=== PATIENT | female | born 1960 | race Caucasian/White ===

== ENCOUNTER 2018-05-26 09:46 | Emergency (ER) | payer MEDICARE, MEDICAID ==
[~2018-05-26] VITALS: Ht 162.6 cm; Wt 68.0 kg
[~2018-05-26 09:46] MED LIST: ALPR.25T GT; AMIT50TA3 PO; CITA10TA GT; HYDR-3720 PO; TRIA1TAB3 PO
--- OUTSIDE RECORDS SUMMARY | 2018-05-26 09:52 | XMS REPORT ---
Author Author [facility] [employer] [facility] Medical Staff Organization [facility] Address [address] [place], [place] [address] Phone [phone] Care Team Providers Care Compressed Gas Plant Worker Name Role Phone STEPHEN SAMS MD PP [phone] Summary purpose TRANSITION OF CARE AUTO GENERATION Chief Complaint and Reason for Visit No authorized Reason for Visit (Admitting Diagnosis) is available for this visit. Problem list No authorized problems tracked for continuity of care are available for this visit. Encounters No authorized problems tracked for encounter diagnoses are available for this visit. Medications No medications recorded for this patient visit Allergies, adverse reactions, alerts Allergen Category Ingredient Status Reaction Severity Onset Sulfa (Sulfonamide Antibiotics) Drug Allergy Sulfa (Sulfonamide Antibiotics) Confirmed or Verified Immunizations No immunizations recorded for this patient visit Relevant diagnostic tests and/or laboratory data No authorized results are available for this patient visit History of procedures No procedures recorded for this patient visit. Functional status No functional or cognitive status observations are available for this visit. Vital signs No authorized vital signs are available for this visit. Social history No Social History or smoking status observations were recorded for this visit. ( Unknown if ever smoked.) Treatment Plan No treatment plan text is available for this visit. Hospital discharge instructions No discharge instruction text is available for this visit.
--- OUTSIDE RECORDS SUMMARY | 2018-05-26 09:52 | XMS REPORT ---
Author Author [facility] [employer] [facility] Medical Staff Organization [facility] Address [address], [place] [address] Phone [phone] Care Team Providers Care Surplus Property Disposal Agent Name Role Phone STEPHEN SAMS MD, PP [phone] Summary purpose TRANSITION OF CARE AUTO GENERATION [...]
--- OUTSIDE RECORDS SUMMARY | 2018-05-26 09:52 | XMS REPORT ---
Author Author Gina [facility] [employer] [facility] Medical Staff Organization [facility] Address [address] [place], [place] [address] Phone [phone] Care Team Providers Care Pipe Fitter Maintenance Name Role Phone STEPHEN SAMS MD PP [phone] Summary purpose TRANSITION OF CARE AUTO GENERATION [...]
--- OUTSIDE RECORDS SUMMARY | 2018-05-26 09:53 | XMS REPORT ---
Author Author [facility] [employer] [facility] Medical Staff Organization [facility] Address [address], [place] [address] Phone [phone] Care Team Providers Care Metal Pattern Maker Name Role Phone STEPHEN SAMS MD PP [phone] Summary purpose TRANSITION OF CARE AUTO GENERATION [...]
--- OUTSIDE RECORDS SUMMARY | 2018-05-26 09:53 | XMS REPORT ---
Author Author [facility] Medical Staff Organization [facility] Address [address] [place], [place] [address] Phone [phone] Summary purpose TRANSITION OF CARE AUTO GENERATION [...] visit Relevant diagnostic tests and/or laboratory data RESULTS Routine Urinalysis [id number]:25:00 Result Normal Range Units Color Straw PATIENT NAME MAYBE UPDATED TO LEAH . Clarity Clear PATIENT NAME MAYBE UPDATED TO LEAH SOON. Specific [place] 1.003 PATIENT NAME MAYBE UPDATED TO LEAH . Refractometer Result pH 5.5 4.5-8.0 PATIENT NAME MAYBE UPDATED TO LEAH SOON. Glucose NEGATIVE PATIENT NAME MAYBE UPDATED TO LEAH SOON. Bilirubin NEGATIVE PATIENT NAME MAYBE UPDATED TO LEAH . Ketones NEGATIVE PATIENT NAME MAYBE UPDATED TO LEAH SOON. Protein NEGATIVE PATIENT NAME MAYBE UPDATED TO LEAH . Urobilinogen 0.2 0-0.2 E.U./dL PATIENT NAME MAYBE UPDATED TO LEAH SOON. Nitrites NEGATIVE PATIENT NAME MAYBE UPDATED TO LEAH SOON. Blood NEGATIVE PATIENT NAME MAYBE UPDATED TO LEAH . Leukocytes NEGATIVE PATIENT NAME MAYBE UPDATED TO LEAH SOON. WBCs No WBC's Seen PATIENT NAME MAYBE UPDATED TO LEAH SOON. RBCs No RBC's Seen. PATIENT NAME MAYBE UPDATED TO LEAH SOON. Squamous Epithelial Few PATIENT NAME MAYBE UPDATED TO LEAH . Chemistry [id number]:55:00 Result Normal Range Units Sodium 136 134-145 mEq/l PATIENT NAME MAYBE UPDATED TO SOON. PATIENT NAME MAYBE UPDATED TO SOON. PATIENT NAME MAYBE UPDATED TO SOON. Potassium 5.0 3.5-5.1 mEq/l PATIENT NAME MAYBE UPDATED TO LEAH SOON. PATIENT NAME MAYBE UPDATED TO LEAH SOON. PATIENT NAME MAYBE UPDATED TO SOON. Chloride 100 98-107 mEq/l PATIENT NAME MAYBE UPDATED TO LEAH SOON. PATIENT NAME MAYBE UPDATED TO LEAH SOON. PATIENT NAME MAYBE UPDATED TO LEAH SOON. CO2 26.6 22-28 mEq/l PATIENT NAME MAYBE UPDATED TO LEAH SOON. PATIENT NAME MAYBE UPDATED TO LEAH SOON. PATIENT NAME MAYBE UPDATED TO LEAH SOON. Glucose 99 70-105 mg/dl PATIENT NAME MAYBE UPDATED TO LEAH SOON. PATIENT NAME MAYBE UPDATED TO LEAH SOON. PATIENT NAME MAYBE UPDATED TO LEAH SOON. BUN 9 7-18 mg/dl PATIENT NAME MAYBE UPDATED TO LEAH SOON. PATIENT NAME MAYBE UPDATED TO LEAH SOON. PATIENT NAME MAYBE UPDATED TO LEAH SOON. Creatinine 0.71 0.6-1.0 mg/dl PATIENT NAME MAYBE UPDATED TO LEAH SOON. PATIENT NAME MAYBE UPDATED TO SOON. PATIENT NAME MAYBE UPDATED TO SOON. Calcium 9.0 8.4-10.2 mg/dl PATIENT NAME MAYBE UPDATED TO LEAH SOON. PATIENT NAME MAYBE UPDATED TO LEAH SOON. PATIENT NAME MAYBE UPDATED TO SOON. TP - Total Protein 7.7 6.0-8.3 g/dl PATIENT NAME MAYBE UPDATED TO LEAH SOON. PATIENT NAME MAYBE UPDATED TO LEAH SOON. PATIENT NAME MAYBE UPDATED TO LEAH SOON. Albumin 4.1 3.5-5 g/dl PATIENT NAME MAYBE UPDATED TO LEAH SOON. PATIENT NAME MAYBE UPDATED TO LEAH SOON. PATIENT NAME MAYBE UPDATED TO SOON. Bilirubin - Total 0.4 0.1-1.0 mg/dl PATIENT NAME MAYBE UPDATED TO LEAH SOON. PATIENT NAME MAYBE UPDATED TO LEAH SOON. PATIENT NAME MAYBE UPDATED TO LEAH SOON. AST 25 10-42 IU/L PATIENT NAME MAYBE UPDATED TO LEAH SOON. Moderate Lipemia ALT 35 12-65 IU/L PATIENT NAME MAYBE UPDATED TO LEAH SOON. PATIENT NAME MAYBE UPDATED TO LEAH SOON. PATIENT NAME MAYBE UPDATED TO SOON. ALP H 85 25-72 IU/L PATIENT NAME MAYBE UPDATED TO SOON. PATIENT NAME MAYBE UPDATED TO LEAH SOON. PATIENT NAME MAYBE UPDATED TO SOON. Osmolality L 270.7 280-300 mOsm/L PATIENT NAME MAYBE UPDATED TO LEAH SOON. PATIENT NAME MAYBE UPDATED TO LEAH SOON. PATIENT NAME MAYBE UPDATED TO LEAH SOON. Albumin/Globulin Ratio 1.1 0-8 PATIENT NAME MAYBE UPDATED TO LEAH SOON. PATIENT NAME MAYBE UPDATED TO LEAH SOON. PATIENT NAME MAYBE UPDATED TO SOON. Anion GAP 9.4 8-16 PATIENT NAME MAYBE UPDATED TO SOON. PATIENT NAME MAYBE UPDATED TO LEAH SOON. PATIENT NAME MAYBE UPDATED TO LEAH SOON. BUN/Creatinine Ratio 12.7 10-20 PATIENT NAME MAYBE UPDATED TO SOON. PATIENT NAME MAYBE UPDATED TO SOON. PATIENT NAME MAYBE UPDATED TO SOON. Estimated GFR 85 >=60 mL/min/1.7 PATIENT NAME MAYBE UPDATED TO SOON. PATIENT NAME MAYBE UPDATED TO SOON. PATIENT NAME MAYBE UPDATED TO SOON. Hematology [id number]:55:00 Result Normal Range Units WBC 9.7 4.8-10.8 103/uL PATIENT NAME MAYBE UPDATED TO SOON. RBC 4.6 4.2-5.4 106/uL PATIENT NAME MAYBE UPDATED TO SOON. HGB 14.6 12.0-16.0 g/dl PATIENT NAME MAYBE UPDATED TO SOON. HCT 41.8 36.9-47.0 % PATIENT NAME MAYBE UPDATED TO SOON. MCV 90.1 81-99 FL PATIENT NAME MAYBE UPDATED TO SOON. MCH H 31.5 27-31 pg PATIENT NAME MAYBE UPDATED TO SOON. MCHC 34.9 33-37 g/dl PATIENT NAME MAYBE UPDATED TO SOON. RDW 13.3 11.5-15.5 % PATIENT NAME MAYBE UPDATED TO SOON. PLT H 470 130-400 103/uL PATIENT NAME MAYBE UPDATED TO SOON. MPV 9.2 7.3-10.4 FL PATIENT NAME MAYBE UPDATED TO LEAH SOON. Neutro % 58.0 40-70 % PATIENT NAME MAYBE UPDATED TO LEAH SOON. Lymph % 30.9 20-40 % PATIENT NAME MAYBE UPDATED TO LEAH SOON. [place] % 8.3 0-10.0 % PATIENT NAME MAYBE UPDATED TO LEAH SOON. Eos % 1.1 0-7.0 % PATIENT NAME MAYBE UPDATED TO LEAH SOON. Baso % 1.3 0-2 % PATIENT NAME MAYBE UPDATED TO LEAH SOON. Neutro # 5.6 1.5-7.5 103/uL PATIENT NAME MAYBE UPDATED TO LEAH SOON. Lymph # 3.0 0.9-4.0 103/uL PATIENT NAME MAYBE UPDATED TO LEAH SOON. [place] # 0.8 0-0.8 103/uL PATIENT NAME MAYBE UPDATED TO LEAH SOON. Eos # 0.1 0-0.6 103/uL PATIENT NAME MAYBE UPDATED TO LEAH SOON. Baso # 0.1 0-0.1 103/uL PATIENT NAME MAYBE UPDATED TO LEAH SOON. Body Fluid [id number]:25:00 Result Normal Range Units pH 5.5 4.5-8.0 PATIENT NAME MAYBE UPDATED TO LEAH SOON. Radiology Results [id number]:51:00 CT C-SPINE W/O CONT PACs Image DATE OF EXAM: Jul 24 2015 [id number] CERVICAL SPINE WO CONTRAST : RADIOLOGY REPORT DATE OF SERVICE: 07/24/15 HISTORY: Status post fall 2 days ago, headache and nausea. COMPUTED TOMOGRAPHY CERVICAL SPINE WITHOUT CONTRAST 1345 HOURS Axial images were obtained with sagittal and coronal reformats. The axial images do not show evidence of acute pathology. There is arthritic change involving facets bilaterally. No significant compromise of neural foramen or spinal canal is seen. The odontoid is intact. There is intervertebral narrowing and disc degeneration mild C5-C6, C6-C7 level. The facets show arthritic change C3 through C7 mild to moderate. No fracture is defined. No soft tissue abnormalities are demonstrated. Normal alignment and position vertebral bodies demonstrated. IMPRESSION: 1. Mild to moderate osteoarthritis. 2. No fracture. DO ANUPAMA Rodriguez/xuan 07/24/2015 14:11:00 / 07/24/2015 14:31:27 cc: This document has been electronically Signed by: On: CT HEAD W/O CONT PACs Image DATE OF EXAM: Jul 24 2015 [id number] HEAD WO CONTRAST : RADIOLOGY REPORT DATE OF SERVICE: 07/24/15 HISTORY: Status post fall 2 days ago, headache and nausea. COMPUTED TOMOGRAPHY HEAD WITHOUT CONTRAST AND WITH BONE WINDOWS 1344 HOURS Axial images were evaluated. No active or acute intracranial pathology can be seen. The ventricles and sulci appear normal. Physiologic calcifications are minimally present. No hemorrhage is defined. No abnormal extra-axial fluid collections are demonstrated. The bony windows do not show evidence of active pathology. The sinuses are clear as seen. The frontal sinus is atrophic. Mastoid cells are clear. IMPRESSION: Normal study. Paxton Mcclendon DO WP/nh 07/24/2015 14:11:00 / 07/24/2015 14:29:45 cc: This document has been electronically Signed by: On: [id number]:55:00 Result Normal Range Units MPV 9.2 7.3-10.4 FL PATIENT NAME MAYBE UPDATED TO LEAH LILY. History of procedures No procedures recorded for this patient visit. Functional status Functional Status Finding Observation Time Abdomen Appearance round [id number]:05 Abdomen soft 50-59-615463:05 Urination normal :05 Quality sym/unlabored :05 Cough absent :05 Secretions no :05 Airway natural :05 Oxygen no :25 Temp >100.4 no :05 Temp <96.8 no :05 Chills with rigors no :05 HR > 90bpm no :05 Respirations > 20 no :05 Systolic <90 no 91-22-024765:05 headache stiff neck no :05 Rapid Resp no 00-02-984517:05 Nursing Note Discharge instructions given, voices understanding. Report from [facility] er visit received, placed in file. HIM corrected per pt to include her regular physician, Dr Hyatt. Pt denies concerns. Amb off unit in good condition. [id number]:25 Vital signs Type Value Date Respiration Rate 18breaths per minute :25 Pulse 83beats per minute :25 Oxygen Saturation 98% 76-26-401627:25 BP Systolic 126mmHg :25 BP Diastolic 69mmHg 48-83-872408:25 Temperature 98.3F :25 Weight 152LB :46 Social history No Social History or smoking status observations were recorded for this visit. ( Unknown if ever smoked.) Treatment Plan No treatment plan text is available for this visit. Hospital discharge instructions Dismissal Condition good Disposition on DC home DC Inst/Educ Give yes Med/Side Effects Rev yes Tetanus Vac not current
--- OUTSIDE RECORDS SUMMARY | 2018-05-26 09:53 | XMS REPORT ---
Author Author [facility] Medical Staff Organization [facility] Address [address] [place], [place] [address] Phone [phone] Summary purpose TRANSITION OF CARE AUTO GENERATION [...] tests and/or laboratory data RESULTS Routine Urinalysis [id number]:25:00 Result Normal Range Units Color Straw PATIENT NAME MAYBE UPDATED TO LEAH . Clarity Clear PATIENT NAME MAYBE UPDATED TO LEAH SOON. Specific [place] 1.003 PATIENT NAME MAYBE UPDATED TO LEAH . Refractometer Result pH 5.5 4.5-8.0 PATIENT NAME MAYBE UPDATED TO LEAH SOON. Glucose NEGATIVE PATIENT NAME MAYBE UPDATED TO LEAH . Bilirubin NEGATIVE PATIENT NAME MAYBE UPDATED TO LEAH . Ketones NEGATIVE PATIENT NAME MAYBE UPDATED TO LEAH SOON. Protein NEGATIVE PATIENT NAME MAYBE UPDATED TO LEAH . Urobilinogen 0.2 0-0.2 E.U./dL PATIENT NAME MAYBE UPDATED TO LEAH . Nitrites NEGATIVE PATIENT NAME MAYBE UPDATED TO LEAH SOON. Blood NEGATIVE PATIENT NAME MAYBE UPDATED TO LEAH . Leukocytes NEGATIVE PATIENT NAME MAYBE UPDATED TO LEAH SOON. WBCs No WBC's Seen PATIENT NAME MAYBE UPDATED TO LEAH SOON. RBCs No RBC's Seen. PATIENT NAME MAYBE UPDATED TO LEAH SOON. Squamous Epithelial Few PATIENT NAME MAYBE UPDATED TO LEAH . Chemistry [id number]:55:00 Result Normal Range Units Sodium 136 134-145 [...] PATIENT NAME MAYBE UPDATED TO SOON. Hematology [id number]:55:00 Result Normal Range Units WBC 9.7 4.8-10.8 [...] PATIENT NAME MAYBE UPDATED TO LEAH SOON. [place] % 8.3 0-10.0 % PATIENT NAME MAYBE UPDATED TO LEAH SOON. Eos % 1.1 0-7.0 % PATIENT NAME MAYBE UPDATED TO LEAH SOON. Baso % 1.3 0-2 % PATIENT NAME MAYBE UPDATED TO LEAH SOON. Neutro # 5.6 1.5-7.5 103/uL PATIENT NAME MAYBE UPDATED TO LEAH SOON. Lymph # 3.0 0.9-4.0 103/uL PATIENT NAME MAYBE UPDATED TO LEAH SOON. [place] # 0.8 0-0.8 103/uL PATIENT NAME MAYBE UPDATED TO LEAH SOON. Eos # 0.1 0-0.6 103/uL PATIENT NAME MAYBE UPDATED TO LEAH SOON. Baso # 0.1 0-0.1 103/uL PATIENT NAME MAYBE UPDATED TO LEAH SOON. Body Fluid [id number]:25:00 Result Normal Range Units pH 5.5 4.5-8.0 PATIENT NAME MAYBE UPDATED TO LEAH SOON. Radiology Results [id number]:21:00 CT C-SPINE W/O CONT PACs Image DATE OF EXAM: Jul 24 2015 [id number] CERVICAL SPINE WO CONTRAST : RADIOLOGY REPORT [...] document has been electronically Signed by: On: DATE OF EXAM: Jul 24 2015 [id number] CERVICAL SPINE WO CONTRAST : RADIOLOGY REPORT [...] Mild to moderate osteoarthritis. 2. No fracture. Paxton Mcclendon DO /nd 07/24/2015 14:11:07/24/2015 14:31:27 cc: This document has been electronically Signed by: PAXTON MCCLENDON DO On: Jul 25 20159:21A Result Amended on 2015-07-25 at 09:21:12. Previous status was CO. CT HEAD W/O CONT PACs Image DATE OF EXAM: Jul 24 2015 [id number] HEAD WO CONTRAST : RADIOLOGY REPORT DATE [...] clear. IMPRESSION: Normal study. Paxton Mcclendon DO WP/nd 07/24/2015 14:11: / 07/24/2015 14:29:45 cc: This document has been electronically Signed by: On: DATE OF EXAM: Jul 24 2015 [id number] HEAD WO CONTRAST : RADIOLOGY REPORT DATE [...] This document has been electronically Signed by: PAXTON MCCLENDON DO On: Jul 25 20159:21A Result Amended on 2015-07-25 at 09:21:05. Previous status was CO. [id number]:55:00 Result Normal Range Units MPV 9.2 7.3-10.4 FL PATIENT NAME MAYBE UPDATED TO LEAH LILY. History of procedures Procedure Code Code Type Description Date Performed Performing Physician 48771 CPT-4 ROUTINE VENIPUNCTURE 07-24-2015 KAYLA FIDEL 00072 CPT-4 CT HEAD/BRAIN W/O DYE 07-24-2015 KAYLA FIDEL 21761 CPT-4 CT NECK SPINE W/O DYE 07-24-2015 KAYLA FIDEL 33382 CPT-4 COMPREHEN METABOLIC PANEL 07-24-2015 KAYLA FIDEL 24932 CPT-4 URINALYSIS, AUTO W/SCOPE 07-24-2015 KAYLA FIDEL 48525 CPT-4 COMPLETE CBC W/AUTO DIFF WBC 07-24-2015 KAYLA FIDEL 21685 CPT-4 EMERGENCY DEPT VISIT 07-24-2015 KAYLA FIDEL 65664 CPT-4 EMERGENCY DEPT VISIT 07-24-2015 KAYLA FIDEL Functional status Functional Status Finding Observation Time Abdomen Appearance round 63-64-499806:05 Abdomen soft 26-62-123142:05 Urination normal :05 Quality sym/unlabored :05 Cough absent :05 Secretions no :05 Airway natural :05 Oxygen no 86-57-036678:25 Temp >100.4 no :05 Temp <96.8 no :05 Chills with rigors no :05 HR > 90bpm no :05 Respirations > 20 no :05 Systolic <90 no :05 headache stiff neck no :05 Rapid Resp no :05 Nursing Note Discharge instructions given, voices understanding. Report from [facility] er visit received, placed in file. HIM corrected per pt to include her regular physician, Dr Hyatt. Pt denies concerns. Amb off unit in good condition. [id number]:25 Vital signs Type Value Date Respiration Rate 18breaths per minute : Pulse 83beats per minute : Oxygen Saturation 98% :25 BP Systolic 126mmHg :25 BP Diastolic 69mmHg :25 Temperature 98.3F :25 Weight 152LB :46 Social [...]
--- OUTSIDE RECORDS SUMMARY | 2018-05-26 09:53 | XMS REPORT ---
Author Author [facility] [employer] [facility] Medical Staff Organization [facility] Address [address], [place] [address] Phone [phone] Care Team Providers Care Equine Intern Name Role Phone STEPHEN SAMS MD PP [phone] Summary purpose TRANSITION OF CARE AUTO GENERATION [...]
--- OUTSIDE RECORDS SUMMARY | 2018-05-26 09:53 | XMS REPORT ---
Author Author [employer] [facility] Medical Staff Organization [facility] Address [address], [place] [address] Phone [phone] Care Team Providers Care Head Athletic Trainer/Strength Coach Name Role Phone STEPHEN SAMS MD, PP [phone] Summary purpose TRANSITION OF CARE AUTO GENERATION [...] for this patient visit History of procedures Procedure Code Code Type Description Date Performed Performing Physician 14586 CPT-4 PT EVALUATION 10-08-2015 STEPHEN SAMS 33766 CPT-4 ELECTRIC STIMULATION THERAPY 10-10-2015 STEPHEN SAMS 63779 CPT-4 MANUAL THERAPY 10-10-2015 STEPHEN SAMS Functional status No functional or cognitive status [...]
--- OUTSIDE RECORDS SUMMARY | 2018-05-26 09:53 | XMS REPORT ---
Author Author [facility] [employer] [facility] Medical Staff Organization [facility] Address [address], [place] [address] Phone [phone] Care Team Providers Care Flat Knitter Name Role Phone STEPHEN SAMS MD, PP [phone] Summary purpose TRANSITION OF CARE AUTO GENERATION [...]
--- OUTSIDE RECORDS SUMMARY | 2018-05-26 09:54 | XMS REPORT ---
Author Author Saleem Van [facility] [employer] Address Unknown Phone Unavailable Care Team Providers Care Produce Specialist Name Role Phone Saleem Van Unavailable Allergies, Adverse Reactions, Alerts Substance Reaction Event Type Sulfa Info Not Available Drug Allergy Problems Problem Type Condition Code Onset Dates Condition Status Problem C. difficile colitis A04.7 Active Problem Diverticulosis of colon (without mention of hemorrhage) 562.10 Active Problem Peptic ulcer disease K27.9 Active Assessment Microscopic colitis, unspecified K52.839 Active Problem Diarrhea, unspecified type R19.7 Active Problem Positive serology for Helicobacter pylori R76.8 Active Problem Microscopic colitis, unspecified K52.839 Active Problem Hepatitis C carrier V02.62 Active Problem Diarrhea 787.91 Active Problem Left sided abdominal pain R10.9 Active Problem Chronic hepatitis C without hepatic coma B18.2 Active Medications Medication Code System Code Instructions Start Date End Date Status Dosage Amitriptyline HCl [facility] [address]-13 100 MG Orally Once a day 1 tablet at bedtime Alprazolam [facility] [address]-77 1 MG Orally Three times a day 1 tablet Oxycodone-Acetaminophen [facility] [address]-84 10-325 MG Orally Three times a day 1 tablet as needed Simvastatin [facility] [address]-24 20 MG Orally Once a day 1 tablet in the evening Lisinopril [facility] [address]-45 10 MG Orally Once a day 1 tablet Cymbalta [facility] [address]-41 60 MG Orally Once a day 1 capsule Entocort EC [facility] [address]-19 3 MG Orally Once a day Apr 23, 2016 3 tablets Procedures Procedure Coding System Code Date DOC MEDS VERIFIED W/PT OR RE CPT-4 G8427 Jun 03, 2016 Office Visit, Est Pt., Level 3 CPT-4 75895 Jun 03, 2016 Vital Signs Date/Time: Jun 03, 2016 Blood Pressure Diastolic 68 mm Hg Blood Pressure Systolic 133 mm Hg Cardiac Monitoring Heart Rate 88 /min BMI 22.71 Index Weight 145 lbs Height 67 in Results No Known Results Summary Purpose eClinicalWorks Submission
--- OUTSIDE RECORDS SUMMARY | 2018-05-26 09:54 | XMS REPORT ---
Author Author DIANNA CERDA [facility] Address [address] [place] [address] Care Team Providers Care Town Manager Name Role Phone DIANNA CERDA Unavailable PROBLEMS Unknown Problems ALLERGIES Substance Reaction Event Type Date Status Sulfacetamide Sodium Unknown Drug Allergy Jul, Active SOCIAL HISTORY No smoking Hx information available PLAN OF CARE Activity Details Follow Up REST #11 Reason: VITAL SIGNS Blood pressure systolic 137 mmHg 2016-07-19 Blood pressure diastolic 92 mmHg 2016-07-19 MEDICATIONS Medication Instructions Dosage Frequency Start Date End Date Duration Status Amitriptyline HCl Active Hydrocodone-Acetaminophen 10-325 MG Orally every 6 hrs 1 capsule as needed 6h Active Xanax Active Triamterene-HCTZ Active RESULTS No Results PROCEDURES Procedure Date Ordered Related Diagnosis Body Site LTD ORAL EVALUATION - PROBLEM FOCUS Jul 19, 2016 INTRAORL-PERIAPICAL 1 FILM 64046 Jul 19, 2016 EXTRAC ERUPTED TOOTH/EXPOSED ROOT Jul 19, 2016 IMMUNIZATIONS No Known Immunizations
--- OUTSIDE RECORDS SUMMARY | 2018-05-26 09:54 | XMS REPORT ---
Author Author Saleem Van [facility] eClinicalWorks Address Unknown Phone Unavailable Care Team Providers Care Central Office Trouble Shooter Name Role Phone Saleem Van CP Unavailable Allergies No Known Allergies Problems Problem Type Condition Code Onset Dates Condition Status Problem Peptic ulcer disease K27.9 Active Problem C. difficile colitis A04.7 Active Problem Positive serology for Helicobacter pylori R76.8 Active Problem Left sided abdominal pain R10.9 Active Problem Diarrhea, unspecified type R19.7 Active Problem Diarrhea 787.91 Active Problem Diverticulosis of colon (without mention of hemorrhage) 562.10 Active Problem Chronic hepatitis C without hepatic coma B18.2 Active Problem Hepatitis C carrier V02.62 Active Medications No Known Medications Results No Known Results Summary Purpose eClinicalWorks Submission
--- OUTSIDE RECORDS SUMMARY | 2018-05-26 09:54 | XMS REPORT ---
Author Author DIANNA CERDA [facility] eClinicalWorks Address Unknown Phone Unavailable Care Team Providers Care Station Manager Name Role Phone DIANNA CERDA CP Unavailable Allergies, Adverse Reactions, Alerts Substance Reaction Event Type Sulfacetamide Sodium Info Not Available Drug Allergy Problems Problem Type Condition Code Onset Dates Condition Status Assessment Dental examination Z01.20 Active Medications Medication Code System Code Instructions Start Date End Date Status Dosage [place] [facility] [address]-33 7.5-325 MG Orally every4- 6 hrs 1-2 tablets Triamterene-HCTZ [facility] [address]-00 not defined Xanax [facility] [address]-16 not defined Amitriptyline HCl [facility] [address]-04 not defined Fentanyl [facility] [address]-13 25 MCG/HR Transdermal 1 patch to skin Clindamycin HCl [facility] [address]-46 150 MG Orally every 8 hrs 2 capsules Hydrocodone-Acetaminophen [facility] [address]-47 10-325 MG Orally every 6 hrs 1 capsule as needed Procedures Procedure Coding System Code Date Dental no charge CPT-4 D0099 Mar 09, 2016 Vital Signs Date/Time: Mar 09, 2016 Blood Pressure Diastolic 68 mmHg Blood Pressure Systolic 118 mmHg Results No Known Results Summary Purpose eClinicalWorks Submission
--- OUTSIDE RECORDS SUMMARY | 2018-05-26 09:54 | XMS REPORT ---
Author Author DIANNA CERDA [facility] eClinicalWorks Address Unknown Phone Unavailable Care Team Providers Care Container Washer Machine Name Role Phone DIANNA CERDA CP Unavailable Allergies, Adverse Reactions, Alerts Substance Reaction Event Type Sulfacetamide Sodium Info Not Available Drug Allergy Problems Problem Type Condition Code Onset Dates Condition Status Assessment Dental examination Z01.20 Active Medications Medication Code System Code Instructions Start Date End Date Status Dosage Hydrocodone-Acetaminophen [facility] [address]-33 10-325 MG Orally every 6 hrs 1 capsule as needed Fentanyl [facility] [address]-51 25 MCG/HR Transdermal 1 patch to skin Xanax [facility] [address]-82 not defined Triamterene-HCTZ [facility] [address]-34 not defined Amitriptyline HCl [facility] [address]-27 not defined [place] [facility] [address]-05 7.5-325 MG Orally every4- 6 hrs 1-2 tablets Clindamycin HCl [facility] [address]-48 150 MG Orally every 8 hrs 2 capsules Procedures Procedure Coding System Code Date EXTRAC ERUPTED TOOTH/EXPOSED ROOT CPT-4 D7140 Feb 16, 2016 Billing Notes on claim CPT-4 EC109 Feb 16, 2016 EXTRAC ERUPTED TOOTH/EXPOSED ROOT CPT-4 D7140 Feb 16, 2016 Vital Signs Date/Time: Feb 16, 2016 Blood Pressure Diastolic 70 mmHg Blood Pressure Systolic 116 mmHg Results No Known Results Summary Purpose eClinicalWorks Submission
--- OUTSIDE RECORDS SUMMARY | 2018-05-26 09:54 | XMS REPORT ---
Author Author Saleem Van [facility] eClinicalWorks Address Unknown Phone Unavailable Care Team Providers Care Public Housing Manager Name Role Phone Saleem Van CP Unavailable [...] Problem Hepatitis C carrier V02.62 Active Medications Medication Code System Code Instructions Start Date End Date Status Dosage Entocort EC [facility] [address]-28 3 MG Orally Once a day Apr 23, 2016 3 tablets Results No Known Results Summary Purpose eClinicalWorks Submission
--- OUTSIDE RECORDS SUMMARY | 2018-05-26 09:54 | XMS REPORT ---
Author Author Saleem Van Organization eClinicalWorks Address Unknown Phone Unavailable Care Team Providers Care Hr Payroll Coordinator Name Role Phone Saleem Van CP Unavailable Allergies No Known Allergies Problems Problem Type Condition Code Onset Dates Condition Status Assessment Left sided abdominal pain R10.9 Active Problem Peptic ulcer disease K27.9 Active Problem C. difficile colitis A04.7 Active Assessment Diarrhea, unspecified type R19.7 Active Problem Positive [...] Instructions Start Date End Date Status Dosage Oxycodone-Acetaminophen [facility] [address]-13 10-325 MG Orally Three times a day 1 tablet as needed Alprazolam [facility] [address]-81 1 MG Orally Three times a day 1 tablet Results Name Result Date Reference Range Unit Abnormality Flag t-Transglutaminase (tTG) IgA Surgical to [facility] Pathology ----Pathologist: See Report [id number] Summary Purpose eClinicalWorks Submission
--- OUTSIDE RECORDS SUMMARY | 2018-05-26 09:54 | XMS REPORT ---
Author Author Saleem Van [facility] eClinicalWorks Address Unknown Phone Unavailable Care Team Providers Care Rrts Name Role Phone Saleem Van CP Unavailable Allergies, Adverse Reactions, Alerts Substance Reaction Event Type Sulfa Info Not Available Drug Allergy Problems Problem Type Condition Code Onset Dates Condition Status Assessment Diarrhea, unspecified type R19.7 Active Problem Peptic ulcer disease K27.9 Active Problem C. difficile colitis A04.7 Active Problem Positive serology for Helicobacter pylori R76.8 Active Problem Left sided abdominal pain R10.9 Active Problem Diarrhea, unspecified type R19.7 Active Problem Diarrhea 787.91 Active Problem Diverticulosis of colon (without mention of hemorrhage) 562.10 Active Problem Chronic hepatitis C without hepatic coma B18.2 Active Problem Hepatitis C carrier V02.62 Active Assessment Chronic hepatitis C without hepatic coma B18.2 Active Assessment Left sided abdominal pain R10.9 Active Assessment Positive serology for Helicobacter pylori R76.8 Active Assessment C. difficile colitis A04.7 Active Medications Medication Code System Code Instructions Start Date End Date Status Dosage Oxycodone-Acetaminophen [facility] [address]-30 10-325 MG Orally Three times a day 1 tablet as needed Alprazolam [facility] [address]-59 1 MG Orally Three times a day 1 tablet Procedures Procedure Coding System Code Date Office Visit, New Pt., Level 4 CPT-4 97307 Apr 08, 2016 Vital Signs Date/Time: Apr 08, 2016 Blood Pressure Diastolic 67 mm Hg Blood Pressure Systolic 128 mm Hg Cardiac Monitoring Heart Rate 72 /min Weight 145.8 lbs Results No Known Results Summary Purpose eClinicalWorks Submission
--- OUTSIDE RECORDS SUMMARY | 2018-05-26 09:54 | XMS REPORT ---
Author Author SHWETA PARTIDA Organization [facility] Address [address] [place] [address] Care Team Providers Care Corporate Affairs Manager Name Role Phone SHWETA PARTIDA Unavailable PROBLEMS Unknown Problems ALLERGIES Substance Reaction Event Type Date Status Sulfacetamide Sodium Unknown Drug Allergy Apr, Active ENCOUNTERS Encounter Location Date Diagnosis [facility] [address] [facility] [id number] [place] [address] Apr, Acute non-recurrent frontal sinusitis J01.10 [facility] [address] [place] [phone] Sep, [facility] [address] [place] [phone] Jul, [facility] [address] [place] [phone] Mar, [facility] [address] [place] [phone] Feb, Dental examination Z01.20 [facility] [address] [place] [phone] November, Dental examination Z01.20 IMMUNIZATIONS No Known Immunizations SOCIAL HISTORY Never Assessed REASON FOR VISIT Cough, headache, sore throat x10 days JStrasserRN PLAN OF CARE Activity Details Follow Up if not improving with PCP or reg follow up Reason: VITAL SIGNS Height 67 in 2018-04-22 Weight 149.8 lbs 2018-04-22 Temperature 98.3 degrees Fahrenheit 2018-04-22 Heart Rate 90 bpm 2018-04-22 Respiratory Rate 22 2018-04-22 Oximetry 95 % 2018-04-22 BMI 23.46 kg/m2 2018-04-22 Blood pressure systolic 100 mmHg 2018-04-22 Blood pressure diastolic 70 mmHg 2018-04-22 MEDICATIONS Medication Instructions Dosage Frequency Start Date End Date Duration Status Lisinopril Active Hydrocodone-Acetaminophen 10-325 MG Orally every 6 hrs 1 capsule as needed 6h Active Xanax Active Mucinex DM 30-600 MG Orally every 12 hrs 1 tablet as needed 12h Active Augmentin 875-125 MG Orally every 12 hrs 1 tablet 12h Apr,Apr 10 day(s) Active Amitriptyline HCl Active Triamterene-HCTZ Active Duloxetine HCl 20 MG Orally Twice a day 1 capsule 12h 30 day(s) Active Simvastatin 20 MG Orally Once a day 1 tablet in the evening 24h 30 day(s) Active RESULTS No Results PROCEDURES Procedure Date Ordered Result Body Site [facility] VIS[facility] NEW PATIENT Apr 22, 2018 INSTRUCTIONS MEDICATIONS ADMINISTERED No Known Medications MEDICAL (GENERAL) HISTORY Type Description Date Medical History HBP Medical History Arthritis Medical History Back trouble Medical History Neck Injury Surgical History Spleen Removed 2007 Hospitalization History Previous surgeries
--- OUTSIDE RECORDS SUMMARY | 2018-05-26 09:54 | XMS REPORT | Clinical Summary ---
Author Author Admin, vushaper Organization All Address Unknown Phone Unavailable Allergies, Adverse Reactions, Alerts Allergy Name Reaction Description Start Date Severity Status Provider SULFA itchy/rash Critical Active Sue Luque MD Conditions or Problems Problem Name Problem Code Onset Date Status Entry Date Provider Comment Standard Description Annotate U T I-Recurrent Active Sue Luque MD Urinary tract infection, site not specified Fecal incontinence 787.60 Active Sue Luque MD Full incontinence of feces Medication List Medication Instructions Start Date Stop Date Generic Name NDC Status Provider Patient Instruction Drug Treatment Unknown - unknown Vital Signs Date Name Value Unit Range Description blood pressure, diastolic - 8462-4 62 mm[Hg] BP terrell blood pressure, systolic - 8480-6 131 mm[Hg] BP sys height E&M - 8302-2 63 [in_us] Bdy height pulse rate E&M - 8867-4 87 /min Heart rate temperature E&M 98.6 [degF] Body temperature weight E&M - 3141-9 154 [lb_av] Weight Measured Diagnostic Results Date Name Value Unit Range Description Office Visit: CN-recurrent UTI - Chemistry RBC, urine, dipstick negative protein, total urine random negative mg/dL Office Visit: CN-recurrent UTI - Urinalysis pH, urine, semiquantitative 5 specific gravity, urine 1.010 ketones, urine, by test strip negative bilirubin, urine negative glucose, urine, semiquantitative negative urinalysis, routine Clean Catch culture status No urine color yellow appearance, urine clear leukocyte esterase, urine, by dipstick negative nitrite, urine, semiquantitative negative urobilinogen, urine, semiquantitative (dipstick) negative protein, urine, semiquantitative (dipstick) negative Encounters Code Encounter Date Provider Facility CPT-80182 Level 3 New Patient 14:49:13 CANCER GENETIC COUNSELOR Sue Luque MD [facility] Procedures Code Procedure Name Date Entry Date Standard Description CPT-97145 Urine Dip (Floor Use Only) 14:49:14 [employer]CER GENETIC COUNSELOR CPT-20581 Bladder Scan 14:49:14 CANCER GENETIC COUNSELOR
--- OUTSIDE RECORDS SUMMARY | 2018-05-26 09:55 | XMS REPORT | Continuity of Care Document ---
Author Author [facility] Organization [facility] Address Unknown Phone Unavailable Allergies Active Description Code Type Severity Reaction Onset Reported/Identified Relationship to Patient Clinical Status Yes Sulfa (Sulfonamide Antibiotics) 491 Drug Allergy N/A N/A Confirmed or Verified Yes sulfa drug 16 Drug N/A N/A Medications There is no data. Problems Date Dx Coded Attending Type Code Diagnosis Diagnosed By 12/28/2013 F 599.0 Urinary tract infection, unspec./pyuria 12/28/2013 F 787.91 Diarrhea, NOS 01/02/2014 F 338.29 OTHER CHRONIC PAIN 01/02/2014 F 723.1 CERVICALGIA 01/02/2014 F 787.91 Diarrhea, NOS 06/14/2014 F 338.29 OTHER CHRONIC PAIN 06/14/2014 F 729.5 Pain in limb 06/14/2014 F 787.91 Diarrhea, NOS 07/12/2014 F 338.4 CHRONIC PAIN SYSNDROME 07/12/2014 F V58.69 High-risk medication, long-term use 07/12/2014 F V68.1 ISSUE OF REPEAT PRESCRIPTIONS 08/01/2014 F 595.9 CYSTITIS, UNSPECIFIED 08/01/2014 F 599.0 Urinary tract infection, unspec./pyuria 08/13/2014 F 338.29 OTHER CHRONIC PAIN 08/13/2014 F 599.0 Urinary tract infection, unspec./pyuria 08/13/2014 F V58.69 High-risk medication, long-term use 08/13/2014 F V68.1 ISSUE OF REPEAT PRESCRIPTIONS 09/12/2014 ELLIOTT SHETTY 338.29 OTHER CHRONIC PAIN 10/15/2014 ELLIOTT SHETTY 300.00 Anxiety state, unspec. 10/15/2014 ELLIOTT SHETTY 338.4 CHRONIC PAIN SYSNDROME 10/15/2014 ELLIOTT SHETTY 727.1 BUNION 11/18/2014 ELLIOTT SHETTY 338.29 OTHER CHRONIC PAIN 11/18/2014 ELLIOTT SHETTY 787.91 Diarrhea, NOS 11/18/2014 ELLIOTT SHETTY V13.02 PERSONAL HISTORY, URINARY (TRACT) INFECTION 11/18/2014 ELLIOTT SHETTY V68.1 ISSUE OF REPEAT PRESCRIPTIONS 11/18/2014 ELLIOTT SHETTY 599.0 Urinary tract infection, unspec./pyuria 11/18/2014 ELLIOTT SHETTY V74.8 SCREEN-BACTERIAL DIS NEC 12/24/2014 ELLIOTT SHETTY 338.29 OTHER CHRONIC PAIN 12/24/2014 ELLIOTT SHETTY V68.1 ISSUE OF REPEAT PRESCRIPTIONS 01/27/2015 ELLIOTT SHETTY 338.29 OTHER CHRONIC PAIN 01/27/2015 ELLIOTT SHETTY 724.5 BACKACHE, UNSPECIFIED 01/27/2015 ELLIOTT SHETTY V58.69 High-risk medication, long-term use 01/27/2015 ELLIOTT SHETTY V68.1 ISSUE OF REPEAT PRESCRIPTIONS 03/04/2015 MIRYAM ZHAO 338.29 OTHER CHRONIC PAIN 03/04/2015 MIRYAM ZHAO V58.69 High-risk medication, long-term use 03/04/2015 MIRYAM ZHAO V68.1 ISSUE OF REPEAT PRESCRIPTIONS 03/26/2015 MIRYAM ZHAO 338.29 OTHER CHRONIC PAIN 03/26/2015 MIRYAM ZHAO 788.1 Dysuria 03/26/2015 MIRYAM ZHAO V58.69 High-risk medication, long-term use 03/26/2015 MIRYAM ZHAO V68.1 ISSUE OF REPEAT PRESCRIPTIONS 03/26/2015 MIRYAM ZHAO 788.1 Dysuria 03/26/2015 MIRYAM ZHAO 788.41 Urinary frequency 04/30/2015 MIRYAM ZHAO R30.0 Dysuria 04/30/2015 MIRYAM ZHAO R35.0 Frequency of micturition 04/30/2015 MIRYAM ZHAO G89.29 Other chronic pain 04/30/2015 MIRYAM ZHAO K58.9 Irritable bowel syndrome without diarrhea 04/30/2015 MIRYAM ZHAO R35.0 Frequency of micturition 04/30/2015 MIRYAM ZHAO Z76.0 Encounter for issue of repeat prescription 06/02/2015 STEPHEN SAMS G89.29 Other chronic pain 06/02/2015 STEPHEN SAMS K57.92 Diverticulitis of intestine, part unspecified, without perforation or abscess without bleeding 06/02/2015 STEPHEN SAMS Z76.0 Encounter for issue of repeat prescription 06/02/2015 STEPHEN SAMS Z79.891 assisted (current) use of opiate analgesic 06/02/2015 STEPHEN SAMS Z09 Encounter for follow-up examination after completed treatment for conditions other than malignant neoplasm 06/02/2015 STEPHEN SAMS Z87.448 Personal history of other diseases of urinary system 07/10/2015 STEPHEN SAMS E78.5 Hyperlipidemia, unspecified 07/10/2015 STEPHEN SAMS F32.9 Major depressive disorder, single episode, unspecified 07/10/2015 STEPHEN SAMS G89.29 Other chronic pain 07/10/2015 STEPHEN SAMS I10 Essential (primary) hypertension 07/10/2015 STEPHEN SAMS E78.5 Hyperlipidemia, unspecified 07/10/2015 STEPHEN SAMS I10 Essential (primary) hypertension 07/29/2015 STEPHEN SAMS 724.2 Pain, low back 07/29/2015 STEPHEN SAMS 847.0 Sprain/strain: neck, unspec. 07/29/2015 STEPHEN SAMS 850.0 CONCUSSION WITH NO LOSS OF CONSCIOUSNESS 07/29/2015 STEPHEN SAMS M54.5 Low back pain 07/29/2015 STEPHEN SAMS S06.0X0A Concussion without loss of consciousness, initial encounter 07/29/2015 STEPHEN SAMS S13.4XXA Sprain of ligaments of cervical spine, initial encounter 08/07/2015 STEPHEN SAMS 338.29 OTHER CHRONIC PAIN 08/07/2015 STEPHEN SAMS 724.2 Pain, low back 08/07/2015 STEPHEN SAMS 847.0 Sprain/strain: neck, unspec. 08/07/2015 STEPHEN SAMS 850.0 CONCUSSION WITH NO LOSS OF CONSCIOUSNESS 08/07/2015 STEPHEN SAMS M54.5 Low back pain 08/07/2015 STEPHEN SAMS S06.0X0D Concussion without loss of consciousness, subsequent encounter 08/07/2015 STEPHEN SAMS S13.4XXD Sprain of ligaments of cervical spine, subsequent encounter 08/07/2015 STEPHEN SMAS V68.1 ISSUE OF REPEAT PRESCRIPTIONS 08/07/2015 STEPHEN SAMS Z76.0 Encounter for issue of repeat prescription 08/08/2015 STEPHEN SAMS 724.2 Pain, low back 08/08/2015 STEPHEN SAMS M54.5 Low back pain 08/21/2015 STEPHEN SAMS 338.29 OTHER CHRONIC PAIN 08/21/2015 STEPHEN SAMS 724.2 Pain, low back 08/21/2015 STEPHEN SAMS 847.0 Sprain/strain: neck, unspec. 08/21/2015 STEPHEN SAMS 850.0 CONCUSSION WITH NO LOSS OF CONSCIOUSNESS 08/21/2015 STEPHEN SAMS G89.21 Chronic pain due to trauma 08/21/2015 STEPHEN SAMS G89.29 Other chronic pain 08/21/2015 STEPHEN SAMS M54.5 Low back pain 08/21/2015 STEPHEN SAMS S06.0X0D Concussion without loss of consciousness, subsequent encounter 08/21/2015 STEPHEN SAMS S13.4XXD Sprain of ligaments of cervical spine, subsequent encounter 08/29/2015 KEVON WILSON 782.1 Rash, nonvesicular, unspec. 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 09/22/2015 STEPHEN SAMS 722.52 LUMB/LUMBOSAC DISC DEGEN 09/22/2015 STEPHEN SAMS 847.0 Sprain/strain: neck, unspec. 09/22/2015 STEPHEN SAMS F41.9 Anxiety disorder, unspecified 09/22/2015 STEPHEN SAMS M51.36 Other intervertebral disc degeneration, lumbar region 09/22/2015 STEPHEN SAMS S13.4XXD Sprain of ligaments of cervical spine, subsequent encounter 10/21/2015 STEPHEN SAMS F41.9 Anxiety disorder, unspecified 10/21/2015 STEPHEN SAMS M51.36 Other intervertebral disc degeneration, lumbar region 10/21/2015 STEPHEN SAMS S13.4XXD Sprain of ligaments of cervical spine, subsequent encounter 10/21/2015 STEPHEN SAMS Z76.0 Encounter for issue of repeat prescription 11/20/2015 STEPHEN SAMS F41.9 Anxiety disorder, unspecified 11/20/2015 STEPHEN SAMS G89.29 Other chronic pain 11/20/2015 STEPHEN SAMS M51.36 Other intervertebral disc degeneration, lumbar region 11/20/2015 STEPHEN SAMS S13.4XXD Sprain of ligaments of cervical spine, subsequent encounter 12/05/2015 STEPHEN SAMS G89.29 Other chronic pain 12/05/2015 STEPHEN SAMS M79.604 Pain in right leg 12/05/2015 STEPHEN SAMS79.605 Pain in left leg 12/22/2015 STEPHEN SAMS F41.9 Anxiety disorder, unspecified 12/22/2015 STEPHEN SAMS G89.29 Other chronic pain 12/22/2015 STEPHEN SAMS L23.7 Allergic contact dermatitis due to plants, except food 12/22/2015 STEPHEN SAMS Z76.0 Encounter for issue of repeat prescription 01/19/2016 STEPHEN SAMS R30.0 Dysuria 01/19/2016 STEPHEN SAMS B37.3 Candidiasis of vulva and vagina 01/19/2016 STEPHEN SAMS F41.9 Anxiety disorder, unspecified 01/19/2016 STEPHEN SAMS G89.29 Other chronic pain 01/19/2016 STEPHEN SAMS N39.0 Urinary tract infection, site not specified 02/16/2016 STPEHEN SAMS E78.5 Hyperlipidemia, unspecified 02/16/2016 STEPHEN SAMS I10 Essential (primary) hypertension 02/16/2016 STEPHEN SAMS 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 coli] as the cause of diseases classified elsewhere 03/04/2016 STEPHEN SAMS N39.0 Urinary tract infection, site not specified 03/04/2016 STEPHEN SAMS R19.7 Diarrhea, unspecified 03/06/2016 STEPHEN SAMS R30.0 Dysuria 03/06/2016 STEPHEN SAMS A04.7 Enterocolitis due to Clostridium difficile 03/06/2016 STEPHEN SAMS E78.5 Hyperlipidemia, unspecified 03/06/2016 STEPHEN SAMS E86.0 Dehydration 03/06/2016 STEPHEN SAMS F17.210 Nicotine dependence, cigarettes, uncomplicated 03/06/2016 STEPHEN SAMS F41.9 Anxiety disorder, unspecified 03/06/2016 STEPHEN SAMS I10 Essential (primary) hypertension 03/06/2016 STEPHEN SAMS N39.0 Urinary tract infection, site not specified 03/06/2016 STEPHEN SAMS R30.0 Dysuria 03/06/2016 STEPHEN SAMS Z80.3 Family history of malignant neoplasm of breast 03/06/2016 STEPHEN SAMS Z90.81 Acquired absence of spleen 03/06/2016 STEPHEN SAMS Z98.0 Intestinal bypass and anastomosis status 03/06/2016 STEPHEN SAMS Z98.51 Tubal ligation status 03/06/2016 STEPHEN SAMS A04.7 Enterocolitis due to Clostridium difficile 03/06/2016 STEPHEN SAMS E86.0 Dehydration 03/06/2016 STEPHEN SAMS I10 Essential (primary) hypertension 03/06/2016 STEPHEN SAMS N39.0 Urinary tract infection, site not specified 03/19/2016 STEPHEN SAMS A04.7 Enterocolitis due to Clostridium difficile 03/19/2016 STEPHEN SAMS B96.81 Helicobacter pylori [H. pylori] as the cause of diseases classified elsewhere 03/19/2016 STEPHEN SAMS G89.29 Other chronic pain 03/19/2016 STEPHEN SAMS Z76.0 Encounter for issue of repeat prescription 03/25/2016 STEPHEN SAMS M79.676 Pain in unspecified toe(s) 03/25/2016 STEPHEN SAMS A04.7 Enterocolitis due to Clostridium difficile 03/25/2016 STEPHEN SAMS G89.29 Other chronic pain 03/25/2016 STEPHEN SAMS K21.9 Gastro-esophageal reflux disease without esophagitis 03/25/2016 STEPHEN SAMS M79.671 Pain in right foot 04/08/2016 STEPHEN SAMS B00.1 Herpesviral vesicular dermatitis 04/08/2016 FELICIA BARRY A04.7 Enterocolitis due to Clostridium difficile 04/08/2016 FELICIA BARRY B18.2 Chronic viral hepatitis C 04/08/2016 FELICIA BARRY R19.7 Diarrhea, unspecified 04/08/2016 FELICIA BARRY R76.8 Other specified abnormal immunological findings in serum 04/08/2016 FELICIA BARRY R87.612 Low grade squamous intraepithelial lesion on cytologic smear of cervix (LGSIL ) 04/14/2016 F K52.839 Microscopic colitis, unspecified 04/14/2016 F K64.8 Other hemorrhoids 04/14/2016 F R19.7 Diarrhea, unspecified 04/14/2016 F Z87.19 Personal history of other diseases of the digestive system 04/15/2016 FELICIA BARRY F17.200 Nicotine dependence, unspecified, uncomplicated 04/15/2016 FELICIA BARRY K52.839 Microscopic colitis, unspecified 04/15/2016 FELICIA BARRY K64.8 Other hemorrhoids 04/15/2016 FELICIA BARRY R19.7 Diarrhea, unspecified 04/15/2016 FELICIA BARRY Z87.19 Personal history of other diseases of the digestive system 04/15/2016 FELICIA BARRY Z90.81 Acquired absence of spleen 04/22/2016 STEPHEN SAMS R30.0 Dysuria 04/22/2016 STEPHEN SAMS R10.2 Pelvic and perineal pain 04/26/2016 FELICIA BARRY R10.12 Left upper quadrant pain 04/26/2016 FELICIA BARRY R19.7 Diarrhea, unspecified 04/26/2016 FELICIA BARRY Z01.812 Encounter for preprocedural laboratory examination 04/28/2016 STEPHEN SAMS R10.2 Pelvic and perineal pain 05/18/2016 STEPHEN SAMS R30.0 Dysuria 05/18/2016 STEPHEN SAMS R82.99 Other abnormal findings in urine 05/18/2016 STEPHEN SAMS G89.29 Other chronic pain 05/18/2016 STEPHEN SAMS F R30.0 Dysuria 06/03/2016 FELICIA BARRY K52.839 Microscopic colitis, unspecified 06/15/2016 STEPHEN SAMS G89.29 Other chronic pain 06/15/2016 STEPHEN SAMS Z76.0 Encounter for issue of repeat prescription 07/12/2016 STEPHEN SAMS E78.5 Hyperlipidemia, unspecified 07/12/2016 STEPHEN SAMS G89.29 Other chronic pain 07/12/2016 STEPHEN SAMS I10 Essential (primary) hypertension 07/12/2016 STEPHEN SAMS Z76.0 Encounter for issue of repeat prescription 08/04/2016 STEPHEN SAMS R50.81 Fever presenting with conditions classified elsewhere 08/04/2016 STEPHEN SAMS R50.9 Fever, unspecified 08/04/2016 STEPHEN SAMS R52 Pain, unspecified 08/04/2016 STEPHEN SAMS J06.9 Acute upper respiratory infection, unspecified 08/04/2016 STEPHEN SAMS R05 Cough 08/12/2016 STEPHEN SAMS I10 Essential (primary) hypertension 08/12/2016 STEPHEN SAMS R30.0 Dysuria 08/12/2016 STEPHEN SAMS R52 Pain, unspecified 08/12/2016 STEPHEN SAMS B96.89 Other specified bacterial agents as the cause of diseases classified elsewhere 08/12/2016 STEPHEN SAMS G89.29 Other chronic pain 08/12/2016 STEPHEN SAMS J20.8 Acute bronchitis due to other specified organisms 08/12/2016 STEPHEN SAMS R39.15 Urgency of urination 09/09/2016 STEPHEN SAMS G89.29 Other chronic pain 09/09/2016 STEPHEN SAMS I10 Essential (primary) hypertension 09/09/2016 STEPHEN SAMS Z76.0 Encounter for issue of repeat prescription 10/07/2016 STEPHEN SAMS E78.5 Hyperlipidemia, unspecified 10/07/2016 STEPHEN SAMS F41.9 Anxiety disorder, unspecified 10/07/2016 STEPHEN SAMS G89.29 Other chronic pain 10/07/2016 STEPHEN SAMS R12 Heartburn 11/04/2016 STEPHEN SAMS F41.8 Other specified anxiety disorders 11/04/2016 STEPHEN SAMS G89.29 Other chronic pain 11/04/2016 STEPHEN SAMS Z76.0 Encounter for issue of repeat prescription 11/09/2016 STEPHEN SAMS M54.16 Radiculopathy, lumbar region 11/09/2016 STEPHEN SAMS R23.3 Spontaneous ecchymoses 11/09/2016 STEPHEN SAMS S50.11XA Contusion of right forearm, initial encounter 11/09/2016 STEPHEN SAMS S50.12XA Contusion of left forearm, initial encounter 11/09/2016 STEPHEN SAMS T14.8 Other injury of unspecified body region 12/03/2016 STEPHEN SAMS G89.29 Other chronic pain 12/03/2016 STEPHEN SAMS R05 Cough 12/03/2016 STEPHEN SAMS R06.2 Wheezing 12/03/2016 STEPHEN SAMS R53.83 Other fatigue 12/03/2016 STEPHEN SAMS R05 Cough 12/03/2016 STEPHEN SAMS R53.83 Other fatigue 12/28/2016 STEPHEN SAMS S29.091A Other injury of muscle and tendon of front wall of thorax, initial encounter 12/28/2016 STEPHEN SAMS Z76.0 Encounter for issue of repeat prescription 02/01/2017 STEPHEN SAMS F41.8 Other specified anxiety disorders 02/01/2017 STEPHEN SAMS G89.29 Other chronic pain 02/01/2017 STEPHEN SAMS I10 Essential (primary) hypertension 02/01/2017 STEPHEN SAMS M54.9 Dorsalgia, unspecified 02/10/2017 STEPHEN SAMS Q89.01 Asplenia (congenital) 02/10/2017 STEPHEN SAMS S90.862A Insect bite (nonvenomous), left foot, initial encounter 03/03/2017 STEPHEN SAMS B35.3 Tinea pedis 03/03/2017 STEPHEN SAMS G25.81 Restless legs syndrome 03/03/2017 STEPHEN SAMS G89.29 Other chronic pain 03/03/2017 STEPHEN SAMS H10.89 Other conjunctivitis 03/28/2017 MARIBEL NORWOOD H92.02 Otalgia, left ear 03/28/2017 MARIBEL NORWOOD L98.499 Non-pressure chronic ulcer of skin of other sites with unspecified severity 03/28/2017 MARIBEL NORWOOD R51 Headache 04/04/2017 STEPHEN SAMS L98.499 Non-pressure chronic ulcer of skin of other sites with unspecified severity 04/04/2017 STEPHEN SAMS Z01.419 Encounter for gynecological examination (general) (routine) without abnormal findings 04/04/2017 STEPHEN SAMS Z12.4 Encounter for screening for malignant neoplasm of cervix 05/04/2017 STEPHEN SAMS F41.8 Other specified anxiety disorders 05/04/2017 STEPHEN SAMS G47.62 Sleep related leg cramps 05/04/2017 STEPHEN SAMS G89.29 Other chronic pain 05/04/2017 STEPHEN SAMS K59.03 Drug induced constipation 05/19/2017 STEPHEN SAMS J02.9 Acute pharyngitis, unspecified 05/27/2017 STEPHEN SAMS K59.03 Drug induced constipation 05/27/2017 STEPHEN SAMS R05 Cough 06/01/2017 STEPHEN SAMS F41.8 Other specified anxiety disorders 06/01/2017 STEPHEN SAMS G89.29 Other chronic pain 06/01/2017 STEPHEN SAMS R05 Cough 06/01/2017 STEPHEN SAMS Z76.0 Encounter for issue of repeat prescription 07/01/2017 STEPHEN SAMS F41.9 Anxiety disorder, unspecified 07/01/2017 STEPHEN SAMS G89.29 Other chronic pain 07/01/2017 STEPHEN SAMS Z76.0 Encounter for issue of repeat prescription 08/01/2017 STEPHEN SAMS E78.5 Hyperlipidemia, unspecified 08/01/2017 STEPHEN SAMS F32.9 Major depressive disorder, single episode, unspecified 08/01/2017 STEPHEN SAMS G89.29 Other chronic pain 08/01/2017 STEPHEN SAMS I10 Essential (primary) hypertension 08/01/2017 STEPHEN SAMS I10 Essential (primary) hypertension 08/01/2017 STEPHEN SAMS R63.5 Abnormal weight gain 09/01/2017 STEPHEN SAMS F41.9 Anxiety disorder, unspecified 09/01/2017 STEPHEN SAMS G89.29 Other chronic pain 09/30/2017 STEPHEN SAMS F17.210 Nicotine dependence, cigarettes, uncomplicated 09/30/2017 STEPHEN SAMS F41.9 Anxiety disorder, unspecified 09/30/2017 STEPHEN SAMS G89.29 Other chronic pain 09/30/2017 STEPHEN SAMS Z76.0 Encounter for issue of repeat prescription 10/28/2017 STEPHEN SAMS F41.9 Anxiety disorder, unspecified 10/28/2017 STEPHEN SAMS J20.8 Acute bronchitis due to other specified organisms 10/28/2017 STEPHEN SAMS M54.2 Cervicalgia 10/28/2017 STEPHEN SAMS M54.9 Dorsalgia, unspecified 11/25/2017 STEPHEN SAMS F41.9 Anxiety disorder, unspecified 11/25/2017 STEPHEN SAMS G89.29 Other chronic pain 11/25/2017 STEPHEN SAMS M54.5 Low back pain 11/25/2017 STEPHEN SAMS R25.2 Cramp and spasm 12/28/2017 STEPHEN SAMS F41.9 Anxiety disorder, unspecified 12/28/2017 STEPHEN SAMS G25.81 Restless legs syndrome 12/28/2017 STEPHEN SAMS G89.29 Other chronic pain 12/28/2017 STEPHEN SAMS Z76.0 Encounter for issue of repeat prescription 01/25/2018 STEPHEN SAMS F41.9 Anxiety disorder, unspecified 01/25/2018 STEPHEN SAMS G89.29 Other chronic pain 01/25/2018 STEPHEN SAMS Z76.0 Encounter for issue of repeat prescription 02/27/2018 STEPHEN SAMS G89.29 Other chronic pain 02/27/2018 STEPHEN SAMS M54.2 Cervicalgia 02/27/2018 STEPHEN SAMS R53.83 Other fatigue 02/27/2018 STEPHEN SAMS M25.78 Osteophyte, vertebrae 02/27/2018 STEPHEN SAMS M50.30 Other cervical disc degeneration, unspecified cervical region 02/27/2018 STEPHEN SAMS M54.2 Cervicalgia 02/27/2018 STEPHEN SAMS R30.0 Dysuria 03/29/2018 STEPHEN SAMS F41.9 Anxiety disorder, unspecified 03/29/2018 STEPHEN SAMS M50.30 Other cervical disc degeneration, unspecified cervical region 03/29/2018 STEPHEN SAMS Z76.0 Encounter for issue of repeat prescription 04/28/2018 STEPHEN SAMS B96.89 Other specified bacterial agents as the cause of diseases classified elsewhere 04/28/2018 STEPHEN SAMS F41.9 Anxiety disorder, unspecified 04/28/2018 STEPHEN SAMS G89.29 Other chronic pain 04/28/2018 STEPHEN SAMS J20.8 Acute bronchitis due to other specified organisms Procedures Code Description [place] [address] PT EVALUATION 10/14/2015 90741 ELECTRIC STIMULATION THERAPY 10/14/2015 40286 MANUAL THERAPY 10/14/2015 53701 PT EVALUATION 11/01/2015 16633 ELECTRIC STIMULATION THERAPY 11/01/2015 01263 MANUAL THERAPY 11/01/2015 Results Test Result Range CBC WITH DIFF - 07/24/15 00:00 BASO% 1.3 % 0-2 EOS% 1.1 % 0-7.0 HCT 41.8 % 36.9-47.0 HGB 14.6 G/DL 12.0-16.0 LYMPH% 30.9 % 20-40 MCH 31.5 PG 27-31 MCHC 34.9 G/DL 33-37 MCV 90.1 FL 81-99 MONO% 8.3 % 0-10.0 MPV 9.2 FL 7.3-10.4 NEUTRO% 58.0 % 40-70 PLT 470 10^3u 130-400 RBC 4.6 10^6u 4.2-5.4 RDW 13.3 % 11.5-15.5 WBC 9.7 10^3u 4.8-10.8 NEUTRO# 5.6 10^3u 1.5-7.5 LYMPH# 3.0 10^3u 0.9-4.0 MONO# 0.8 10^3u 0-0.8 EOS# 0.1 10^3u 0-0.6 BASO# 0.1 10^3u 0-0.1 IMM GRANULOCYTE % 0.4 % IMM GRANULOCYTE # 0.0 10^3u 0-5 UA - 07/24/15 00:00 PH 5.5 4.5-8.0 SG 1.003 UABILI NEGATIVE UABLD NEGATIVE UACOLOR STRAW UAGLU NEGATIVE UAKET NEGATIVE UALEUK NEGATIVE UANIT NEGATIVE UAURO 0.2 0-0.2 UCX NO CLARITY CL PROTEIN NEGATIVE UA WBC NOWBC UA RBC NORBC SQUAMOUS EPITHELIAL CELLS FEW CMP - 07/24/15 00:00 ALB 4.1 G/DL 3.5-5 ALP 85 IU/L 25-72 ALT 35 IU/L 12-65 AST 25 IU/L 10-42 BCR 12.7 10-20 BUN 9 MG/DL 7-18 CA 9.0 MG/DL 8.4-10.2 CL 100 MEQ/L 98-107 CO2 26.6 MEQ/L 22-28 CREA 0.71 MG/DL 0.6-1.0 EGFR 85 eGFR >=60 GLU 99 MG/DL 70-105 K 5.0 MEQ/L 3.5-5.1 NA 136 MEQ/L 134-145 OSMSC 270.7 MOSML 280-300 TBIL 0.4 MG/DL 0.1-1.0 TP 7.7 G/DL 6.0-8.3 Albumin/Globulin Ratio 1.1 0-8 Anion Gap 9.4 8-16 Encounters ACCT No. Visit Date/Time Discharge Status Pt. Type Provider Facility Loc./Unit Complaint [id number] 12/30/2016 15:01:00 12/30/2016 23:59:59 CLS Emergency [facility] DEREJE ED lt ribs and chest pain [id number] 01/02/2016 00:01:00 02/01/2016 23:59:00 DIS Outpatient STEPHEN SAMS [facility] PT [id number] 12/03/2015 00:01:00 01/01/2016 23:59:00 DIS Outpatient STEPHEN SAMS [facility] PT [id number] 11/02/2015 00:01:00 12/02/2015 23:59:00 DIS Outpatient STEPHEN SAMS [facility] PT [id number] 10/08/2015 10:02:00 11/01/2015 23:59:00 DIS Outpatient STEPHEN SAMS [facility] PT [id number] 07/24/2015 12:48:00 07/24/2015 14:25:00 DIS Emergency KAYLA PARRA [facility] EMR [id number] 12/30/2016 15:05:57 Document Registration [id number] 06/02/2015 00:00:00 Document Registration [id number] 05/24/2018 12:20:00 [facility] [id number] 05/03/2016 14:52:01 ACT Unknown [id number] 05/10/2018 17:48:59 ACT Unknown [id number] 11/20/2016 01:34:20 ACT Document Registration [id number] 05/09/2018 11:15:00 05/09/2018 23:59:59 CLS Outpatient [id number] 04/28/2018 13:45:00 04/28/2018 14:45:00 DIS Outpatient [facility] [id number] 04/04/2018 10:30:00 04/04/2018 23:59:59 CLS Outpatient [id number] 03/29/2018 11:00:00 03/29/2018 12:00:00 [id number] 02/27[facility]2018 09:48:00 02/27/2018 13:48:00 [id number] 02/27/2018 09:30:00 02/27/2018 10:30:00 [facility] [id number] 01/25/2018 09:00:00 01/25/2018 10:00:00 [facility] [id number] 12/28/2017 09:15:00 12/28/2017 10:15:00 [facility] [id number] 11/25/2017 14:45:00 11/25/2017 15:45:00 [facility] [id number] 10/28/2017 11:00:00 10/28/2017 12:00:00 [id number] 09/30/2017 10:00:00 09/30/2017 11:00:00 [id number] 09/01/2017 10:00:00 09/01/2017 11:00:00 [facility] [id number] 08/01/2017 10:51:00 08/01/2017 11:51:00 [facility] [id number] 08/01/2017 10:30:00 08/01/2017 11:30:00 [id number] 07/01/2017 10:15:00 07/01/2017 11:15:00 [facility] [id number] 06/01/2017 10:45:00 06/01/2017 11:45:00 [facility] [id number] 05/27/2017 10:45:00 05/27/2017 11:45:00 [facility] [id number] 05/19/2017 11:30:00 05/19/2017 12:30:00 [facility] [id number] 05/04/2017 09:30:00 05/04/2017 10:30:00 [facility] [id number] 04/04/2017 10:30:00 04/04/2017 11:30:00 [facility] [id number] 03/28/2017 15:00:00 03/28/2017 16:00:00 [id number]/03/2017 14:15:00 03/03/2017 15:15:00 [facility] [id number] 02/01/2017 10:00:00 02/01/2017 11:00:00 [facility] [id number] 12/28/2016 15:15:00 12/28/2016 16:15:00 [facility] [id number] 12/03/2016 09:58:00 12/03/2016 13:58:00 [facility] [id number] 12/03/2016 09:45:00 12/03/2016 10:45:00 DIS [facility] [id number] 11/09/2016 09:39:00 11/09/2016 10:39:00 DIS PRIYANKA [facility] OT [id number] 11/09/2016 09:15:00 11/09/2016 10:15:00 [facility] CL [id number] 11/04/2016 15:15:00 11/04/2016 16:15:00 DIS [facility] CL [id number] 10/07/2016 09:30:00 10/07/2016 10:30:00 DIS LORETTA [facility] CL [id number] 09/09/2016 09:30:00 09/09/2016 13:30:00 DIS [facility] CL [id number] 08/12/2016 10:00:00 08/12/2016 14:00:00 DIS [facility] CL [id number] 08/12/2016 09:56:00 08/12/2016 10:56:00 DIS PR[facility]YANKA [facility] OT [id number] 08/04/2016 09:45:00 08/04/2016 13:45:00 DIS [facility] CL [id number] 08/04/2016 10:10:00 08/04/2016 11:10:00 DIS [facility]ANKA [facility] OT [id number] 07/12/2016 11:30:00 07/12/2016 15:30:00 DIS [facility] [id number] 06/15/2016 14:00:00 06/15/2016 18:00:00 [facility] [id number] 06/03/2016 12:29:00 06/03/2016 16:29:00 DIS FELICIA HOLMAN [facility] OT [id number] 05/18/2016 14:00:00 05/18/2016 18:00:00 DIS [facility] CL [id number] 05/18/2016 14:28:00 05/18/2016 15:28:00 DIS [facility]ANK[facility] OT [id number] 04/28/2016 08:44:00 04/28/2016 12:44:00 [facility] [id number] 04/26/2016 08:04:00 04/26/2016 12:04:00 DIS OP FELICIA BARRY [id number] 04/22/2016 14:45:00 04/22/2016 18:45:00 DIS [facility] [id number] 04/22/2016 16:01:00 04/22/2016 17:01:00 DIS [facility] [id number] 04/15/2016 10:42:00 04/15/2016 12:30:00 DIS OS ASHA, [facility] NS [id number] 04/08/2016 12:00:00 04/08/2016 16:00:00 DIS OP ASHAFELICIA Marinelli [id number] 04/08/2016 10:15:00 04/08/2016 14:15:00 DIS [facility] [id number] 04/08/2016 10:56:00 04/08/2016 11:56:00 DIS [facility]ANKA [facility] OT [id number] 03/25/2016 14:30:00 03/25/2016 18:30:00 DIS [facility] CL [id number] 03/25/2016 15:07:00 03/25/2016 16:07:00 DIS [facility]ANK[facility] OT [id number] 03/19/2016 10:30:00 03/19/2016 14:30:00 DIS [facility] CL [id number] 03/04/2016 11:55:00 03/06/2016 11:56:00 DIS ZANE [facility] OT [id number] 03/04/2016 15:15:00 03/06/2016 08:45:00 DIS J[facility] NS [id number] 03/04/2016 13:30:00 03/04/2016 17:30:00 [facility] [id number] 03/04/2016 14:18:00 03/04/2016 15:18:00 DIS [facility] [id number] 02/16/2016 11:00:00 02/16/2016 15:00:00 [facility] [id number] 02/16/2016 11:15:00 02/16/2016 12:15:00 DIS [facility]ANKA [facility] OT [id number] 01/19/2016 10:00:00 01/19/2016 14:00:00 DIS [facility] CL [id number] 01/19/2016 10:29:00 01/19/2016 11:29:00 DIS [facility]ANKA [facility] OT [id number] 12/22/2015 13:30:00 12/22/2015 17:30:00 [facility] CL [id number] 12/05/2015 13:30:00 12/05/2015 17:30:00 DIS [facility] CL [id number] 11/20/2015 10:00:00 11/20/2015 14:00:00 [facility] CL [id number] 10/21/2015 10:15:00 10/21/2015 14:15:00 DIS [facility] CL [id number] 09/22/2015 14:15:00 09/22/2015 18:15:00 [facility] [id number] 09/10/2015 12:48:00 09/10/2015 16:48:00 DIS OP MARIBEL NORWOOD [id number] 09/08/2015 15:04:00 09/08/2015 19:04:00 [id number] 09/08/2015 15:00:00 09/08/2015 19:00:00 [facility] [id number] 08/29/2015 15:30:00 08/29/2015 19:30:00 DIS RY KIPKEVON HAMILTON [facility] CL [id number] 08/21/2015 14:30:00 08/21/2015 18:30:00 [facility] [id number] 08/08/2015 12:37:00 08/08/2015 16:37:00 DIS [facility] OT [id number] 08/07/2015 15:30:00 08/07/2015 19:30:00 [facility] [id number] 08/07/2015 15:30:00 08/07/2015 19:30:00 [facility] CL [id number] 07/29/2015 15:45:00 07/29/2015 19:45:00 [facility] [id number] 07/10/2015 10:27:00 07/10/2015 14:27:00 DIS [facility] [id number] 07/10/2015 10:15:00 07/10/2015 14:15:00 [facility] [id number] 06/02/2015 10:09:00 06/02/2015 14:09:00 DIS [facility] [id number] 06/02/2015 10:00:00 06/02/2015 14:00:00 [facility] [id number] 04/30/2015 11:30:00 04/30/2015 15:30:00 [facility] [id number] 04/30/2015 11:26:00 04/30/2015 15:26:00 [facility] [id number] 03/26/2015 11:34:00 03/26/2015 15:34:00 [facility] [id number] 03/26/2015 11:00:00 03/26/2015 15:00:00 [facility] [id number] 03/04/2015 10:15:00 03/04/2015 14:15:00 DIS RY MIRYAM ZHAO LEIDA [facility] [id number] 01/27/2015 11:00:00 01/27/2015 15:00:00 [facility] [id number] 12/24/2014 15:30:00 12/24/2014 19:30:00 [facility] [id number] 11/18/2014 16:31:00 11/18/2014 20:31:00 [id number] 11/18/2014 16:00:00 11/18/2014 20:00:00 [facility] [id number] 10/14/2014 16:00:00 10/15/2014 02:00:00 [facility] [id number] 09/11/2014 15:00:00 09/12/2014 01:00:00 [facility] [id number] 05/29/2018 13:15:00 PEN Outpatient STEPHEN SAMS [id number] 02/10/2017 14:15:00 DIS RY STEPHEN SAMS [facility] [id number] 02/09/2017 10:15:00 PEN OP [id number] 11/08/2016 09:30:00 PEN RY [id number] 09/02/2016 13:30:00 PEN OP FELICIA BARRY [id number] 04/14/2016 10:40:00 Document Registration [id number] 04/12/2016 14:00:00 PEN AN [id number] 03/22/2016 10:45:00 PEN RY [id number] 02/25/2016 09:30:00 PEN OP STEPHEN SAMS [id number] 02/19/2016 13:30:00 PEN RY [id number] 09/09/2015 16:00:00 PEN OP [id number] 09/04/2015 14:30:00 PEN CY STEPHEN SAMS [id number] 04/03/2015 11:30:00 PEN OP [id number] 08/12/2014 16:30:00 Document Registration [id number] 07/31/2014 16:00:00 Document Registration [id number] 07/11/2014 16:15:00 Document Registration [id number] 06/13/2014 14:30:00 Document Registration [id number] 01/01/2014 14:00:00 Document Registration [id number] 12/28/2013 10:30:00 Document Registration
[2018-05-26 10:54] LABS: BASOPHILS # (AUTO) 0.1 10^3/uL (0.0-0.1); BASOPHILS % (AUTO) 0 % (0-10); EOSINOPHILS # (AUTO) 0.1 10^3/uL (0.0-0.3); EOSINOPHILS % (AUTO) 0 % (0-10); HEMATOCRIT 39 % (35-52); HEMOGLOBIN 13.3 G/DL (11.5-16.0); LYMPHOCYTES # (AUTO) 4.1 X 10^3 (1.0-4.0); LYMPHOCYTES % (AUTO) 19 % (12-44); MEAN CORPUSCULAR HEMOGLOBIN 30 PG (25-34); MEAN CORPUSCULAR HGB CONC 35 G/DL (32-36); MEAN CORPUSCULAR VOLUME 87 FL (80-99); MEAN PLATELET VOLUME 8.9 FL (7.4-10.4); MONOCYTES # (AUTO) 2.2 X 10^3 (0.0-1.0); MONOCYTES % (AUTO) 11 % (0-12); NEUTROPHILS # (AUTO) 14.7 X 10^3 (1.8-7.8); NEUTROPHILS % (AUTO) 69 % (42-75); PLATELET COUNT 557 10^3/uL (130-400); RED BLOOD COUNT 4.46 10^6/uL (4.35-5.85); RED CELL DISTRIBUTION WIDTH 13.9 % (10.0-14.5); WHITE BLOOD COUNT 21.2 10^3/uL (4.3-11.0)
[2018-05-26 10:59] LABS: BILIRUBIN,URINE NEGATIVE (NEGATIVE); CLARITY,URINE CLEAR; COLOR,URINE YELLOW; GLUCOSE, URINE (UA) NEGATIVE (NEGATIVE); KETONES,URINE NEGATIVE (NEGATIVE); LEUKOCYTE ESTERASE ,URINE NEGATIVE (NEGATIVE); NITRITE,URINE NEGATIVE (NEGATIVE); PH,URINE 8 (5-9); PROTEIN,URINE NEGATIVE (NEGATIVE); UROBILINOGEN,URINE NORMAL (NORMAL)
[2018-05-26 11:03] LABS: BACTERIA,URINE NEGATIVE /HPF
--- NOTE | 2018-05-26 11:09 | Diagnostic Imaging Report ---
PA and lateral chest. Indication: Cough. There are no prior studies available for comparison. The heart size is within normal limits. The lungs are generally clear. There are a few crowded bronchovascular markings in the left retrocardiac region but there is no clearance for pneumonia in this area. Even so, clinical followup is recommended. There is no sign of failure or pleural effusion. Mediastinum is not widened the osseous structures are intact. Impression: 1. The area of increased density in the left retrocardiac region is more likely due to crowding of bronchovascular markings than to pneumonia. Even so, clinical followup is recommended. 2. There is no acute cardiopulmonary abnormality noted otherwise. Dictated by: Dictated on workstation # [id number]
[2018-05-26 11:13] LABS: ALANINE AMINOTRANSFERASE 16 U/L (0-55); ALBUMIN 4.5 GM/DL (3.2-4.5); ALKALINE PHOSPHATASE 110 U/L (40-136); BILIRUBIN,TOTAL 0.4 MG/DL (0.1-1.0); BUN/CREATININE RATIO 6; CALCIUM 9.8 MG/DL (8.5-10.1); CARBON DIOXIDE 24 MMOL/L (21-32); CHLORIDE 97 MMOL/L (98-107); CREATININE SERUM 0.69 MG/DL (0.60-1.30); GFR ESTIMATED > 60; GLUCOSE 79 MG/DL (70-105); SODIUM 132 MMOL/L (135-145); TOTAL PROTEIN 7.8 GM/DL (6.4-8.2)
--- NOTE | 2018-05-26 11:16 | ED General ---
General Chief Complaint: Cough/Cold/Flu Symptoms Stated Complaint: SOB/COUGH Nursing Triage Note: THE PT IS AMBULATORY TO THE ROOM WITHOUT DIFFICULTY. NO DISTRESS IS SEEN ON ARRIVSL. LOC IS NORMAL FOR THE PT. Nursing Sepsis Screen: No Definite Risk Source of Information: Patient Exam Limitations: No Limitations History of Present Illness Date Seen by Provider: May 26, 2018 Time Seen by Provider: 10:21 Initial Comments This 58-year-old woman presents to the emergency room with complaints of more than one month of cough. She has been seen a couple of times for this cough. She was seen at [facility] about 5 weeks ago and was prescribed amoxicillin. She then followed up with her primary care provider in [place] who changed her to a Z-Willie. She has had sore throat and cough since then. Last night she also had a throbbing headache. She complained of intense cough and dyspnea last night. She has been taking a codeine cough syrup as well as NyQuil, Mucinex DM, her usual oxycodone for pain, and the amoxicillin that she restarted this morning. She is from the [facility] but is presently living with a friend in a trailer. She has had this living situation for couple of months. She wonders about mold exposure. She is a smoker and continues to smoke. She reports problems with electrolyte disturbances including hyponatremia when she has been ill in the past. She has been on prednisone for the past 4 days. She does not tolerate the side effects well and so discontinued prednisone today. She has been afebrile. Allergies and Home Medications Home Medications Levofloxacin 750 Mg Tablet, 750 MG PO DAILY Prescribed by: JADA VILLA on 05/26/18 1136 Patient Home Medication List Home Medication List Reviewed: Yes Review of Systems Review of Systems Constitutional: no symptoms reported EENTM: see HPI Respiratory: see HPI Cardiovascular: no symptoms reported Gastrointestinal: no symptoms reported Genitourinary: no symptoms reported : No Musculoskeletal: no symptoms reported Skin: no symptoms reported Psychiatric/Neurological: No Symptoms Reported Hematologic/Lymphatic: No Symptoms Reported Immunological/Allergic: no symptoms reported Past Vyeybpy-Xsvtfg-Twpdii Hx Past Med/Social Hx: Reviewed and Corrections made Patient Social History Recreational Drug Use: No Smoking Status: Current Everyday Smoker Recent Foreign Travel: No Contact w/Someone Who Travel: No Recent Infectious Disease Expo: No Recent Hopitalizations: No Physical Abuse: No Sexual Abuse: No Mistreated: No Fear: No Seasonal Allergies Seasonal Allergies: No Past Medical History Surgeries: Yes (splenectomy) Abdominal Respiratory: No Cardiac: Yes High Cholesterol, Hypertension Neurological: No Genitourinary: No Gastrointestinal: No Musculoskeletal: No Endocrine: No HEENT: No Cancer: No Psychosocial: No Integumentary: No Blood Disorders: No Physical Exam Vital Signs Vital Signs - First Documented 05/26/18 10:00 Temp 98.4 Pulse 93 Resp 18 B/P (MAP) 130/100 (110) Capillary Refill : Less Than 3 Seconds Height, Weight, BMI Height: 5'4.00" Weight: 150lbs. oz. 68.068247ff; BMI Method:Estimated General Appearance: No Apparent Distress, WD/WN HEENT: TMs Normal (right TM dull, left TM normal), Normal ENT Inspection, Pharynx Normal, TM Abnormal (R) (dull) Neck: Normal Inspection Respiratory: Lungs Clear, Normal Breath Sounds, No Accessory Muscle Use, No Respiratory Distress, Other (coarse cough) Cardiovascular: Regular Rate, Rhythm, No Edema, No Murmur Gastrointestinal: Normal Bowel Sounds, Non Tender Extremity: Normal Inspection, No Pedal Edema Neurologic/Psychiatric: Alert, Oriented x3, No Motor/Sensory Deficits, Normal Mood/Affect, therapist's assistant II-XII Norm as Tested Skin: Normal Color, Warm/Dry Progress/Results/Core Measures Suspected Sepsis Recent Fever Within 48 Hours: No Infection Criteria Present: None New/Unexplained Altered Menta: No Sepsis Screen: No Definite Risk SIRS Temperature:98.4 Pulse: 93 Respiratory Rate: 18 Laboratory Tests 05/26/18 10:40: White Blood Count 21.2H Blood Pressure 130 /100 Mean: 110 Laboratory Tests 05/26/18 10:40: Creatinine 0.69, Platelet Count 557H, Total Bilirubin 0.4 Results/Orders Lab Results Laboratory Tests Test 05/26/18 10:40 Range/Units White Blood Count 21.2 H 4.3-11.0 10^3/uL Red Blood Count 4.46 4.35-5.85 10^6/uL Hemoglobin 13.3 11.5-16.0 G/DL Hematocrit 39 35-52 % Mean Corpuscular Volume 87 80-99 FL Mean Corpuscular Hemoglobin 30 25-34 PG Mean Corpuscular Hemoglobin Concent 35 32-36 G/DL Red Cell Distribution Width 13.9 10.0-14.5 % Platelet Count 557 H 130-400 10^3/uL Mean Platelet Volume 8.9 7.4-10.4 FL Neutrophils (%) (Auto) 69 42-75 % Lymphocytes (%) (Auto) 19 12-44 % Monocytes (%) (Auto) 11 0-12 % Eosinophils (%) (Auto) 0 0-10 % Basophils (%) (Auto) 0 0-10 % Neutrophils # (Auto) 14.7 H 1.8-7.8 X 10^3 Lymphocytes # (Auto) 4.1 H 1.0-4.0 X 10^3 Monocytes # (Auto) 2.2 H 0.0-1.0 X 10^3 Eosinophils # (Auto) 0.1 0.0-0.3 10^3/uL Basophils # (Auto) 0.1 0.0-0.1 10^3/uL Neutrophils % (Manual) 68 % Lymphocytes % (Manual) 19 % Monocytes % (Manual) 13 % Eosinophils % (Manual) 0 % Basophils % (Manual) 0 % Band Neutrophils 0 % Blood Morphology Comment NORMAL Urine Color YELLOW Urine Clarity CLEAR Urine pH 8 5-9 Urine Specific Tim[place] 1.010 L 1.016-1.022 Urine Protein NEGATIVE NEGATIVE Urine Glucose (UA) NEGATIVE NEGATIVE Urine Ketones NEGATIVE NEGATIVE Urine Nitrite NEGATIVE NEGATIVE Urine Bilirubin NEGATIVE NEGATIVE Urine Urobilinogen NORMAL NORMAL MG/DL Urine Leukocyte Esterase NEGATIVE NEGATIVE Urine RBC (Auto) NEGATIVE NEGATIVE Urine RBC NONE /HPF Urine WBC NONE /HPF Urine Squamous Epithelial Cells 5-10 /HPF Urine Crystals NONE /LPF Urine Bacteria NEGATIVE /HPF Urine Casts NONE /LPF Urine Mucus NEGATIVE /LPF Urine Culture Indicated NO Sodium Level 132 L 135-145 MMOL/L Potassium Level 4.0 3.6-5.0 MMOL/L Chloride Level 97 L 98-107 MMOL/L Carbon Dioxide Level 24 21-32 MMOL/L Anion Gap 11 5-14 MMOL/L Blood Urea Nitrogen 4 L 7-18 MG/DL Creatinine 0.69 0.60-1.30 MG/DL Estimat Glomerular Filtration Rate > 60 BUN/Creatinine Ratio 6 Glucose Level 79 70-105 MG/DL Calcium Level 9.8 8.5-10.1 MG/DL Corrected Calcium 9.4 8.5-10.1 MG/DL Magnesium Level 2.0 1.8-2.4 MG/DL Total Bilirubin 0.4 0.1-1.0 MG/DL Aspartate Amino Transf (AST/SGOT) 16 5-34 U/L Alanine Aminotransferase (ALT/SGPT) 16 0-55 U/L Alkaline Phosphatase 110 40-136 U/L Total Protein 7.8 6.4-8.2 GM/DL Albumin 4.5 3.2-4.5 GM/DL My Orders Orders - JADA POLK MD Cbc With Automated Diff (05/26/18 10:34) Comprehensive Metabolic Panel (05/26/18 10:34) Magnesium (05/26/18 10:34) Ua Culture If Indicated (05/26/18 10:34) Chest Pa/Lat (2 View) (05/26/18 10:34) Manual Differential (05/26/18 10:40) Vital Signs/I&O 05/26/18 10:00 Temp 98.4 Pulse 93 Resp 18 B/P (MAP) 130/100 (110) Capillary Refill : Less Than 3 Seconds Blood Pressure Mean: 110 Progress Note : Progress Note There were no significant abnormalities with electrolytes. There was some suggestion of pneumonia in the retrocardiac space of the left lung. Patient was prescribed Levaquin and strongly advised to follow-up for further imaging to ensure clearing. I strongly advised smoking cessation as well. C discharge instructions. Diagnostic Imaging Diagonstic Imaging: Xray Plain Films/CT/US/NM/MRI: chest Comments Chest x-ray viewed by me and report reviewed. See report below: NAME: JAVI LYNN [facility] REC#: [id number] PT STATUS: REG ER : 1960 PHYSICIAN: JADA POLK MD ADMIT DATE: 05/26/18/ER Draft Date of Exam:05/26/18 CHEST PA/LAT (2 VIEW) PA and lateral chest. Indication: Cough. There are no prior studies available for comparison. The heart size is within normal limits. The lungs are generally clear. There are a few crowded bronchovascular markings in the left retrocardiac region but there is no clearance for pneumonia in this area. Even so, clinical followup is recommended. There is no sign of failure or pleural effusion. Mediastinum is not widened the osseous structures are intact. Impression: 1. The area of increased density in the left retrocardiac region is more likely due to crowding of bronchovascular markings than to pneumonia. Even so, clinical followup is recommended. 2. There is no acute cardiopulmonary abnormality noted otherwise. Dictated on workstation # [id number] Dict: 05/26/18 1104 Trans: 05/26/[address] [facility] [id number] Interpreted by: TERI KIM MD Departure Impression Primary Impression: Pneumonia Qualified Codes: J18.1 - Lobar pneumonia, unspecified organism Additional Impression: Cough Disposition: HOME, SELF-CARE Condition: Stable Departure-Patient Inst. Decision time for Depature: :18 Referrals: NO,LOCAL PHYSICIAN (PCP/Family) Primary Care Physician Patient Instructions: Pneumonia, Adult (DC), SMOKING CESSATION Add. Discharge Instructions: Complete your antibiotics as prescribed. Work on smoking cessation and reduce the amount you smoke in the meantime. Seek assistance from your primary care provider if necessary. Consider the smoking cessation class offered by Lexy Burrell see the attached card. Follow-up with your primary care provider after you have completed antibiotics and within the next 2 weeks. At a minimum you should have a repeat chest x-ray to ensure the area in your left lung behind your heart clears. Your primary care provider alternatively may wish to follow-up with a CT scan. Please discuss at your follow-up appointment. All discharge instructions reviewed with patient and/or family. Voiced understanding. Scripts Levofloxacin (Levaquin) 750 Mg Tablet 750 MG PO DAILY, #5 TAB Prov: JADA POLK MD 05/26/18 JADA POLK MD May 26, 2018 11:15
[2018-05-26 11:17] LABS: BAND NEUTROPHILS 0 %; BASOPHILS % (MANUAL) 0 %; EOSINOPHILS % (MANUAL) 0 %; LYMPHOCYTES % (MANUAL) 19 %; MONOCYTES % (MANUAL) 13 %; NEUTROPHILS % (MANUAL) 68 %
[2018-05-26 11:18] LABS: RBC MORPH NORMAL
[2018-05-26] MEDS ORDERED: LEVO750T9 PO (11:36)
[2018-05-26 11:45] VITALS: BP 130/100
== END 2018-05-26 11:45 | disposition home or self-care (01) ==
LOC: MERGE 09:50 → ER 09:50
DX: J18.9 Pneumonia, unspecified organism (principal); I10 Essential (primary) hypertension; E78.00 Pure hypercholesterolemia, unspecified; F17.200 Nicotine dependence, unspecified, uncomplicated; Z90.81 Acquired absence of spleen; Z79.52 Long term (current) use of systemic steroids
CPT/HCPCS: 36415; 71046; 80053; 81000; 83735; 85007; 85027

== ENCOUNTER 2018-05-28 08:43 | Emergency (ER) | payer MEDICARE, MEDICAID ==
[~2018-05-28] VITALS: Ht 170.2 cm; Wt 66.7 kg
[~2018-05-28 08:43] MED LIST changes: +LEVO750T9 PO
--- OUTSIDE RECORDS SUMMARY | 2018-05-28 08:55 | XMS REPORT | Continuity of Care Document ---
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 Type Provider Facility Loc./Unit Complaint [id number] 12/30/2016 15:01:00 12/30/2016 23:59:59 CLS Emergency [facility] ED lt ribs and chest pain [id number] 01/02/2016 00:01:00 02/01/2016 23:59:00 DIS Outpatient STEPHEN SAMS [facility] PT [id number] 12/03/2015 00:01:00 01/01/2016 23:59:00 DIS Outpatient STEPHEN SAMS [facility] PT [id number] 11/02/2015 00:01:00 12/02/2015 23:59:00 DIS Outpatient STEPHEN SAMS [facility] PT [id number] 10/08/2015 10:02:00 11/01/2015 23:59:00 DIS Outpatient STEPHEN SAMS [facility] PT [id number] 07/24/2015 12:48:00 07/24/2015 14:25:00 DIS Emergency KAYLA PAR[facility] EMR [id number] 12/30/2016 15:05:57 Document Registration [id number] 06/02/2015 00:00:00 Document Registration [id number] 05/24/2018 12:20:00 05/24/2018 23:59:59 CLS Outpatient [facility] [id number] 05/03/2016 14:52:01 ACT Unknown [id number] 05/10/2018 17:48:59 ACT Unknown [id number] 11/20/2016 01:34:20 ACT Document Registration [id number] 05/09/2018 11:15:00 05/09/2018 23:59:59 CLS Outpatient [id number] 04/28/2018 13:45:00 04/28/2018 14:45:00 [id number] 04/04/2018 10:30:00 04/04/2018 23:59:59 CLS Outpatient [id number] 03/29/2018 11:00:00 03/29/2018 12:00:00 DIS Outpatient FLAQUITA [facility] [id number] 02/27/2018 09:48:00 02/27/2018 13:48:00 DIS Outpatient FLAQUITA [facility] OT [id number] 02/27/2018 09:30:00 02/27/2018 10:30:00 [facility] [id number] 01/25/2018 09:00:00 01/25/2018 10:00:00 [facility] [id number] 12/28/2017 09:15:00 12/28/2017 10:15:00 [facility] [id number] 11/25/2017 14:45:00 11/25/2017 15:45:00 [facility] [id number] 10/28/2017 11:00:00 10/28/2017 12:00:00 [facility] [id number] 09/30/2017 10:00:00 09/30/2017 11:00:00 [id number] 09/01/2017 10:00:00 09/01/2017 11:00:00 [facility] [id number] 08/01/2017 10:51:00 08/01/2017 11:51:00 [facility] [id number] 08/01/2017 10:30:00 08/01/2017 11:30:00 [facility] [id number] 07/01/2017 10:15:00 07/01/2017 11:15:00 [facility] [id number] 06/01/2017 10:45:00 06/01/2017 11:45:00 [facility] [id number] 05/27/2017 10:45:00 05/27/2017 11:45:00 [facility] [id number] 05/19/2017 11:30:00 05/19/2017 12:30:00 [facility] [id number] 05/04/2017 09:30:00 05/04/2017 10:30:00 [facility] [id number] 04/04/2017 10:30:00 04/04/2017 11:30:00 [facility] [id number] 03/28/2017 15:00:00 03/28/2017 16:00:00 DIS Outpatient MARIBEL NORWOOD [facility] CL [id number] 03/03/2017 14:15:00 03/03/2017 15:15:00 [facility] [id number] 02/01/2017 10:00:00 02/01/2017 11:00:00 [facility] [id number] 12/28/2016 15:15:00 12/28/2016 16:15:00 DIS RY FLAQUITA [facility] CL [id number] 12/03/2016 09:58:00 12/03/2016 13:58:[id number] 12/03/2016 09:45:00 12/03/2016 10:45:00 [facility] [id number] 11/09/2016 09:39:00 11/09/2016 10:39:00 [facility] [id number] 11/09/2016 09:15:00 11/09/2016 10:15:00 [facility] [id number] 11/04/2016 15:15:00 11/04/2016 16:15:00 [facility] [id number] 10/07/2016 09:30:00 10/07/2016 10:30:00 [facility] [id number] 09/09/2016 09:30:00 09/09/2016 13:30:00 [facility] [id number] 08/12/2016 10:00:00 08/12/2016 14:00:00 [facility] [id number] 08/12/2016 09:56:00 08/12/2016 10:56:00 [facility] [id number] 08/04/2016 09:45:00 08/04/2016 13:45:00 [facility] [id number] 08/04/2016 10:10:00 08/04/2016 11:10:00 [facility] [id number] 07/12/2016 11:30:00 07/12/2016 15:30:00 [facility] [id number] 06/15/2016 14:00:00 06/15/2016 18:00:00 [facility] [id number] 06/03/2016 12:29:00 06/03/2016 16:29:00 DIS OP ASHA, [facility] OT [id number] 05/18/2016 14:00:00 05/18/2016 18:00:00 [facility] [id number] 05/18/2016 14:28:00 05/18/2016 15:28:00 [facility] [id number] 04/28/2016 08:44:00 04/28/2016 12:44:00 DIS OP FLAQUITA [facility] [id number] 04/26/2016 08:04:00 04/26/2016 12:04:00 DIS OP ASHA, [facility] [id number] 04/22/2016 14:45:00 04/22/2016 18:45:00 [facility] [id number] 04/22/2016 16:01:00 04/22/2016 17:01:00 [facility] [id number] 04/15/2016 10:42:00 04/15/2016 12:30:00 DIS OS ASHA [facility] NS [id number] 04/08/2016 12:00:00 04/08/2016 16:00:00 DIS OP ASHA, [facility] [id number] 04/08/2016 10:15:00 04/08/2016 14:15:00 [facility] [id number] 04/08/2016 10:56:00 04/08/2016 11:56:00 [facility] [id number] 03/25/2016 14:30:00 03/25/2016 18:30:00 [facility] [id number] 03/25/2016 15:07:00 03/25/2016 16:07:00 [facility] [id number] 03/19/2016 10:30:00 03/19/2016 14:30:00 [facility] [id number] 03/04/2016 11:55:00 03/06/2016 11:56:00 [facility] [id number] 03/04/2016 15:15:00 03/06/2016 08:45:00 [facility] [place] [id number] 03/04/2016 13:30:00 03/04/2016 17:30:00 [facility] [id number] 03/04/2016 14:18:00 03/04/2016 15:18:00 [facility] [id number] 02/16/2016 11:00:00 02/16/2016 15:00:00 [facility] [id number] 02/16/2016 11:15:00 02/16/2016 12:15:00 [facility] [id number] 01/19/2016 10:00:00 01/19/2016 14:00:00 [facility] [id number] 01/19/2016 10:29:00 01/19/2016 11:29:00 [facility] [id number] 12/22/2015 13:30:00 12/22/2015 17:30:00 [facility] [id number] 12/05/2015 13:30:00 12/05/2015 17:30:00 [facility] [id number] 11/20/2015 10:00:00 11/20/2015 14:00:00 [facility] [id number] 10/21/2015 10:15:00 10/21/2015 14:15:00 [facility] [id number] 09/22/2015 14:15:00 09/22/2015 18:15:00 [facility] [id number] 09/10/2015 12:48:00 09/10/2015 16:48:00 DIS OP MARIBEL NORWOOD [id number] 09/08/2015 15:04:00 09/08/2015 19:04:00 [id number]/08/2015 15:00:00 09/08/2015 19:00:00 [facility] [id number] 08/29/2015 15:30:00 08/29/2015 19:30:00 DIS RY KIPKEVON HAMILTON [facility] CL [id number] 08/21/2015 14:30:00 08/21/2015 18:30:00 [facility] [id number] 08/08/2015 12:37:00 08/08/2015 16:37:00 [facility] [id number] 08/07/2015 15:30:00 08/07/2015 19:30:00 [facility] [id number] 08/07/2015 15:30:00 08/07/2015 19:30:00 [facility] [id number] 07/29/2015 15:45:00 07/29/2015 19:45:00 [facility] [id number] 07/10/2015 10:27:00 07/10/2015 14:27:00 [facility] [id number] 07/10/2015 10:15:00 07/10/2015 14:15:00 [facility] [id number] 06/02/2015 10:09:00 06/02/2015 14:09:00 [facility] [id number] 06/02/2015 10:00:00 06/02/2015 14:00:00 [facility] [id number] 04/30/2015 11:30:00 04/30/2015 15:30:00 [facility] [id number] 04/30/2015 11:26:00 04/30/2015 15:26:00 [facility] [id number] 03/26/2015 11:34:00 03/26/2015 15:34:00 [facility] [id number] 03/26/2015 11:00:00 03/26/2015 15:00:00 [facility] [id number] 03/04/2015 10:15:00 03/04/2015 14:15:00 [facility] [id number] 01/27/2015 11:00:00 01/27/2015 15:00:00 [facility] [id number] 12/24/2014 15:30:00 12/24/2014 19:30:00 [facility] [id number] 11/18/2014 16:31:00 11/18/2014 20:31:00 [id number] 11/18/2014 16:00:00 11/18/2014 20:00:[facility] [id number] 10/14/2014 16:00:00 10/15/2014 02:00:00 [facility] [id number] 09/11/2014 15:00:00 09/12/2014 01:00:00 [facility] [id number] 05/29/2018 13:15:00 PEN Outpatient STEPHEN SAMS [id number] 02/10/2017 14:15:00 DIS RY STEPHEN SAMS [facility] [id number] 02/09/2017 10:15:00 PEN OP [id number] 11/08/2016 09:30:00 PEN RY [id number] 09/02/2016 13:30:00 PEN OP FELICIA BARRY [id number] 04/14/2016 10:40:00 Document Registration [id number] 04/12/2016 14:00:00 PEN AN [id number] 03/22/2016 10:45:00 PEN RY [id number] 02/25/2016 09:30:00 PEN OP STEPHEN SAMS [id number] 02/19/2016 13:30:00 PEN RY [id number] 09/09/2015 16:00:00 PEN OP [id number] 09/04/2015 14:30:00 PEN CY STEPHEN SAMS [id number] 04/03/2015 11:30:00 PEN OP [id number] 08/12/2014 16:30:00 Document Registration [id number] 07/31/2014 16:00:00 Document Registration [id number] 07/11/2014 16:15:00 Document Registration [id number] 06/13/2014 14:30:00 Document Registration [id number] 01/01/2014 14:00:00 Document Registration [id number] 12/28/2013 10:30:00 Document Registration
[2018-05-28] MEDS ORDERED: NS IV 1000 ML 1,000 ML IV ONE (08:59)
[2018-05-28] MEDS ORDERED: RT-ALBUTEROL/IPRATROPIUM 3 ML (DUONEB) VIAL INH ONE (09:00)
--- NOTE | 2018-05-28 09:27 | ED General ---
General Chief Complaint: Dizziness/Syncope Stated Complaint: WHEEZING,DIZZY Nursing Triage Note: pt reports she woke up this am dizzy and wheezing. reports she had a cigarette this am after breakfast and it got worse after. pt was diagnosed with pneumonia on tuesday. Nursing Sepsis Screen: No Definite Risk Source of Information: Patient Exam Limitations: No Limitations History of Present Illness Date Seen by Provider: May 28, 2018 Time Seen by Provider: 08:50 Initial Comments This 50-year-old woman presents to the emergency room with concerns about wheezing, dizziness and feeling short of breath this morning. She was seen by me 2 days ago in this ER and diagnosed with pneumonia. She was started on Levaquin. She states compliance with her medications. She continues to smoke but has reduced her smoking significantly. She reports only having 4 cigarettes yesterday. She was feeling fairly well when she woke up this morning. However, the symptoms started after she had a cigarette. She is not wheezing at present. She is afebrile. She has difficulty elaborating on her symptoms or identifying specific complaints. She seems anxious but denies anxiety. She is mildly tachycardic with a heart rate around 105. She is still taking prednisone 40 mg daily that she was prescribed several days ago. She does have an inhaler at home to use. Allergies and Home Medications Allergies Coded Allergies: No Known Drug Allergies (Unverified , 05/28/18) Home Medications Levofloxacin 750 Mg Tablet, 750 MG PO DAILY Prescribed by: JADA VILLA on 05/26/18 1136 Patient Home Medication List Home Medication List Reviewed: Yes Review of Systems Review of Systems Constitutional: no symptoms reported EENTM: no symptoms reported Respiratory: see HPI Cardiovascular: see HPI Gastrointestinal: no symptoms reported Genitourinary: no symptoms reported : No Musculoskeletal: no symptoms reported Skin: no symptoms reported Psychiatric/Neurological: See HPI Hematologic/Lymphatic: No Symptoms Reported Immunological/Allergic: no symptoms reported Past Hsosgau-Fpdzdj-Wnpwms Hx Patient Social History Alcohol Use: Denies Use Recreational Drug Use: No Smoking Status: Current Everyday Smoker Type Used: Cigarettes Recent Foreign Travel: No Contact w/Someone Who Travel: No Recent Infectious Disease Expo: No Recent Hopitalizations: No Physical Abuse: No Sexual Abuse: No Mistreated: No Fear: No Seasonal Allergies Seasonal Allergies: No Past Medical History Surgeries: Yes (splenectomy) Abdominal Respiratory: Yes Pneumonia (tobaccoism) Cardiac: Yes High Cholesterol, Hypertension Neurological: No : No Genitourinary: No Gastrointestinal: No Musculoskeletal: No Endocrine: No HEENT: No Cancer: No Psychosocial: No Integumentary: No Blood Disorders: No Physical Exam Vital Signs Vital Signs - First Documented 05/28/18 05/28/18 08:55 09:12 Temp 98.8 Pulse 104 Resp 18 B/P (MAP) 158/81 (106) Pulse Ox 97 O2 Delivery Room Air Capillary Refill : Less Than 3 Seconds Height, Weight, BMI Height: 5'7.00" Weight: 147lbs. oz. 66.734223qj; BMI Method:Stated General Appearance: WD/WN, Anxious HEENT: PERRL/EOMI, Normal ENT Inspection, Pharynx Normal Neck: Normal Inspection Respiratory: Lungs Clear, Normal Breath Sounds, No Accessory Muscle Use, No Respiratory Distress Cardiovascular: No Edema, No Murmur, Tachycardia Extremity: Normal Inspection, No Calf Tenderness, No Pedal Edema Neurologic/Psychiatric: Alert, Oriented x3, No Motor/Sensory Deficits, reflexologist II- XII Norm as Tested, Other (mildly anxious) Skin: Normal Color, Warm/Dry Progress/Results/Core Measures Suspected Sepsis Recent Fever Within 48 Hours: No Infection Criteria Present: None New/Unexplained Altered Menta: No Sepsis Screen: No Definite Risk SIRS Temperature:98.8 Pulse: 104 Respiratory Rate: 18 Laboratory Tests 05/28/18 09:14: White Blood Count 26.8H Blood Pressure 158 /81 Mean: 106 Laboratory Tests 05/28/18 09:14: Creatinine 0.76, Platelet Count 641H, Total Bilirubin 0.3 Results/Orders Lab Results Laboratory Tests Test 05/28/18 09:14 Range/Units White Blood Count 26.8 H 4.3-11.0 10^3/uL Red Blood Count 4.54 4.35-5.85 10^6/uL Hemoglobin 13.7 11.5-16.0 G/DL Hematocrit 39 35-52 % Mean Corpuscular Volume 85 80-99 FL Mean Corpuscular Hemoglobin 30 25-34 PG Mean Corpuscular Hemoglobin Concent 36 32-36 G/DL Red Cell Distribution Width 13.9 10.0-14.5 % Platelet Count 641 H 130-400 10^3/uL Mean Platelet Volume 8.8 7.4-10.4 FL Neutrophils (%) (Auto) 83 H 42-75 % Lymphocytes (%) (Auto) 11 L 12-44 % Monocytes (%) (Auto) 6 0-12 % Eosinophils (%) (Auto) 0 0-10 % Basophils (%) (Auto) 0 0-10 % Neutrophils # (Auto) 22.3 H 1.8-7.8 X 10^3 Lymphocytes # (Auto) 2.8 1.0-4.0 X 10^3 Monocytes # (Auto) 1.6 H 0.0-1.0 X 10^3 Eosinophils # (Auto) 0.0 0.0-0.3 10^3/uL Basophils # (Auto) 0.1 0.0-0.1 10^3/uL Sodium Level 133 L 135-145 MMOL/L Potassium Level 3.5 L 3.6-5.0 MMOL/L Chloride Level 95 L 98-107 MMOL/L Carbon Dioxide Level 22 21-32 MMOL/L Anion Gap 16 H 5-14 MMOL/L Blood Urea Nitrogen 9 7-18 MG/DL Creatinine 0.76 0.60-1.30 MG/DL Estimat Glomerular Filtration Rate > 60 BUN/Creatinine Ratio 12 Glucose Level 97 70-105 MG/DL Calcium Level 10.2 H 8.5-10.1 MG/DL Corrected Calcium 8.5-10.1 MG/DL Magnesium Level 2.1 1.8-2.4 MG/DL Total Bilirubin 0.3 0.1-1.0 MG/DL Aspartate Amino Transf (AST/SGOT) 18 5-34 U/L Alanine Aminotransferase (ALT/SGPT) 19 0-55 U/L Alkaline Phosphatase 112 40-136 U/L Total Protein 8.4 H 6.4-8.2 GM/DL Albumin 4.6 H 3.2-4.5 GM/DL My Orders Orders - JADA POLK MD Cbc With Automated Diff (05/28/18 08:59) Comprehensive Metabolic Panel (05/28/18 08:59) Magnesium (05/28/18 08:59) Saline Lock/Iv-Start (05/28/18 08:59) Ns Iv 1000 Ml (Sodium Chloride 0.9%) (05/28/18 08:59) Albuterol/Ipra Inhalation Soln (Duoneb I (05/28/18 09:00) Svn Small Volume Nebulizer (05/28/18 08:59) Manual Differential (05/28/18 09:14) Hs C Reactive Protein (05/28/18 09:42) Medications Given in ED Current Medications Medications Dose Ordered Sig/Jaylene Route Start Time Stop Time Status Last Admin Dose Admin Albuterol/ Ipratropium 3 ml ONCE ONCE INH 05/28/18 09:00 05/28/18 09:02 DC 05/28/18 09:11 3 ML Sodium Chloride 1,000 ml @ 0 mls/hr Q0M ONCE IV 05/28/18 08:59 05/28/18 09:02 DC 05/28/18 09:14 0 MLS/HR Vital Signs/I&O 05/28/18 05/28/18 08:55 09:12 Temp 98.8 Pulse 104 Resp 18 B/P (MAP) 158/81 (106) Pulse Ox 97 96 O2 Delivery Room Air Capillary Refill : Less Than 3 Seconds Blood Pressure Mean: 106 Progress Note #1: Time: 09:40 Progress Note Patient received a DuoNeb treatment which did not change her subjective status much. Progress Note #2: Time: 10:05 Progress Note Labs are fairly unremarkable except for leukocytosis which is likely steroid induced. Heart rate decreased by about 20 bpm after IV hydration. Patient does seem jittery and anxious, and I suspect this is steroid-induced. Patient would like to stop the steroids as she only has one day left on the prescription anyway. She is not wheezing at present and doesn't feel like she needs the steroids anymore. Return precautions discussed and patient advised to establish with a primary care provider she can follow-up with routinely as soon as possible. Departure Impression Primary Impression: Pneumonia Qualified Codes: J18.9 - Pneumonia, unspecified organism Additional Impressions: Wheezing Hypovolemia Jittery feeling Disposition: 01 HOME, SELF-CARE Condition: Improved Departure-Patient Inst. Decision time for Depature: 10:06 Referrals: NO,LOCAL PHYSICIAN (PCP/Family) Primary Care Physician Patient Instructions: Pneumonia in Adults Add. Discharge Instructions: Stay well-hydrated with plenty of clear liquids. Use your inhaler as prescribed for shortness of breath or wheezing. Complete the antibiotic as prescribed. Stop the steroids (prednisone) if you believe they're making you jittery. Return to the ER if you have worsening symptoms. Follow-up with a primary care provider soon as possible. Pursue a repeat chest x-ray after you have recovered from this illness. Discuss your x-ray results with your primary care provider. Continue to work on smoking cessation and reduce your smoking is much as possible in the meantime. All discharge instructions reviewed with patient and/or family. Voiced understanding. JADA POLK MD May 28, 2018 09:27
[2018-05-28 09:29] LABS: BASOPHILS # (AUTO) 0.1 10^3/uL (0.0-0.1); BASOPHILS % (AUTO) 0 % (0-10); EOSINOPHILS % (AUTO) 0 % (0-10); HEMATOCRIT 39 % (35-52); HEMOGLOBIN 13.7 G/DL (11.5-16.0); LYMPHOCYTES # (AUTO) 2.8 X 10^3 (1.0-4.0); LYMPHOCYTES % (AUTO) 11 % (12-44); MEAN CORPUSCULAR HEMOGLOBIN 30 PG (25-34); MEAN CORPUSCULAR HGB CONC 36 G/DL (32-36); MEAN CORPUSCULAR VOLUME 85 FL (80-99); MEAN PLATELET VOLUME 8.8 FL (7.4-10.4); MONOCYTES # (AUTO) 1.6 X 10^3 (0.0-1.0); MONOCYTES % (AUTO) 6 % (0-12); NEUTROPHILS # (AUTO) 22.3 X 10^3 (1.8-7.8); NEUTROPHILS % (AUTO) 83 % (42-75); PLATELET COUNT 641 10^3/uL (130-400); RED BLOOD COUNT 4.54 10^6/uL (4.35-5.85); RED CELL DISTRIBUTION WIDTH 13.9 % (10.0-14.5); WHITE BLOOD COUNT 26.8 10^3/uL (4.3-11.0)
[2018-05-28 09:51] LABS: ALANINE AMINOTRANSFERASE 19 U/L (0-55); ALBUMIN 4.6 GM/DL (3.2-4.5); ALKALINE PHOSPHATASE 112 U/L (40-136); BILIRUBIN,TOTAL 0.3 MG/DL (0.1-1.0); BUN/CREATININE RATIO 12; CALCIUM 10.2 MG/DL (8.5-10.1); CARBON DIOXIDE 22 MMOL/L (21-32); CHLORIDE 95 MMOL/L (98-107); CREATININE SERUM 0.76 MG/DL (0.60-1.30); GFR ESTIMATED > 60; GLUCOSE 97 MG/DL (70-105); MAGNESIUM 2.1 MG/DL (1.8-2.4); POTASSIUM 3.5 MMOL/L (3.6-5.0); SODIUM 133 MMOL/L (135-145); TOTAL PROTEIN 8.4 GM/DL (6.4-8.2)
[2018-05-28 10:17] VITALS: BP 148/79
[2018-05-28 10:42] LABS: BAND NEUTROPHILS 3 %; LYMPHOCYTES % (MANUAL) 12 %; MONOCYTES % (MANUAL) 9 %; NEUTROPHILS % (MANUAL) 76 %
[2018-05-28 10:43] LABS: HYPERSEGMENTED NEUT MODERATE; RBC MORPH NORMAL
[2018-05-28 10:44] LABS: TOXIC GRANULATION/VACUOLAZATIO 2+
== END 2018-05-28 10:17 | disposition home or self-care (01) ==
LOC: EDUNIT# 08:43 → MERGE 08:44 → ER 08:44
DX: J18.9 Pneumonia, unspecified organism (principal); E86.1 Hypovolemia; R45.0 Nervousness; E78.00 Pure hypercholesterolemia, unspecified; I10 Essential (primary) hypertension; F17.210 Nicotine dependence, cigarettes, uncomplicated; Z90.81 Acquired absence of spleen; Z79.52 Long term (current) use of systemic steroids
CPT/HCPCS: 36415; 80053; 83735; 85007; 85027; 86141; 94640; 96360

== ENCOUNTER → 2018-06-12 | Outpatient (CLI) | payer MEDICARE, MEDICAID ==
[2018-06-12 14:03] LABS: HEMOGLOBIN 13.2 G/DL (11.5-16.0); MEAN PLATELET VOLUME 8.7 FL (7.4-10.4); RED BLOOD COUNT 4.33 10^6/uL (4.35-5.85); RED CELL DISTRIBUTION WIDTH 13.6 % (10.0-14.5); WHITE BLOOD COUNT 7.4 10^3/uL (4.3-11.0)
--- NOTE | 2018-06-12 15:37 | Diagnostic Imaging Report ---
EXAMINATION: PA chest at 2:34 p.m. INDICATION: Pneumonia. FINDINGS: The heart size is within normal limits and stable when compared to 05/26/2018. The lungs are generally clear and well aerated. There is no sign of failure, pneumonia, or pleural effusion to indicate an acute abnormality. However, there is a small area of increased density in the right suprahilar region. This finding does seem somewhat more conspicuous than on the prior exam. I suspect that this density is related to superimposition of the bronchovascular markings as opposed to a discrete lesion. Even so, I would recommend that CT of the chest be performed for more sensitive evaluation of this area. The mediastinum is not widened. The osseous structures are intact. IMPRESSION: 1. There is no evidence for an acute cardiopulmonary abnormality. 2. The small area of increased density in the right suprahilar region may well be secondary to superimposition. The possibility that there is a small underlying lesion in this area should still be considered, however. Recommendations as above. Dictated by: Dictated on workstation # [id number]
== END ==
LOC: RAD 13:46
PROVIDERS: ATTEND Family Medicine
DX: R91.8 Other nonspecific abnormal finding of lung field (principal); J18.9 Pneumonia, unspecified organism; D72.829 Elevated white blood cell count, unspecified
CPT/HCPCS: 36415; 71045; 85027

== ENCOUNTER → 2018-06-21 | Outpatient (CLI) | payer MEDICARE, MEDICAID ==
[~2018-06-21] MED LIST changes: +IOHEXOL 350 MG/ML 100 ML (OMNIPAQUE 350) VIAL IV ONE; +NS 100 ML (IVPB) BAG IV ONE; +RECEIVED CONTRAST (Hold Metformin) IV SCH
--- NOTE | 2018-06-21 13:52 | Diagnostic Imaging Report ---
PROCEDURE: CT chest with contrast only. TECHNIQUE: Multiple contiguous axial images were obtained through the chest after administration of intravenous contrast. INDICATION: Pneumonia and abnormal chest x-ray. Correlation is made with prior chest radiograph from 06/12/2018. No prior chest CT is available for comparison. No axillary lymphadenopathy is detected. No mediastinal lymphadenopathy is identified. No hilar mass is identified. Specifically, no abnormality in the right suprahilar location is seen to account for the chest radiographic abnormality. Parenchymal evaluation does show centrilobular emphysematous changes greatest in the upper lobes. There is a tiny subpleural nodule in the right upper lobe, image 20 measuring 3 mm. Minimal scarring or atelectasis posterior right upper lobe is noted. There is some scarring or atelectasis in the right middle lobe and lingula as well. No infiltrates are seen. Upper abdomen is unremarkable. IMPRESSION: Essentially unremarkable CT of the chest apart from some mild scarring or atelectasis in the right middle lobe and lingula as well as a micronodule in the right upper lobe. No right suprahilar mass is identified. There is no thoracic lymphadenopathy. Dictated by: Dictated on workstation # [id number]
== END ==
LOC: RAD 12:38
PROVIDERS: ATTEND Family Medicine
DX: J18.9 Pneumonia, unspecified organism (principal); J98.4 Other disorders of lung; R91.1 Solitary pulmonary nodule
CPT/HCPCS: 71260

== ENCOUNTER 2018-11-20 11:52 | Outpatient (RCR) | payer MEDICARE, MEDICAID ==
[~2018-11-20 11:52] MED LIST changes: -IOHEXOL 350 MG/ML 100 ML (OMNIPAQUE 350) VIAL IV ONE; -NS 100 ML (IVPB) BAG IV ONE; -RECEIVED CONTRAST (Hold Metformin) IV SCH
== END 2019-02-18 | disposition home or self-care (01) ==
LOC: LAB 11:52
PROVIDERS: ATTEND Family Medicine
DX: R19.7 Diarrhea, unspecified (principal)
CPT/HCPCS: 87015; 87045; 87046; 87449; 87899

== ENCOUNTER 2019-05-05 09:27 | Emergency (ER) | payer OTHER, MEDICARE, MEDICAID ==
[~2019-05-05] VITALS: Ht 170.1 cm; Wt 68.4 kg
[2019-05-05] MEDS ORDERED: KETOROLAC 60 MG/2 ML VIAL IM ONE (10:15)
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
[2019-05-05] MEDS ORDERED: KETO10TA PO (11:07)
[2019-05-05] MEDS ORDERED: CYCL10TA9 PO (11:07)
[2019-05-05 11:30] VITALS: BP 169/76
--- NOTE | 2019-05-05 11:30 | NUR ---
Unable to get discharge vitals. Pt irrate and cursing at this nurse at time of discharge. Pt not happy with provider's diagnosis.
--- OUTSIDE RECORDS SUMMARY | 2019-05-28 22:56 | XMS REPORT ---
Author Author [email or web address] Medic al Staff POS Organization [email or web address] SP Address [address], [place] [address] Phone [phone] SP Care Team Providers Care Catering Convention Services Manager Name Role Phone POS STEPHEN SAMS MD PP [phone] SP Summary purpose TRANSITION OF CARE AUTO GENERATION Chief Complaint and Reason for Visit No authorized Reason for Visit (Admitting Diagnosis) is available for this visit . Problem list No authorized problems tracked for continuity of care are available for this vis it. Encounters No authorized problems tracked for encounter diagnoses are available for this vi sit. Medications No medications recorded for this patient visit Allergies, adverse reactions, alerts Allergen Category Ingredient Status Reaction Severity Onset POS Sulfa (Sulfonamide Antibiotics) Drug Allergy Sulfa (Sulfonami de Antibiotics) SP or Verified SP Immunizations No immunizations recorded for this patient [...]
--- OUTSIDE RECORDS SUMMARY | 2019-05-28 22:56 | XMS REPORT ---
Author Author [facility] [employer] [facility] Medic al Staff POS Organization [email or web address] SP Address [address], [place] [address] Phone [phone] SP Care Team Providers Care Cd Reactor Operator Head Name Role Phone POS STEPHEN SAMS MD PP [phone] SP Summary purpose TRANSITION OF CARE AUTO [...]
--- OUTSIDE RECORDS SUMMARY | 2019-05-28 22:56 | XMS REPORT ---
Author Author [facility] Medic al Staff POS Organization [facility] SP Address [address], [place] [address] Phone [phone] SP Care Team Providers Care Radio Equipment Repairer Name Role Phone POS STEPHEN SAMS MD PP [phone] SP Summary purpose TRANSITION OF CARE AUTO [...]
--- OUTSIDE RECORDS SUMMARY | 2019-05-28 22:56 | XMS REPORT ---
Author Author [facility] Medic al Staff POS Organization [facility] SP Address [address], [place] [address] Phone [phone] SP Summary purpose TRANSITION OF CARE AUTO [...] Relevant diagnostic tests and/or laboratory data RESULTS POS Routine Urinalysis POS [id number]:00 POS Result Normal Range Units POS Color Straw SP PATIENT NAME MAYBE UPDATED TO LEAH MURPHY Clarity Clear SP PATIENT NAME MAYBE UPDATED TO LEAH MURPHY Specific Austin 1.003 SP PATIENT NAME MAYBE UPDATED TO LEAH MURPHY Refractometer OL.SV pH 5.5 4.5-8.0 SP PATIENT NAME MAYBE UPDATED TO LEAH MURPHY Glucose NEGATIVE SP PATIENT NAME MAYBE UPDATED TO LEAH MURPHY Bilirubin NEGATIVE SP PATIENT NAME MAYBE UPDATED TO LEAH MURPHY Ketones NEGATIVE SP PATIENT NAME MAYBE UPDATED TO LEAH MURPHY Protein NEGATIVE SP PATIENT NAME MAYBE UPDATED TO LEAH MURPHY Urobilinogen 0.2 0-0.2 E.U./dL SP PATIENT NAME MAYBE UPDATED TO LEAH MURPHY Nitrites NEGATIVE SP PATIENT NAME MAYBE UPDATED TO LEAH MURPHY Blood NEGATIVE SP PATIENT NAME MAYBE UPDATED TO LEAH MURPHY Leukocytes NEGATIVE SP PATIENT NAME MAYBE UPDATED TO LEAH MURPHY WBCs No WBC's Seen SP PATIENT NAME MAYBE UPDATED TO LEAH MURPHY RBCs SP No RBC's OL.SV PATIENT NAME MAYBE UPDATED TO LEAH MURPHY Squamous Epithelial Few SP PATIENT NAME MAYBE UPDATED TO LEAH MURPHY POS Chemistry POS [id number]:00 POS Result Normal Range Units POS Sodium 136 134-145 mEq/l SP PATIENT NAME MAYBE UPDATED TO LEAH SP PATIENT NAME MAYBE UPDATED TO LEAH SP PATIENT NAME MAYBE UPDATED TO [facility] Potassium 5.0 3.5-5.1 mEq/l SP PATIENT NAME MAYBE UPDATED TO LEAH SP PATIENT NAME MAYBE UPDATED TO LEAH SP PATIENT NAME MAYBE UPDATED TO [facility] Chloride 100 98-107 mEq/l SP PATIENT NAME MAYBE UPDATED TO LEAH SP PATIENT NAME MAYBE UPDATED TO [facility] PATIENT NAME MAYBE UPDATED TO [facility] CO2 26.6 22-28 mEq/l SP PATIENT NAME MAYBE UPDATED TO LEAH SP PATIENT NAME MAYBE UPDATED TO [facility] PATIENT NAME MAYBE UPDATED TO [facility] Glucose 99 70-105 mg/dl SP PATIENT NAME MAYBE UPDATED TO [facility] PATIENT NAME MAYBE UPDATED TO [facility] PATIENT NAME MAYBE UPDATED TO [facility] BUN 9 7-18 mg/dl SP PATIENT NAME MAYBE UPDATED TO [facility] PATIENT NAME MAYBE UPDATED TO [facility] PATIENT NAME MAYBE UPDATED TO [facility] Creatinine 0.71 0.6-1.0 mg/dl SP PATIENT NAME MAYBE UPDATED TO [facility] PATIENT NAME MAYBE UPDATED TO [facility] PATIENT NAME MAYBE UPDATED TO [facility] Calcium 9.0 8.4-10.2 mg/dl SP PATIENT NAME MAYBE UPDATED TO [facility] PATIENT NAME MAYBE UPDATED TO [facility] PATIENT NAME MAYBE UPDATED TO [facility] TP - Total Protein 7.7 6.0-8.3 g /dl SP PATIENT NAME MAYBE UPDATED TO [facility] PATIENT NAME MAYBE UPDATED TO [facility] PATIENT NAME MAYBE UPDATED TO [facility] Albumin 4.1 3.5-5 g/dl SP PATIENT NAME MAYBE UPDATED TO [facility] PATIENT NAME MAYBE UPDATED TO [facility] PATIENT NAME MAYBE UPDATED TO [facility] Bilirubin - Total 0.4 0.1-1.0 mg /dl SP PATIENT NAME MAYBE UPDATED TO [facility] PATIENT NAME MAYBE UPDATED TO [facility] PATIENT NAME MAYBE UPDATED TO [facility] AST 25 10-42 IU/L SP PATIENT NAME MAYBE UPDATED TO [facility] Moderate OL.SV ALT 35 12-65 IU/L SP PATIENT NAME MAYBE UPDATED TO LEAH SP PATIENT NAME MAYBE UPDATED TO [facility]AH SP PATIENT NAME MAYBE UPDATED TO [facility] ALP H 85 25-72 IU/L SP PATIENT NAME MAYBE UPDATED TO LEAH SP PATIENT NAME MAYBE UPDATED TO [facility] SP PATIENT NAME MAYBE UPDATED TO LEAH SP Osmolality L 270.7 280-300 mOsm/L SP PATIENT NAME MAYBE UPDATED TO [facility]AH SP PATIENT NAME MAYBE UPDATED TO [facility] SP PATIENT NAME MAYBE UPDATED TO [facility] Albumin/Globulin Ratio 1.1 0-8 SP PATIENT NAME MAYBE UPDATED TO LEAH SP PATIENT NAME MAYBE UPDATED TO [facility] SP PATIENT NAME MAYBE UPDATED TO [facility] Anion GAP 9.4 8-16 SP PATIENT NAME MAYBE UPDATED TO LEAH SP PATIENT NAME MAYBE UPDATED TO [facility] SP PATIENT NAME MAYBE UPDATED TO [facility] BUN/Creatinine Ratio 12.7 10-20 SP PATIENT NAME MAYBE UPDATED TO LEAH SP PATIENT NAME MAYBE UPDATED TO LEAH SP PATIENT NAME MAYBE UPDATED TO LEAH SP Estimated GFR 85 >=60 mL/min /1.7 SP PATIENT NAME MAYBE UPDATED TO [facility] PATIENT NAME MAYBE UPDATED TO [facility] PATIENT NAME MAYBE UPDATED TO [facility] POS Hematology POS [id number]:55:00 POS Result Normal Range Units POS WBC 9.7 4.8-10.8 103/uL SP PATIENT NAME MAYBE UPDATED TO [facility] RBC 4.6 4.2-5.4 106/uL SP PATIENT NAME MAYBE UPDATED TO [facility] HGB 14.6 12.0-16.0 g/dl SP PATIENT NAME MAYBE UPDATED TO [facility] HCT 41.8 36.9-47.0 % SP PATIENT NAME MAYBE UPDATED TO [facility] MCV 90.1 81-99 FL SP PATIENT NAME MAYBE UPDATED TO [facility] MCH H 31.5 27-31 pg SP PATIENT NAME MAYBE UPDATED TO [facility] MCHC 34.9 33-37 g/dl SP PATIENT NAME MAYBE UPDATED TO [facility] RDW 13.3 11.5-15.5 % SP PATIENT NAME MAYBE UPDATED TO [facility] PLT H 470 130-400 103/uL SP PATIENT NAME MAYBE UPDATED TO [facility] MPV 9.2 7.3-10.4 FL SP PATIENT NAME MAYBE UPDATED TO [facility] Neutro % 58.0 40-70 % SP PATIENT NAME MAYBE UPDATED TO LEAH SP Lymph % 30.9 20-40 % SP PATIENT NAME MAYBE UPDATED TO LEAH SP Dixie % 8.3 0-10.0 % SP PATIENT NAME MAYBE UPDATED TO LEAH SP Eos % 1.1 0-7.0 % SP PATIENT NAME MAYBE UPDATED TO LEAH SP Baso % 1.3 0-2 % SP PATIENT NAME MAYBE UPDATED TO LEAH SP Neutro # 5.6 1.5-7.5 103/uL SP PATIENT NAME MAYBE UPDATED TO LEAH SP Lymph # 3.0 0.9-4.0 103/uL SP PATIENT NAME MAYBE UPDATED TO LEAH SP Dixie # 0.8 0-0.8 103/uL SP PATIENT NAME MAYBE UPDATED TO LEAH SP Eos # 0.1 0-0.6 103/uL SP PATIENT NAME MAYBE UPDATED TO LEAH SP Baso # 0.1 0-0.1 103/uL SP PATIENT NAME MAYBE UPDATED TO LEAH SP POS Body Fluid POS [id number]:00 POS Result Normal Range Units POS pH 5.5 4.5-8.0 SP PATIENT NAME MAYBE UPDATED TO [facility] POS Radiology Results POS [id number]:[address] C-SPINE W/O CONT SP PACs OL.SV DATE OF EXAM: Jul 24 OL.SV OL.SV [id number] CERVICAL SPINE WO CONTRAST SP OL.SV OL.SV RADIOLOGY OL.SV OL.SV DATE OF SERVICE: OL.SV OL.SV HISTORY: Status post fall 2 days ago, he adache and SP OL.SV COMPUTED TOMOGRAPHY CERVICAL SPINE WITHO UT CONTRAST 1345 SP OL.SV Axial images were obtained with sagittal and coronal reformats. SP axial images do not show evidence of acu te pathology. There is SP change involving facets bilaterally. No significant compromise of SP foramen or spinal canal is seen. The odo ntoid is intact. There SP intervertebral narrowing and disc degene ration mild C5-C6, C6-C7 SP The facets show arthritic change C3 thro ugh C7 mild to moderate. SP fracture is defined. No soft tissue abno rmalities are SP Normal alignment and position vertebral bodies SP OL.SV OL.SV 1. Mild to moderate OL.SV 2. No OL.SV OL.SV Paxton Mcclendon, OL.SV WP/nh 07/24/2015 14:11:07/05 SP OL.SV OL.SV This document has been OL.SV Signed by: OL.SV OL.SV DATE OF EXAM: Jul 24 OL.SV OL.SV [id number] CERVICAL SPINE WO CONTRAST SP OL.SV OL.SV RADIOLOGY OL.SV OL.SV DATE OF SERVICE: OL.SV OL.SV HISTORY: Status post fall 2 days ago, he adache and SP OL.SV COMPUTED TOMOGRAPHY CERVICAL SPINE WITHO UT CONTRAST 1345 SP OL.SV Axial images were obtained with sagittal and coronal reformats. SP axial images do not show evidence of acu te pathology. There is SP change involving facets bilaterally. No significant compromise of SP foramen or spinal canal is seen. The odo ntoid is intact. There SP intervertebral narrowing and disc degene ration mild C5-C6, C6-C7 SP The facets show arthritic change C3 thro ugh C7 mild to moderate. SP fracture is defined. No soft tissue abno rmalities are SP Normal alignment and position vertebral bodies SP OL.SV OL.SV 1. Mild to moderate OL.SV 2. No OL.SV OL.SV Paxton Mcclendon OLMitzySV WP/nh 07/24/2015 14:11:07/05 SP OL.SV OL.SV This document has been OL.SV Signed by: PAXTON MCCLENDON DO On: Jul 25 SP OL.SV OL.SV OL.SV Result Amended on 2015-07-25 at 09:21:12 . Previous status was SP OL.SV OL.SV CT HEAD W/O CONT SP PACs OL.SV DATE OF EXAM: Jul 24 OL.SV OL.SV [id number] HEAD WO CONTRA ST OL.SV OL.SV OL.SV RADIOLOGY OL.SV OL.SV DATE OF SERVICE: OL.SV OL.SV HISTORY: Status post fall 2 days ago, he adache and SP OL.SV COMPUTED TOMOGRAPHY HEAD WITHOUT CONTRAS T AND WITH BONE WINDOWS SP OL.SV OL.SV Axial images were evaluated. No active o r acute intracranial SP can be seen. The ventricles and sulci ap pear normal. SP calcifications are minimally present. No hemorrhage is defined. SP abnormal extra-axial fluid collections a re SP OL.SV The bony windows do not show evidence of active pathology. The SP are clear as seen. The frontal sinus is atrophic. Mastoid cells SP OL.SV OL.SV IMPRESSION: Normal OL.SV OL.SV Paxton Mcclendon SELENE.SV WP/nh 07/24/2015 14:11:00 / 07/05 SP OL.SV OL.SV This document has been OL.SV Signed by: OLMitzySV OL.SV DATE OF EXAM: Jul 24 OL.SV OL.SV [id number] HEAD WO CONTRA ST OL.SV OL.SV OL.SV RADIOLOGY OL.SV OL.SV DATE OF SERVICE: OL.SV OL.SV HISTORY: Status post fall 2 days ago, he adache and SP OL.SV COMPUTED TOMOGRAPHY HEAD WITHOUT CONTRAS T AND WITH BONE WINDOWS SP OL.SV OL.SV Axial images were evaluated. No active o r acute intracranial SP can be seen. The ventricles and sulci ap pear normal. SP calcifications are minimally present. No hemorrhage is defined. SP abnormal extra-axial fluid collections a re SP OL.SV The bony windows do not show evidence of active pathology. The SP are clear as seen. The frontal sinus is atrophic. Mastoid cells SP OL.SV OL.SV IMPRESSION: Normal OL.SV OL.SV Paxton Hakan OL.SV WP/nh 07/24/2015 14:11:00 07/05 SP OL.SV OL.SV This document has been OL.SV Signed by: PAXTON MCCLENDON DO On: Jul 25 SP OL.SV OL.SV OL.SV Result Amended on 2015-07-25 at 09:21:05 . Previous status was SP OL.SV OL.SV [id number] POS Result Normal Range Units POS MPV 9.2 7.3-10.4 FL SP PATIENT NAME MAYBE UPDATED TO LEAH MURPHY History of procedures Procedure Code Code Type Description Date Performed [place]forming Phys[place] 25048 CPT-4 ROUTINE VENIPUNCTURE 07-24-2015 KAYLA MURPHY 27527 CPT-4 CT HEAD/BRAIN W/O DYE 07-24-2015 KAYLA MURPHY 94936 CPT-4 CT NECK SPINE W/O DYE 07-24-2015 KAYLA MURPHY 00556 CPT-4 COMPREHEN METABOLIC PANEL 07-24-2015 KAYLA MURPHY 84805 CPT-4 URINALYSIS, AUTO W/SCOPE 07-24-2015 M ARK FIDEL MURPHY 47210 CPT-4 COMPLETE CBC W/AUTO DIFF WBC 07-24-[place] [address] CPT-4 EMERGENCY DEPT VISIT 07-24-2015 [place] [address] CPT-4 EMERGENCY DEPT VISIT 07-24-2015 KAYLA GARRISONNDT SP Functional status Functional Status Finding Observation Time POS Abdomen Appearance round :05 SP Abdomen soft :05 SP Urination normal :05 SP Quality sym/unlabored : SP Cough absent :05 SP Secretions no :05 SP Airway natural :05 SP Oxygen no : SP Temp >100.4 no : SP Temp <96.8 no :05 SP Chills with rigors no :05 SP HR > 90bpm no :05 SP Respirations > 20 no : SP Systolic <90 no :05 SP headache stiff neck no :05 SP Rapid Resp no :05 SP Nursing Note Discharge instructions given , voices understanding. Report from [facility] er visit received, placed in file. HIM corrected per pt to include her regular physician, Dr Hyatt. Pt denies concerns. Amb off unit in good condition. SP Vital signs Type Value Date POS Respiration Rate 18breaths per minute : SP Pulse 83beats per minute :25 SP Oxygen Saturation 98% :25 SP BP Systolic 126mmHg :25 SP BP Diastolic 69mmHg :25 SP Temperature 98.3F :25 SP Weight 152LB :46 SP Social history No Social History or smoking status observations were recorded for this visit. ( Unknown if ever smoked.) Treatment Plan No treatment plan text is available for this visit. Hospital discharge instructions Dismissal Condition good POS Disposition on DC home POS DC Inst/Educ Give yes POS Med/Side Effects Rev yes POS Tetanus Vac not current POS
--- OUTSIDE RECORDS SUMMARY | 2019-05-28 22:56 | XMS REPORT ---
Author Author [facility] Medic al Staff POS Organization [facility] SP Address [address], [place] [address] Phone [phone] SP Care Team Providers Care Notcher Name Role Phone POS STEPHEN SAMS MD PP [phone] SP Summary purpose TRANSITION OF CARE AUTO [...]
--- OUTSIDE RECORDS SUMMARY | 2019-05-28 22:56 | XMS REPORT ---
Author Author [facility] Medic al Staff POS Organization [facility] SP Address [address], [place] [address] Phone [phone] SP Care Team Providers Care Repair Electric Motor Assembler Name Role Phone POS STEPHEN SAMS MD PP [phone] SP Summary purpose TRANSITION OF CARE AUTO [...]
--- OUTSIDE RECORDS SUMMARY | 2019-05-28 22:56 | XMS REPORT ---
Author Author [facility] Medic al Staff POS Organization [facility] SP Address [address], [place] [address] Phone [phone] SP Care Team Providers Care Plant Production Worker Name Role Phone POS STEPHEN SAMS MD PP [phone] SP Summary purpose TRANSITION OF CARE AUTO [...]
--- OUTSIDE RECORDS SUMMARY | 2019-05-28 22:57 | XMS REPORT ---
Author Author Saleem Van POS Organization [facility] SP Address Unknown SP Phone Unavailable SP Care Team Providers Care Staff Consultant Name Role Phone POS Saleem Van CP Unavailable SP Allergies No Known Allergies Problems Problem Type Condition Code Onset Dates Condition Statu s POS Problem Peptic ulcer disease K27.9 Active SP Problem C. difficile colitis A04.7 Active SP Problem Positive serology for Helicobacter pylori R76.8 Active SP Problem Left sided abdominal pain R10.9 Ac tive SP Problem Diarrhea, unspecified type R19.7 A ctive SP Problem Diarrhea 787.91 Active SP Problem Diverticulosis of colon (without mention of hemorrhage ) 562.10 Active SP Problem Chronic hepatitis C without hepatic coma B18.2 Active SP Problem Hepatitis C carrier V02.62 Active SP Medications No Known Medications Results No Known Results Summary Purpose [employer] Submission
--- OUTSIDE RECORDS SUMMARY | 2019-05-28 22:57 | XMS REPORT ---
Author Author SHWETA PARTIDA POS Organization [facility] SP Address [address] [place] [address] SP Care Team Providers Care Warehouse Manager Name Role Phone POS SHWETA PARTIDA Unavailable SP PROBLEMS Unknown Problems ALLERGIES No Information ENCOUNTERS Encounter Location Date Diagnosis POS [facility] [address] [address] SP Jun, SP [facility] [address] [address] SP May, SP [facility] [address] [address] SP May, Bronchitis J40 SP [facility] [address] [place] [id number] [place] [address] SP Apr, Acute non-recurrent frontal sinusitis J01.10 SP [facility] [address] [place] [address] Sep, 17 Dental SP Z01.20 [facility] [address] [place] [address] Jul, 17 Dental SP Z01.20 [facility] [address] [place] [address] Mar, 16 Dental SP Z01.20 [facility] [address] [place] [address] Feb, 16 Dental SP Z01.20 [facility] [address] [place] [address] November, 16 Dental SP Z01.20 IMMUNIZATIONS No Known Immunizations SOCIAL HISTORY Never Assessed REASON FOR VISIT PA Albuterol- Initiated PLAN OF CARE VITAL SIGNS MEDICATIONS Unknown Medications RESULTS No Results PROCEDURES No Known procedures INSTRUCTIONS MEDICATIONS ADMINISTERED No Known Medications MEDICAL (GENERAL) HISTORY Type Description Date POS Medical History HBP SP Medical History Arthritis SP Medical History Back trouble SP Medical History Neck Injury SP Surgical History Spleen Removed 2007 SP Hospitalization History Previous surgeries SP
--- OUTSIDE RECORDS SUMMARY | 2019-05-28 22:57 | XMS REPORT ---
Author Author Saleem Van POS Organization [facility] SP Address Unknown SP Phone Unavailable SP Care Team Providers Care Turkey Picker Name Role Phone POS Saleem Van CP Unavailable SP Allergies, Adverse Reactions, Alerts Substance Reaction Event Type POS Sulfa Info Not Available Drug Allergy SP Problems Problem Type Condition Code Onset Dates Condition Statu s POS Problem C. difficile colitis A04.7 Active SP Problem Diverticulosis of colon (without mention of hemorrhage ) 562.10 Active SP Problem Peptic ulcer disease K27.9 Active SP Assessment Microscopic colitis, unspecified K52.839 Active SP Problem Diarrhea, unspecified type R19.7 A ctive SP Problem Positive serology for Helicobacter pylori R76.8 Active SP Problem Microscopic colitis, unspecified K52.839 Active SP Problem Hepatitis C carrier V02.62 Active SP Problem Diarrhea 787.91 Active SP Problem Left sided abdominal pain R10.9 Ac tive SP Problem Chronic hepatitis C without hepatic coma B18.2 Active SP Medications Medication Code System Code Instructions Start Date End Date Status Dosage POS Amitriptyline HCl [facility] [address]-48 100 MG Orally Once a day 1 tablet at SP Alprazolam [facility] [address]-97 1 MG Orally Three times a day 1 tablet SP Oxycodone-Acetaminophen [facility] [address]-36 10-325 MG Orally Thr ee times a day SP 1 tablet as needed SP Simvastatin [facility] [address]-92 20 MG Orally Once a day 1 tablet in the SP Lisinopril [facility] [address]-16 10 MG Orally Once a day 1 tablet SP Cymbalta [facility] [address]-75 60 MG Orally Once a day 1 capsule SP Entocort EC [facility] [address]-91 3 MG Orally Once a day Apr 23, 2016 3 tablets SP Procedures Procedure Coding System Code Date POS DOC MEDS VERIFIED W/PT OR RE CPT-4 G8427 Jun 03, 2016 SP Office Visit, Est Pt., Level 3 CPT-4 38753 D ec 2015 SP Vital Signs Date/Time: Jun 03, 2016 POS Blood Pressure Diastolic 68 mm Hg POS Blood Pressure Systolic 133 mm Hg POS Cardiac Monitoring Heart Rate 88 /min POS BMI 22.71 Index POS Weight 145 lbs POS Height 67 in POS Results No Known Results Summary Purpose [employer]ClinicalWorks Submission
--- OUTSIDE RECORDS SUMMARY | 2019-05-28 22:57 | XMS REPORT ---
Author Author SHWETA PARTIDA POS Organization [facility] SP Address [address] [place] [address] SP Care Team Providers Care Bottoming Room Inspector Name Role Phone POS SHWETA PARTIDA Unavailable SP PROBLEMS Unknown Problems ALLERGIES Substance Reaction Event Type Date Status POS Sulfacetamide Sodium Unknown Drug Allergy Apr, Active SP ENCOUNTERS Encounter Location Date Diagnosis POS [facility] [address] [facility] [id number] [place], [place] SP Apr, Acute non-recurrent frontal sinusitis J01.10 SP [facility] [address] [place] [address] Sep, 17 Dental SP Z01.20 [facility] [address] [place] [address] Jul, 17 Dental SP Z01.20 [facility] [address] [place] [address] Mar, 16 Dental SP Z01.20 [facility] [address] [place] [address] Feb, 16 Dental SP Z01.20 [facility] [address] [place] [phone] November, 16 Dental SP Z01.20 IMMUNIZATIONS No Known Immunizations SOCIAL HISTORY Never Assessed REASON FOR VISIT Cough, headache, sore throat x10 days JStrasserRN PLAN OF CARE Activity Details POS SP Follow Up if not improving with PCP or reg follow up Reason: SP VITAL SIGNS Height 67 in 2018-04-22 POS Weight 149.8 lbs 2018-04-22 POS Temperature 98.3 degrees Fahrenheit 2018-04-22 POS Heart Rate 90 bpm 2018-04-22 POS Respiratory Rate 22 2018-04-22 POS Oximetry 95 % 2018-04-22 POS BMI 23.46 kg/m2 2018-04-22 POS Blood pressure systolic 100 mmHg 2018-04-22 POS Blood pressure diastolic 70 mmHg 2018-04-22 POS MEDICATIONS Medication Instructions Dosage Frequency Start Date End Date Duration S tatus POS Lisinopril Active SP Hydrocodone-Acetaminophen 10-325 MG Orally every 6 hrs 1 capsule as n eeded 6h SP Active SP Xanax Active SP Mucinex DM 30-600 MG Orally every 12 hrs 1 tablet as needed 12h Active SP Augmentin 875-125 MG Orally every 12 hrs 1 tablet 12h Apr, 018 30 Apr, 2018 SP day(s) Active SP Amitriptyline HCl Active SP Triamterene-HCTZ Active SP Duloxetine HCl 20 MG Orally Twice a day 1 capsule 12h 30 day(s) Active SP Simvastatin 20 MG Orally Once a day 1 tablet in the evening 24h 30 day(s) SP RESULTS No Results PROCEDURES Procedure Date Ordered Result Body Site POS [facility] VISIT NEW PATIENT Apr 22, 2018 SP INSTRUCTIONS MEDICATIONS ADMINISTERED No Known Medications MEDICAL (GENERAL) HISTORY Type Description Date POS Medical History HBP SP Medical History Arthritis SP Medical History Back trouble SP Medical History Neck Injury SP Surgical History Spleen Removed 2007 SP Hospitalization History Previous surgeries SP
--- OUTSIDE RECORDS SUMMARY | 2019-05-28 22:57 | XMS REPORT ---
Author Author [facility] Medic [facility] Staff POS Organization [facility] SP Address [address], [place] [id number] Phone [phone] SP Summary purpose TRANSITION OF CARE AUTO [...] laboratory data RESULTS POS Routine Urinalysis POS [id number]:25:00 POS Result Normal Range Units POS Color Straw SP PATIENT NAME MAYBE UPDATED TO LEAH MURPHY Clarity Clear SP PATIENT NAME MAYBE UPDATED TO LEAH MURPHY Specific [place] 1.003 SP PATIENT NAME MAYBE UPDATED TO [...] UPDATED TO LEAH MURPHY POS Chemistry POS [id number]:55:00 POS Result Normal Range Units POS Sodium 136 134-145 mEq/l SP PATIENT NAME MAYBE UPDATED TO LEAH SP PATIENT NAME MAYBE UPDATED TO LEAH SP PATIENT NAME MAYBE UPDATED TO [facility] Potassium 5.0 3.5-5.1 mEq/l SP PATIENT NAME MAYBE UPDATED TO LEAH SP PATIENT NAME MAYBE UPDATED TO LEAH SP PATIENT NAME MAYBE UPDATED TO [facility] Chloride 100 98-107 mEq/l SP PATIENT NAME MAYBE UPDATED TO LEAH SP PATIENT NAME MAYBE UPDATED TO [facility] PATIENT NAME MAYBE UPDATED TO [facility] CO2 26.6 22-28 mEq/l SP PATIENT NAME MAYBE UPDATED TO LEAH SP PATIENT NAME MAYBE UPDATED TO [facility] PATIENT NAME MAYBE UPDATED TO [facility] Glucose 99 70-105 mg/dl SP PATIENT NAME MAYBE UPDATED TO [facility] PATIENT NAME MAYBE UPDATED TO [facility] PATIENT NAME MAYBE UPDATED TO [facility] BUN 9 7-18 mg/dl SP PATIENT NAME MAYBE UPDATED TO [facility] PATIENT NAME MAYBE UPDATED TO [facility] PATIENT NAME MAYBE UPDATED TO [facility] Creatinine 0.71 0.6-1.0 mg/dl SP PATIENT NAME MAYBE UPDATED TO [facility] PATIENT NAME MAYBE UPDATED TO [facility] PATIENT NAME MAYBE UPDATED TO [facility] Calcium 9.0 8.4-10.2 mg/dl SP PATIENT NAME MAYBE UPDATED TO [facility] PATIENT NAME MAYBE UPDATED TO [facility] PATIENT NAME MAYBE UPDATED TO [facility] TP - Total Protein 7.7 6.0-8.3 g /dl SP PATIENT NAME MAYBE UPDATED TO [facility] PATIENT NAME MAYBE UPDATED TO [facility] PATIENT NAME MAYBE UPDATED TO [facility] Albumin 4.1 3.5-5 g/dl SP PATIENT NAME MAYBE UPDATED TO [facility] PATIENT NAME MAYBE UPDATED TO [facility] PATIENT NAME MAYBE UPDATED TO [facility] Bilirubin - Total 0.4 0.1-1.0 mg /dl SP PATIENT NAME MAYBE UPDATED TO [facility] PATIENT NAME MAYBE UPDATED TO [facility] PATIENT NAME MAYBE UPDATED TO [facility] AST 25 10-42 IU/L SP PATIENT NAME MAYBE UPDATED TO [facility] Moderate OL.SV ALT 35 12-65 IU/L SP PATIENT NAME MAYBE UPDATED TO LEAH SP PATIENT NAME MAYBE UPDATED TO LEAH SP PATIENT NAME MAYBE UPDATED TO [facility] ALP H 85 25-72 IU/L SP PATIENT NAME MAYBE UPDATED TO LEAH SP PATIENT NAME MAYBE UPDATED TO LEAH SP PATIENT NAME MAYBE UPDATED TO LEAH SP Osmolality L 270.7 280-300 mOsm/L SP PATIENT NAME MAYBE UPDATED TO LEAH SP PATIENT NAME MAYBE UPDATED TO LEAH SP PATIENT NAME MAYBE UPDATED TO [facility] Albumin/Globulin Ratio 1.1 0-8 SP PATIENT NAME MAYBE UPDATED TO LEAH SP PATIENT NAME MAYBE UPDATED TO LEAH SP PATIENT NAME MAYBE UPDATED TO [facility] Anion GAP 9.4 8-16 SP PATIENT NAME MAYBE UPDATED TO LEAH SP PATIENT NAME MAYBE UPDATED TO LEAH SP PATIENT NAME MAYBE UPDATED TO [facility] BUN/Creatinine Ratio 12.7 10-20 SP PATIENT NAME MAYBE UPDATED TO LEAH SP PATIENT NAME MAYBE UPDATED TO LEAH SP PATIENT NAME MAYBE UPDATED TO LEAH SP Estimated GFR 85 >=60 mL/min /1.7 SP PATIENT NAME MAYBE UPDATED TO [facility] PATIENT NAME MAYBE UPDATED TO [facility] PATIENT NAME MAYBE UPDATED TO [facility] POS Hematology POS [id number]:00 POS Result Normal Range Units POS WBC 9.7 4.8-10.8 103/uL SP PATIENT NAME MAYBE UPDATED TO [facility] RBC 4.6 4.2-5.4 106/uL SP PATIENT NAME MAYBE UPDATED TO [facility] HGB 14.6 12.0-16.0 g/dl SP PATIENT NAME MAYBE UPDATED TO [facility] HCT 41.8 36.9-47.0 % SP PATIENT NAME MAYBE UPDATED TO [facility] MCV 90.1 81-99 FL SP PATIENT NAME MAYBE UPDATED TO [facility] MCH H 31.5 27-31 pg SP PATIENT NAME MAYBE UPDATED TO [facility] MCHC 34.9 33-37 g/dl SP PATIENT NAME MAYBE UPDATED TO [facility] RDW 13.3 11.5-15.5 % SP PATIENT NAME MAYBE UPDATED TO [facility] PLT H 470 130-400 103/uL SP PATIENT NAME MAYBE UPDATED TO [facility] MPV 9.2 7.3-10.4 FL SP PATIENT NAME MAYBE UPDATED TO [facility] Neutro % 58.0 40-70 % SP PATIENT NAME MAYBE UPDATED TO LEAH SP Lymph % 30.9 20-40 % SP PATIENT NAME MAYBE UPDATED TO LEAH SP Wood % 8.3 0-10.0 % SP PATIENT NAME [...] PATIENT NAME MAYBE UPDATED TO LEAH SP Wood # 0.8 0-0.8 103/uL SP PATIENT NAME MAYBE UPDATED TO LEAH SP Eos # 0.1 0-0.6 103/uL SP PATIENT NAME MAYBE UPDATED TO LEAH SP Baso # 0.1 0-0.1 103/uL SP PATIENT NAME MAYBE UPDATED TO LEAH SP POS Body Fluid POS [id number]:25:00 POS Result Normal Range Units POS pH 5.5 4.5-8.0 SP PATIENT NAME MAYBE UPDATED TO LEAH SP POS Radiology Results POS [id number]:51:[address] C-SPINE W/O CONT SP PACs OL.SV DATE OF EXAM: Jul 24 OL.SV OL.SV [id number] CERVICAL SPINE WO CONTRAST SP OL.SV OL.SV [...] has been OL.SV Signed by: OL.SV OL.SV OL.SV OL.SV CT HEAD W/O CONT SP PACs OL.SV DATE OF EXAM: Jul 24 OL.SV OL.SV [id number] HEAD WO CONTRA ST OL.SV OL.SV OL.SV [...] OL.SV IMPRESSION: Normal OL.SV OL.SV Paxton Mcclendon OL.SV WP/nh 07/24/2015 14:11:07/05 SP OL.SV OL.SV This document has been OL.SV Signed by: OL.SV OL.SV OL.SV OL.SV [id number] POS Result Normal Range Units POS MPV 9.2 7.3-10.4 FL SP PATIENT NAME MAYBE UPDATED TO LEAH MURPHY History of procedures No procedures recorded for this patient visit. Functional status Functional Status Finding Observation Time POS Abdomen Appearance round :05 SP Abdomen soft :05 SP Urination normal :05 SP Quality sym/unlabored :05 SP Cough absent :05 SP Secretions no :05 SP Airway natural :05 SP Oxygen no [id number]:25 SP Temp >100.4 no :05 SP Temp <96.8 no :05 SP Chills with rigors no :05 SP HR > 90bpm no :05 SP Respirations > 20 no :05 SP Systolic <90 no :05 SP headache stiff neck no :05 SP Rapid Resp no : SP Nursing Note Discharge instructions given , voices understanding. Report from [facility] er visit received, placed in file. HIM corrected per pt to include her regular physician, Dr Hyatt. Pt denies concerns. Amb off unit in good condition. SP Vital signs Type Value Date POS Respiration Rate 18breaths per minute : SP Pulse 83beats per minute :25 SP Oxygen Saturation 98% : SP BP Systolic 126mmHg :25 SP BP [...]
--- OUTSIDE RECORDS SUMMARY | 2019-05-28 22:57 | XMS REPORT ---
Author Author DIANNA CERDA POS Organization [facility] SP Address [address] [place] [address] SP Care Team Providers Care Nitro Man Name Role Phone POS DIANNA CERDA Unavailable SP PROBLEMS Unknown Problems ALLERGIES Substance Reaction Event Type Date Status POS Sulfacetamide Sodium Unknown Drug Allergy Jul, Active SP SOCIAL HISTORY No smoking Hx information available PLAN OF CARE Activity Details POS SP Follow Up REST #11 Reason: SP VITAL SIGNS Blood pressure systolic 137 mmHg 2016-07-19 POS Blood pressure diastolic 92 mmHg 2016-07-19 POS MEDICATIONS Medication Instructions Dosage Frequency Start Date End Date Duration S tatus POS Amitriptyline HCl Active SP Hydrocodone-Acetaminophen 10-325 MG Orally every 6 hrs 1 capsule as n eeded 6h SP Active SP Xanax Active SP Triamterene-HCTZ Active SP RESULTS No Results PROCEDURES Procedure Date Ordered Related Diagnosis Body Site POS LTD ORAL EVALUATION - PROBLEM FOCUS Jul 19, 2016 SP INTRAORL-PERIAPICAL 1 FILM 61101 Jul 19, 2016 SP EXTRAC ERUPTED TOOTH/EXPOSED ROOT Jul 19, 2016 SP IMMUNIZATIONS No Known Immunizations
--- OUTSIDE RECORDS SUMMARY | 2019-05-28 22:57 | XMS REPORT ---
Author Author DIANNA CERDA POS Organization [employer] SP Address Unknown SP Phone Unavailable SP Care Team Providers Care Assayer Helper Name Role Phone POS DIANNA CERDA CP Unavailable SP Allergies, Adverse Reactions, Alerts Substance Reaction Event Type POS Sulfacetamide Sodium Info Not Available Drug Allergy SP Problems Problem Type Condition Code Onset Dates Condition Statu s POS Assessment Dental examination Z01.20 Active SP Medications Medication Code System Code Instructions Start Date End Date Status Dosage POS Hydrocodone-Acetaminophen [facility] [address]-40 10-325 MG Orally every 6 hrs 1 SPcapsule as needed Fentanyl [facility] [address]-45 25 MCG/HR Transdermal 1 patch to skin SP Xanax [facility] [address]-20 not define d SP Triamterene-HCTZ [facility] [address]-09 n ot defined SP Amitriptyline HCl [facility] [address]-04 not defined SP [place] [facility] [address]-71 7.5-325 MG Orally every4- 6 hrs 1-2 tablets SP Clindamycin HCl [facility] [address]-78 150 MG Orally every 8 hrs 2 capsules SP Procedures Procedure Coding System Code Date POS EXTRAC ERUPTED TOOTH/EXPOSED ROOT CPT-4 D7140 Feb 16, 2016 SP Billing Notes on claim CPT-4 EC109 Feb 15, 2 016 SP EXTRAC ERUPTED TOOTH/EXPOSED ROOT CPT-4 D7140 Feb 16, 2016 SP Vital Signs Date/Time: Feb 16, 2016 POS Blood Pressure Diastolic 70 mmHg POS Blood Pressure Systolic 116 mmHg POS Results No Known Results Summary Purpose eClinicalWorks Submission
--- OUTSIDE RECORDS SUMMARY | 2019-05-28 22:57 | XMS REPORT ---
Author Author SHWETA PARTIDA POS Organization [facility] SP Address [address] [place] [address] SP Care Team Providers Care City Dispatcher Name Role Phone POS SHWETA PARTIDA Unavailable SP PROBLEMS Unknown Problems ALLERGIES Substance Reaction Event Type Date Status POS Sulfacetamide Sodium Unknown Drug Allergy May, Active SP ENCOUNTERS Encounter Location Date Diagnosis POS [facility] [address] [address] SP May, SP [facility] [address] [address] SP May, Bronchitis J40 SP [facility] [address] SP Apr, Acute non-recurrent frontal sinusitis J01.10 SP [facility] [address] [place] [address] Sep, 17 Dental SP Z01.20 [facility] [address] [place] [address] Jul, 17 Dental SP Z01.20 [facility] [address] [place] [address] Mar, 16 Dental SP Z01.20 [facility] [address] [place] [address] Feb, 16 Dental SP Z01.20 [facility] [address] [place] [address] November, 16 Dental SP Z01.20 IMMUNIZATIONS No Known Immunizations SOCIAL HISTORY Never Assessed REASON FOR VISIT Cough, headache, sore throat, congestion Tila Guzman MA PLAN OF CARE Activity Details POS SP Follow Up if not improving with PCP or reg follow up Reason: SP VITAL SIGNS Height 67 in 2018-05-24 POS Weight 148.2 lbs 2018-05-24 POS Temperature 97.8 degrees Fahrenheit 2018-05-24 POS Heart Rate 93 bpm 2018-05-24 POS Respiratory Rate 20 2018-05-24 POS Oximetry 94 % 2018-05-24 POS BMI 23.21 kg/m2 2018-05-24 POS Blood pressure systolic 106 mmHg 2018-05-24 POS Blood pressure diastolic 62 mmHg 2018-05-24 POS MEDICATIONS Medication Instructions Dosage Frequency Start Date End Date Duration S tatus POS Amitriptyline HCl Active SP Xanax Active SP Hydrocodone-Acetaminophen 10-325 MG Orally every 6 hrs 1 capsule as n eeded 6h Active SP Triamterene-HCTZ Active SP ProAir HFA 108 (90 Base) MCG/ACT Inhalation every 6 hrs 2 puffs as needed 6h 21 2017 Active SP Mucinex DM 30-600 MG Orally every 12 hrs 1 tablet as needed 12h Active SP Lisinopril Active SP PredniSONE 20 mg Orally Once a day 2 tablet 24h May, 7 days Active SP Duloxetine HCl 20 MG Orally Twice a day 1 capsule 12h 30 day(s) Active SP Simvastatin 20 MG Orally Once a day 1 tablet in the evening 24h 30 day(s) SP RESULTS Name Result Date Reference Range POS Xray : Chest 2 View (IN HOUSE) 2018-05-24 SP PROCEDURES Procedure Date Ordered Result Body Site POS X-RAY EXAM CHEST 2 VIEWS May 24, 2018 SP FQ VISIT ESTABLISHED PATIENT May 24, 2018 SP INSTRUCTIONS MEDICATIONS ADMINISTERED No Known Medications MEDICAL (GENERAL) HISTORY Type Description Date POS Medical History HBP SP Medical History Arthritis SP Medical History Back trouble SP Medical History Neck Injury SP Surgical History Spleen Removed 2007 SP Hospitalization History Previous surgeries SP
--- OUTSIDE RECORDS SUMMARY | 2019-05-28 22:57 | XMS REPORT ---
Author Author Saleem Van POS Organization [facility] SP Address Unknown SP Phone Unavailable SP Care Team Providers Care Residential Director Name Role Phone POS Saleem Van CP Unavailable SP Allergies No Known Allergies Problems Problem Type Condition Code Onset Dates Condition Statu s POS Assessment Left sided abdominal pain R10.9 Ac tive SP Problem Peptic ulcer disease K27.9 Active SP Problem C. difficile colitis A04.7 Active SP Assessment Diarrhea, unspecified type R19.7 A ctive SP [...] Hepatitis C carrier V02.62 Active SP Medications Medication Code System Code Instructions Start Date End Date Status Dosage POS Oxycodone-Acetaminophen [facility] [address]-31 10-325 MG Orally Thr ee times a day SP 1 tablet as needed SP Alprazolam [facility] [address]-13 1 MG Orally Three times a day 1 tablet SP Results Name Result Date Reference Range Unit Abnormali ty Flag POS t-Transglutaminase (tTG) IgA SP Surgical to [facility] Pathology SP ----Pathologist: See Report [id number] SP Summary Purpose [employer] Submission
--- OUTSIDE RECORDS SUMMARY | 2019-05-28 22:57 | XMS REPORT ---
Author Author DIANNA CERDA POS Organization [employer] SP Address Unknown SP Phone Unavailable SP Care Team Providers Care Wire Coiler Name Role Phone POS DIANNA CERDA CP Unavailable SP Allergies, Adverse Reactions, Alerts Substance Reaction Event Type POS Sulfacetamide Sodium Info Not Available Drug Allergy SP Problems Problem Type Condition Code Onset Dates Condition Statu s POS Assessment Dental examination Z01.20 Active SP Medications Medication Code System Code Instructions Start Date End Date Status Dosage POS [place] [facility] [address]-01 7.5-325 MG Orally every4- 6 hrs 1-2 tablets SP Triamterene-HCTZ [facility] [address]-54 n ot defined SP Xanax [facility] [address]-27 not define d SP Amitriptyline HCl [facility] [address]-21 not defined SP Fentanyl [facility] [address]-90 25 MCG/HR Transdermal 1 patch to skin SP Clindamycin HCl [facility] [address]-04 150 MG Orally every 8 hrs 2 capsules SP Hydrocodone-Acetaminophen [facility] [address]-47 10-325 MG Orally every 6 hrs 1 SPcapsule as needed Procedures Procedure Coding System Code Date POS Dental no charge CPT-4 D0099 Mar 09, 2016 SP Vital Signs Date/Time: Mar 09, 2016 POS Blood Pressure Diastolic 68 mmHg POS Blood Pressure Systolic 118 mmHg POS Results No Known Results Summary Purpose [employer] Submission
--- OUTSIDE RECORDS SUMMARY | 2019-05-28 22:57 | XMS REPORT ---
Author Author SHWETA PARTIDA POS Organization [facility] SP Address [address] [place] [address] SP Care Team Providers Care Chimney Supervisor Brick Name Role Phone POS SHWETA PARTIDA Unavailable SP PROBLEMS Unknown Problems ALLERGIES No Information ENCOUNTERS Encounter Location Date Diagnosis POS [facility] [address] [address] SP Jun, SP [facility] [address] [phone] SP May, SP [facility] [address] [address] SP May, Bronchitis J40 SP [facility] [address] [place] [id number] [place] [address] SP Apr, Acute non-recurrent frontal sinusitis J01.10 SP [facility] [address] [place] [address] Sep, 17 Dental SP Z01.20 [facility] [address] [place] [address] Jul, 17 Dental SP Z01.20 [facility] [address] [place] [address] Mar, 16 Dental SP Z01.20 [facility] [address] [place] [address] Feb, 16 Dental SP Z01.20 [facility] [address] [place] [address] November, 16 Dental SP Z01.20 IMMUNIZATIONS No Known Immunizations SOCIAL HISTORY Never Assessed REASON FOR VISIT Prior Authorization PLAN OF CARE VITAL SIGNS MEDICATIONS Unknown [...]
--- OUTSIDE RECORDS SUMMARY | 2019-05-28 22:57 | XMS REPORT ---
Author Author Saleem Van POS Organization [employer] SP Address Unknown SP Phone Unavailable SP Care Team Providers Care Student Services Coordinator Name Role Phone POS Saleem Van CP Unavailable SP Allergies, Adverse Reactions, Alerts Substance Reaction Event Type POS Sulfa Info Not Available Drug Allergy SP Problems Problem Type Condition Code Onset Dates Condition Statu s POS Assessment Diarrhea, unspecified type R19.7 A ctive SP Problem Peptic ulcer disease K27.9 Active [...] Problem Hepatitis C carrier V02.62 Active SP Assessment Chronic hepatitis C without hepatic coma B18.2 Active SP Assessment Left sided abdominal pain R10.9 Ac tive SP Assessment Positive serology for Helicobacter pylori R76.8 Active SP Assessment C. difficile colitis A04.7 Active SP Medications Medication Code System Code Instructions Start Date End Date Status Dosage POS Oxycodone-Acetaminophen [facility] [place] [address]-78 10-325 MG Orally Thr ee times a day SP 1 tablet as needed SP Alprazolam [facility] [place] [address]-16 1 MG Orally Three times a day 1 tablet SP Procedures Procedure Coding System Code Date POS Office Visit, New Pt., Level 4 CPT-[address] 2015 SP Vital Signs Date/Time: Apr 08, 2016 POS Blood Pressure Diastolic 67 mm Hg POS Blood Pressure Systolic 128 mm Hg POS Cardiac Monitoring Heart Rate 72 /min POS Weight 145.8 lbs POS Results No Known Results Summary Purpose [employer] Submission
--- OUTSIDE RECORDS SUMMARY | 2019-05-28 22:57 | XMS REPORT | Clinical Summary ---
Author Author Admin, E POS Organization All SP Address Unknown SP Phone Unavailable SP Allergies, Adverse Reactions, Alerts Allergy Name Reaction Description Start Date Severity Status Pr ovider POS SULFA itchy/rash Critical Active Sue MURPHY Conditions or Problems Problem Name Problem Code Onset Date Status Entry Date Provider Comment Standard POSDescription Annotate POS U T I-Recurrent Active Sue Faulkner Urinary SP infection, site not specified SP Fecal incontinence 787.60 Active Sue MURPHY incontinence of feces SP Medication List Medication Instructions Start Date Stop Date Generic Name NDC Status Provider POS Instruction Drug Treatment Unknown - unknown POS Vital Signs Date Name Value Unit Range Description POS blood pressure, diastolic - 8462-4 62 mm[Hg] BP terrell SP blood pressure, systolic - 8480-6 131 mm[Hg] BP sys SP height E&M - 8302-2 63 [in_us] Bdy h eight SP pulse rate E&M - 8867-4 87 /min H eart rate SP temperature E&M 98.6 [degF] Body temp erature SP weight E&M - 3141-9 154 [lb_av] Weigh t Measured SP Diagnostic Results Date Name Value Unit Range Description POS Office Visit: CN-recurrent UTI - Chemis try SP RBC, urine, dipstick negative SP protein, total urine random negative mg/dL SP Office Visit: CN-recurrent UTI - Urinal ysis SP pH, urine, semiquantitative 5 SP specific gravity, urine 1.010 SP ketones, urine, by test strip negative SP bilirubin, urine negative SP glucose, urine, semiquantitative negative SP urinalysis, routine Clean Catch SP culture status No SP urine color yellow SP appearance, urine clear SP leukocyte esterase, urine, by dipstick negative SP nitrite, urine, semiquantitative negative SP urobilinogen, urine, semiquantitative (dipstick) negative SP protein, urine, semiquantitative (dipstick) negative SP Encounters Code Encounter Date Provider Facility POS CPT-44071 Level 3 New Patient 14:49:13 TEENAGE PROGRAM DIRECTOR J Wayne flannery MD [facility] Procedures Code Procedure Name Date Entry Date Standard Desc ription POS CPT-26703 Urine Dip (Floor Use Only) 14:49:14 TEENAGE PROGRAM DIRECTOR 201 11/13/07 SP CPT-70194 Bladder Scan 14:49:14 TEENAGE PROGRAM DIRECTOR SP
--- OUTSIDE RECORDS SUMMARY | 2019-05-28 22:57 | XMS REPORT ---
Author Author Saleem Van POS Organization [employer] SP Address Unknown SP Phone Unavailable SP Care Team Providers Care Picture Painter Name Role Phone POS Saleem Van CP [...] Start Date End Date Status Dosage POS Entocort EC [facility] [place] [address]-08 3 MG Orally Once a day Apr 23, 2016 3 tablets SP Results No Known Results Summary Purpose [employer] Submission
--- OUTSIDE RECORDS SUMMARY | 2019-05-28 22:59 | XMS REPORT | Continuity of Care Document ---
Author Organization Unknown POS Address Unknown SP Phone Unavailable SP Allergies Active Description Code Type Severity POS Reaction Onset Reported/Identified POS to Patient Clinical Status POS Yes Sulfa (Sulfonamide Antibiotics) 491 Drug SP N/A N/A SP or Verified Yes sulfa drug 16 Drug N/A N/A SP SP Yes SULFA (SULFONAMIDE ANTIBIOTICS) SP UNKNOWN SP Yes Sulfa (Sulfonamide Antibiotics) [id number] 0491 SP Allergy Unknown N/A 8 SP SP Medications There is no data. 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 SP 10/15/2014 ELLIOTT SHETTY 338.4 CHRONIC SPPAIN SYSNDROME SP 10/15/2014 ELLIOTT SHETTY 727.1 BUNION SP SP 11/18/2014 ELLIOTT SHETTY 338.29 OTHER SP PAIN SP 11/18/2014 ELLIOTT SHETTY 787.91 SP NOS SP 11/18/2014 ELLIOTT SHETTY V13.02 SP HISTORY, URINARY (TRACT) INFECTION SP 11/18/2014 ELLIOTT SHETTY V68.1 ISSUE SP REPEAT PRESCRIPTIONS SP 11/18/2014 ELLIOTT SHETTY 599.0 Urinary SPtract infection, unspec./pyuria SP 11/18/2014 ELLIOTT SHETTY V74.8 SCREEN- SP DIS NEC SP 12/24/2014 ELLIOTT SHETTY 338.29 OTHER SP PAIN SP 12/24/2014 ELLIOTT SHETTY V68.1 ISSUE SP REPEAT PRESCRIPTIONS SP 01/27/2015 ELLIOTT SHETTY 338.29 OTHER SP PAIN SP 01/27/2015 ELLIOTT SHETTY 724.5 SP UNSPECIFIED SP 01/27/2015 ELLIOTT SHETTY V58.69 High- SP medication, long-term use SP 01/27/2015 ELLIOTT SHETTY V68.1 ISSUE SP REPEAT PRESCRIPTIONS SP 03/04/2015 MIRYAM ZHAO 338.29 SP OTHER CHRONIC PAIN SP 03/04/2015 MIRYAM ZHAO V58.69 SP High-risk medication, long-term use SP 03/04/2015 MIRYAM ZHAO V6 8.1 SP OF REPEAT PRESCRIPTIONS SP 03/26/2015 MIRYAM ZHAO 338.29 SP OTHER CHRONIC PAIN SP 03/26/2015 MIRYAM ZHAO F 78 8.1 SP SP 03/26/2015 MIRYAM ZHAO V58.69 SP High-risk medication, long-term use SP 03/26/2015 MIRYAM ZHAO V6 8.1 SP OF REPEAT PRESCRIPTIONS SP 03/26/2015 MIRYAM ZHAO 78 8.1 SP SP 03/26/2015 MIRYAM ZHAO 788.41 SP Urinary frequency SP 04/30/2015 MIRYAM ZHAO R3 0.0 SP SP 04/30/2015 MIRYAM ZHAO R3 5.0 SP of micturition SP 04/30/2015 MIRYAM ZHAO G89.29 SP Other chronic pain SP 04/30/2015 MIRYAM ZHAO F K5 8.9 SP bowel syndrome without diarrhea SP 04/30/2015 LILIANEESSMIRYAM JENSEN R3 5.0 SP of micturition SP 04/30/2015 MIRYAM ZHAO Z7 6.0 SP for issue of repeat prescription SP 06/02/2015 STEPHEN SAMS G89.29 SP chronic pain SP 06/02/2015 STEPHEN SAMS K57.92 SP of intestine, part unspecified, without perforation or abscess without bleeding SP 06/02/2015 STEPHEN SAMS Z76.0 SP for issue of repeat prescription SP 06/02/2015 STEPHEN SAMS Z79.89 1 SP term (current) use of opiate analgesic SP 06/02/2015 STEPHEN SAMS Z09 SP for follow-up examination after completed treatment for conditions other than malignant neoplasm SP 06/02/2015 STEPHEN SAMS Z87.44 8 SP history of other diseases of urinary system SP 07/10/2015 STEPHEN SAMS E78.5 SP unspecified SP 07/10/2015 STEPHEN SAMS F32.9 SP depressive disorder, single episode, unspecified SP 07/10/2015 STEPHEN SAMS G89.29 SP chronic pain SP 07/10/2015 STEPHEN SAMS I10 SP (primary) hypertension SP 07/10/2015 STEPHEN SAMS E78.5 SP unspecified SP 07/10/2015 STEPHEN SAMS I10 SP (primary) hypertension SP 07/29/2015 STEPHEN SAMS 724.2 SP low back SP 07/29/2015 STEPHEN SAMS 847.0 SP neck, unspec. SP 07/29/2015 STEPHEN SAMS 850.0 SP WITH NO LOSS OF CONSCIOUSNESS SP 07/29/2015 STEPHEN SAMS M54.5 Low SP pain SP 07/29/2015 STEPHEN SAMS S06.0X 0A SP without loss of consciousness, initial encounter SP 07/29/2015 STEPHEN SAMS S13.4X XA SP of ligaments of cervical spine, initial encounter SP 08/07/2015 STEPHEN SAMS 338.29 SP CHRONIC PAIN SP 08/07/2015 STEPHEN SAMS 724.2 SP low back SP 08/07/2015 STEPHEN SAMS 847.0 SP neck, unspec. SP 08/07/2015 STEPHEN SAMS 850.0 SP WITH NO LOSS OF CONSCIOUSNESS SP 08/07/2015 STEPHEN SAMS M54.5 Low SP pain SP 08/07/2015 STEPHEN SAMS S06.0X 0D SP without loss of consciousness, subsequent encounter SP 08/07/2015 STEPHEN SAMS S13.4X XD SP of ligaments of cervical spine, subsequent encounter SP 08/07/2015 STEPHEN SAMS V68.1 SP OF REPEAT PRESCRIPTIONS SP 08/07/2015 STEPHEN SAMS Z76.0 SP for issue of repeat prescription SP 08/08/2015 STEPHEN SAMS 724.2 SP low back SP 08/08/2015 STEPHEN SAMS M54.5 Low SP pain SP 08/21/2015 STEPHEN SAMS 338.29 SP CHRONIC PAIN SP 08/21/2015 STEPHEN SAMS 724.2 SP low back SP 08/21/2015 STEPHEN SAMS 847.0 SP neck, unspec. SP 08/21/2015 STEPHEN SAMS 850.0 SP WITH NO LOSS OF CONSCIOUSNESS SP 08/21/2015 STEPHEN SAMS G89.21 SP pain due to trauma SP 08/21/2015 STEPHEN SAMS G89.29 SP chronic pain SP 08/21/2015 STEPHEN SAMS M54.5 Low SP pain SP 08/21/2015 STEPHEN SAMS S06.0X 0D SP without loss of consciousness, subsequent encounter SP 08/21/2015 STEPHEN SAMS S13.4X XD SP of ligaments of cervical spine, subsequent encounter SP 08/29/2015 JESSICASAMUELYESSY KEVON F 782 .1 SP nonvesicular, unspec. SP 08/29/2015 KEVON WILSON R21 SP and other nonspecific skin eruption SP 09/08/2015 BEAU NORWOODIS F 722. 52 SP DISC DEGEN SP 09/08/2015 BEAU NORWOODIS F M51. 36 SP intervertebral disc degeneration, lumbar region SP 09/08/2015 BEAU NORWOODIS F V58. 69 SPrisk medication, long-term use SP 09/08/2015 BEAU NORWOODIS F V68. 1 SP OF REPEAT PRESCRIPTIONS SP 09/08/2015 BEAU NORWOODIS F Z76. 0 SP for issue of repeat prescription SP 09/08/2015 BEAU NORWOODIS F Z79. 891 SP term (current) use of opiate analgesic SP 09/08/2015 BEAU NORWOODIS F R35. 0 SP of micturition SP 09/10/2015 BEAU NORWOODIS F 722. 52 SP DISC DEGEN SP 09/10/2015 BEAU NORWOODIS F 724. 2 SP low back SP 09/10/2015 BEAU NORWOODIS F M51. 36 SP intervertebral disc degeneration, lumbar region SP 09/10/2015 BEAU NORWOODIS F M54. 5 SP back pain SP 09/22/2015 STEPHEN SAMS 300.00 SP state, unspec. SP 09/22/2015 STEPHEN SAMS 722.52 SP DISC DEGEN SP 09/22/2015 STEPHEN SAMS 847.0 SP neck, unspec. SP 09/22/2015 STEPHEN SAMS F41.9 SP disorder, unspecified SP 09/22/2015 STEPHEN SAMS M51.36 SP intervertebral disc degeneration, lumbar region SP 09/22/2015 STEPHEN SAMS S13.4X XD SP of ligaments of cervical spine, subsequent encounter SP 10/21/2015 STEPHEN SAMS F41.9 SP disorder, unspecified SP 10/21/2015 STEPHEN SAMS M51.36 SP intervertebral disc degeneration, lumbar region SP 10/21/2015 STEPHEN SAMS S13.4X XD SP of ligaments of cervical spine, subsequent encounter SP 10/21/2015 STEPHEN SAMS Z76.0 SP for issue of repeat prescription SP 11/20/2015 STEPHEN SAMS F41.9 SP disorder, unspecified SP 11/20/2015 STEPHEN SAMS G89.29 SP chronic pain SP 11/20/2015 STEPHEN SAMS M51.36 SP intervertebral disc degeneration, lumbar region SP 11/20/2015 STEPHEN SAMS S13.4X XD SP of ligaments of cervical spine, subsequent encounter SP 12/05/2015 STEPHEN SAMS G89.29 SP chronic pain SP 12/05/2015 STEPHEN SAMS M79.60 4 SP in right leg SP 12/05/2015 STEPHEN SAMS M79.60 5 SP in left leg SP 12/22/2015 STEPHEN SAMS F41.9 SP disorder, unspecified SP 12/22/2015 STEPHEN SAMS G89.29 SP chronic pain SP 12/22/2015 STEPHEN SAMS L23.7 SP contact dermatitis due to plants, except food SP 12/22/2015 STEPHEN SAMS Z76.0 SP for issue of repeat prescription SP 01/19/2016 STEPHEN SAMS R30.0 SP SP 01/19/2016 STEPHEN SAMS B37.3 SP of vulva and vagina SP 01/19/2016 TSEPHEN SAMS F41.9 SP disorder, unspecified SP 01/19/2016 STEPHEN SAMS G89.29 SP chronic pain SP 01/19/2016 STEPHEN SAMS N39.0 SP tract infection, site not specified SP 02/16/2016 STEPHEN SAMS E78.5 SP unspecified SP 02/16/2016 STEPHEN SAMS I10 SP (primary) hypertension SP 02/16/2016 STEPHEN SAMS Z79.89 1 SP term (current) use of opiate analgesic SP 02/16/2016 STEPHEN SAMS Z01.41 9 SP for gynecological examination (general) (routine) without abnormal findings SP 02/16/2016 STEPHEN SAMS Z12.4 SP for screening for malignant neoplasm of cervix SP 03/04/2016 STEPHEN SAMS R30.0 SP SP 03/04/2016 STEPHEN SAMS A04.7 SP due to Clostridium difficile SP 03/04/2016 STEPHEN SAMS B96.20 SP Escherichia coli [E. coli] as the cause of diseases classified elsewhere SP 03/04/2016 STEPHEN SAMS N39.0 SP tract infection, site not specified SP 03/04/2016 STEPHEN SAMS R19.7 SP unspecified SP 03/06/2016 STEPHEN SAMS R30.0 SP SP 03/06/2016 STEPHEN SAMS A04.7 SP due to Clostridium difficile SP 03/06/2016 STEPHEN SAMS E78.5 SP unspecified SP 03/06/2016 STEPHEN SAMS E86.0 SP SP 03/06/2016 STEPHEN SAMS F17.21 0 SP dependence, cigarettes, uncomplicated SP 03/06/2016 STEPHEN SAMS F41.9 SP disorder, unspecified SP 03/06/2016 STEPHEN SAMS I10 SP (primary) hypertension SP 03/06/2016 STEPHEN SAMS N39.0 SP tract infection, site not specified SP 03/06/2016 STEPHEN SAMS R30.0 SP SP 03/06/2016 STEPHEN SAMS Z80.3 SP history of malignant neoplasm of breast SP 03/06/2016 STEPHEN SAMS Z90.81 SP absence of spleen SP 03/06/2016 STEPHEN SAMS Z98.0 SP bypass and anastomosis status SP 03/06/2016 STEPHEN SAMS Z98.51 SP ligation status SP 03/06/2016 STEPHEN SAMS A04.7 SP due to Clostridium difficile SP 03/06/2016 STEPHEN SAMS E86.0 SP SP 03/06/2016 STEPHEN SAMS I10 SP (primary) hypertension SP 03/06/2016 STEPHEN SAMS N39.0 SP tract infection, site not specified SP 03/19/2016 STEPHEN SAMS A04.7 SP due to Clostridium difficile SP 03/19/2016 STEPHEN SAMS B96.81 SP pylori [H. pylori] as the cause of diseases classified elsewhere SP 03/19/2016 STEPHEN SAMS G89.29 SP chronic pain SP 03/19/2016 STEPHEN SAMS Z76.0 SP for issue of repeat prescription SP 03/25/2016 STEPHEN SAMS M79.67 6 SP in unspecified toe(s) SP 03/25/2016 STEPHEN SAMS A04.7 SP due to Clostridium difficile SP 03/25/2016 STEPHEN SAMS G89.29 SP chronic pain SP 03/25/2016 STEPHEN SAMS K21.9 SPesophageal reflux disease without esophagitis SP 03/25/2016 STEPHEN SAMS M79.67 1 SP in right foot SP 04/08/2016 STEPHEN SAMS B00.1 SP vesicular dermatitis SP 04/08/2016 FELICIA BARRY A04.7 SP due to Clostridium difficile SP 04/08/2016 FELICIA BARRY B18.2 SP viral hepatitis C SP 04/08/2016 FELICIA BARRY R19.7 SP unspecified SP 04/08/2016 FELICIA BARRY R76.8 Other SPspecified abnormal immunological findings in serum SP 04/08/2016 FELICIA BARRY R87.612 Low SPgrade squamous intraepithelial lesion on cytologic smear of cervix (LGSIL) SP 04/14/2016 F K52.839 Mi croscopic SP unspecified SP 04/14/2016 F K64.8 Othe r hemorrhoids SP SP 04/14/2016 F R19.7 Diar мария, SP SP 04/14/2016 F Z87.19 Per farhat history SP other diseases of the digestive system SP 04/15/2016 FELICIA BARRY F17.200 SP dependence, unspecified, uncomplicated SP 04/15/2016 FELICIA BARRY K52.839 SP colitis, unspecified SP 04/15/2016 FELICIA BARRY K64.8 Other SPhemorrhoids SP 04/15/2016 FELICIA BARRY R19.7 SP unspecified SP 04/15/2016 FELICIA BARRY Z87.19 SP history of other diseases of the digestive system SP 04/15/2016 FELICIA BARRY Z90.81 SP absence of spleen SP 04/22/2016 STEPHEN SAMS R30.0 SP SP 04/22/2016 STEPHEN SAMS R10.2 SP and perineal pain SP 04/26/2016 FELICIA BARRY F R10.12 Left SPupper quadrant pain SP 04/26/2016 FELICIA BARRY F R19.7 SP unspecified SP 04/26/2016 SHEKH BARRYAR F Z01.812 SP for preprocedural laboratory examination SP 04/28/2016 STEPHEN SAMS R10.2 SP and perineal pain SP 05/18/2016 STEPHEN SAMS R30.0 SP SP 05/18/2016 STEPHEN SAMS R82.99 SP abnormal findings in urine SP 05/18/2016 STEPHEN SAMS G89.29 SP chronic pain SP 05/18/2016 STEPHEN SAMS R30.0 SP SP 06/03/2016 ASHARODRIGUEFELICIA F K52.839 SP colitis, unspecified SP 06/15/2016 STEPHEN SAMS G89.29 SP chronic pain SP 06/15/2016 STEPHEN SAMS Z76.0 SP for issue of repeat prescription SP 07/12/2016 STEPHEN SAMS E78.5 SP unspecified SP 07/12/2016 STEPHEN SAMS G89.29 SP chronic pain SP 07/12/2016 STEPHEN SAMS I10 SP (primary) hypertension SP 07/12/2016 STEPHEN SAMS Z76.0 SP for issue of repeat prescription SP 08/04/2016 STEPHEN SAMS R50.81 SP presenting with conditions classified elsewhere SP 08/04/2016 STEPHEN SAMS R50.9 SP unspecified SP 08/04/2016 STEPHEN SAMS R52 Pain, SP SP 08/04/2016 STEPHEN SAMS J06.9 SP upper respiratory infection, unspecified SP 08/04/2016 STEPHEN SAMS R05 Cough SP SP 08/12/2016 STEPHEN SAMS I10 SP (primary) hypertension SP 08/12/2016 STEPHEN SAMS R30.0 SP SP 08/12/2016 STEPHEN SAMS R52 Pain, SP SP 08/12/2016 STEPHEN SAMS B96.89 SP specified bacterial agents as the cause of diseases classified elsewhere SP 08/12/2016 STEPHEN SAMS G89.29 SP chronic pain SP 08/12/2016 STEPHEN SAMS J20.8 SP bronchitis due to other specified organisms SP 08/12/2016 STEPHEN SAMS R39.15 SP of urination SP 09/09/2016 STEPHEN SAMS G89.29 SP chronic pain SP 09/09/2016 STEPHEN SAMS I10 SP (primary) hypertension SP 09/09/2016 STEPHEN SAMS Z76.0 SP for issue of repeat prescription SP 10/07/2016 STEPHEN SAMS E78.5 SP unspecified SP 10/07/2016 STEPHEN SAMS F41.9 SP disorder, unspecified SP 10/07/2016 STEPHEN SAMS G89.29 SP chronic pain SP 10/07/2016 STEPHEN SAMS R12 SP SP 11/04/2016 STEPHEN SAMS F41.8 SP specified anxiety disorders SP 11/04/2016 STEPHEN SAMS G89.29 SP chronic pain SP 11/04/2016 STEPHEN SAMS Z76.0 SP for issue of repeat prescription SP 11/09/2016 STEPHEN SAMS M54.16 SP lumbar region SP 11/09/2016 STEPHEN SAMS R23.3 SP ecchymoses SP 11/09/2016 STEPHEN SAMS S50.11 XA SP of right forearm, initial encounter SP 11/09/2016 STEPHEN SAMS S50.12 XA SP of left forearm, initial encounter SP 11/09/2016 STEPHEN SAMS T14.8 SP injury of unspecified body region SP 12/03/2016 STEPHEN SAMS G89.29 SP chronic pain SP 12/03/2016 STEPHEN SAMS R05 Cough SP SP 12/03/2016 STEPHEN SAMS R06.2 SP SP 12/03/2016 STEPHEN SAMS R53.83 SP fatigue SP 12/03/2016 STEPHEN SAMS R05 Cough SP SP 12/03/2016 STEPHEN SAMS R53.83 SP fatigue SP 12/28/2016 STEPHEN SAMS S29.09 1A SP injury of muscle and tendon of front wall of thorax, initial encounter SP 12/28/2016 STEPHEN SAMS Z76.0 SP for issue of repeat prescription SP 02/01/2017 STEPHEN SAMS F41.8 SP specified anxiety disorders SP 02/01/2017 STEPHEN SAMS G89.29 SP chronic pain SP 02/01/2017 STEPHEN SAMS I10 SP (primary) hypertension SP 02/01/2017 STEPHEN SAMS M54.9 SP unspecified SP 02/10/2017 STEPHEN SAMS 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 02 SP left ear SP 03/28/2017 MARIBEL NORWOOD F L98. 499 SPpressure chronic ulcer of skin of other sites with unspecified severity SP 03/28/2017 MARIBEL NORWOOD F R51 SP SP 04/04/2017 STEPHEN SAMS L98.49 9 SPpressure chronic ulcer of skin of other sites with unspecified severity SP 04/04/2017 STEPHEN SAMS Z01.41 9 SP for gynecological examination (general) (routine) without abnormal findings SP 04/04/2017 STEPHEN SAMS Z12.4 SP for screening for malignant neoplasm of cervix SP 05/04/2017 STEPHEN SAMS F41.8 SP specified anxiety disorders SP 05/04/2017 STEPHEN SAMS G47.62 SP related leg cramps SP 05/04/2017 STEPHEN SAMS G89.29 SP chronic pain SP 05/04/2017 STEPHEN SAMS K59.03 SP induced constipation SP 05/19/2017 STEPHEN SAMS J02.9 SP pharyngitis, unspecified SP 05/27/2017 STEPHEN SAMS K59.03 SP induced constipation SP 05/27/2017 STEPHEN SAMS R05 Cough SP SP 06/01/2017 STEPHEN SAMS F41.8 SP specified anxiety disorders SP 06/01/2017 STEPHEN ASMS G89.29 SP chronic pain SP 06/01/2017 STEPHEN SAMS R05 Cough SP SP 06/01/2017 STEPHEN SAMS Z76.0 SP for issue of repeat prescription SP 07/01/2017 STEPHEN SAMS F41.9 SP disorder, unspecified SP 07/01/2017 STEPHEN SAMS G89.29 SP chronic pain SP 07/01/2017 STEPHEN SAMS Z76.0 SP for issue of repeat prescription SP 08/01/2017 STEPHEN SAMS E78.5 SP unspecified SP 08/01/2017 STEPHEN SAMS F32.9 SP depressive disorder, single episode, unspecified SP 08/01/2017 STEPHEN SAMS G89.29 SP chronic pain SP 08/01/2017 STEPHEN SAMS I10 SP (primary) hypertension SP 08/01/2017 STEPHEN SAMS I10 SP (primary) hypertension SP 08/01/2017 STEPHEN SAMS R63.5 SP weight gain SP 09/01/2017 STEPHEN SAMS F41.9 SP disorder, unspecified SP 09/01/2017 STEPHEN SAMS G89.29 SP chronic pain SP 09/30/2017 STEPHEN SAMS F17.21 0 SP dependence, cigarettes, uncomplicated SP 09/30/2017 STEPHEN SAMS F41.9 SP disorder, unspecified SP 09/30/2017 STEPHEN SAMS G89.29 SP chronic pain SP 09/30/2017 STEPHEN SAMS Z76.0 SP for issue of repeat prescription SP 10/28/2017 STEPHEN SAMS F41.9 SP disorder, unspecified SP 10/28/2017 STEPHEN SAMS J20.8 SP bronchitis due to other specified organisms SP 10/28/2017 STEPHEN SAMS M54.2 SP SP 10/28/2017 STEPHEN SAMS M54.9 SP unspecified SP 11/25/2017 STEPHEN SAMS F41.9 SP disorder, unspecified SP 11/25/2017 STEPHEN SAMS G89.29 SP chronic pain SP 11/25/2017 STEPHEN SAMS M54.5 Low SP pain SP 11/25/2017 STEPHEN SAMS R25.2 SP and spasm SP 12/28/2017 STEPHEN SAMS F41.9 SP disorder, unspecified SP 12/28/2017 STEPHEN SAMS G25.81 SP legs syndrome SP 12/28/2017 STEPHEN SAMS G89.29 SP chronic pain SP 12/28/2017 STEPHEN SAMS Z76.0 SP for issue of repeat prescription SP 01/25/2018 STEPHEN SAMS F41.9 SP disorder, unspecified SP 01/25/2018 STEPHEN SAMS G89.29 SP chronic pain SP 01/25/2018 STEPHEN SAMS Z76.0 SP for issue of repeat prescription SP 02/27/2018 STEPHEN SAMS G89.29 SP chronic pain SP 02/27/2018 STEPHEN SAMS M54.2 SP SP 02/27/2018 STEPHEN SAMS R53.83 SP fatigue SP 02/27/2018 STEPHEN SAMS M25.78 SP vertebrae SP 02/27/2018 STEPHEN SAMS M50.30 SP cervical disc degeneration, unspecified cervical region SP 02/27/2018 STEPHEN SAMS M54.2 SP SP 02/27/2018 STEPHEN SAMS R30.0 SP SP 03/29/2018 STEPHEN SAMS F41.9 SP disorder, unspecified SP 03/29/2018 STEPHEN SAMS M50.30 SP cervical disc degeneration, unspecified cervical region SP 03/29/2018 STEPHEN SAMS Z76.0 SP for issue of repeat prescription SP 04/28/2018 STEPHEN SAMS B96.89 SP specified bacterial agents as the cause of diseases classified elsewhere SP 04/28/2018 STEPHEN SAMS F41.9 SP disorder, unspecified SP 04/28/2018 STEPHEN SAMS G89.29 SP chronic pain SP 04/28/2018 STEPHEN SAMS J20.8 SP bronchitis due to other specified organisms SP 05/26/2018 Ot E78.00 PUR E SP UNSPECIFIED SP 05/26/2018 Ot F17.200 NI COTINE SP UNSPECIFIED, UNCOMP SP 05/26/2018 Ot I10 ESSENT IAL (PRIMARY) SP SP 05/26/2018 Ot J18.9 PNEU MONIA, SP ORGANISM SP 05/26/2018 Ot R05 COUGH SP 05/26/2018 Ot Z79.52 FAWAD G TERM SP USE OF SYSTEMIC STER SP 05/26/2018 Ot Z90.81 ACQ UIRED ABSENCE SP SPLEEN SP 05/28/2018 Ot E78.00 PUR E SP UNSPECIFIED SP 05/28/2018 Ot E86.1 HYPO VOLEMIA SP SP 05/28/2018 Ot F17.210 NI COTINE SP CIGARETTES, UNCOMPL SP 05/28/2018 Ot I10 ESSENT IAL (PRIMARY) SP SP 05/28/2018 Ot J18.9 PNEU MONIA, SP ORGANISM SP 05/28/2018 Ot R06.2 WHEE ZING SP SP 05/28/2018 Ot R45.0 NERV OUSNESS SP SP 05/28/2018 Ot Z79.52 FAWAD G TERM SP USE OF SYSTEMIC STER SP 05/28/2018 Ot Z90.81 ACQ UIRED ABSENCE SP SPLEEN SP 05/30/2018 Ot E78.00 PUR E SP UNSPECIFIED SP 05/30/2018 Ot E86.1 HYPO VOLEMIA SP SP 05/30/2018 Ot F17.210 NI COTINE SP CIGARETTES, UNCOMPL SP 05/30/2018 Ot I10 ESSENT IAL (PRIMARY) SP SP 05/30/2018 Ot J18.9 PNEU MONIA, SP ORGANISM SP 05/30/2018 Ot R06.2 WHEE ZING SP SP 05/30/2018 Ot R45.0 NERV OUSNESS SP SP 05/30/2018 Ot Z79.52 FAWAD G TERM SP USE OF SYSTEMIC STER SP 05/30/2018 Ot Z90.81 ACQ UIRED ABSENCE SP SPLEEN SP 05/31/2018 STEPHEN SAMS G89.29 SP chronic pain SP 05/31/2018 STEPHEN SAMS J18.9 SP unspecified organism SP 05/31/2018 STEPHEN SAMS R19.7 SP unspecified SP 05/31/2018 STEPHEN SAMS T36.8X 5A SP effect of other systemic antibiotics, initial encounter SP 05/31/2018 STEPHEN SAMS J18.9 SP unspecified organism SP 05/31/2018 STEPHEN SAMS R19.7 SP unspecified SP 06/05/2018 Ot E78.00 PUR E SP UNSPECIFIED SP 06/05/2018 Ot E86.1 HYPO VOLEMIA SP SP 06/05/2018 Ot F17.210 NI COTINE SP CIGARETTES, UNCOMPL SP 06/05/2018 Ot I10 ESSENT IAL (PRIMARY) SP SP 06/05/2018 Ot J18.9 PNEU MONIA, SP ORGANISM SP 06/05/2018 Ot R06.2 WHEE ZING SP SP 06/05/2018 Ot R45.0 NERV OUSNESS SP SP 06/05/2018 Ot Z79.52 FAWAD G TERM SP USE OF SYSTEMIC STER SP 06/05/2018 Ot Z90.81 ACQ UIRED ABSENCE SP SPLEEN SP 06/14/2018 STEPHEN SAMS MD Ot D72.829 SP ELEVATED WHITE BLOOD CELL COUNT, UNSPECI SP 06/14/2018 STEPHEN SAMS MD Ot J18 .9 SP UNSPECIFIED ORGANISM SP 06/14/2018 STEPHEN SAMS MD Ot R91 .8 SP NONSPECIFIC ABNORMAL FINDING OF JESSICA SP 06/22/2018 STEPHEN SAMS MD Ot J18 .9 SP UNSPECIFIED ORGANISM SP 06/22/2018 STEPHEN SAMS MD Ot J98 .4 SP DISORDERS OF LUNG SP 06/22/2018 STEPHEN SAMS MD Ot R91 .1 SP PULMONARY NODULE SP 06/30/2018 STEPHEN SAMS F B96.89 SP specified bacterial agents as the cause of diseases classified elsewhere SP 06/30/2018 STEPHEN SAMS F F41.9 SP disorder, unspecified SP 06/30/2018 STEPHEN SAMS F G89.29 SP chronic pain SP 06/30/2018 STEPHEN SAMS N39.0 SP tract infection, site not specified SP 06/30/2018 STEPHEN SAMS R30.0 SP SP 07/06/2018 STEPHEN SAMS MD Ot D72.829 SP ELEVATED WHITE BLOOD CELL COUNT, UNSPECI SP 07/06/2018 STEPHEN SAMS MD Ot J18 .9 SP UNSPECIFIED ORGANISM SP 07/06/2018 STEPHEN SAMS MD Ot R91 .8 SP NONSPECIFIC ABNORMAL FINDING OF JESSICA SP 07/12/2018 STEPHEN SAMS MD Ot J18 .9 SP UNSPECIFIED ORGANISM SP 07/12/2018 STEPHEN SAMS MD Ot J98 .4 SP DISORDERS OF LUNG SP 07/12/2018 STEPHEN SAMS MD Ot R91 .1 SP PULMONARY NODULE SP 07/21/2018 STEPHEN SAMS MD Ot J18 .9 SP UNSPECIFIED ORGANISM SP 07/21/2018 STEPHEN SAMS MD Ot J98 .4 SP DISORDERS OF LUNG SP 07/21/2018 STEPHEN SAMS MD Ot R91 .1 SP PULMONARY NODULE SP 07/31/2018 STEPHEN SAMS F41.9 SP disorder, unspecified SP 07/31/2018 STEPHEN SAMS G89.29 SP chronic pain SP 07/31/2018 STEPHEN SAMS M54.5 Low SP pain SP 08/29/2018 STEPHEN SAMS F41.9 SP disorder, unspecified SP 08/29/2018 STEPHEN SAMS G89.29 SP chronic pain SP 08/29/2018 STEPHEN SAMS M54.5 Low SP pain SP 08/29/2018 STEPHEN SAMS Z76.0 SP for issue of repeat prescription SP 09/26/2018 STEPHEN SAMS F17.21 0 SP dependence, cigarettes, uncomplicated SP 09/26/2018 STEPHEN SAMS F41.9 SP disorder, unspecified SP 09/26/2018 STEPHEN SAMS G89.29 SP chronic pain SP 09/26/2018 STEPHEN SAMS Z76.0 SP for issue of repeat prescription SP 09/26/2018 STEPHEN SAMS Z79.89 9 SP fpc (current) drug therapy SP 10/20/2018 STEPHEN SAMS E78.5 SP unspecified SP 10/20/2018 STEPHEN SAMS F17.21 0 SP dependence, cigarettes, uncomplicated SP 10/20/2018 STEPHEN SAMS I10 SP (primary) hypertension SP 10/20/2018 STEPHEN SAMS J44.1 SP obstructive pulmonary disease with (acute) exacerbation SP 10/20/2018 STEPHEN SAMS E78.5 SP unspecified SP 10/20/2018 STEPHEN SAMS I10 SP (primary) hypertension SP 10/20/2018 STEPHEN SAMS Z79.89 1 SP term (current) use of opiate analgesic SP 11/17/2018 STEPHEN SAMS R10.32 SP lower quadrant pain SP 11/17/2018 STEPHEN SAMS R19.7 SP unspecified SP 11/17/2018 STEPHEN SAMS R10.9 SP abdominal pain SP 11/17/2018 STEPHEN SAMS R19.7 SP unspecified SP 12/22/2018 STEPHEN SAMS MD Ot R19 .7 SP UNSPECIFIED SP 12/25/2018 STEPHEN SAMS F17.21 0 SP dependence, cigarettes, uncomplicated SP 12/25/2018 STEPHEN SAMS F41.9 SP disorder, unspecified SP 12/25/2018 STEPHEN SAMS G89.29 SP chronic pain SP 12/25/2018 STEPHEN SAMS Z76.0 SP for issue of repeat prescription SP 01/24/2019 STEPHEN SAMS E87.1 SPosmolality and hyponatremia SP 01/24/2019 STEPHEN SAMS F41.9 SP disorder, unspecified SP 01/24/2019 STEPHEN SAMS G89.29 SP chronic pain SP 01/24/2019 STEPHEN SAMS Z76.0 SP for issue of repeat prescription SP 01/24/2019 STEPHEN SAMS D72.82 9 SP white blood cell count, unspecified SP 01/24/2019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
== END 2019-05-05 11:30 | disposition home or self-care (01) ==
LOC: EDUNIT# 09:27 → ER 09:28
DX: M62.838 Other muscle spasm (principal); I10 Essential (primary) hypertension; E78.00 Pure hypercholesterolemia, unspecified; F41.9 Anxiety disorder, unspecified; F32.9 Major depressive disorder, single episode, unspecified; F17.210 Nicotine dependence, cigarettes, uncomplicated; R40.2142 Coma scale, eyes open, spontaneous, at arrival to emergency department; R40.2252 Coma scale, best verbal response, oriented, at arrival to emergency department; R40.2362 Coma scale, best motor response, obeys commands, at arrival to emergency department; Z88.2 Allergy status to sulfonamides; Z90.81 Acquired absence of spleen; V89.2XXA Person injured in unspecified motor-vehicle accident, traffic, initial encounter
CPT/HCPCS: 72050; 96372

== ENCOUNTER → 2019-05-18 | Outpatient (CLI) | payer OTHER, MEDICARE, MEDICAID ==
[~2019-05-18] MED LIST changes: +CYCL10TA9 PO; +KETO10TA PO
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
== END ==
LOC: RAD 13:08
PROVIDERS: ATTEND Family Medicine
DX: M48.03 Spinal stenosis, cervicothoracic region (principal); M47.812 Spondylosis without myelopathy or radiculopathy, cervical region
CPT/HCPCS: 72141

== ENCOUNTER 2019-09-18 11:05 | Outpatient (RCR) | payer OTHER, MEDICARE, MEDICAID | END 2019-11-05 | disposition home or self-care (01) | PROVIDERS: ATTEND Family Medicine | DX: M54.5 Low back pain (principal); M54.2 Cervicalgia; R51 Headache; I10 Essential (primary) hypertension; R20.2 Paresthesia of skin ==

== ENCOUNTER → 2019-10-24 | Outpatient (CLI) | payer MEDICARE, MEDICAID ==
[2019-10-24 06:51] LABS: BASOPHILS # (AUTO) 0.2 10^3/uL (0.0-0.1); BASOPHILS % (AUTO) 2 % (0-10); EOSINOPHILS # (AUTO) 0.3 10^3/uL (0.0-0.3); EOSINOPHILS % (AUTO) 3 % (0-10); HEMATOCRIT 40 % (35-52); LYMPHOCYTES # (AUTO) 3.3 X 10^3 (1.0-4.0); LYMPHOCYTES % (AUTO) 37 % (12-44); MEAN CORPUSCULAR HEMOGLOBIN 30 PG (25-34); MEAN CORPUSCULAR HGB CONC 35 G/DL (32-36); MEAN CORPUSCULAR VOLUME 85 FL (80-99); MEAN PLATELET VOLUME 8.9 FL (7.4-10.4); MONOCYTES # (AUTO) 1.1 X 10^3 (0.0-1.0); MONOCYTES % (AUTO) 13 % (0-12); NEUTROPHILS # (AUTO) 4.1 X 10^3 (1.8-7.8); NEUTROPHILS % (AUTO) 46 % (42-75); PLATELET COUNT 573 10^3/uL (130-400); RED CELL DISTRIBUTION WIDTH 13.1 % (10.0-14.5); WHITE BLOOD COUNT 8.9 10^3/uL (4.3-11.0)
[2019-10-24 06:59] LABS: ALBUMIN 4.5 GM/DL (3.2-4.5); CHLORIDE 99 MMOL/L (98-107); POTASSIUM 4.7 MMOL/L (3.6-5.0); SODIUM 136 MMOL/L (135-145)
[2019-10-24 07:00] LABS: CALCIUM 10.3 MG/DL (8.5-10.1)
[2019-10-24 07:01] LABS: TRIGLYCERIDES 253 MG/DL (<150); VLDL CHOLESTEROL 51 MG/DL (5-40)
[2019-10-24 07:02] LABS: GLUCOSE 98 MG/DL (70-105); TOTAL PROTEIN 7.9 GM/DL (6.4-8.2)
[2019-10-24 07:03] LABS: BILIRUBIN,TOTAL 0.7 MG/DL (0.1-1.0); CARBON DIOXIDE 27 MMOL/L (21-32)
[2019-10-24 07:05] LABS: ALKALINE PHOSPHATASE 98 U/L (40-136); CREATININE SERUM 0.71 MG/DL (0.60-1.30); GFR ESTIMATED > 60
[2019-10-24 07:06] LABS: CHOLESTEROL 166 MG/DL (< 200)
[2019-10-24 07:07] LABS: BUN/CREATININE RATIO 8
[2019-10-24 07:08] LABS: ALANINE AMINOTRANSFERASE 22 U/L (0-55); HDL CHOLESTEROL 39 MG/DL (40-60)
== END ==
LOC: LAB 06:32
PROVIDERS: ATTEND Family Medicine
DX: I10 Essential (primary) hypertension (principal); R59.0 Localized enlarged lymph nodes
CPT/HCPCS: 36415; 80053; 80061; 85025; 86141

== ENCOUNTER 2020-01-02 18:00 | Emergency (ER) | payer MEDICARE, MEDICAID ==
[~2020-01-02] VITALS: Ht 169.7 cm; Wt 65.7 kg
[2020-01-02 18:37] LABS: BASOPHILS # (AUTO) 0.1 10^3/uL (0.0-0.1); BASOPHILS % (AUTO) 1 % (0-10); EOSINOPHILS # (AUTO) 0.4 10^3/uL (0.0-0.3); EOSINOPHILS % (AUTO) 3 % (0-10); HEMATOCRIT 36 % (35-52); HEMOGLOBIN 12.7 G/DL (11.5-16.0); LYMPHOCYTES # (AUTO) 5.1 X 10^3 (1.0-4.0); LYMPHOCYTES % (AUTO) 48 % (12-44); MEAN CORPUSCULAR HEMOGLOBIN 30 PG (25-34); MEAN CORPUSCULAR HGB CONC 35 G/DL (32-36); MEAN CORPUSCULAR VOLUME 85 FL (80-99); MEAN PLATELET VOLUME 8.8 FL (7.4-10.4); MONOCYTES # (AUTO) 1.1 X 10^3 (0.0-1.0); MONOCYTES % (AUTO) 11 % (0-12); NEUTROPHILS % (AUTO) 37 % (42-75); PLATELET COUNT 616 10^3/uL (130-400); RED CELL DISTRIBUTION WIDTH 13.4 % (10.0-14.5); WHITE BLOOD COUNT 10.7 10^3/uL (4.3-11.0)
[2020-01-02 18:47] LABS: ALBUMIN 4.1 GM/DL (3.2-4.5); CHLORIDE 101 MMOL/L (98-107); SODIUM 133 MMOL/L (135-145)
--- NOTE | 2020-01-02 18:48 | Diagnostic Imaging Report ---
EXAMINATION: Chest 1 view. HISTORY: Shortness of breath. COMPARISON: 06/12/2018. FINDINGS: The lung volumes are normal. No focal consolidation is seen. No large pleural effusion or pneumothorax is seen. The cardiomediastinal silhouette is normal in size and contour. No acute osseous abnormality is seen. IMPRESSION: No acute pleuroparenchymal process. Dictated by: Dictated on workstation # [id number]
[2020-01-02 18:50] LABS: GLUCOSE 100 MG/DL (70-105); TOTAL PROTEIN 7.2 GM/DL (6.4-8.2)
[2020-01-02 18:51] LABS: CARBON DIOXIDE 24 MMOL/L (21-32)
[2020-01-02 18:52] LABS: BILIRUBIN,TOTAL 0.2 MG/DL (0.1-1.0)
[2020-01-02 18:53] LABS: ALKALINE PHOSPHATASE 108 U/L (40-136); CREATININE SERUM 0.69 MG/DL (0.60-1.30); GFR ESTIMATED > 60
[2020-01-02 18:55] LABS: BUN/CREATININE RATIO 13
[2020-01-02 18:56] LABS: ALANINE AMINOTRANSFERASE 20 U/L (0-55)
[2020-01-02] MEDS ORDERED: RX-ALBUTEROL INHALER 8 GM HFA (VENTOLIN) IH STA (18:58)
[2020-01-02 18:59] LABS: ERYTHROCYTE SEDIMENTATION RATE 30 MM/HR (0-30)
[2020-01-02] MEDS ORDERED: NS IV 1000 ML 1,000 ML IV SCH (19:00)
[2020-01-02 19:15] VITALS: BP 148/75
--- NOTE | 2020-01-02 19:15 | NUR ---
ASSUMED CARE OF THIS PATIENT AT THIS TIME. PATIENT IS RESTING QUIETLEY IN BED. FREQUENT MONITORING MAINTAINED. PATIENT IS ALERT AND ORIENTED X4. CALL LIGHT IN REACH.
--- NOTE | 2020-01-02 19:21 | ED Respiratory ---
General Chief Complaint: Respiratory Problems Stated Complaint: COUGH,SOB Nursing Triage Note: PT PRESENTS TO ED WITH COMPLAINTS OF SOA, MALAISE, AND FEVER. REPORTS SHE WAS TESTED FOR COVID LAST WEEK BY [facility] BUT DOES NOT KNOW THE RESULTS YET. PT WAS SENT FROM [facility] TODAY FOR A O2 SAT OF 94%. Source: patient Exam Limitations: no limitations History of Present Illness Date Seen by Provider: Jan 02, 2020 Time Seen by Provider: 18:17 Initial Comments 59-year-old female who presents to the emergency room for complaints of shortness of breath malaise and intermittent fevers. She has been having these symptoms for approximately 2 weeks and she was tested for COVID last week by [facility] but does not know the results yet. She was sent from replaced by [facility] for an oxygen saturation of 94% today. She is a 30 year plus smoker and she reports that she smokes 10-15 cigarettes per day. She denies any history of COPD but is on an albuterol inhaler but reports that she does not like to use it. Timing/Duration: just prior to arrival Associated Symptoms: cough, shortness of breath Allergies and Home Medications Allergies Coded Allergies: Sulfa (Sulfonamide Antibiotics) (Unverified Allergy, Unknown, 06/21/18) Home Medications Alprazolam 0.25 Mg Tab, 0.25 MG GT PRN, (Reported) Amitriptyline Hcl 50 Mg Tab, 50 MG PO DAILY, (Reported) Citalopram Hydrobromide 10 Mg Tablet, 10 MG GT DAILY, (Reported) Cyclobenzaprine HCl 10 Mg Tablet, 10 MG PO TID PRN for SPASMS Prescribed by: KAYLA BERG MD on 05/05/19 1107 Hydrocodone Bit/Acetaminophen 1 Each Tablet, 1 EACH PO Q8HR PRN, (Reported) Ketorolac Tromethamine 10 Mg Tablet, 10 MG PO Q6H Prescribed by: KAYLA BERG MD on 05/05/19 1107 Levofloxacin 750 Mg Tablet, 750 MG PO DAILY Prescribed by: JADA VILLA on 05/26/18 1136 Triamterene/Hydrochlorothiazid 1 Each Tablet, 0.5 EACH PO DAILY, (Reported) Patient Home Medication List Home Medication List Reviewed: Yes Review of Systems Review of Systems Constitutional: see HPI; No chills; fever Respiratory: see HPI, cough, short of breath All Other Systems Reviewed Negative Unless Noted: Yes Past [id number]-Zxbrvz Hx Past Med/Social Hx: Reviewed Nursing Past Med/Soc Hx Patient Social History Alcohol Use: Denies Use Recreational Drug Use: No Smoking Status: Current Everyday Smoker Type Used: Cigarettes 2nd Hand Smoke Exposure: No Recent Foreign Travel: No Contact w/Someone Who Travel: No Recent Infectious Disease Expo: No Recent Hopitalizations: No Physical Abuse: No Sexual Abuse: No Mistreated: No Fear: No Immunizations Up To Date Date of Pneumonia Vaccine: Feb 16, 2011 Seasonal Allergies Seasonal Allergies: No Past Medical History Surgeries: Yes (splenectomy, R foot surgery) Abdominal, Orthopedic Respiratory: Yes Pneumonia Cardiac: Yes Chronic Edema/Swelling, High Cholesterol, Hypertension Neurological: No Reproductive Disorders: No Genitourinary: No Gastrointestinal: No Diverticulosis Musculoskeletal: No Endocrine: No HEENT: No Cancer: No Psychosocial: Yes Anxiety, Depression Integumentary: No Blood Disorders: No Family Medical History Reviewed Nursing Family Hx Physical Exam Vital Signs - First Documented 01/02/20 18:40 Temp 36.8 Pulse 82 Resp 16 B/P (MAP) 156/76 (102) Pulse Ox 95 Capillary Refill : Less Than 3 Seconds Height: 5'7.00" Weight: 147lbs. oz. 66.728148vo; 22.00 BMI Method:Stated General Appearance: WD/WN, no apparent distress Respiratory: chest non-tender, no respiratory distress, no accessory muscle use, wheezing (Throughout lung harrison) Cardiovascular: normal peripheral pulses, regular rate, rhythm, no edema, no gallop, no JVD, no murmur Gastrointestinal: normal bowel sounds, non tender, soft, no organomegaly, no pulsatile mass Extremities: no pedal edema, normal capillary refill Neurologic/Psychiatric: alert, normal mood/affect, oriented x 3 Skin: normal color, warm/dry Progress/Results/Core Measures Suspected Sepsis Recent Fever Within 48 Hours: Yes Infection Criteria Present: Suspected New Infection New/Unexplained Altered Menta: No Sepsis Screen: No Definite Risk SIRS Temperature: Pulse: 82 Respiratory Rate: 16 Laboratory Tests 01/02/20 18:28: White Blood Count 10.7 Blood Pressure 156 /76 Mean: 102 Laboratory Tests 01/02/20 18:28: Creatinine 0.69, Platelet Count 616H, Total Bilirubin 0.2 Results/Orders Lab Results Laboratory Tests Test 01/02/20 18:28 Range/Units White Blood Count 10.7 4.3-11.0 10^3/uL Red Blood Count 4.23 L 4.35-5.85 10^6/uL Hemoglobin 12.7 11.5-16.0 G/DL Hematocrit 36 35-52 % Mean Corpuscular Volume 85 80-99 FL Mean Corpuscular Hemoglobin 30 25-34 PG Mean Corpuscular Hemoglobin Concent 35 32-36 G/DL Red Cell Distribution Width 13.4 10.0-14.5 % Platelet Count 616 H 130-400 10^3/uL Mean Platelet Volume 8.8 7.4-10.4 FL Neutrophils (%) (Auto) 37 L 42-75 % Lymphocytes (%) (Auto) 48 H 12-44 % Monocytes (%) (Auto) 11 0-12 % Eosinophils (%) (Auto) 3 0-10 % Basophils (%) (Auto) 1 0-10 % Neutrophils # (Auto) 4.0 1.8-7.8 X 10^3 Lymphocytes # (Auto) 5.1 H 1.0-4.0 X 10^3 Monocytes # (Auto) 1.1 H 0.0-1.0 X 10^3 Eosinophils # (Auto) 0.4 H 0.0-0.3 10^3/uL Basophils # (Auto) 0.1 0.0-0.1 10^3/uL Erythrocyte Sedimentation Rate 30 0-30 MM/HR D-Dimer < 0.27 0.00-0.49 UG/ML Sodium Level 133 L 135-145 MMOL/L Potassium Level 4.0 3.6-5.0 MMOL/L Chloride Level 101 98-107 MMOL/L Carbon Dioxide Level 24 21-32 MMOL/L Anion Gap 8 5-14 MMOL/L Blood Urea Nitrogen 9 7-18 MG/DL Creatinine 0.69 0.60-1.30 MG/DL Estimat Glomerular Filtration Rate > 60 BUN/Creatinine Ratio 13 Glucose Level 100 70-105 MG/DL Calcium Level 9.0 8.5-10.1 MG/DL Corrected Calcium 8.9 8.5-10.1 MG/DL Total Bilirubin 0.2 0.1-1.0 MG/DL Aspartate Amino Transf (AST/SGOT) 17 5-34 U/L Alanine Aminotransferase (ALT/SGPT) 20 0-55 U/L Alkaline Phosphatase 108 40-136 U/L Total Protein 7.2 6.4-8.2 GM/DL Albumin 4.1 3.2-4.5 GM/DL My Orders Orders - MARIBEL HORTA Cbc With Automated Diff (01/02/20 18:16) Comprehensive Metabolic Panel (01/02/20 18:16) Fibrin Degradation Products (01/02/20 18:16) Erythrocyte Sedimentation Rate (01/02/20 18:16) Blood Culture (01/02/20 18:16) Ekg Tracing (01/02/20 18:16) Chest 1 View, Ap/Pa Only (01/02/20 18:16) Coronavirus Sars-Cov-2 So 2018 (01/02/20 18:16) Lactic Acid Analyzer (01/02/20 18:16) Rx-Albuterol Inhaler (Rx-Proair) (01/02/20 18:58) Ns Iv 1000 Ml (Sodium Chloride 0.9%) (01/02/20 19:00) Vital Signs/I&O 01/02/20 18:40 Temp 36.8 Pulse 82 Resp 16 B/P (MAP) 156/76 (102) Pulse Ox 95 Capillary Refill : Less Than 3 Seconds Blood Pressure Mean: 102 Departure Impression Primary Impression: COPD exacerbation Disposition: 01 HOME, SELF-CARE Condition: Stable/Unchanged Departure-Patient Inst. Decision time for Depature: 19:37 Referrals: STEPHEN SAMS MD (PCP/Family) Primary Care Physician Patient Instructions: Chronic Obstructive Pulmonary Disease (COPD), Including Emphysema Add. Discharge Instructions: Use inhaler as prescribed for shortness of breath and wheezing. Follow-up in one week with replaced by [facility] for recheck. Remaining in isolation until you hear your results for your COVID swab. Take antibiotics as directed. Return back to the emergency room for worsening symptoms or concerns as needed. All discharge instructions reviewed with patient and/or family. Voiced understanding. Scripts Doxycycline Hyclate (Doxycycline Hyclate) 100 Mg Tablet 100 MG PO BID for 7 Days, #14 TAB 0 Refills Prov: MARIBEL HORTA 01/02/20 Prednisone (Prednisone) 20 Mg Tab 40 MG PO DAILY for 5 Days, #10 TAB 0 Refills Prov: MARIBEL HORTA 01/02/20 MARIBEL HORTA Jan 02, 2020 19:21
[2020-01-02 19:30] VITALS: BP 140/71
--- NOTE | 2020-01-02 19:30 | NUR ---
vo to hold drawing of blood cultures and tonia Larkin RN
--- NOTE | 2020-01-02 19:30 | NUR ---
PATIENT O2 SATURATIONS OBSERVED JHON CONSISTANTLY ABOVE 95%, FREQUENT MONITORING MAINTAINED. CALL LIGHT IN REACH.
[2020-01-02 19:45] VITALS: BP 142/74
[2020-01-02] MEDS ORDERED: PRD20T PO (19:59)
[2020-01-02] MEDS ORDERED: DOXY100T2 PO (19:59)
[2020-01-02 20:00] VITALS: BP 149/79
[2020-01-02 20:16] VITALS: BP 144/80
[2020-01-02 20:53] VITALS: BP 140/72
--- OUTSIDE RECORDS SUMMARY | 2020-01-02 21:46 | XMS REPORT | Continuity of Care Document ---
Demographics Preferred Language Unknown Marital Status Unknown Tenriism Affiliation Unknown Race Unknown Ethnic Group Unknown Author Organization Unknown Address Unknown Phone Unavailable Allergies Active Description Code Type Severity Reaction Onset Reported/Identified Relationship to Patient Clinical Status Yes Sulfa (Sulfonamide Antibiotics) 491 Drug Allergy N/A N/A Confirmed or Verified Yes sulfa drug 16 Drug N/A N/A Yes sulfa drug 16 Drug Severe [id number] Yes SULFA (SULFONAMIDE ANTIBIOTICS) UNKNOWN UNKNOWN Yes No Known Drug Allergies [id number] Drug Allergy Unknown N/A 05/28/2018 Yes Sulfa (Sulfonamide Antibiotics) [id number] Drug Allergy Unknown N/A 018 Medications There is no data. Problems Date Dx Coded Attending Type Code Diagnosis Diagnosed By 12/28/2013 F 599.0 Urin mandy tract infection, unspec./pyuria 12/28/2013 F 787.91 Emani rrhea, NOS 01/02/2014 F 338.29 OTH ER CHRONIC PAIN 01/02/2014 F 723.1 CERV ICALGIA 01/02/2014 F 787.91 Emani rrhea, NOS 06/14/2014 F 338.29 OTH ER CHRONIC PAIN 06/14/2014 F 729.5 Pain in limb 06/14/2014 F 787.91 Emani rrhea, NOS 07/12/2014 F 338.4 DEBIT AGENT JESSY PAIN SYSNDROME 07/12/2014 F V58.69 Hig h-risk medication, long-term use 07/12/2014 F V68.1 ISSU E OF REPEAT PRESCRIPTIONS 08/01/2014 F 595.9 CYST ITIS, UNSPECIFIED 08/01/2014 F 599.0 Urin mandy tract infection, unspec./pyuria 08/13/2014 F 338.29 OTH ER CHRONIC PAIN 08/13/2014 F 599.0 Urin mandy tract infection, unspec./pyuria 08/13/2014 F V58.69 Hig h-risk medication, long-term use 08/13/2014 F V68.1 ISSU E OF REPEAT PRESCRIPTIONS 09/12/2014 ELLIOTT SHETTY F 338.29 OTHER CHRONIC PAIN 10/15/2014 ELLIOTT SHETTY [...] tract infection, unspec./pyuria 11/18/2014 ELLIOTT SHETTY V74.8 SCREEN- BACTERIAL DIS NEC 12/24/2014 ELLIOTT SHETTY 338.29 OTHER CHRONIC PAIN 12/24/2014 ELLIOTT SHETTY V68.1 ISSUE OF REPEAT PRESCRIPTIONS 01/27/2015 ELLIOTT SHETTY 338.29 OTHER CHRONIC PAIN 01/27/2015 ELLIOTT SHETTY 724.5 BACKACHE, UNSPECIFIED 01/27/2015 ELLIOTT SHETTY V58.69 High- risk medication, long-term use 01/27/2015 ELLIOTT SHETTY V68.1 ISSUE OF REPEAT PRESCRIPTIONS 03/04/2015 MIRYAM ZHAO 338.29 OTHER CHRONIC PAIN 03/04/2015 MIRYAM ZHAO V58.69 High-risk medication, long-term use 03/04/2015 MIRYAM ZHAO V6 8.1 ISSUE OF REPEAT PRESCRIPTIONS 03/26/2015 MIRYAM ZHAO 338.29 OTHER CHRONIC PAIN 03/26/2015 MIRYAM ZHAO F 78 8.1 Dysuria 03/26/2015 MIRYAM ZHAO V58.69 High-risk medication, long-term use 03/26/2015 MIRYAM ZHAO V6 8.1 ISSUE OF REPEAT PRESCRIPTIONS 03/26/2015 MIRYAM ZHAO 78 8.1 Dysuria 03/26/2015 MIRYAM ZHAO 788.41 Urinary frequency 04/30/2015 MIRYAM ZHAO R3 0.0 Dysuria 04/30/2015 MIRYAM ZHAO R3 5.0 Frequency of micturition 04/30/2015 MIRYAM ZHAO G89.29 Other chronic pain 04/30/2015 MIRYAM ZHAO K5 8.9 Irritable bowel syndrome without diarrhea 04/30/2015 MIRYAM ZHAO R3 5.0 Frequency of micturition 04/30/2015 MIRYAM ZHAO Z7 6.0 Encounter for issue of repeat prescription 06/02/2015 STEPHEN SAMS G89.29 Other chronic pain 06/02/2015 STEPHEN SAMS K57.92 Diverticulitis of intestine, part unspecified, without perforation or abscess without bleeding 06/02/2015 STEPHEN SAMS Z76.0 Encounter for issue of repeat prescription 06/02/2015 STEPHEN SAMS 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 08/07/2015 STEPHEN SAMS 850.0 CONCUSSION WITH NO LOSS OF CONSCIOUSNESS 08/07/2015 STEPHEN SAMS M54.5 Low back pain 08/07/2015 STEPHEN SAMS S06.0X 0D Concussion without loss of consciousness, subsequent encounter 08/07/2015 STEPHEN SAMS S13.4X XD Sprain of ligaments of cervical spine, subsequent [...] M54.5 Low back pain 08/21/2015 STEPHEN SAMS S06.0X 0D Concussion without loss of consciousness, subsequent encounter 08/21/2015 STEPHEN SAMS S13.4X XD Sprain of ligaments of cervical spine, subsequent encounter 08/29/2015 KEVON WILSON 782 .1 Rash, nonvesicular, unspec. 08/29/2015 KEVON WILSON R21 Rash and other nonspecific skin eruption 09/08/2015 MARIBEL NORWOOD 722. 52 LUMB/LUMBOSAC DISC DEGEN 09/08/2015 BEAU NORWOODIS F M51. 36 Other intervertebral disc degeneration, lumbar region 09/08/2015 MARIBEL NORWOOD V58. 69 High-risk medication, long-term use 09/08/2015 MARIBEL NORWOOD V68. 1 ISSUE OF REPEAT PRESCRIPTIONS 09/08/2015 MARIBEL NORWOOD Z76. 0 Encounter for issue of repeat prescription 09/08/2015 MARIBEL NORWOOD Z79. 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 0 Frequency of micturition 09/10/2015 MARIBEL NORWOOD F 722. 52 LUMB/LUMBOSAC DISC DEGEN 09/10/2015 MARIBEL NORWOOD F 724. 2 Pain, low back 09/10/2015 MARIBEL NORWOOD F M51. 36 Other intervertebral disc degeneration, lumbar region 09/10/2015 MARIBEL NORWOOD M54. 5 Low back pain 09/22/2015 STEPHEN SASM 300.00 Anxiety state, unspec. 09/22/2015 STEPHEN SAMS 722.52 LUMB/LUMBOSAC DISC DEGEN 09/22/2015 STEPHEN SAMS 847.0 Sprain/strain: neck, unspec. 09/22/2015 STEPHEN SAMS F41.9 Anxiety disorder, unspecified 09/22/2015 STEPHEN SAMS M51.36 Other intervertebral disc degeneration, lumbar region 09/22/2015 STEPHEN SAMS S13.4X XD Sprain of ligaments of cervical spine, subsequent encounter 10/21/2015 STEPHEN SAMS F41.9 Anxiety disorder, unspecified 10/21/2015 STEPHEN SAMS M51.36 Other intervertebral disc degeneration, lumbar region 10/21/2015 STEPHEN SAMS S13.4X XD Sprain of ligaments of cervical spine, subsequent encounter 10/21/2015 STEPHEN SAMS Z76.0 Encounter for issue of repeat prescription 11/20/2015 STEPHEN SAMS F41.9 Anxiety disorder, unspecified 11/20/2015 STEPHEN SAMS G89.29 Other chronic pain 11/20/2015 STEPHEN SAMS M51.36 Other intervertebral disc degeneration, lumbar region 11/20/2015 STEPHEN SAMS S13.4X XD Sprain of ligaments of cervical spine, subsequent encounter 12/05/2015 STEPHEN SAMS G89.29 Other chronic pain 12/05/2015 STEPHEN SAMS M79.60 4 Pain in right leg 12/05/2015 STEPHEN SAMS M79.60 5 Pain in left leg 12/22/2015 STEPHEN SAMS [...] I10 Essential (primary) hypertension 02/16/2016 STEPHEN SAMS Z79.89 1 [facility] (current) use of opiate analgesic 02/16/2016 STEPHEN SAMS Z01.41 9 Encounter for gynecological examination (general) (routine) without [...] STEPHEN SAMS E86.0 Dehydration 03/06/2016 STEPHEN SAMS F17.21 0 Nicotine dependence, cigarettes, uncomplicated 03/06/2016 STEPHEN SAMS [...] issue of repeat prescription 03/25/2016 STEPHEN SAMS M79.67 6 Pain in unspecified toe(s) 03/25/2016 STEPHEN SAMS A04.7 Enterocolitis due to Clostridium difficile 03/25/2016 STEPHEN SAMS G89.29 Other chronic pain 03/25/2016 FLAQUITA, STEPHEN M F K21.9 Gastro-esophageal reflux disease without esophagitis 03/25/2016 STEPHEN SAMS M79.67 1 Pain in right foot 04/08/2016 STEPHEN SAMS B00.1 Herpesviral vesicular dermatitis 04/08/2016 FELICIA BARRY A04.7 Enterocolitis due to Clostridium difficile 04/08/2016 FELICIA BARRY B18.2 Chronic viral hepatitis C 04/08/2016 FELICIA BARRY R19.7 Diarrhea, unspecified 04/08/2016 FELICIA BARRY R76.8 Other specified abnormal immunological findings in serum 04/08/2016 FELICIA BARRY R87.612 Low grade squamous intraepithelial lesion on cytologic smear of cervix (LGSIL) 04/14/2016 F K52.839 Mi croscopic colitis, unspecified 04/14/2016 F K64.8 Othe r hemorrhoids 04/14/2016 F R19.7 Diar мария, unspecified 04/14/2016 F Z87.19 Per farhat history of other diseases of the digestive [...] SAMS R10.2 Pelvic and perineal pain 04/26/2016 RODRIGUE BARRYKHAR F R10.12 Left upper quadrant pain 04/26/2016 FELICIA BARRY R19.7 Diarrhea, unspecified 04/26/2016 SHEKH BARRYAR Magno Z01.812 Encounter for preprocedural laboratory examination 04/28/2016 STEPHEN SAMS R10.2 Pelvic and perineal pain 05/18/2016 STEPHEN SAMS R30.0 Dysuria 05/18/2016 STEPHEN SAMS R82.99 Other abnormal findings in urine 05/18/2016 STEPHEN SAMS G89.29 Other chronic pain 05/18/2016 STEPHEN SAMS R30.0 Dysuria 06/03/2016 FELICIA BARRY K52.839 Microscopic [...] STEPHEN SAMS I10 Essential (primary) hypertension 08/12/2016 STPEHEN SAMS R30.0 Dysuria 08/12/2016 STEPHEN SAMS R52 [...] SAMS R23.3 Spontaneous ecchymoses 11/09/2016 STEPHEN SAMS S50.11 XA Contusion of right forearm, initial encounter 11/09/2016 STEPHEN SAMS S50.12 XA Contusion of left forearm, initial encounter 11/09/2016 STEPHEN SAMS T14.8 Other injury of unspecified body region 12/03/2016 STEPHEN SAMS G89.29 Other chronic pain 12/03/2016 STEPHEN SAMS R05 Cough 12/03/2016 STEPHEN SAMS R06.2 Wheezing 12/03/2016 STEPHEN SAMS R53.83 Other fatigue 12/03/2016 STEPHEN SAMS R05 Cough 12/03/2016 STEPHEN SAMS R53.83 Other fatigue 12/28/2016 STEPHEN SAMS S29.09 1A Other injury of muscle and tendon of front wall of thorax, initial encounter 12/28/2016 STEPHEN SAMS Z76.0 Encounter for issue of repeat prescription 02/01/2017 STEPHEN SAMS F41.8 Other specified anxiety disorders 02/01/2017 STEPHEN SAMS G89.29 Other chronic pain 02/01/2017 STEPHEN SAMS I10 Essential (primary) hypertension 02/01/2017 STEPHEN SAMS M54.9 Dorsalgia, unspecified 02/10/2017 STEPHEN SAMS Q89.01 Asplenia (congenital) 02/10/2017 STEPHEN SAMS S90.86 2A Insect bite (nonvenomous), left foot, initial encounter 03/03/2017 STEPHEN SAMS B35.3 Tinea pedis 03/03/2017 STEPHEN SAMS G25.81 Restless legs syndrome 03/03/2017 STEPHEN SAMS G89.29 Other chronic pain 03/03/2017 STEPHEN SAMS H10.89 Other conjunctivitis 03/28/2017 WHITESIDES, MARIBEL F H92. 02 Otalgia, left ear 03/28/2017 WHITESIDES, MARIBEL F L98. 499 Non-pressure chronic ulcer of skin of other sites with unspecified severity 03/28/2017 WHITESIDES, MARIBEL F R51 Headache 04/04/2017 STEPHEN SAMS L98.49 9 Non-pressure chronic ulcer of skin of other sites with unspecified severity 04/04/2017 STEPHEN SAMS Z01.41 9 Encounter for gynecological examination (general) (routine) without [...] G89.29 Other chronic pain 09/30/2017 STEPHEN SAMS F17.21 0 Nicotine dependence, cigarettes, uncomplicated 09/30/2017 STEPHEN SAMS [...] Acute bronchitis due to other specified organisms 05/26/2018 Ot E78.00 PUR E HYPERCHOLESTEROLEMIA, UNSPECIFIED 05/26/2018 Ot F17.200 NI COTINE DEPENDENCE, UNSPECIFIED, UNCOMP 05/26/2018 Ot I10 ESSENT IAL (PRIMARY) HYPERTENSION 05/26/2018 Ot J18.9 PNEU MONIA, UNSPECIFIED ORGANISM 05/26/2018 Ot R05 COUGH 05/26/2018 Ot Z79.52 FAWAD G TERM (CURRENT) USE OF SYSTEMIC STER 05/26/2018 Ot Z90.81 ACQ UIRED ABSENCE OF SPLEEN 05/28/2018 Ot E78.00 PUR E HYPERCHOLESTEROLEMIA, UNSPECIFIED 05/28/2018 Ot E86.1 HYPO VOLEMIA 05/28/2018 Ot F17.210 NI COTINE DEPENDENCE, CIGARETTES, UNCOMPL 05/28/2018 Ot I10 ESSENT IAL (PRIMARY) HYPERTENSION 05/28/2018 Ot J18.9 PNEU MONIA, UNSPECIFIED ORGANISM 05/28/2018 Ot R06.2 WHEE ZING 05/28/2018 Ot R45.0 NERV OUSNESS 05/28/2018 Ot Z79.52 FAWAD G TERM (CURRENT) USE OF SYSTEMIC STER 05/28/2018 Ot Z90.81 ACQ UIRED ABSENCE OF SPLEEN 05/29/2018 JAM HERNANDEZ, JADA Velazquez Ot E78.00 PURE HYPERCHOLESTEROLEMIA, UNSPECIFIED 05/29/2018 JAM HERNANDEZ, JADA Velazquez Ot F17.200 NICOTINE DEPENDENCE, UNSPECIFIED, UNCOMP 05/29/2018 JAM HERNANDEZ, JADA Velazquez Ot I10 ESSENTIAL (PRIMARY) HYPERTENSION 05/29/2018 JAM HERNANDEZ, JADA Velazquez Ot J18.9 PNEUMONIA, UNSPECIFIED ORGANISM 05/29/2018 JAM HERNANDEZ, JADA Velazquez Ot R05 COUGH 05/29/2018 JAM HERNANDEZ, JADA Velazquez Ot 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 05/29/2018 JAM HERNANDEZ, JADA Velazquez Ot Z90.81 ACQUIRED ABSENCE OF SPLEEN 05/30/2018 Ot E78.00 PUR E HYPERCHOLESTEROLEMIA, UNSPECIFIED 05/30/2018 Ot E86.1 HYPO VOLEMIA 05/30/2018 Ot F17.210 NI COTINE DEPENDENCE, CIGARETTES, UNCOMPL 05/30/2018 Ot I10 ESSENT IAL (PRIMARY) HYPERTENSION 05/30/2018 Ot J18.9 PNEU MONIA, UNSPECIFIED ORGANISM 05/30/2018 Ot R06.2 WHEE ZING 05/30/2018 Ot R45.0 NERV OUSNESS 05/30/2018 Ot Z79.52 FAWAD G TERM (CURRENT) USE OF SYSTEMIC STER 05/30/2018 Ot Z90.81 ACQ UIRED ABSENCE OF SPLEEN 05/31/2018 STEPHEN SAMS G89.29 Other chronic pain 05/31/2018 STEPHEN SAMS J18.9 Pneumonia, unspecified organism 05/31/2018 STEPHEN SAMS R19.7 Diarrhea, unspecified 05/31/2018 STEPHEN SAMS T36.8X 5A Adverse effect of other systemic antibiotics, initial encounter 05/31/2018 STEPHEN SAMS J18.9 Pneumonia, unspecified organism 05/31/2018 STEPHEN SAMS R19.7 Diarrhea, unspecified 06/05/2018 Ot E78.00 PUR E HYPERCHOLESTEROLEMIA, UNSPECIFIED 06/05/2018 Ot E86.1 HYPO VOLEMIA 06/05/2018 Ot F17.210 NI COTINE DEPENDENCE, CIGARETTES, UNCOMPL 06/05/2018 Ot I10 ESSENT IAL (PRIMARY) HYPERTENSION 06/05/2018 Ot J18.9 PNEU MONIA, UNSPECIFIED ORGANISM 06/05/2018 Ot R06.2 WHEE ZING 06/05/2018 Ot R45.0 NERV OUSNESS 06/05/2018 Ot Z79.52 FAWAD G TERM (CURRENT) USE OF SYSTEMIC STER 06/05/2018 Ot Z90.81 ACQ UIRED ABSENCE OF SPLEEN 06/14/2018 STEPHEN SAMS MD, Ot D72.829 ELEVATED WHITE BLOOD CELL COUNT, UNSPECI 06/14/2018 STEPHEN SAMS MD, Ot J18 .9 PNEUMONIA, UNSPECIFIED ORGANISM 06/14/2018 STEPHEN SAMS MD, Ot R91 .8 OTHER NONSPECIFIC ABNORMAL FINDING OF JESSICA 06/22/2018 STEPHEN SAMS MD, Ot J18 .9 PNEUMONIA, UNSPECIFIED ORGANISM 06/22/2018 STEPHEN SAMS MD, Ot J98 .4 OTHER DISORDERS OF LUNG 06/22/2018 STEPHEN SAMS MD, Ot R91 .1 SOLITARY PULMONARY NODULE 06/30/2018 STEPHEN SAMS B96.89 Other specified bacterial agents as the cause of diseases classified elsewhere 06/30/2018 STEPHEN SAMS F41.9 Anxiety disorder, unspecified 06/30/2018 STEPHEN SAMS G89.29 Other chronic pain 06/30/2018 STEPHEN SAMS N39.0 Urinary tract infection, site not specified 06/30/2018 STEPHEN SAMS R30.0 Dysuria 07/06/2018 STEPHEN SAMS MD, Ot D72.829 ELEVATED WHITE BLOOD CELL COUNT, UNSPECI 07/06/2018 STEPHEN SAMS MD, Ot J18 .9 PNEUMONIA, UNSPECIFIED ORGANISM 07/06/2018 STEPHEN SAMS MD, Ot R91 .8 OTHER NONSPECIFIC ABNORMAL FINDING OF JESSICA 07/12/2018 STEPHEN SAMS MD, Ot J18 .9 PNEUMONIA, UNSPECIFIED ORGANISM 07/12/2018 STEPHEN SAMS MD, Ot J98 .4 OTHER DISORDERS OF LUNG 07/12/2018 STEPHEN SAMS MD, Ot R91 .1 SOLITARY PULMONARY NODULE 07/21/2018 STEPHEN SAMS MD Ot J18 .9 PNEUMONIA, UNSPECIFIED ORGANISM 07/21/2018 STEPHEN SAMS MD, Ot J98 .4 OTHER DISORDERS OF LUNG 07/21/2018 STEPHEN SAMS MD, Ot R91 .1 SOLITARY PULMONARY NODULE 07/31/2018 STEPHEN SAMS F41.9 Anxiety disorder, unspecified 07/31/2018 STEPHEN SAMS G89.29 Other chronic pain 07/31/2018 STEPHEN SAMS M54.5 Low back pain 08/29/2018 STEPHEN SAMS F41.9 Anxiety disorder, unspecified 08/29/2018 STEPHEN SAMS G89.29 Other chronic pain 08/29/2018 STEPHEN SAMS M54.5 Low back pain 08/29/2018 STEPHEN SAMS Z76.0 Encounter for issue of repeat prescription 09/26/2018 STEPHEN SAMS F17.21 0 Nicotine dependence, cigarettes, uncomplicated 09/26/2018 STEPHEN SAMS F41.9 Anxiety disorder, unspecified 09/26/2018 STEPHEN SAMS G89.29 Other chronic pain 09/26/2018 STEPHEN SAMS Z76.0 Encounter for issue of repeat prescription 09/26/2018 STEPHEN SAMS Z79.89 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 10/20/2018 STEPHEN SAMS E78.5 Hyperlipidemia, unspecified 10/20/2018 STEPHEN SAMS F17.21 0 Nicotine dependence, cigarettes, uncomplicated 10/20/2018 STEPHEN SAMS I10 Essential (primary) hypertension 10/20/2018 STEPHEN SAMS J44.1 Chronic obstructive pulmonary disease with (acute) exacerbation 10/20/2018 STEPHEN SAMS E78.5 Hyperlipidemia, unspecified 10/20/2018 STEPHEN SAMS I10 Essential (primary) hypertension 10/20/2018 STEPHEN SAMS Z79.89 1 [facility] (current) use of opiate analgesic 11/17/2018 STEPHEN SAMS R10.32 Left lower quadrant pain 11/17/2018 STEPHEN SAMS R19.7 Diarrhea, unspecified 11/17/2018 STEPHEN SAMS R10.9 Unspecified abdominal pain 11/17/2018 STEPHEN SAMS R19.7 Diarrhea, unspecified 12/22/2018 STEPHEN SAMS MD Ot R19 .7 DIARRHEA, UNSPECIFIED 12/25/2018 STEPHEN SAMS F17.21 0 Nicotine dependence, cigarettes, uncomplicated 12/25/2018 STEPHEN SAMS F41.9 Anxiety disorder, unspecified 12/25/2018 STEPHEN SAMS G89.29 Other chronic pain 12/25/2018 STEPHEN SAMS Z76.0 Encounter for issue of repeat prescription 01/24/2019 STEPHEN SAMS E87.1 Hypo-osmolality and hyponatremia 01/24/2019 STEPHEN SAMS F41.9 Anxiety disorder, unspecified 01/24/2019 STEPHEN SAMS G89.29 Other chronic pain 01/24/2019 STEPHEN SAMS Z76.0 Encounter for issue of repeat prescription 01/24/2019 STEPHEN SAMS D72.82 9 Elevated white blood cell count, unspecified 01/24/2019 STEPHEN SAMS E87.1 Hypo-osmolality and hyponatremia 2019 STEPHEN SAMS MD Ot R19 .7 DIARRHEA, UNSPECIFIED 02/19/2019 STEPHEN SAMS MD Ot R19 .7 DIARRHEA, UNSPECIFIED 02/26/2019 STEPHEN SAMS F41.9 Anxiety disorder, unspecified 02/26/2019 STEPHEN SAMS G89.29 Other chronic pain 02/26/2019 STEPHEN SAMS L03.11 3 Cellulitis of right upper limb 02/26/2019 STEPHEN SAMS T81.49 XA Infection following a procedure, other surgical site, initial encounter 03/29/2019 STEPHEN SAMS F41.8 Other specified anxiety disorders 03/29/2019 STEPHEN SAMS G89.29 Other chronic pain 04/27/2019 STEPHEN SAMS F41.9 Anxiety disorder, unspecified 04/27/2019 STEPHEN SAMS G89.29 Other chronic pain 04/27/2019 STEPHEN SAMS Z72.0 Tobacco use 05/07/2019 Humza Saleh 723.1 CERVICALGIA 05/07/2019 Humza Saleh M54.2 CERVICALGIA 05/11/2019 STEPHEN SAMS M54.2 Cervicalgia 05/11/2019 STEPHEN SAMS M54.2 Cervicalgia 05/22/2019 STEPHEN SAMS MD, Ot M47.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 05/22/2019 STEPHEN SAMS MD, Ot M48.03 SPINAL STENOSIS, CERVICOTHORACIC REGION 05/28/2019 STEPHEN SAMS 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 05/28/2019 STEPHEN SAMS Z01.41 9 Encounter for gynecological examination (general) (routine) without abnormal findings 05/28/2019 STEPHEN SAMS Z87.42 Personal history of other diseases of the female genital tract 06/25/2019 STEPHEN SAMS F41.9 Anxiety disorder, unspecified 06/25/2019 STEPHEN SAMS G89.29 Other chronic pain 06/25/2019 STEPHEN SAMS M48.02 Spinal stenosis, cervical region 06/25/2019 STEPHEN SAMS R51 Headache 07/12/2019 STEPHEN SAMS M25.51 1 Pain in right shoulder 07/12/2019 STEPHEN SAMS M48.02 Spinal stenosis, cervical region 07/12/2019 STEPHEN SAMS S06.0X 0D Concussion without loss of consciousness, subsequent encounter 07/12/2019 STEPHEN SAMS Z02.71 Encounter for disability determination 07/26/2019 STEPHEN SAMS F41.9 Anxiety disorder, unspecified 07/26/2019 STEPHEN SAMS M50.30 Other cervical disc degeneration, unspecified cervical region 07/26/2019 STEPHEN SAMS M54.5 Low back pain 07/26/2019 STEPHEN SAMS Z76.0 Encounter for issue of repeat prescription 08/15/2019 STEPHEN SAMS MD Ot I10 ESSENTIAL (PRIMARY) HYPERTENSION 08/15/2019 STEPHEN SAMS MD Ot M54 .2 CERVICALGIA 08/15/2019 STEPHEN SAMS MD, Ot M54 .5 LOW BACK PAIN 08/15/2019 STEPHEN SAMS MD Ot R20 .2 PARESTHESIA OF SKIN 08/15/2019 STEPHEN SAMS MD Ot R51 HEADACHE 08/27/2019 STEPHEN SAMS MD, Ot I10 ESSENTIAL (PRIMARY) HYPERTENSION 08/27/2019 STEPHEN SAMS MD Ot M54 .2 CERVICALGIA 08/27/2019 STEPHEN SAMS MD, Ot M54 .5 LOW BACK PAIN 08/27/2019 STEPHEN SAMS MD, Ot R20 .2 PARESTHESIA OF SKIN 08/27/2019 STEPHEN SAMS MD Ot R51 HEADACHE 08/27/2019 STEPHEN SAMS F41.9 Anxiety disorder, unspecified 08/27/2019 STEPHEN SAMS G89.29 Other chronic pain 08/27/2019 STEPHEN SAMS Z76.0 Encounter for issue of repeat prescription 10/23/2019 STEPHEN SAMS F41.9 Anxiety disorder, unspecified 10/23/2019 STEPHEN SAMS G89.29 Other chronic pain 10/23/2019 STEPHEN SAMS J44.1 Chronic obstructive pulmonary disease with (acute) exacerbation 10/23/2019 STEPHEN SAMS Z72.0 Tobacco use 10/23/2019 STEPHEN SAMS R10.9 Unspecified abdominal pain 10/24/2019 STEPHEN SAMS MD Ot E78 .2 MIXED HYPERLIPIDEMIA 10/24/2019 STEPHEN SAMS MD Ot E78 .2 MIXED HYPERLIPIDEMIA 10/25/2019 STEPHEN SAMS MD Ot I10 ESSENTIAL (PRIMARY) HYPERTENSION 10/25/2019 STEPHEN SAMS MD Ot R59 .0 LOCALIZED ENLARGED LYMPH NODES 10/25/2019 STEPHEN SAMS MD Ot I10 ESSENTIAL (PRIMARY) HYPERTENSION 10/25/2019 STEPHEN SAMS MD Ot R59 .0 LOCALIZED ENLARGED LYMPH NODES 10/26/2019 STEPHEN SAMS MD Ot I10 ESSENTIAL (PRIMARY) HYPERTENSION 10/26/2019 STEPHEN SAMS MD Ot R59 .0 LOCALIZED ENLARGED LYMPH NODES 10/26/2019 STEPHEN SAMS MD Ot I10 ESSENTIAL (PRIMARY) HYPERTENSION 10/26/2019 STEPHEN SAMS MD Ot R59 .0 LOCALIZED ENLARGED LYMPH NODES 11/02/2019 STEPHEN SAMS R87.61 2 Low grade squamous intraepithelial lesion on cytologic smear of cervix (LGSIL) 11/02/2019 STEPHEN SAMS Z13.31 Encounter for screening for depression 11/05/2019 STEPHEN SAMS MD Ot I10 ESSENTIAL (PRIMARY) HYPERTENSION 11/05/2019 STEPHEN SAMS MD Ot M54 .2 CERVICALGIA 11/05/2019 STEPHEN SAMS MD, Ot M54 .5 LOW BACK PAIN 11/05/2019 STEPHEN SAMS MD, Ot R20 .2 PARESTHESIA OF SKIN 11/05/2019 STEPHEN SAMS MD Ot R51 HEADACHE 11/13/2019 STEPHEN SAMS MD Ot I10 ESSENTIAL (PRIMARY) HYPERTENSION 11/13/2019 STEPHEN SAMS MD, Ot R59 .0 LOCALIZED ENLARGED LYMPH NODES 11/21/2019 STEPHEN SAMS F41.9 Anxiety disorder, unspecified 11/21/2019 STEPHEN SMAS G89.29 Other chronic pain 11/21/2019 STEPHEN SAMS I10 Essential (primary) hypertension 11/21/2019 STEPHEN SAMS Z13.31 Encounter for screening for depression 11/21/2019 STEPHEN SAMS Z76.0 Encounter for issue of repeat prescription 12/04/2019 STEPHEN SAMS MD Ot I10 ESSENTIAL (PRIMARY) HYPERTENSION 12/04/2019 STEPHEN SAMS MD, Ot R59 .0 LOCALIZED ENLARGED LYMPH NODES Procedures Code [place] [address] PT E VALUATION 10/14/2015 48982 ELEC TRIC STIMULATION THERAPY 10/14/2015 77850 MANU AL THERAPY 10/14/2015 79611 PT E VALUATION 11/01/2015 53218 ELEC TRIC STIMULATION THERAPY 11/01/2015 51728 MANU AL THERAPY 11/01/2015 Results Test Result Range CBC [...] CREA 0.71 MG/DL 0.6-1.0 EGFR 85 eGFR >= 60 GLU 99 MG/DL 70-105 K 5.0 MEQ/L 3.5-5.1 NA 136 MEQ/L 134-145 OSMSC 270.7 MOSML 280-300 TBIL 0.4 MG/DL 0.1-1.0 TP 7.7 G/DL 6.0-8.3 Albumin/Globulin Ratio 1.1 0-8 Anion Gap 9.4 8-16 Complete blood count (CBC) with automate d white blood cell (WBC) differential - 05/26/18 10:40 Blood leukocytes automated count (number/volume) 21.2 10*3/uL 4.3-11.0 Blood erythrocytes automated count (number/volume) 4.46 10*6/uL 4.35-5.85 Venous blood hemoglobin measurement (mass/volume) 13.3 g/dL 11.5-16.0 Blood hematocrit (volume fraction) 39 % 35-52 Automated erythrocyte mean corpuscular volume 87 [ foz_us] 80-99 Automated erythrocyte mean corpuscular h emoglobin (mass per erythrocyte) 30 pg 25-34 Automated erythrocyte mean corpuscular h emoglobin concentration measurement (mass/volume) 35 g/dL 32-36 Automated erythrocyte distribution width ratio 13. 9 % 10.0- 14.5 Automated blood platelet count (count/volume) 557 10*3/uL 130-400 Automated blood platelet mean volume measurement 8.9 [foz_us] 7.4-10.4 Automated blood neutrophils/100 leukocytes 69 % 42-75 Automated blood lymphocytes/100 leukocytes 19 % 12-44 Blood monocytes/100 leukocytes 11 % 0-12 Automated blood eosinophils/100 leukocytes 0 % 0-10 Automated blood basophils/100 leukocytes 0 % 0-10 Blood neutrophils automated count (number/volume) 14.7 10*3 1.8-7.8 Blood lymphocytes automated count (number/volume) 4.1 10*3 1.0-4.0 Blood monocytes automated count (number/volume) 2. 2 10*3 0.0-1.0 Automated eosinophil count 0.1 10*3/uL 0 .0-0.3 Automated blood basophil count (count/volume) 0.1 10*3/uL 0.0-0.1 Complete urinalysis with reflex to cultu re - 05/26/18 10:40 Urine color determination YELLOW NRG Urine clarity determination CLEAR NR G Urine pH measurement by test strip 8 5-9 Specific gravity of urine by test strip 1.010 1.016-1.022 Urine protein assay by test strip, semi-quantitative NEGATIVE NEGATIVE Urine glucose detection by automated test strip NE GATIVE NEGATIVE Erythrocytes detection in urine sediment by light micr oscopy NEGATIVE NEGATIVE Urine ketones detection by automated test strip NE GATIVE NEGATIVE Urine nitrite detection by test strip NEGATIVE NEGATIVE Urine total bilirubin detection by test strip NEGA TIVE NEGATIVE Urine urobilinogen measurement by automated test strip (mass/volume) NORMAL NORMAL Urine leukocyte esterase detection by dipstick NEG ATIVE NEGATIVE Automated urine sediment erythrocyte cou nt by microscopy (number/high power field) NONE NRG Automated urine sediment leukocyte count by microscopy (number/high power field) NONE NRG Bacteria detection in urine sediment by light microsco py NEGATIVE NRG Squamous epithelial cells detection in u rine sediment by light microscopy 5-10 NRG Crystals detection in urine sediment by light microsco py NONE NRG Casts detection in urine sediment by light microscopy NONE NRG Mucus detection in urine sediment by light microscopy NEGATIVE NRG Complete urinalysis with reflex to culture NO NRG Comprehensive metabolic panel - 05/26/18 10:40 Serum or plasma sodium measurement (moles/volume) 132 mmol/L 135-145 Serum or plasma potassium measurement (moles/volume) 4.0 mmol/L 3.6-5.0 Serum or plasma chloride measurement (moles/volume) 97 mmol/L 98-107 Carbon dioxide 24 mmol/L 21-32 Serum or plasma anion gap determination (moles/volume) 11 mmol/L 5-14 Serum or plasma urea nitrogen measurement (mass/volume ) 4 mg/dL 7-18 Serum or plasma creatinine measurement (mass/volume) 0.69 mg/dL 0.60-1.30 Serum or plasma urea nitrogen/creatinine mass ratio 6 NRG Serum or plasma creatinine measurement w ith calculation of estimated glomerular filtration rate > NRG Serum or plasma glucose measurement (mass/volume) 79 mg/dL 70-105 Serum or plasma calcium measurement (mass/volume) 9.8 mg/dL 8.5-10.1 Serum or plasma total bilirubin measurement (mass/volu me) 0.4 mg/dL 0.1-1.0 Serum or plasma alkaline phosphatase alex surement (enzymatic activity/volume) 110 U/L 40-136 Serum or plasma aspartate aminotransfera se measurement (enzymatic activity/volume) 16 U/L 5-34 Serum or plasma alanine aminotransferase measurement (enzymatic activity/volume) 16 U/L 0-55 Serum or plasma protein measurement (mass/volume) 7.8 g/dL 6.4-8.2 Serum or plasma albumin measurement (mass/volume) 4.5 g/dL 3.2-4.5 CALCIUM CORRECTED 9.4 mg/dL 8.5-10.1 Magnesium - 05/26/18 10:40 Magnesium 2.0 mg/dL 1.8-2.4 Blood manual differential performed dete ction - 05/26/18 10:40 Blood monocytes/100 leukocytes 13 % NRG Manual blood segmented neutrophils/100 leukocytes 68 % NRG Blood band neutrophils/100 leukocytes 0 % NRG Manual blood lymphocytes/100 leukocytes 19 % NRG Manual eosinophils/100 leukocytes in nose 0 % NRG Manual blood basophils/100 leukocytes 0 % NRG Blood erythrocyte morphology finding identification NORMAL [facility] Complete blood count (CBC) with automate d white blood cell (WBC) differential - 05/28/18 09:14 Blood leukocytes automated count (number/volume) 26.8 10*3/uL 4.3-11.0 Blood erythrocytes automated count (number/volume) 4.54 10*6/uL 4.35-5.85 Venous blood hemoglobin measurement (mass/volume) 13.7 g/dL 11.5-16.0 Blood hematocrit (volume fraction) 39 % 35-52 Automated erythrocyte mean corpuscular volume 85 [ foz_us] 80-99 Automated erythrocyte mean corpuscular h emoglobin (mass per erythrocyte) 30 pg 25-34 Automated erythrocyte mean corpuscular h emoglobin concentration measurement (mass/volume) 36 g/dL 32-36 Automated erythrocyte distribution width ratio 13. 9 % 10.0- 14.5 Automated blood platelet count (count/volume) 641 10*3/uL 130-400 Automated blood platelet mean volume measurement 8.8 [foz_us] 7.4-10.4 Automated blood neutrophils/100 leukocytes 83 % 42-75 Automated blood lymphocytes/100 leukocytes 11 % 12-44 Blood monocytes/100 leukocytes 6 % 0-12 Automated blood eosinophils/100 leukocytes 0 % 0-10 Automated blood basophils/100 leukocytes 0 % 0-10 Blood neutrophils automated count (number/volume) 22.3 10*3 1.8-7.8 Blood lymphocytes automated count (number/volume) 2.8 10*3 1.0-4.0 Blood monocytes automated count (number/volume) 1. 6 10*3 0.0-1.0 Automated eosinophil count 0.0 10*3/uL 0 .0-0.3 Automated blood basophil count (count/volume) 0.1 10*3/uL 0.0-0.1 Comprehensive metabolic panel - 05/28/18 09:14 Serum or plasma sodium measurement (moles/volume) 133 mmol/L 135-145 Serum or plasma potassium measurement (moles/volume) 3.5 mmol/L 3.6-5.0 Serum or plasma chloride measurement (moles/volume) 95 mmol/L 98-107 Carbon dioxide 22 mmol/L 21-32 Serum or plasma anion gap determination (moles/volume) 16 mmol/L 5-14 Serum or plasma urea nitrogen measurement (mass/volume ) 9 mg/dL 7-18 Serum or plasma creatinine measurement (mass/volume) 0.76 mg/dL 0.60-1.30 Serum or plasma urea nitrogen/creatinine mass ratio 12 NRG Serum or plasma creatinine measurement w ith calculation of estimated glomerular filtration rate > NRG Serum or plasma glucose measurement (mass/volume) 97 mg/dL 70-105 Serum or plasma calcium measurement (mass/volume) 10.2 mg/dL 8.5-10.1 Serum or plasma total bilirubin measurement (mass/volu me) 0.3 mg/dL 0.1-1.0 Serum or plasma alkaline phosphatase alex surement (enzymatic activity/volume) 112 U/L 40-136 Serum or plasma aspartate aminotransfera se measurement (enzymatic activity/volume) 18 U/L 5-34 Serum or plasma alanine aminotransferase measurement (enzymatic activity/volume) 19 U/L 0-55 Serum or plasma protein measurement (mass/volume) 8.4 g/dL 6.4-8.2 Serum or plasma albumin measurement (mass/volume) 4.6 g/dL 3.2-4.5 Magnesium - 05/28/18 09:14 Magnesium 2.1 mg/dL 1.8-2.4 Blood manual differential performed dete ction - 05/28/18 09:14 Blood monocytes/100 leukocytes 9 % NRG Manual blood segmented neutrophils/100 leukocytes 76 % NRG Blood band neutrophils/100 leukocytes 3 % NRG Manual blood lymphocytes/100 leukocytes 12 % NRG Blood erythrocyte morphology finding identification NORMAL NRG Blood toxic granules detection by light microscopy 2+ NRG Blood hypersegmented neutrophils detection by light mi croscopy MODERATE NRG Serum or plasma C reactive protein measu rement (mass/volume) - 05/28/18 09:42 Serum or plasma C reactive protein measurement (mass/v olume) 3.57 mg/dL 0.00-0.50 C difficile Toxin Gene IGNACIA - 05/31/18 13 :00 C difficile Toxin Gene IGNACIA Negative Neg ative Automated blood complete blood count (he mogram) panel - 06/12/18 13:57 Blood leukocytes automated count (number/volume) 7.4 10*3/uL 4.3-11.0 Blood erythrocytes automated count (number/volume) 4.33 10*6/uL 4.35-5.85 Venous blood hemoglobin measurement (mass/volume) 13.2 g/dL 11.5-16.0 Blood hematocrit (volume fraction) 37 % 35-52 Automated erythrocyte mean corpuscular volume 86 [ foz_us] 80-99 Automated erythrocyte mean corpuscular h emoglobin (mass per erythrocyte) 30 pg 25-34 Automated erythrocyte mean corpuscular h emoglobin concentration measurement (mass/volume) 35 g/dL 32-36 Automated erythrocyte distribution width ratio 13. 6 % 10.0- 14.5 Automated blood platelet count (count/volume) 624 10*3/uL 130-400 Automated blood platelet mean volume measurement 8.7 [foz_us] 7.4-10.4 CULTURE, URINE - 08/18/18 10:30 CULTURE, URINE, ROUTINE SEE NOTE NRG [employer] 13 KHANG-DIS - 09/26/18 1 6:00 PDF . Summary FINAL Declared Medications: Comment ALCOHOL, ETHYL Negative Alcohol, Ethyl Not Detected g/dL AMPHETAMINES Negative Methamphetamine Not Detected ng/mg creat Amphetamine Not Detected ng/mg creat MDMA (Ecstasy) Not Detected ng/mg creat MDA (Ecstasy Mtb) Not Detected ng/mg creat BENZODIAZEPINES +POSITIVE+ Diazepam Not Detected ng/mg creat Desmethyldiazepam Not Detected ng/mg creat Oxazepam Not Detected ng/mg creat Temazepam Not Detected ng/mg creat Alprazolam 683 ng/mg creat Alpha-hydroxyalprazolam 1504 ng/mg creat Desalkylflurazepam Not Detected ng/mg creat Lorazepam Not Detected ng/mg creat Alpha-Hydroxytriazolam Not Detected ng/mg creat Clonazepam Not Detected ng/mg creat 7-aminoclonazepam Not Detected ng/mg creat Midazolam Not Detected ng/mg creat COCAINE / METABOLITE Negative Cocaine Not Detected ng/mg creat Benzoylecgonine Not Detected ng/mg creat Cocaethylene Not Detected ng/mg creat CANNABINOIDS Negative Carboxy-THC Not Detected ng/mg creat OPIATE CLASS Negative Codeine Not Detected ng/mg creat Morphine Not Detected ng/mg creat Norcodeine Not Detected ng/mg creat Hydrocodone Not Detected ng/mg creat Hydromorphone Not Detected ng/mg creat Dihydrocodeine Not Detected ng/mg creat Norhydrocodone Not Detected ng/mg creat OXYCODONE CLASS +POSITIVE+ Oxycodone 2642 ng/mg creat Oxymorphone 1338 ng/mg creat Noroxycodone 6175 ng/mg creat Noroxymorphone 1129 ng/mg creat METHADONE Negative Methadone Not Detected ng/mg creat EDDP (Methadone Mtb) Not Detected ng/mg creat FENTANYL / ANALOGUES Negative Fentanyl Not Detected ng/mg creat Norfentanyl Not Detected ng/mg creat Sufentanil Not Detected ng/mg creat Alfentanil Not Detected ng/mg creat BUPRENORPHINE Negative Buprenorphine Not Detected ng/mg creat Norbuprenorphine Not Detected ng/mg creat BARBITURATES Negative Amobarbital Not Detected Barbital Not Detected Butabarbital Not Detected Butalbital Not Detected Mephobarbital Not Detected Pentobarbital Not Detected Phenobarbital Not Detected Secobarbital Not Detected Thiopental Not Detected TAPENTADOL Negative Tapentadol Not Detected ng/mg creat Tramadol Not Detected ng/mg creat O-Desmethyltramadol Not Detected ng/mg creat N-Desmethyltramadol Not Detected ng/mg creat Creatinine 24 mg/dL Level of Detection: Comment OTHER OPIOIDS Negative CULTURE, URINE - 11/16/18 14:41 CULTURE, URINE, ROUTINE SEE NOTE NRG C DIFFICILE AG + TOXIN A/B. - 11/20/18 0 4:30 C DIFFICILE AG + TOXIN A/B. TNP NR G Stool bacteria identification by culture - 11/20/18 04:30 QUANTITY OF GROWTH . NRG Stool bacteria identification by culture SEE REPOR T NRG Complete blood count (CBC) with automate d white blood cell (WBC) differential - 10/24/19 06:45 Blood leukocytes automated count (number/volume) 8.9 10*3/uL 4.3-11.0 Blood erythrocytes automated count (number/volume) 4.69 10*6/uL 4.35-5.85 Venous blood hemoglobin measurement (mass/volume) 14.0 g/dL 11.5-16.0 Blood hematocrit (volume fraction) 40 % 35-52 Automated erythrocyte mean corpuscular volume 85 [ foz_us] 80-99 Automated erythrocyte mean corpuscular h emoglobin (mass per erythrocyte) 30 pg 25-34 Automated erythrocyte mean corpuscular h emoglobin concentration measurement (mass/volume) 35 g/dL 32-36 Automated erythrocyte distribution width ratio 13. 1 % 10.0- 14.5 Automated blood platelet count (count/volume) 573 10*3/uL 130-400 Automated blood platelet mean volume measurement 8.9 [foz_us] 7.4-10.4 Automated blood neutrophils/100 leukocytes 46 % 42-75 Automated blood lymphocytes/100 leukocytes 37 % 12-44 Blood monocytes/100 leukocytes 13 % 0-12 Automated blood eosinophils/100 leukocytes 3 % 0-10 Automated blood basophils/100 leukocytes 2 % 0-10 Blood neutrophils automated count (number/volume) 4.1 10*3 1.8-7.8 Blood lymphocytes automated count (number/volume) 3.3 10*3 1.0-4.0 Blood monocytes automated count (number/volume) 1. 1 10*3 0.0-1.0 Automated eosinophil count 0.3 10*3/uL 0 .0-0.3 Automated blood basophil count (count/volume) 0.2 10*3/uL 0.0-0.1 Comprehensive metabolic panel - 10/24/19 06:45 Serum or plasma sodium measurement (moles/volume) 136 mmol/L 135-145 Serum or plasma potassium measurement (moles/volume) 4.7 mmol/L 3.6-5.0 Serum or plasma chloride measurement (moles/volume) 99 mmol/L 98-107 Carbon dioxide 27 mmol/L 21-32 Serum or plasma anion gap determination (moles/volume) 10 mmol/L 5-14 Serum or plasma urea nitrogen measurement (mass/volume ) 6 mg/dL 7-18 Serum or plasma creatinine measurement (mass/volume) 0.71 mg/dL 0.60-1.30 Serum or plasma urea nitrogen/creatinine mass ratio 8 NRG Serum or plasma creatinine measurement w ith calculation of estimated glomerular filtration rate > NRG Serum or plasma glucose measurement (mass/volume) 98 mg/dL 70-105 Serum or plasma calcium measurement (mass/volume) 10.3 mg/dL 8.5-10.1 Serum or plasma total bilirubin measurement (mass/volu me) 0.7 mg/dL 0.1-1.0 Serum or plasma alkaline phosphatase alex surement (enzymatic activity/volume) 98 U/L 40-136 Serum or plasma aspartate aminotransfera se measurement (enzymatic activity/volume) 27 U/L 5-34 Serum or plasma alanine aminotransferase measurement (enzymatic activity/volume) 22 U/L 0-55 Serum or plasma protein measurement (mass/volume) 7.9 g/dL 6.4-8.2 Serum or plasma albumin measurement (mass/volume) 4.5 g/dL 3.2-4.5 CALCIUM CORRECTED 9.9 mg/dL 8.5-10.1 Lipid 1996 panel - 10/24/19 06:45 Serum or plasma triglyceride measurement (mass/volume) 253 mg/dL <150 Serum or plasma cholesterol measurement (mass/volume) 166 mg/dL < 200 Serum or plasma cholesterol in HDL measurement (mass/v olume) 39 mg/dL 40-60 Cholesterol in LDL [mass/volume] in serum or plasma by direct assay 102 mg/dL 1-129 Serum or plasma cholesterol in VLDL measurement (mass/ volume) 51 mg/dL 5-40 Serum or plasma C reactive protein measu rement (mass/volume) - 10/24/19 06:45 Serum or plasma C reactive protein measurement (mass/v olume) 0.21 mg/dL 0.00-0.50 Complete blood count (CBC) with automate d white blood cell (WBC) differential - 01/02/20 18:28 Blood leukocytes automated count (number/volume) 10.7 10*3/uL 4.3-11.0 Blood erythrocytes automated count (number/volume) 4.23 10*6/uL 4.35-5.85 Venous blood hemoglobin measurement (mass/volume) 12.7 g/dL 11.5-16.0 Blood hematocrit (volume fraction) 36 % 35-52 Automated erythrocyte mean corpuscular volume 85 [ foz_us] 80-99 Automated erythrocyte mean corpuscular h emoglobin (mass per erythrocyte) 30 pg 25-34 Automated erythrocyte mean corpuscular h emoglobin concentration measurement (mass/volume) 35 g/dL 32-36 Automated erythrocyte distribution width ratio 13. 4 % 10.0- 14.5 Automated blood platelet count (count/volume) 616 10*3/uL 130-400 Automated blood platelet mean volume measurement 8.8 [foz_us] 7.4-10.4 Automated blood neutrophils/100 leukocytes 37 % 42-75 Automated blood lymphocytes/100 leukocytes 48 % 12-44 Blood monocytes/100 leukocytes 11 % 0-12 Automated blood eosinophils/100 leukocytes 3 % 0-10 Automated blood basophils/100 leukocytes 1 % 0-10 Blood neutrophils automated count (number/volume) 4.0 10*3 1.8-7.8 Blood lymphocytes automated count (number/volume) 5.1 10*3 1.0-4.0 Blood monocytes automated count (number/volume) 1. 1 10*3 0.0-1.0 Automated eosinophil count 0.4 10*3/uL 0 .0-0.3 Automated blood basophil count (count/volume) 0.1 10*3/uL 0.0-0.1 Comprehensive metabolic panel - 01/02/20 18:28 Serum or plasma sodium measurement (moles/volume) 133 mmol/L 135-145 Serum or plasma potassium measurement (moles/volume) 4.0 mmol/L 3.6-5.0 Serum or plasma chloride measurement (moles/volume) 101 mmol/L 98-107 Carbon dioxide 24 mmol/L 21-32 Serum or plasma anion gap determination (moles/volume) 8 mmol/L 5-14 Serum or plasma urea nitrogen measurement (mass/volume ) 9 mg/dL 7-18 Serum or plasma creatinine measurement (mass/volume) 0.69 mg/dL 0.60-1.30 Serum or plasma urea nitrogen/creatinine mass ratio 13 NRG Serum or plasma creatinine measurement w ith calculation of estimated glomerular filtration rate > NRG Serum or plasma glucose measurement (mass/volume) 100 mg/dL 70-105 Serum or plasma calcium measurement (mass/volume) 9.0 mg/dL 8.5-10.1 Serum or plasma total bilirubin measurement (mass/volu me) 0.2 mg/dL 0.1-1.0 Serum or plasma alkaline phosphatase alex surement (enzymatic activity/volume) 108 U/L 40-136 Serum or plasma aspartate aminotransfera se measurement (enzymatic activity/volume) 17 U/L 5-34 Serum or plasma alanine aminotransferase measurement (enzymatic activity/volume) 20 U/L 0-55 Serum or plasma protein measurement (mass/volume) 7.2 g/dL 6.4-8.2 Serum or plasma albumin measurement (mass/volume) 4.1 g/dL 3.2-4.5 CALCIUM CORRECTED 8.9 mg/dL 8.5-10.1 Fibrin D-dimer FEU measurement in platel et poor plasma (mass/volume) - 01/02/20 18:28 Fibrin D-dimer FEU measurement in platelet poor plasma (mass/volume) < ug/mL 0.00-0.49 Erythrocyte sedimentation rate by vasu gren method - 01/02/20 18:28 Erythrocyte sedimentation rate by westergren method 30 mm 0- 30 Encounters ACCT No. Visit Date/Time Discharge Status Pt. Type Provider Facility Loc./Unit Complaint [id number] 10/01/2018 10:05:00 Document Registration [id number] 12/20/2019 14:00:00 12/20/2019 15:0 0:00 DIS Outpatient STEPHEN SAMS [facility] [id number] 11/21/2019 11:30:00 11/21/2019 12:3 0:00 DIS Outpatient FLAQUITA STEPHEN [facility] [id number] 11/02/2019 14:00:00 11/02/2019 15:0 0:00 DIS Outpatient FLAQUITA STEPHEN [facility] [id number] 10/23/2019 11:29:00 10/23/2019 12:2 9:00 DIS Outpatient FLAQUITA STEPHEN [facility] OT [id number] 10/23/2019 10:30:00 10/23/2019 11:3 0:00 DIS Outpatient FLAQUITA STEPHEN [facility] [id number] 09/25/2019 13:45:00 09/25/2019 23:5 9:59 CLS Outpatient [id number] 08/27/2019 13:45:00 08/27/2019 14:4 5:00 DIS Outpatient FLAQUITA STEPHEN [facility] [id number] 07/26/2019 13:30:00 07/26/2019 14:3 0:00 DIS Outpatient FLAQUITA STEPHEN [facility] [id number] 07/12/2019 15:00:00 07/12/2019 16:0 0:00 DIS Outpatient FLAQUITA STEPHEN [facility] [id number] 06/25/2019 13:30:00 06/25/2019 14:3 0:00 DIS Outpatient FLAQUITA STEPHEN [facility] [id number] 05/28/2019 14:00:00 05/28/2019 23:5 9:59 CLS Outpatient [id number] 05/28/2019 14:00:00 05/28/2019 15:0 0:00 DIS Outpatient FLAQUITASTEPHEN [facility] [id number] 05/14/2019 13:00:00 05/14/2019 23:5 9:59 CLS Outpatient [id number] 05/11/2019 13:30:00 05/11/2019 17:3 0:00 [facility] [id number]27/2019 13:45:00 04/27/2019 14:4 5:00 [facility] [id number] 03/29/2019 10:45:00 03/29/2019 11:4 5:00 [facility] [place] [id number] 02/26/2019 11:00:00 02/26/2019 12:0 0:00 [facility] [place] [id number] 01/24/2019 11:13:00 01/24/2019 12:1 3:00 DIS Outpatient FLAQUITASTEPHEN [facility] OT [id number] 01/24/2019 11:00:00 01/24/2019 12:0 0:00 [facility] [place] [id number] 12/25/2018 11:00:00 12/25/2018 12:0 0:00 DIS [facility] [place] [id number] 11/24/2018 11:00:00 11/24/2018 23:5 9:59 CLS Outpatient [id number] 11/17/2018 11:29:00 11/17/2018 12:2 9:00 DIS Outpatient FLAQUITASTEPHEN [facility] OT [id number] 11/17/2018 11:00:00 11/17/2018 12:0 0:00 [facility] [place] [id number] 10/20/2018 10:14:00 10/20/2018 11:1 4:00 DIS Outpatient FLAQUITASTEPHEN [facility] OT [id number] 10/20/2018 10:00:00 10/20/2018 11:0 0:00 DIS Outpatient [facility] CL [id number] 09/26/2018 16:06:00 09/26/2018 17:0 6:00 DIS Outpatient STEPHEN SAMS [facility] OT [id number] 09/26/2018 15:30:00 09/26/2018 16:3 0:00 DIS Outpatient STEPHEN SAMS [facility] CL [id number] 08/29/2018 14:00:00 08/29/2018 15:0 0:00 DIS Outpatient STEPHEN SAMS [facility] CL [id number] 07/31/2018 13:45:00 07/31/2018 14:4 5:00 DIS Outpatient STEPHEN SAMS [facility] CL [id number] 06/30/2018 13:48:00 06/30/2018 14:4 8:00 DIS Outpatient STEPHEN SAMS [facility] OT [id number] 06/30/2018 13:45:00 06/30/2018 14:4 5:00 DIS Outpatient [facility] [facility] [place] [id number] 05/31/2018 12:31:00 05/31/2018 16:3 1:00 DIS Outpatient STEPHEN SAMS [id number] 05/31/2018 11:30:00 05/31/2018 12:3 0:00 DIS [place] [facility] [id number] 05/09/2018 11:15:00 05/09/2018 23:5 9:59 CLS Outpatient [id number] 04/28/2018 13:45:00 04/28/2018 14:4 5:00 DIS Outpatient STEPHEN SAMS [facility] CL [id number] 04/04/2018 10:30:00 04/04/2018 23:5 9:59 CLS Outpatient [id number] 03/29/2018 11:00:00 03/29/2018 12:0 0:00 DIS [facility] [place] [id number] 02/27/2018 09:48:00 02/27/2018 13:4 8:00 DIS Outpatient FLAQUITASTEPHEN [facility] OT [id number] 02/27/2018 09:30:00 02/27/2018 10:3 0:00 DIS Outpatient FLAQUITASTEPHEN [facility] [id number] 01/25/2018 09:00:00 01/25/2018 10:0 0:00 DIS Outpatient FLAQUITASTEPHEN [facility] [id number] 12/28/2017 09:15:00 12/28/2017 10:1 5:00 DIS Outpatient FLAQUITASTEPHEN [facility] [id number] 11/25/2017 14:45:00 11/25/2017 15:4 5:00 DIS Outpatient FLAQUITASTEPHEN [facility] [id number] 10/28/2017 11:00:00 10/28/2017 12:0 0:00 DIS Outpatient FLAQUITASTEPHEN [facility] [id number] 09/30/2017 10:00:00 09/30/2017 11:0 0:00 DIS Outpatient FLAQUITASTEPHEN [facility] [id number] 09/01/2017 10:00:00 09/01/2017 11:0 0:00 DIS Outpatient FLAQUITASTEPHEN [facility] [id number] 08/01/2017 10:51:00 08/01/2017 11:5 1:00 DIS Outpatient FLAQUITASTEPHEN [facility] OT [id number] 08/01/2017 10:30:00 08/01/2017 11:3 0:00 [facility] [id number] 07/01/2017 10:15:00 07/01/2017 11:1 5:00 DIS Outpatient FLAQUITASTEPHEN [facility] [id number] 06/01/2017 10:45:00 06/01/2017 11:4 5:00 DIS Outpatient FLAQUITASTEPHEN [facility] [id number] 05/27/2017 10:45:00 05/27/2017 11:4 5:00 DIS Outpatient FLAQUITASTEPHEN [facility] [id number] 05/19/2017 11:30:00 05/19/2017 12:3 0:00 DIS Outpatient FLAQUITASTEPHEN [facility] [id number] 05/04/2017 09:30:00 05/04/2017 10:3 0:00 DIS Outpatient FLAQUITASTEPHEN [facility] [id number] 04/04/2017 10:30:00 04/04/2017 11:3 0:00 DIS Outpatient FLAQUITA [facility] [id number] 03/28/2017 15:00:00 03/28/2017 16:0 0:00 DIS Outpatient MARIBEL NORWOOD [facility] [id number] 03/03/2017 14:15:00 03/03/2017 15:1 5:00 [facility] [id number] 02/09/2017 10:15:00 02/09/2017 10:1 5:[address] [facility] [id number] 02/01/2017 10:00:00 02/01/2017 11:0 0:00 [facility] [id number] 12/28/2016 15:15:00 12/28/2016 16:1 5:00 [facility] [id number] 12/03/2016 09:58:00 12/03/2016 13:5 8:00 [id number] 12/03/2016 09:45:00 12/03/2016 10:4 5:00 [facility] [id number] 11/09/2016 09:39:00 11/09/2016 10:3 9:00 [facility] [id number] 11/09/2016 09:15:00 11/09/2016 10:1 5:00 [facility] [id number] 11/04/2016 15:15:00 11/04/2016 16:1 5:00 [facility] [id number] 10/07/2016 09:30:00 10/07/2016 10:3 0:00 [facility] [id number] 09/09/2016 09:30:00 09/09/2016 13:3 0:00 [facility] [id number] 08/12/2016 10:00:00 08/12/2016 14:0 0:00 [facility] [id number] 08/12/2016 09:56:00 08/12/2016 10:5 6:00 [id number] 08/04/2016 09:45:00 08/04/2016 13:4 5:00 [facility] [id number] 08/04/2016 10:10:00 08/04/2016 11:1 0:00 [facility] [id number] 07/12/2016 11:30:00 07/12/2016 15:3 0:00 [facility] [id number] 06/15/2016 14:00:00 06/15/2016 18:0 0:00 [facility] [id number] 06/03/2016 12:29:00 06/03/2016 16:2 9:[id number] 05/18/2016 14:00:00 05/18/2016 18:0 0:00 [facility] [id number] 05/18/2016 14:28:00 05/18/2016 15:2 8:00 [facility] [id number] 04/28/2016 08:44:00 04/28/2016 12:4 4:00 [id number] 04/26/2016 08:04:00 04/26/2016 12:0 4:00 [facility] [id number] 04/22/2016 14:45:00 04/22/2016 18:4 5:00 [facility] [id number] 04/22/2016 16:01:00 04/22/2016 17:0 1:00 [facility] [id number] 04/15/2016 10:42:00 04/15/2016 12:3 0:00 DIS OS ASHA [facility] [place] [id number] 04/08/2016 12:00:00 04/08/2016 16:0 0:00 DIS OP ASHA FELICIA [id number] 04/08/2016 10:15:00 04/08/2016 14:1 5:00 [facility] [id number] 04/08/2016 10:56:00 04/08/2016 11:5 6:00 DIS [facility] [id number] 03/25/2016 14:30:00 03/25/2016 18:3 0:00 [facility] [id number] 03/25/2016 15:07:00 03/25/2016 16:0 7:00 DIS [facility] OT [id number] 03/19/2016 10:30:00 03/19/2016 14:3 0:00 [facility] [id number] 03/04/2016 11:55:00 03/06/2016 11:5 6:00 DIS PB [facility] [id number] 03/04/2016 15:15:00 03/06/2016 08:4 5:00 DIS IP [facility] [place] [id number] 03/04/2016 13:30:00 03/04/2016 17:3 0:00 [facility] [id number] 03/04/2016 14:18:00 03/04/2016 15:1 8:00 DIS [facility] OT [id number] 03/04/2016 11:00:00 03/04/2016 11:0 0:00 [facility] [id number] 02/16/2016 11:00:00 02/16/2016 15:0 0:00 [facility] [id number] 02/16/2016 11:15:00 02/16/2016 12:1 5:00 DIS [facility] OT [id number] 01/19/2016 10:00:00 01/19/2016 14:0 0:00 [facility] [id number] 01/19/2016 10:29:00 01/19/2016 11:2 9:00 DIS [facility] [id number] 12/22/2015 13:30:00 12/22/2015 17:3 0:00 [facility] [id number] 12/05/2015 13:30:00 12/05/2015 17:3 0:00 [facility] [id number] 11/20/2015 10:00:00 11/20/2015 14:0 0:00 [facility] [id number] 10/21/2015 10:15:00 10/21/2015 14:1 5:00 [facility] [id number] 09/22/2015 14:15:00 09/22/2015 18:1 5:00 [facility] [id number] 09/10/2015 12:48:00 09/10/2015 16:4 8:00 DIS OP ENMA MARIBEL [id number] 09/08/2015 15:04:00 09/08/2015 19:0 4:00 [facility] [id number] 09/08/2015 15:00:00 09/08/2015 19:0 0:00 [facility] [id number] 08/29/2015 15:30:00 08/29/2015 19:3 0:00 DIS RY KIPTENZINBIBIKEVON [facility] [id number] 08/21/2015 14:30:00 08/21/2015 18:3 0:00 [facility] [id number] 08/08/2015 12:37:00 08/08/2015 16:3 7:00 [facility] [id number] 08/07/2015 15:30:00 08/07/2015 19:3 0:00 [facility] [id number] 08/07/2015 15:30:00 08/07/2015 19:3 0:00 [facility] [id number] 07/29/2015 15:45:00 07/29/2015 19:4 5:00 [facility] [id number] 07/10/2015 10:27:00 07/10/2015 14:2 7:00 [facility] [id number] 07/10/2015 10:15:00 07/10/2015 14:1 5:00 [facility] [id number]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
== END 2020-01-02 20:53 | disposition home or self-care (01) ==
LOC: EDUNIT# 18:00 → ER 18:01
DX: J44.1 Chronic obstructive pulmonary disease with (acute) exacerbation (principal); F17.210 Nicotine dependence, cigarettes, uncomplicated; E78.00 Pure hypercholesterolemia, unspecified; I10 Essential (primary) hypertension; F41.9 Anxiety disorder, unspecified; F32.9 Major depressive disorder, single episode, unspecified; Z88.2 Allergy status to sulfonamides; Z87.19 Personal history of other diseases of the digestive system; Z79.899 Other long term (current) drug therapy; Z20.828 Contact with and (suspected) exposure to other viral communicable diseases
CPT/HCPCS: 36415; 71045; 80053; 85025; 85379; 85652; 93005; 96360

== ENCOUNTER 2020-01-21 10:38 | Emergency (ER) | payer MEDICARE, MEDICAID ==
[~2020-01-21] VITALS: Ht 165 cm; Wt 65.0 kg
[~2020-01-21 10:38] MED LIST changes: +DOXY100T2 PO; +PRD20T PO
[2020-01-21 11:06] LABS: BASOPHILS # (AUTO) 0.1 10^3/uL (0.0-0.1); BASOPHILS % (AUTO) 2 % (0-10); EOSINOPHILS # (AUTO) 0.2 10^3/uL (0.0-0.3); EOSINOPHILS % (AUTO) 3 % (0-10); HEMATOCRIT 37 % (35-52); LYMPHOCYTES % (AUTO) 38 % (12-44); MEAN CORPUSCULAR HEMOGLOBIN 31 PG (25-34); MEAN CORPUSCULAR HGB CONC 35 G/DL (32-36); MEAN CORPUSCULAR VOLUME 87 FL (80-99); MEAN PLATELET VOLUME 9.3 FL (7.4-10.4); MONOCYTES # (AUTO) 0.8 X 10^3 (0.0-1.0); MONOCYTES % (AUTO) 10 % (0-12); NEUTROPHILS # (AUTO) 3.9 X 10^3 (1.8-7.8); NEUTROPHILS % (AUTO) 48 % (42-75); PLATELET COUNT 443 10^3/uL (130-400); RED CELL DISTRIBUTION WIDTH 13.9 % (10.0-14.5)
[2020-01-21 11:07] LABS: BILIRUBIN,URINE NEGATIVE (NEGATIVE); CLARITY,URINE CLEAR; COLOR,URINE YELLOW; GLUCOSE, URINE (UA) NEGATIVE (NEGATIVE); KETONES,URINE NEGATIVE (NEGATIVE); LEUKOCYTE ESTERASE ,URINE 1+ (NEGATIVE); NITRITE,URINE NEGATIVE (NEGATIVE); PROTEIN,URINE NEGATIVE (NEGATIVE)
[2020-01-21 11:18] LABS: BACTERIA,URINE NEGATIVE /HPF; WBC,URINE 0-2 /HPF
[2020-01-21 11:20] LABS: ALBUMIN 4.3 GM/DL (3.2-4.5); CHLORIDE 101 MMOL/L (98-107); POTASSIUM 4.2 MMOL/L (3.6-5.0); SODIUM 134 MMOL/L (135-145)
[2020-01-21 11:23] LABS: GLUCOSE 110 MG/DL (70-105); TOTAL PROTEIN 7.4 GM/DL (6.4-8.2)
[2020-01-21 11:24] LABS: CARBON DIOXIDE 22 MMOL/L (21-32)
[2020-01-21 11:25] LABS: BILIRUBIN,TOTAL 0.5 MG/DL (0.1-1.0)
--- NOTE | 2020-01-21 11:25 | Diagnostic Imaging Report ---
INDICATION: Nausea, headache, and lightheadedness. TECHNIQUE: Multiple contiguous axial images were obtained through the brain without the use of intravenous contrast. Auto Exposure Controls were utilized during the CT exam to meet ALARA standards for radiation dose reduction. COMPARISON: There are no previous studies for comparison. FINDINGS: There are no extra-axial fluid collections. No intracranial hemorrhage. No intracranial mass or mass effect. No midline shift. The ventricles are normal in size and position. There are no focal parenchymal abnormalities in the brain. The calvarial windows appear unremarkable. The visualized portions of the mastoid air cells and paranasal sinuses appear clear. IMPRESSION: Negative noncontrast brain CT. Dictated by: Dictated on workstation # [id number]
[2020-01-21 11:26] LABS: ALKALINE PHOSPHATASE 89 U/L (40-136)
[2020-01-21 11:27] LABS: AMPHETAMINE SCREEN, URINE NEGATIVE (NEGATIVE); BENZODIAZEPINES SCREEN URINE POSITIVE (NEGATIVE); COCAINE SCREEN URINE NEGATIVE (NEGATIVE); METHAMPHETAMINE SCREEN URINE S NEGATIVE (NEGATIVE)
[2020-01-21 11:27] LABS: CREATININE SERUM 0.83 MG/DL (0.60-1.30); GFR ESTIMATED > 60
[2020-01-21 11:28] LABS: BUN/CREATININE RATIO 11
[2020-01-21 11:28] LABS: BARBITURATE SCREEN URINE NEGATIVE (NEGATIVE); CANNABINOID SCREEN, URINE NEGATIVE (NEGATIVE); METHADONE STAT NEGATIVE (NEGATIVE); OPIATE SCREEN URINE NEGATIVE (NEGATIVE); OXYCODONE STAT POSITIVE (NEGATIVE); PROPOXYPHENE STAT NEGATIVE (NEGATIVE); TRICYCLIC ANTIDEPRESSANTS SCRE POSITIVE (NEGATIVE)
[2020-01-21 11:29] LABS: ALANINE AMINOTRANSFERASE 25 U/L (0-55); MAGNESIUM 1.9 MG/DL (1.6-2.4)
--- NOTE | 2020-01-21 11:29 | ED General ---
General Chief Complaint: General Problems/Pain Stated Complaint: HEADACHE;NAUSEA Nursing Triage Note: ARRIVED VIA AMB TO ROOM 06 WITH COMPLAINTS OF BEING LIGHT HEADED, NAUSEA, AND HEADACHE. Nursing Sepsis Screen: No Definite Risk Source of Information: Patient (GIVES SOME CONVOLUTED AND INCONSISTENT INFORMATION) History of Present Illness Date Seen by Provider: Jan 21, 2020 Time Seen by Provider: 10:40 Initial Comments PT ARRIVES VIA POV FROM HOME--DROVE SELF HERE STATES 15 MINUTES AGO, SHE HAD HEAD PAIN IN [place] AND RUSHED STRAIGHT HERE STATES SHE IS ALSO DIZZY AND NAUSEATED STATES SHE TAKES OXYCODONE EVERY DAY FOR MULTIPLE CHRONIC PAIN COMPLAINTS AND TOOK HER NORMAL DOSE AT 10:00 STATES HER HEADACHE IS BETTER STATES SHE STILL FEELS A LITTLE DIZZY AND NAUSEATED NO VISION CHANGES NO CHEST PAIN NO SHORTNESS OF BREATH NO PALPITATIONS NO PARESTHESIAS OR MOTOR DEFICITS NO FEVER OR RECENT ILLNESS NO SINUS/URI SYMPTOMS NO SORE THROAT OR CHANGES IN SMELL OR TASTE NO KNOWN SICK CONTACTS OR EXPOSURE TO COVID-19 STATES SHE WENT TO [facility] LAST TUESDAY AND "HAD 3 SHOTS" "TO GET MY TEETH CLEANED" STATES SHE SAW HER DR AT [facility] ( DR. SAMS) ON TUESDAY FOR ROUTINE EXAM NO CHANGES IN MEDICATIONS HAS TAKEN ALL OF HER REGULAR MEDICATIONS THIS MORNING PCP: DR. SAMS IN [place] Allergies and Home Medications Allergies Coded Allergies: Sulfa (Sulfonamide Antibiotics) (Unverified Allergy, Unknown, 06/21/18) Home Medications Alprazolam 0.25 Mg Tab, 0.25 MG GT PRN, (Reported) Amitriptyline Hcl 50 Mg Tab, 50 MG PO DAILY, (Reported) Citalopram Hydrobromide 10 Mg Tablet, 10 MG GT DAILY, (Reported) Cyclobenzaprine HCl 10 Mg Tablet, 10 MG PO TID PRN for SPASMS Prescribed by: KAYLA BERG MD on 05/05/191106 Doxycycline Hyclate 100 Mg Tablet, 100 MG PO BID Prescribed by: MARIBEL HORTA on 01/02/201958 Hydrocodone Bit/Acetaminophen 1 Each Tablet, 1 EACH PO Q8HR PRN, (Reported) Ketorolac Tromethamine 10 Mg Tablet, 10 MG PO Q6H Prescribed by: KAYLA BERG MD on 05/05/191106 Levofloxacin 750 Mg Tablet, 750 MG PO DAILY Prescribed by: JADA VILLA on 05/26/18 1136 Meclizine HCl 25 Mg Tablet, 50 MG PO Q6 PRN for DIZZINESS Prescribed by: DALLIN ROSAS on 01/21/20 113 Ondansetron 4 Mg Tab.rapdis, 4 MG PO Q4H Prescribed by: DALLIN ROSAS on 01/21/20 113 Prednisone 20 Mg Tab, 40 MG PO DAILY Prescribed by: MARIBEL HORTA on 01/02/201958 Triamterene/Hydrochlorothiazid 1 Each Tablet, 0.5 EACH PO DAILY, (Reported) Patient Home Medication List Home Medication List Reviewed: Yes Review of Systems Review of Systems Constitutional: No chills, No diaphoresis; dizziness; No fever, No malaise, No weakness EENTM: dental problems (PER HPI); No ear discharge, No hearing loss, No ear pain, No blurred vision, No double vision, No vision loss, No nose congestion, No throat pain Respiratory: no symptoms reported; No cough, No short of breath, No wheezing Cardiovascular: no symptoms reported; No chest pain, No edema, No palpitations, No syncope Gastrointestinal: see HPI; No abdominal pain, No constipation, No diarrhea; nausea; No vomiting Genitourinary: no symptoms reported Musculoskeletal: other (CHRONIC NECK AND BACK AND FOOT PAIN) Skin: no symptoms reported Psychiatric/Neurological: See HPI, Headache; Denies Numbness, Denies Paresthesia, Denies Seizure, Denies Tingling, Denies Tremors, Denies Weakness Hematologic/Lymphatic: No Symptoms Reported Immunological/Allergic: no symptoms reported Past Akjvejt-Mdufbw-Dnemcg Hx Past Med/Social Hx: Reviewed and Corrections made Patient Social History Alcohol Use: Denies Use Recreational Drug Use: No Smoking Status: Never a Smoker 2nd Hand Smoke Exposure: No Recent Foreign Travel: No Contact w/Someone Who Travel: No Recent Infectious Disease Expo: No Recent Hopitalizations: No Immunizations Up To Date Date of Pneumonia Vaccine: Feb 16, 2011 Seasonal Allergies Seasonal Allergies: No Past Medical History Surgeries: Yes (splenectomy DUE TO TRAUMA, R foot surgery) Abdominal, Orthopedic Respiratory: Yes Pneumonia Cardiac: Yes Chronic Edema/Swelling, High Cholesterol, Hypertension Neurological: No Reproductive Disorders: No Genitourinary: No 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 oz. 66.888832gj; 23.00 BMI Method:Stated General Appearance: No Apparent Distress, WD/WN, Other (FULL, HEAVY, MULTICOLORED EYE MAKEUP) HEENT: PERRL/EOMI, TMs Normal, Normal ENT Inspection, Pharynx Normal Neck: Full Range of Motion, Normal Inspection, Non Tender, Supple; No Carotid Bruit, No JVD Respiratory: Normal Breath Sounds, No Accessory Muscle Use, No Respiratory Distress Cardiovascular: Regular Rate, Rhythm, No Edema, No JVD, No Murmur, Normal Peripheral Pulses Gastrointestinal: Non Tender, Soft Back: No CVA Tenderness Extremity: Normal Inspection Neurologic/Psychiatric: Alert, Oriented x3, No Motor/Sensory Deficits, Normal Mood/Affect, make up editor II-XII Norm as Tested; No Abnormal Cerebellar Tests Skin: Normal Color, Warm/Dry Progress/Results/Core Measures Suspected Sepsis Recent Fever Within 48 Hours: No Infection Criteria Present: None New/Unexplained Altered Menta: No Sepsis Screen: No Definite Risk SIRS Temperature: Pulse: 82 Respiratory Rate: 16 Laboratory Tests 01/21/20 10:55: White Blood Count 8.0 Blood Pressure 166 /78 Mean: 107 Laboratory Tests 01/21/20 10:55: Creatinine 0.83, Platelet Count 443H, Total Bilirubin 0.5 Results/Orders Lab Results Laboratory Tests Test 01/21/20 10:55 01/21/20 11:00 Range/Units White Blood Count 8.0 4.3-11.0 10^3/uL Red Blood Count 4.24 L 4.35-5.85 10^6/uL Hemoglobin 13.0 11.5-16.0 G/DL Hematocrit 37 35-52 % Mean Corpuscular Volume 87 80-99 FL Mean Corpuscular Hemoglobin 31 25-34 PG Mean Corpuscular Hemoglobin Concent 35 32-36 G/DL Red Cell Distribution Width 13.9 10.0-14.5 % Platelet Count 443 H 130-400 10^3/uL Mean Platelet Volume 9.3 7.4-10.4 FL Neutrophils (%) (Auto) 48 42-75 % Lymphocytes (%) (Auto) 38 12-44 % Monocytes (%) (Auto) 10 0-12 % Eosinophils (%) (Auto) 3 0-10 % Basophils (%) (Auto) 2 0-10 % Neutrophils # (Auto) 3.9 1.8-7.8 X 10^3 Lymphocytes # (Auto) 3.0 1.0-4.0 X 10^3 Monocytes # (Auto) 0.8 0.0-1.0 X 10^3 Eosinophils # (Auto) 0.2 0.0-0.3 10^3/uL Basophils # (Auto) 0.1 0.0-0.1 10^3/uL Sodium Level 134 L 135-145 MMOL/L Potassium Level 4.2 3.6-5.0 MMOL/L Chloride Level 101 98-107 MMOL/L Carbon Dioxide Level 22 21-32 MMOL/L Anion Gap 11 5-14 MMOL/L Blood Urea Nitrogen 9 7-18 MG/DL Creatinine 0.83 0.60-1.30 MG/DL Estimat Glomerular Filtration Rate > 60 BUN/Creatinine Ratio 11 Glucose Level 110 H 70-105 MG/DL Calcium Level 9.0 8.5-10.1 MG/DL Corrected Calcium 8.8 8.5-10.1 MG/DL Magnesium Level 1.9 1.6-2.4 MG/DL Total Bilirubin 0.5 0.1-1.0 MG/DL Aspartate Amino Transf (AST/SGOT) 29 5-34 U/L Alanine Aminotransferase (ALT/SGPT) 25 0-55 U/L Alkaline Phosphatase 89 40-136 U/L Total Protein 7.4 6.4-8.2 GM/DL Albumin 4.3 3.2-4.5 GM/DL Serum Alcohol < 10 <10 MG/DL Urine Color YELLOW Urine Clarity CLEAR Urine pH 7.0 5-9 Urine Specific [place] <=1.005 1.016-1.022 Urine Protein NEGATIVE NEGATIVE Urine Glucose (UA) NEGATIVE NEGATIVE Urine Ketones NEGATIVE NEGATIVE Urine Nitrite NEGATIVE NEGATIVE Urine Bilirubin NEGATIVE NEGATIVE Urine Urobilinogen 0.2 < = 1.0 MG/DL Urine Leukocyte Esterase 1+ H NEGATIVE Urine RBC (Auto) NEGATIVE NEGATIVE Urine RBC NONE /HPF Urine WBC 0-2 /HPF Urine Squamous Epithelial Cells 5-10 /HPF Urine Renal Epithelial Cells 2-5 /HPF Urine Crystals NONE /LPF Urine Bacteria NEGATIVE /HPF Urine Casts NONE /LPF Urine Mucus NEGATIVE /LPF Urine Culture Indicated NO Urine Opiates Screen NEGATIVE NEGATIVE Urine Oxycodone Screen POSITIVE H NEGATIVE Urine Methadone Screen NEGATIVE NEGATIVE Urine Propoxyphene Screen NEGATIVE NEGATIVE Urine Barbiturates Screen NEGATIVE NEGATIVE Ur Tricyclic Antidepressants Screen POSITIVE H NEGATIVE Urine Phencyclidine Screen NEGATIVE NEGATIVE Urine Amphetamines Screen NEGATIVE NEGATIVE Urine Methamphetamines Screen NEGATIVE NEGATIVE Urine Benzodiazepines Screen POSITIVE H NEGATIVE Urine Cocaine Screen NEGATIVE NEGATIVE Urine Cannabinoids Screen NEGATIVE NEGATIVE My Orders Orders - ALISONELSIEA K DO Alcohol (01/21/20 10:50) Cbc With Automated Diff (01/21/20 10:50) Comprehensive Metabolic Panel (01/21/20 10:50) Drug Screen Stat (Urine) (01/21/20 10:50) Magnesium (01/21/20 10:50) Protime With Inr (01/21/20 10:50) Partial Thromboplastin Time (01/21/20 10:50) Ua Culture If Indicated (01/21/20 10:50) Ct Head Wo-R/O Stroke (01/21/20 10:50) Vital Signs/I&O 01/21/20 10:40 Temp 36.6 Pulse 82 Resp 16 B/P (MAP) 166/78 (107) Pulse Ox 98 O2 Delivery Room Air Capillary Refill : Less Than 3 Seconds Blood Pressure Mean: 107 Progress Note : Progress Note STATES SHE DOES NOT WANT ANYTHING FOR HER HEADACHE, STATES HER HEAD ISN'T HURTING SINCE SHE TOOK OXYCODONE IS AGREEABLE TO TAKING SOMETHING FOR NAUSEA, AND DIZZINESS Diagnostic Imaging Comments CT HEAD--NO ACUTE PROCESS, PER RADIOLOGIST REPORT AT 1128 Reviewed: Reviewed by Me Departure Impression Primary Impression: Headache Additional Impression: Dizziness Disposition: 01 HOME, SELF-CARE Condition: Stable Departure-Patient Inst. Referrals: STEPHEN SAMS MD (PCP/Family) Primary Care Physician Patient Instructions: Headache, Adult (DC), Dizziness, Nonvertigo, (DC) Add. Discharge Instructions: LOTS OF CLEAR LIQUIDS TAKE YOUR REGULAR MEDICATIONS PRESCRIBED SLO POSITION CHANGES FOLLOW UP WITH YOUR DR THIS WEEK FOR FURTHER CARE All discharge instructions reviewed with patient and/or family. Voiced understanding. Scripts Meclizine HCl (Meclizine HCl) 25 Mg Tablet 50 MG PO Q6 PRN for DIZZINESS, #15 TAB Prov: DALLIN ROSAS DO 01/21/20 Ondansetron (Ondansetron Odt) 4 Mg Tab.rapdis 4 MG PO Q4H for Nausea/Vomiting, #10 TAB Prov: DALLIN ROSAS DO 01/21/20 DALLIN ROSAS DO Jan 21, 2020 11:29
[2020-01-21] MEDS ORDERED: ONDA4TAB11 PO (11:36)
[2020-01-21] MEDS ORDERED: MECL-149 PO (11:36)
[2020-01-21 11:51] LABS: PROTHROMBIN TIME PATIENT 13.7 SEC (12.2-14.7)
[2020-01-21 11:53] VITALS: BP 166/78
--- OUTSIDE RECORDS SUMMARY | 2020-01-21 12:34 | XMS REPORT | Continuity of Care Document ---
Demographics Preferred Language Unknown Marital Status Unknown Zoroastrianism Affiliation Unknown Race Unknown Ethnic Group Unknown Author Organization Unknown Address Unknown Phone Unavailable Allergies Active Description Code Type Severity Reaction Onset Reported/Identified Relationship to Patient Clinical Status Yes Sulfa (Sulfonamide Antibiotics) 491 Drug Allergy N/A N/A Confirmed or Verified Yes sulfa drug 16 Drug N/A N/A Yes sulfa drug 16 Drug Severe [id number] Yes LEVAQUIN UNKNOWN UNKNOWN Yes PRILOSEC UNKNOWN UNKNOWN Yes SULFA (SULFONAMIDE ANTIBIOTICS) UNKNOWN UNKNOWN Yes No Known Drug Allergies [id number] Drug Allergy Unknown N/A 05/28/2018 Yes Sulfa (Sulfonamide Antibiotics) [id number] Drug Allergy Unknown N/A 018 Medications Medication Packaging Start Date St op Date Route Dosage Sig Ondansetron 4mg oral DissolveTab (Zofran) MG 01/20/2020 02/19/2020 PRN Q4H HYDROXYZINE TAB 25 MG (ATARAX) MG 01/20/2020 01/20/2020 ONCE&1433 Problems Date Dx Coded Attending Type Code [...] 787.91 Emani rrhea, NOS 07/12/2014 F 338.4 COLOR TELEVISION CONSOLE MONITOR JESSY PAIN SYSNDROME 07/12/2014 F V58.69 Hig [...] E OF REPEAT PRESCRIPTIONS 09/12/2014 ELLIOTT SHETTY 338.29 [...] 338.29 OTHER CHRONIC PAIN 03/26/2015 MIRYAM ZHAO 78 8.1 Dysuria 03/26/2015 MIRYAM ZHAO V58.69 [...] repeat prescription 06/02/2015 STEPHEN SAMS Z79.89 1 detention (current) use of opiate analgesic 06/02/2015 STEPHEN [...] Rash and other nonspecific skin eruption 09/08/2015 BEAU NORWOODIS F 722. 52 LUMB/LUMBOSAC DISC DEGEN 09/08/2015 BEAU NORWOODIS F M51. 36 Other intervertebral disc degeneration, lumbar region 09/08/2015 BEAU NORWOODIS F V58. 69 High-risk medication, long-term use 09/08/2015 ENMA MARIBEL F V68. 1 ISSUE OF REPEAT PRESCRIPTIONS 09/08/2015 BEAU NORWOODIS F Z76. 0 Encounter for issue of repeat prescription 09/08/2015 BEAU NORWOODIS F Z79. 891 detention (current) use of opiate analgesic 09/08/2015 BEAU NORWOODIS F R35. 0 Frequency of micturition 09/10/2015 ENMA MARIBEL F 722. 52 LUMB/LUMBOSAC DISC DEGEN 09/10/2015 ENMA MARIBEL F 724. 2 Pain, low back 09/10/2015 BEAU NORWOODIS F M51. 36 Other intervertebral disc degeneration, lumbar region 09/10/2015 BEAU NORWOODIS F M54. 5 Low back pain 09/22/2015 STEPHEN SAMS 300.00 [...] SAMS G89.29 Other chronic pain 12/05/2015 STEPHEN ASMS M79.60 4 Pain in right leg 12/05/2015 [...] (primary) hypertension 02/16/2016 STEPHEN SAMS Z79.89 1 detention (current) use of opiate analgesic 02/16/2016 STEPHEN [...] K52.839 Microscopic colitis, unspecified 04/15/2016 FELICIA BARRY F K64.8 Other hemorrhoids 04/15/2016 FELICIA BARRY R19.7 Diarrhea, unspecified 04/15/2016 FELICIA BARRY Z87.19 Personal history of other diseases of the digestive system 04/15/2016 FELICIA BARRY Z90.81 Acquired absence of spleen 04/22/2016 STEPHEN SAMS R30.0 Dysuria 04/22/2016 STEPHEN SAMS R10.2 Pelvic and perineal pain 04/26/2016 ASHA, FELICIA F R10.12 Left upper quadrant pain 04/26/2016 FELICIA BARRY F R19.7 Diarrhea, unspecified 04/26/2016 FELICIA BARRY F Z01.812 Encounter for preprocedural laboratory examination 04/28/2016 STEPHEN SAMS R10.2 Pelvic and perineal pain 05/18/2016 STEPHEN SAMS R30.0 Dysuria 05/18/2016 STEPHEN SAMS R82.99 Other abnormal findings in urine 05/18/2016 STEPHEN SAMS G89.29 Other chronic pain 05/18/2016 STEPHEN SAMS R30.0 Dysuria 06/03/2016 FELICIA BARRY F K52.839 Microscopic colitis, unspecified 06/15/2016 STEPHEN SAMS [...] 03/03/2017 STEPHEN SAMS H10.89 Other conjunctivitis 03/28/2017 BEAU NORWOODIS F H92. 02 Otalgia, left ear 03/28/2017 WHITESIDES, MARIBEL F L98. 499 Non-pressure chronic ulcer of skin of other sites with unspecified severity 03/28/2017 BEAU NORWOODIS F R51 Headache 04/04/2017 STEPHEN SAMS L98.49 [...] Velazquez Ot I10 ESSENTIAL (PRIMARY) HYPERTENSION 05/29/2018 JADA POLK MD Ot J18.9 PNEUMONIA, UNSPECIFIED ORGANISM 05/29/2018 JADA POLK MD Ot R05 COUGH 05/29/2018 JAM HERNANDEZ, JADA Velazquez Ot Z79.52 NURSING HOME (CURRENT) USE OF SYSTEMIC STER 05/29/2018 JADA POLK MD Ot Z90.81 ACQUIRED ABSENCE OF SPLEEN 05/30/2018 [...] .9 PNEUMONIA, UNSPECIFIED ORGANISM 07/06/2018 STEPHEN SAMS MD Ot R91 .8 OTHER NONSPECIFIC ABNORMAL FINDING OF JESSICA 07/12/2018 STEPHEN SAMS MD Ot J18 .9 PNEUMONIA, UNSPECIFIED ORGANISM 07/12/2018 STEPHEN SAMS MD Ot J98 .4 OTHER DISORDERS OF LUNG 07/12/2018 STEPHEN SAMS MD Ot R91 .1 SOLITARY PULMONARY NODULE 07/21/2018 STEPHEN SAMS MD Ot J18 .9 PNEUMONIA, UNSPECIFIED ORGANISM 07/21/2018 STEPHEN SAMS MD Ot J98 .4 OTHER DISORDERS OF LUNG 07/21/2018 STEPHEN SAMS MD Ot R91 .1 SOLITARY PULMONARY NODULE 07/31/2018 [...] prescription 09/26/2018 STEPHEN SAMS Z79.89 9 Other alf (current) drug therapy 10/20/2018 STEPHEN SAMS E78.5 Hyperlipidemia, unspecified 10/20/2018 STEPHEN SAMS F17.21 0 Nicotine dependence, cigarettes, uncomplicated 10/20/2018 STEPHEN SAMS I10 Essential (primary) hypertension 10/20/2018 STEPHEN SAMS J44.1 Chronic obstructive pulmonary disease with (acute) exacerbation 10/20/2018 STEPHEN SAMS E78.5 Hyperlipidemia, unspecified 10/20/2018 STEPHEN SAMS I10 Essential (primary) hypertension 10/20/2018 STEPHEN SAMS Z79.89 1 detention (current) use of opiate analgesic 11/17/2018 STEPHEN SAMS R10.32 Left lower quadrant pain 11/17/2018 STEPHEN SAMS R19.7 Diarrhea, unspecified 11/17/2018 STEPHEN SAMS R10.9 Unspecified abdominal pain 11/17/2018 STEPHEN SAMS R19.7 Diarrhea, unspecified 12/22/2018 STEPHEN SAMS MD, Ot R19 .7 DIARRHEA, UNSPECIFIED 12/25/2018 STEPHEN SAMS F17.21 0 Nicotine dependence, cigarettes, uncomplicated 12/25/2018 STEPHEN SAMS F41.9 Anxiety disorder, unspecified 12/25/2018 STEPHEN SAMS G89.29 Other chronic pain 12/25/2018 STEPHEN SAMS Z76.0 Encounter for issue of repeat prescription 01/24/2019 STEPHEN SAMS E87.1 Hypo-osmolality and hyponatremia 01/24/2019 STEPHEN SAMS F41.9 Anxiety disorder, unspecified 01/24/2019 STEPHEN SAMS G89.29 Other chronic pain 01/24/2019 STEHPEN SAMS Z76.0 Encounter for issue of repeat [...] Encounter for issue of repeat prescription 08/15/2019 FLAQUITA MD, STEPHEN M Ot I10 ESSENTIAL (PRIMARY) HYPERTENSION 08/15/2019 STEPHEN SAMS MD Ot M54 .2 CERVICALGIA 08/15/2019 STEPHEN SAMS MD Ot M54 .5 LOW BACK PAIN 08/15/2019 STEPHEN SAMS MD Ot R20 .2 PARESTHESIA OF SKIN 08/15/2019 STEPHEN SAMS MD Ot R51 HEADACHE 08/27/2019 STEPHEN SAMS MD Ot I10 ESSENTIAL (PRIMARY) HYPERTENSION 08/27/2019 STEPHEN SAMS MD Ot M54 .2 CERVICALGIA 08/27/2019 STEPHEN SAMS MD Ot M54 .5 LOW BACK PAIN 08/27/2019 STEPHEN SAMS MD Ot R20 .2 PARESTHESIA OF SKIN 08/27/2019 [...] for screening for depression 11/05/2019 STEPHEN SAMS MD, Ot I10 ESSENTIAL (PRIMARY) HYPERTENSION 11/05/2019 STEPHEN SAMS MD Ot M54 .2 CERVICALGIA 11/05/2019 STEPHEN SAMS MD Ot M54 .5 LOW BACK PAIN 11/05/2019 STEPHEN SAMS MD, Ot R20 .2 PARESTHESIA OF SKIN 11/05/2019 STEPHEN SAMS MD, Ot R51 HEADACHE 11/13/2019 STEPHEN SAMS MD, Ot I10 ESSENTIAL (PRIMARY) HYPERTENSION 11/13/2019 STEPHEN SAMS MD, Ot R59 .0 LOCALIZED ENLARGED LYMPH NODES 11/21/2019 STEPHEN SAMS F41.9 Anxiety disorder, unspecified 11/21/2019 STEPHEN SAMS G89.29 Other chronic pain 11/21/2019 STEPHEN SAMS I10 Essential (primary) hypertension 11/21/2019 STEPHEN SAMS Z13.31 Encounter for screening for depression 11/21/2019 STEPHEN SAMS Z76.0 Encounter for issue of repeat prescription 12/04/2019 STEPHEN SAMS MD Ot I10 ESSENTIAL (PRIMARY) HYPERTENSION 12/04/2019 STEPHEN SAMS MD, Ot R59 .0 LOCALIZED ENLARGED LYMPH NODES 01/05/2020 Humza Saleh W 466.0 ACUTE BRONCHITIS 01/05/2020 Humza Saleh W J20.9 ACUTE BRONCHITIS, UNSPECIFIED 01/10/2020 BERNOT, MARIBEL Ot E78.00 PURE HYPERCHOLESTEROLEMIA, UNSPECIFIED 01/10/2020 BERNOT, MARIBEL Ot F17.210 NICOTINE DEPENDENCE, CIGARETTES, UNCOMPL 01/10/2020 BERNOT, MARIBEL Ot F32.9 MAJOR DEPRESSIVE DISORDER, SINGLE EPISOD 01/10/2020 BERNOT, MARIBEL Ot F41.9 ANXIETY DISORDER, UNSPECIFIED 01/10/2020 BERNOT, MARIBEL Ot I10 ESSENTIAL (PRIMARY) HYPERTENSION 01/10/2020 BERNEITAN, MARIBEL Ot J44.1 CHRONIC OBSTRUCTIVE PULMONARY DISEASE W 01/10/2020 BERNOT, MARIBEL Ot R05 COUGH 01/10/2020 MARIBEL HORTA Ot Z20.828 CONTACT W AND EXPOSURE TO OTH VIRAL COMM 01/10/2020 MARIBEL HORTA Ot Z79.899 OTHER TOLL OPERATOR (CURRENT) DRUG THERAPY 01/10/2020 MARIBEL HORTA Ot Z87.19 PERSONAL HISTORY OF OTHER DISEASES OF TH 01/10/2020 MARIBEL HORTA Ot Z88.2 ALLERGY STATUS TO SULFONAMIDES STATUS 01/18/2020 STEPHEN SAMS R53.83 Other fatigue Procedures Code [place] [address] PT E VALUATION 10/14/2015 53829 ELEC TRIC STIMULATION THERAPY 10/14/2015 97910 MANU AL THERAPY 10/14/2015 67102 PT E VALUATION 11/01/2015 20482 ELEC TRIC STIMULATION THERAPY 11/01/2015 85194 MANU AL THERAPY 11/01/2015 Results Test Result [...] Blood erythrocyte morphology finding identification NORMAL NRG Complete blood count (CBC) with automate [...] protein measurement (mass/v olume) 0.21 mg/dL 0.00-0.50 COVID-19 ([facility]) - 12/27/19 19:05 Complete blood count (CBC) with automate d [...] by westergren method 30 mm 0- 30 iStat BMP - 01/05/20 19:00 BUN 16 mg/dL 5-25 Chloride 101 mmol/L 95-114 CO2 25 mEq/L 22-33 Creat 0.60 mg/dL 0.50-1.50 eGFR 102 mL/min/1.73m2 >59 Glucose 156 mg/dL 70-110 Ionized Ca 1.21 mmol/L 1.12-1.32 Potassium 4.8 mmol/L 3.5-5.3 Sodium 134 mmol/L 134-148 Urinalysis - 01/05/20 19:40 Icotest N/A Negative Urine Volume Urine Volume Sufficient (10mL) Urine-Appearance Clear Clear Urine-Bacteria Negative Urine-Bilirubin Negative Negative Urine-Blood Negative Negative Urine-Color Yellow Colorless-[place] ow Urine-Epithelial Cells 0-5/HPF Urine-Glucose Negative Negative Urine-Ketones Negative Negative Urine-Leukocytes Negative Negative Urine-Nitrite Negative Negative Urine-Other Urine Saved if Culture Need ed (48hrs from time of collection) Urine-pH 6.5 5-8.5 Urine-Protein Negative Negative Urine-RBC 0-2/HPF Urine-Specific [place] 1.010 1.000-1 .030 Urine-WBC 0-2/HPF Urobilinogen 0.2 0.2-1.0 Urinalysis - 01/20/20 13:39 Icotest N/A Negative Urine Volume Urine Volume Sufficient (10mL) Urine-Appearance Clear Clear Urine-Bacteria Trace Urine-Bilirubin Negative Negative Urine-Blood Negative Negative Urine-Color Yellow Colorless-[place] ow Urine-Epithelial Cells 5-10/HPF Urine-Glucose Negative Negative Urine-Ketones Negative Negative Urine-Leukocytes Negative Negative Urine-Nitrite Negative Negative Urine-Other Urine Saved if Culture Need ed (48hrs from time of collection) Urine-pH 6.5 5-8.5 Urine-Protein Negative Negative Urine-RBC 0-2/HPF Urine-Specific [place] 1.010 1.000-1 .030 Urine-WBC 0-2/HPF Urobilinogen 0.2 E.U./dL 0.2-1.0 Complete blood count (CBC) with automate d white blood cell (WBC) differential - 01/21/20 10:55 Blood leukocytes automated count (number/volume) 8.0 10*3/uL 4.3-11.0 Blood erythrocytes automated count (number/volume) 4.24 10*6/uL 4.35-5.85 Venous blood hemoglobin measurement (mass/volume) 13.0 g/dL 11.5-16.0 Blood hematocrit (volume fraction) 37 % 35-52 Automated erythrocyte mean corpuscular volume 87 [ foz_us] 80-99 Automated erythrocyte mean corpuscular h emoglobin (mass per erythrocyte) 31 pg 25-34 Automated erythrocyte mean corpuscular h emoglobin concentration measurement (mass/volume) 35 g/dL 32-36 Automated erythrocyte distribution width ratio 13. 9 % 10.0- 14.5 Automated blood platelet count (count/volume) 443 10*3/uL 130-400 Automated blood platelet mean volume measurement 9.3 [foz_us] 7.4-10.4 Automated blood neutrophils/100 leukocytes 48 % 42-75 Automated blood lymphocytes/100 leukocytes 38 % 12-44 Blood monocytes/100 leukocytes 10 % 0-12 Automated blood eosinophils/100 leukocytes 3 % 0-10 Automated blood basophils/100 leukocytes 2 % 0-10 Blood neutrophils automated count (number/volume) 3.9 10*3 1.8-7.8 Blood lymphocytes automated count (number/volume) 3.0 10*3 1.0-4.0 Blood monocytes automated count (number/volume) 0. 8 10*3 0.0-1.0 Automated eosinophil count 0.2 10*3/uL 0 .0-0.3 Automated blood basophil count (count/volume) 0.1 10*3/uL 0.0-0.1 Comprehensive metabolic panel - 01/21/20 10:55 Serum or plasma sodium measurement (moles/volume) 134 mmol/L 135-145 Serum or plasma potassium measurement (moles/volume) 4.2 mmol/L 3.6-5.0 Serum or plasma chloride measurement (moles/volume) 101 mmol/L 98-107 Carbon dioxide 22 mmol/L 21-32 Serum or plasma anion gap determination (moles/volume) 11 mmol/L 5-14 Serum or plasma urea nitrogen measurement (mass/volume ) 9 mg/dL 7-18 Serum or plasma creatinine measurement (mass/volume) 0.83 mg/dL 0.60-1.30 Serum or plasma urea nitrogen/creatinine mass ratio 11 NRG Serum or plasma creatinine measurement w ith calculation of estimated glomerular filtration rate > NRG Serum or plasma glucose measurement (mass/volume) 110 mg/dL 70-105 Serum or plasma calcium measurement (mass/volume) 9.0 mg/dL 8.5-10.1 Serum or plasma total bilirubin measurement (mass/volu me) 0.5 mg/dL 0.1-1.0 Serum or plasma alkaline phosphatase alex surement (enzymatic activity/volume) 89 U/L 40-136 Serum or plasma aspartate aminotransfera se measurement (enzymatic activity/volume) 29 U/L 5-34 Serum or plasma alanine aminotransferase measurement (enzymatic activity/volume) 25 U/L 0-55 Serum or plasma protein measurement (mass/volume) 7.4 g/dL 6.4-8.2 Serum or plasma albumin measurement (mass/volume) 4.3 g/dL 3.2-4.5 CALCIUM CORRECTED 8.8 mg/dL 8.5-10.1 Magnesium - 01/21/20 10:55 Magnesium 1.9 mg/dL 1.6-2.4 Serum or plasma ethanol measurement (mas s/volume) - 01/21/20 10:55 Serum or plasma ethanol measurement (mass/volume) < mg/dL <10 Complete urinalysis with reflex to cultu re - 01/21/20 11:00 Urine color determination YELLOW NRG Urine clarity determination CLEAR NR G Urine pH measurement by test strip 7.0 5-9 Specific gravity of urine by test strip <= 1.016-1.022 Urine protein assay by test strip, [...] urobilinogen measurement by automated test strip (mass/volume) 0.2 mg/dL < = 1.0 Urine leukocyte esterase detection by dipstick 1+ NEGATIVE Automated urine sediment erythrocyte cou nt by microscopy (number/high power field) NONE NRG Automated urine sediment leukocyte count by microscopy (number/high power field) [HPF] NRG Bacteria detection in urine sediment by [...] urinalysis with reflex to culture NO NRG Renal epithelial cells detection in urin e sediment by light microscopy 2-5 NRG Urine drug screening test - 01/21/20 11: 00 Urine phencyclidine detection by screening method NEGATIVE NEGATIVE Urine benzodiazepines detection by screening method POSITIVE NEGATIVE Urine cocaine detection NEGATIVE NEGATI VE Urine amphetamines detection by screening method N EGATIVE NEGATIVE Urine methamphetamine detection by screening method NEGATIVE NEGATIVE Urine cannabinoids detection by screening method N EGATIVE NEGATIVE Urine opiates detection by screening method NEGATI VE NEGATIVE Urine barbiturates detection NEGATIVE N EGATIVE Screening urine tricyclic antidepressants detection POSITIVE NEGATIVE Urine methadone detection by screening method NEGA TIVE NEGATIVE Urine oxycodone detection POSITIVE NEGA TIVE Urine propoxyphene detection NEGATIVE N EGATIVE PT panel in platelet poor plasma by coag ulation assay - 01/21/20 11:28 Prothrombin time (PT) in platelet poor plasma by coagu lation assay 13.7 s 12.2-14.7 INR in platelet poor plasma or blood by coagulation as say 1.0 0.8-1.4 Activated partial thromboplastin time (a PTT) in platelet poor plasma bycoagulation assay - 01/21/20 11:28 Activated partial thromboplastin time (a PTT) in platelet poor plasma bycoagulation assay 31 s 24-35 Encounters ACCT No. Visit Date/Time Discharge Status Pt. Type Provider Facility Loc./Unit Complaint [id number] 10/01/2018 10:05:00 Document Registration [id number] 01/18/2020 13:56:00 01/18/2020 14:5 6:00 DIS Outpatient STEPHEN SAMS [facility] [place] OT [id number] 01/18/2020 13:30:00 01/18/2020 14:3 0:00 DIS Outpatient STEPHEN SAMS [facility] [place] [id number] 12/20/2019 14:00:00 12/20/2019 15:0 0:00 DIS Outpatient STEPHEN SAMS [facility] [id number] 11/21/2019 11:30:00 11/21/2019 12:3 0:00 DIS Outpatient STEPHEN SAMS [facility] [id number] 11/02/2019 14:00:00 11/02/2019 15:0 0:00 DIS [facility] [id number] 10/23/2019 11:29:00 10/23/2019 12:2 9:00 DIS Outpatient FLAQUITASTEPHEN [facility] OT [id number] 10/23/2019 10:30:00 10/23/2019 11:3 0:00 DIS Outpatient FLAQUITASTEPHEN [facility] [id number] 09/25/2019 13:45:00 09/25/2019 23:5 9:59 CLS Outpatient [id number] 08/27/2019 13:45:00 08/27/2019 14:4 5:00 DIS Outpatient FLAQUITASTEPHEN [facility] [id number] 07/26/2019 13:30:00 07/26/2019 14:3 0:00 DIS Outpatient FLAQUITASTEPHEN [facility] [id number] 07/12/2019 15:00:00 07/12/2019 16:0 0:00 DIS Outpatient FLAQUITASTEPHEN [facility] [id number] 06/25/2019 13:30:00 06/25/2019 14:3 0:00 DIS Outpatient FLAQUITASTEPHEN [facility] [id number] 05/28/2019 14:00:00 05/28/2019 23:5 9:59 CLS Outpatient [id number] 05/28/2019 14:00:00 05/28/2019 15:0 0:00 DIS Outpatient FLAQUITASTEPHEN [facility] [id number] 05/14/2019 13:00:00 05/14/2019 23:5 9:59 CLS Outpatient [id number] 05/11/2019 13:30:00 05/11/2019 17:3 0:00 DIS Outpatient FLAQUITASTEPHEN [facility] [id number] 04/27/2019 13:45:00 04/27/2019 14:4 5:00 DIS Outpatient FLAQUITASTEPHEN [facility] [id number] 03/29/2019 10:45:00 03/29/2019 11:4 5:00 DIS Outpatient FLAQUITASTEPHEN [facility] [id number] 02/26/2019 11:00:00 02/26/2019 12:0 0:00 DIS Outpatient FLAQUITAMORGANLY Armen Olivares [facility] [id number] 01/24/2019 11:13:00 01/24/2019 12:1 3:00 DIS Outpatient FLAQUITASTEPHEN [facility] OT [id number] 01/24/2019 11:00:00 01/24/2019 12:0 0:00 DIS Outpatient FLAQUITASTEPHEN [facility] CL [id number] 12/25/2018 11:00:00 12/25/2018 12:0 0:00 DIS Outpatient FLAQUITASTEPHEN [facility] CL [id number] 11/24/2018 11:00:00 11/24/2018 23:5 9:59 CLS Outpatient [id number] 11/17/2018 11:29:00 11/17/2018 12:2 9:00 DIS Outpatient FLAQUITASTEPHEN [facility] OT [id number] 11/17/2018 11:00:00 11/17/2018 12:0 0:00 DIS Outpatient FLAQUITASTEPHEN [facility] CL [id number] 10/20/2018 10:14:00 10/20/2018 11:1 4:00 DIS Outpatient FLAQUITASTEPHEN [facility] OT [id number] 10/20/2018 10:00:00 10/20/2018 11:0 0:00 DIS Outpatient FLAQUITASTEPHEN Count [facility] CL [id number] 09/26/2018 16:06:00 09/26/2018 17:0 6:00 DIS Outpatient FLAQUITASTEPHEN Count [facility] OT [id number] 09/26/2018 15:30:00 09/26/2018 16:3 0:00 DIS Outpatient FLAQUITA STEPHEN Armen Marshall [facility] CL [id number] 08/29/2018 14:00:00 08/29/2018 15:0 0:00 DIS Outpatient FLAQUITASTEPHEN Count [facility] CL [id number] 07/31/2018 13:45:00 07/31/2018 14:4 5:00 DIS Outpatient FLAQUITA STEPHEN [facility] CL [id number] 06/30/2018 13:48:00 06/30/2018 14:4 8:00 DIS Outpatient FLAQUITA STEPHEN M Marshall [facility] OT [id number] 06/30/2018 13:45:00 06/30/2018 14:4 5:00 DIS Outpatient FLAQUITA STEPHEN Armen Olivares [facility] [id number] 05/31/2018 12:31:00 05/31/2018 16:3 1:00 DIS Outpatient FLAQUITA STEPHEN [place] [id number] 05/31/2018 11:30:00 05/31/2018 12:3 0:00 DIS Outpatient FLAQUITASTEPHEN [facility] [id number] 05/09/2018 11:15:00 05/09/2018 23:5 9:59 CLS Outpatient [id number] 04/28/2018 13:45:00 04/28/2018 14:4 5:00 DIS Outpatient FLAQUITASTEPHEN Olivares [facility] [id number] 04/04/2018 10:30:00 04/04/2018 23:5 9:59 CLS Outpatient [id number] 03/29/2018 11:00:00 03/29/2018 12:0 0:00 DIS Outpatient FLAQUITAMORGANLY Armen Olivares [facility] [id number] 02/27/2018 09:48:00 02/27/2018 13:4 8:00 DIS Outpatient FLAQUITA STEPHEN Armen Olivares [facility] [place] OT [id number] 02/27/2018 09:30:00 02/27/2018 10:3 0:00 DIS Outpatient FLAQUITASTEPHEN [facility] [id number] 01/25/2018 09:00:00 01/25/2018 10:0 0:00 DIS Outpatient FLAQUITAMORGANSAEED Ayers Marshall [facility] [id number] 12/28/2017 09:15:00 12/28/2017 10:1 5:00 DIS Outpatient FLAQUITA STEPHEN M Marshall [facility] [id number] 11/25/2017 14:45:00 11/25/2017 15:4 5:00 DIS Outpatient FLAQUITAMORGANLY Armen Olivares [facility] [id number] 10/28/2017 11:00:00 10/28/2017 12:0 0:00 DIS Outpatient STEPHEN SAMS Marshall [facility] [id number] 09/30/2017 10:00:00 09/30/2017 11:0 0:00 DIS Outpatient FLAQUITA STEPHEN Armen Olivares [facility] [id number] 09/01/2017 10:00:00 09/01/2017 11:0 0:00 DIS Outpatient STEPHEN SAMS Marshall [facility] [id number] 08/01/2017 10:51:00 08/01/2017 11:5 1:00 DIS Outpatient FLAQUITASTEPHEN Olivares [facility] [place] OT [id number] 08/01/2017 10:30:00 08/01/2017 11:3 0:00 DIS Outpatient FLAQUITASTEPHEN Olivares [facility] [id number] 07/01/2017 10:15:00 07/01/2017 11:1 5:00 DIS Outpatient FLAQUITASTEPHEN Olivares [facility] [id number] 06/01/2017 10:45:00 06/01/2017 11:4 5:00 DIS Outpatient FLAQUITASTEPHEN [facility] [id number] 05/27/2017 10:45:00 05/27/2017 11:4 5:00 DIS Outpatient FLAQUITASTEPHEN [facility] [id number] 05/19/2017 11:30:00 05/19/2017 12:3 0:00 DIS Outpatient FLAQUITASTEPHEN [facility] [id number] 05/04/2017 09:30:00 05/04/2017 10:3 0:00 DIS Outpatient FLAQUITASTEPHEN [facility] [id number] 04/04/2017 10:30:00 04/04/2017 11:3 0:00 DIS Outpatient FLAQUITA STEPHEN [facility] [id number] 03/28/2017 15:00:00 03/28/2017 16:0 0:00 DIS Outpatient SUSYNANCYMARIBEL [facility] [id number] 03/03/2017 14:15:00 03/03/2017 15:1 5:00 DIS RY FLAQUITA STEPHEN [facility] [id number] 02/09/2017 10:15:00 02/09/2017 10:1 5:00 CAN Outpatient FLAQUITA STEPHEN [id number] 02/01/2017 10:00:00 02/01/2017 11:0 0:00 DIS RY FLAQUITA [facility] [id number] 12/28/2016 15:15:00 12/28/2016 16:1 5[id number] 12/[facility]/2016 09:58:00 12/03/2016 13:5 8:00 [id number] 12/03/2016 09:45:00 12/03/2016 10:4 5:00 [facility] [id number] 11/09/2016 09:39:00 11/09/2016 10:3 9:00 [facility] [id number] 11/09/2016 09:15:00 11/09/2016 10:1 5:00 [facility] [id number] 11/04/2016 15:15:00 11/04/2016 16:1 5:00 [facility] [id number] 10/07/2016 09:30:00 10/07/2016 10:3 0:00 [facility] [id number] 09/09/2016 09:30:00 09/09/2016 13:3 0:00 [facility] [id number] 08/12/2016 10:00:00 08/12/2016 14:0 0:00 [facility] [id number] 08/12/2016 09:56:00 08/12/2016 10:5 6:00 [facility] [id number] 08/04/2016 09:45:00 08/04/2016 13:4 5:00 [facility] [id number] 08/04/2016 10:10:00 08/04/2016 11:1 0:00 [facility] [id number] 07/12/2016 11:30:00 07/12/2016 15:3 0:00 [facility] [id number] 06/15/2016 14:00:00 06/15/2016 18:0 0:00 [facility] [id number] 06/03/2016 12:29:00 06/03/2016 16:2 9:00 DIS FELICIA HOLMAN [facility] OT [id number] 05/18/2016 14:00:00 05/18/2016 18:0 0:00 [facility] [id number] 05/18/2016 14:28:00 05/18/2016 15:2 8:00 [facility] [id number] 04/28/2016 08:44:00 04/28/2016 12:4 4:00 [facility] [id number] 04/26/2016 08:04:00 04/26/2016 12:0 4:00 DIS OP ASHAFELICIA Marinelli [id number] 04/22/2016 14:45:00 04/22/2016 18:4 5:00 [facility] [id number] 04/22/2016 16:01:00 04/22/2016 17:0 1:00 [facility] [id number] 04/15/2016 10:42:00 04/15/2016 12:3 0:00 DIS OS ASHA, [facility] NS [id number] 04/08/2016 12:00:00 04/08/2016 16:0 0:00 DIS OP ASHA, FELICIA [id number] 04/08/2016 10:15:00 04/08/2016 14:1 5:00 [facility] [id number] 04/08/2016 10:56:00 04/08/2016 11:5 6:00 [facility] [id number] 03/25/2016 14:30:00 03/25/2016 18:3 0:00 DIS [facility]TA [facility] [id number] 03/25/2016 15:07:00 03/25/2016 16:0 7:00 [facility] [id number] 03/19/2016 10:30:00 03/19/2016 14:3 0:00 [facility] [id number] 03/04/2016 11:55:00 03/06/2016 11:5 6:00 DIS PB [facility] [id number] 03/04/2016 15:15:00 03/06/2016 08:4 5:00 [facility] NS [id number] 03/04/2016 13:30:00 03/04/2016 17:3 0:00 [facility] [id number] 03/04/2016 14:18:00 03/04/2016 15:1 8:00 [facility] OT [id number] 03/04/2016 11:00:00 03/04/2016 11:0 0:00 [facility] [id number] 02/16/2016 11:00:00 02/16/2016 15:0 0:00 [facility] [id number] 02/16/2016 11:15:00 02/16/2016 12:1 5:00 [facility] [id number] 01/19/2016 10:00:00 01/19/2016 14:0 0:00 [facility] [id number] 01/19/2016 10:29:00 01/19/2016 11:2 9:00 [facility] [id number] 12/22/2015 13:30:00 12/22/2015 17:3 0:00 [facility] [id number] 12/05/2015 13:30:00 12/05/2015 17:3 0:00 [facility] [id number] 11/20/2015 10:00:00 11/20/2015 14:0 0:00 [facility] [id number] 10/21/2015 10:15:00 10/21/2015 14:1 5:00 [facility] [id number] 09/22/2015 14:15:00 09/22/2015 18:1 5:00 [facility] [id number] 09/10/2015 12:48:00 09/10/2015 16:4 8:00 DIS OP MARIBEL NORWOOD [id number] 09/08/2015 15:04:00 09/08/2015 19:0 4:00 DIS OP MARIBEL NORWOOD [facility] OT [id number] 09/08/2015 15:00:00 09/08/2015 19:0 0:00 DIS RY MARIBEL NORWOOD [facility] CL [id number] 08/29/2015 15:30:00 08/29/2015 19:3 0:00 DIS RY KEVON WILSON [facility] [id number]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
== END 2020-01-21 11:53 | disposition home or self-care (01) ==
LOC: EDUNIT# 10:38 → ER 10:39
DX: R51 Headache (principal); R42 Dizziness and giddiness; I10 Essential (primary) hypertension; F41.9 Anxiety disorder, unspecified; F32.9 Major depressive disorder, single episode, unspecified; G89.29 Other chronic pain; M54.9 Dorsalgia, unspecified; Z88.2 Allergy status to sulfonamides; Z79.52 Long term (current) use of systemic steroids; Z79.891 Long term (current) use of opiate analgesic
CPT/HCPCS: 70450; 80053; 80306; 81000; 83735; 85025; 85610; 85730; G0480; 36415; 80320

== ENCOUNTER 2021-11-23 10:52 | Emergency (ER) | payer MEDICARE, MEDICAID ==
[~2021-11-23] VITALS: Ht 170 cm; Wt 65.7 kg
[~2021-11-23 10:52] MED LIST changes: +CYCL10TA25 PO; -CYCL10TA9 PO; +MECL-149 PO; +ONDA4TAB11 PO
--- NOTE | 2021-11-23 11:33 | ED Head Injury ---
General Chief Complaint: Head/Cervical Problems Stated Complaint: ELENA Nursing Triage Note: PT PRESENTS TO ED WITH COMPLAINTS OF ELENA AND FATIGUE X 2 WEEKS. PT ALSO REPORTS SHE NOTICIED THE PEANUT BUTTER SHE HAS BEEN EATING HAS A RECALL ON IT. PT DENIES ANY RECENT N/V/D. Source: patient Exam Limitations: no limitations History of Present Illness Date Seen by Provider: November 23, 2021 Time Seen by Provider: 11:20 Allergies and Home Medications Allergies Coded Allergies: Sulfa (Sulfonamide Antibiotics) (Unverified Allergy, Unknown, 06/21/18) Patient Home Medication List Alprazolam (Xanax Tablet) 0.25 Mg Tab, 0.25 MG GT PRN, (Reported) Entered as Reported by: MARY BRYANT on 01/31/13 121 Amitriptyline Hcl (Elavil Tablet) 50 Mg Tab, 50 MG PO DAILY, (Reported) Entered as Reported by: MARY BRYANT on 01/31/13 121 Citalopram Hydrobromide (CeleXA TABLET) 10 Mg Tablet, 10 MG GT DAILY, (Reported) Entered as Reported by: MARY BRYANT on 01/31/13 1212 Cyclobenzaprine HCl (Cyclobenzaprine HCl) 10 Mg Tablet, 10 MG PO TID PRN for SPASMS Prescribed by: KAYLA BERG MD on 05/05/19 110 Doxycycline Hyclate (Doxycycline Hyclate) 100 Mg Tablet, 100 MG PO BID Prescribed by: MARIBEL HORTA on 01/02/201958 Hydrocodone Bit/Acetaminophen (Hydrocodone-Apap 10-325 Tablet) 1 Each Tablet, 1 EACH PO Q8HR PRN, (Reported) Entered as Reported by: MARY BRYANT on 01/31/13 1212 Ketorolac Tromethamine (Ketorolac Tromethamine) 10 Mg Tablet, 10 MG PO Q6H Prescribed by: KAYLA BERG MD on 05/05/19 110 Levofloxacin (Levaquin) 750 Mg Tablet, 750 MG PO DAILY Prescribed by: JADA VILLA on 05/26/18 1136 Meclizine HCl (Meclizine HCl) 25 Mg Tablet, 50 MG PO Q6 PRN for DIZZINESS Prescribed by: DALLIN ROSAS on 01/21/20 1136 Ondansetron (Ondansetron Odt) 4 Mg Tab.rapdis, 4 MG PO Q4H Prescribed by: DALLIN ROSAS on 01/21/20 1136 Prednisone (Prednisone) 20 Mg Tab, 40 MG PO DAILY Prescribed by: MARIBEL HORTA on 01/02/201958 Triamterene/Hydrochlorothiazid (Triamterene-Hctz 37.5-25 Mg Tb) 1 Each Tablet, 0.5 EACH PO DAILY, (Reported) Entered as Reported by: MARY BRYANT on 01/31/13 1212 Past Kcovxpx-Sxtnbc-Djqqjh Hx Patient Social History Tobacco Use?: Yes Tobacco type used: Cigarettes Smoking Status: Current Everyday Smoker Substance use?: No Alcohol Use?: Yes Alcohol Frequency: Rarely Pt feels they are or have been: No Immunizations Up To Date First/Initial COVID19 Vaccinat: MODERNA Seasonal Allergies Seasonal Allergies: No Past Medical History Surgery/Hospitalization HX: PMH: HTN, CHRONIC PAIN, ANXIETY Surgeries: Yes (splenectomy DUE TO TRAUMA, R foot surgery) Abdominal, Orthopedic Respiratory: Yes Pneumonia Cardiac: Yes Chronic Edema/Swelling, High Cholesterol, Hypertension Neurological: No Reproductive Disorders: No Genitourinary: No Gastrointestinal: Yes (SPLENECTOMY DUE TO TRAUMA) Diverticulosis Musculoskeletal: Yes (CHRONIC NECK, BACK AND FOOT PAIN--NARCOTIC DEPENDENT) Chronic Back Pain Endocrine: No HEENT: No Cancer: No Psychosocial: Yes Anxiety, Depression Integumentary: No Blood Disorders: No Physical Exam Vital Signs Vital Signs - First Documented 11/23/21 11:19 Temp 36.4 Pulse 85 Resp 18 B/P (MAP) 154/87 (109) Pulse Ox 96 Capillary Refill : Less Than 3 Seconds Height, Weight, BMI Height: 5'7.00" Weight: 147lbs. oz. 66.686252lw; 22.00 BMI Method:Stated Progress/Results/Core Measures Results/Orders Lab Results Laboratory Tests Test 11/23/21 11:40 11/23/21 11:50 11/23/21 11:53 11/23/21 11:56 Range/Units Urine Color YELLOW Urine Clarity CLEAR Urine pH 7.0 5-9 Urine Specific [place] <=1.005 1.016-1.022 Urine Protein NEGATIVE NEGATIVE Urine Glucose (UA) NEGATIVE NEGATIVE Urine Ketones NEGATIVE NEGATIVE Urine Nitrite NEGATIVE NEGATIVE Urine Bilirubin NEGATIVE NEGATIVE Urine Urobilinogen 0.2 < = 1.0 MG/DL Urine Leukocyte Esterase NEGATIVE NEGATIVE Urine RBC (Auto) NEGATIVE NEGATIVE Urine RBC RARE /HPF Urine WBC NONE /HPF Urine Squamous Epithelial Cells 0-2 /HPF Urine Crystals NONE /LPF Urine Bacteria TRACE /HPF Urine Casts NONE /LPF Urine Mucus NEGATIVE /LPF Urine Culture Indicated NO White Blood Count 9.8 4.3-11.0 10^3/uL Red Blood Count 4.89 3.80-5.11 10^6/uL Hemoglobin 15.1 11.5-16.0 g/dL Hematocrit 44 35-52 % Mean Corpuscular Volume 89 80-99 fL Mean Corpuscular Hemoglobin 31 25-34 pg Mean Corpuscular Hemoglobin Concent 35 32-36 g/dL Red Cell Distribution Width 13.6 10.0-14.5 % Platelet Count 450 H 130-400 10^3/uL Mean Platelet Volume 9.1 9.0-12.2 fL Immature Granulocyte % (Auto) 0 % Neutrophils (%) (Auto) 49 42-75 % Lymphocytes (%) (Auto) 38 12-44 % Monocytes (%) (Auto) 8 0-12 % Eosinophils (%) (Auto) 4 0-10 % Basophils (%) (Auto) 2 0-10 % Neutrophils # (Auto) 4.8 1.8-7.8 10^3/uL Lymphocytes # (Auto) 3.7 1.0-4.0 10^3/uL Monocytes # (Auto) 0.7 0.0-1.0 10^3/uL Eosinophils # (Auto) 0.4 H 0.0-0.3 10^3/uL Basophils # (Auto) 0.2 H 0.0-0.1 10^3/uL Immature Granulocyte # (Auto) 0.0 0.0-0.1 10^3/uL Percent Immature Platelet Fraction 2.4 0.0-7.6 % Prothrombin Time 12.4 12.2-14.7 SEC INR Comment 0.9 0.8-1.4 Activated Partial Thromboplast Time 35 24-35 SEC D-Dimer <= 0.27 0.00-0.49 UG/ML Test 11/23/21 12:10 Range/Units Sodium Level 135 135-145 MMOL/L Potassium Level 3.8 3.6-5.0 MMOL/L Chloride Level 100 98-107 MMOL/L Carbon Dioxide Level 24 21-32 MMOL/L Anion Gap 11 5-14 MMOL/L Blood Urea Nitrogen 5 L 7-18 MG/DL Creatinine 0.65 0.60-1.30 MG/DL Estimat Glomerular Filtration Rate 100 BUN/Creatinine Ratio 8 Glucose Level 109 H 70-105 MG/DL Calcium Level 9.4 8.5-10.1 MG/DL Corrected Calcium 9.2 8.5-10.1 MG/DL Magnesium Level 1.8 1.6-2.4 MG/DL Total Bilirubin 0.5 0.1-1.0 MG/DL Aspartate Amino Transf (AST/SGOT) 24 5-34 U/L Alanine Aminotransferase (ALT/SGPT) 21 0-55 U/L Alkaline Phosphatase 84 40-136 U/L Creatine Kinase MB 1.5 <6.6 NG/ML Myoglobin 33.5 10.0-92.0 NG/ML Troponin I < 0.028 <0.028 NG/ML Total Protein 7.3 6.4-8.2 GM/DL Albumin 4.2 3.2-4.5 GM/DL My Orders Orders - NAKIA HARMAN STAIN SPRAYER Cbc With Automated Diff (11/23/21 11:30) Magnesium (11/23/21 11:30) Chest 1 View, Ap/Pa Only (11/23/21 11:30) Ekg Tracing (11/23/21 11:30) Comprehensive Metabolic Panel (11/23/21 11:30) Myoglobin Serum (11/23/21 11:30) Protime With Inr (11/23/21 11:30) Partial Thromboplastin Time (11/23/21 11:30) Monitor-Rhythm Ecg Trace Only (11/23/21 11:30) Ed Iv/Invasive Line Start (11/23/21 11:30) Creatine Kinase Mb (11/23/21 11:30) Fibrin Degradation Products (11/23/21 11:30) Troponin I [place] (11/23/21 11:30) Ct Head/Cervical Spine Wo (11/23/21 11:30) Ua Culture If Indicated (11/23/21 11:32) Ketorolac Injection (Toradol Injection) (11/23/21 11:45) Tick Panel With Lyme Eia (11/23/21 12:50) Medications Given in ED Current Medications Medications Dose Ordered Sig/Jaylene Route Start Time Stop Time Status Last Admin Dose Admin Ketorolac Tromethamine 30 mg ONCE ONCE IVP 11/23/21 11:45 11/23/21 11:46 DC 11/23/21 12:00 30 MG Vital Signs/I&O 11/23/21 11:19 Temp 36.4 Pulse 85 Resp 18 B/P (MAP) 154/87 (109) Pulse Ox 96 Blood Pressure Mean: 109 Departure Impression Primary Impression: Tension type headache Additional Impression: Malaise and fatigue Disposition: HOME, SELF-CARE Condition: Improved Departure-Patient Inst. Decision time for Depature: 13:02 Referrals: STEPHEN SAMS MD (PCP/Family) Primary Care Physician Patient Instructions: Fatigue ED Add. Discharge Instructions: Plan: 1. We have added a tick panel to your blood work and you will be notified if we need to do any additional medication therapy. You will also be notified if your results are positive via telephone. 2. May take Tylenol or ibuprofen as needed for headache, this may improve your symptoms. You were given Toradol shot in the ER which is a ibuprofen type medicine so avoid taking the Advil, Aleve, ibuprofen for the next 6 hours. 3. Take doxycycline twice a day as directed until you have results of your tick panel. This medication can make you extremely sensitive to the sun so make sure that you wearing protective clothing or sunscreen when outside. 4. Follow-up with your primary care provider later this week or next week. 5. Return to the ER for any new, concerning, or worsening symptoms. All discharge instructions reviewed with patient and/or family. Voiced understanding. Scripts Doxycycline Hyclate (Doxycycline Hyclate) 100 Mg Tablet 100 MG PO BID for 14 Days, #28 TAB 0 Refills Prov: NAKIA HARMAN STAIN SPRAYER 11/23/21 NAKIA HARMAN STAIN SPRAYER November 23, 2021 11:33
[2021-11-23] MEDS ORDERED: KETOROLAC 30 MG/ML VIAL IVP ONE (11:45)
[2021-11-23 11:46] LABS: BILIRUBIN,URINE NEGATIVE (NEGATIVE); CLARITY,URINE CLEAR; COLOR,URINE YELLOW; GLUCOSE, URINE (UA) NEGATIVE (NEGATIVE); KETONES,URINE NEGATIVE (NEGATIVE); LEUKOCYTE ESTERASE ,URINE NEGATIVE (NEGATIVE); NITRITE,URINE NEGATIVE (NEGATIVE); PROTEIN,URINE NEGATIVE (NEGATIVE)
[2021-11-23 11:58] LABS: BACTERIA,URINE TRACE /HPF; RBC,URINE RARE /HPF; SQUAMOUS EPITHELIAL CELL,UR 0-2 /HPF
[2021-11-23 11:59] LABS: HEMATOCRIT 44 % (35-52)
[2021-11-23 12:01] LABS: BASOPHILS # (AUTO) 0.2 10^3/uL (0.0-0.1); BASOPHILS % (AUTO) 2 % (0-10); EOSINOPHILS # (AUTO) 0.4 10^3/uL (0.0-0.3); EOSINOPHILS % (AUTO) 4 % (0-10); HEMOGLOBIN 15.1 g/dL (11.5-16.0); LYMPHOCYTES # (AUTO) 3.7 10^3/uL (1.0-4.0); LYMPHOCYTES % (AUTO) 38 % (12-44); MEAN CORPUSCULAR HEMOGLOBIN 31 pg (25-34); MEAN CORPUSCULAR HGB CONC 35 g/dL (32-36); MEAN CORPUSCULAR VOLUME 89 fL (80-99); MEAN PLATELET VOLUME 9.1 fL (9.0-12.2); MONOCYTES # (AUTO) 0.7 10^3/uL (0.0-1.0); MONOCYTES % (AUTO) 8 % (0-12); NEUTROPHILS # (AUTO) 4.8 10^3/uL (1.8-7.8); NEUTROPHILS % (AUTO) 49 % (42-75); PLATELET COUNT 450 10^3/uL (130-400); WHITE BLOOD COUNT 9.8 10^3/uL (4.3-11.0)
--- NOTE | 2021-11-23 12:06 | Diagnostic Imaging Report ---
INDICATION: Headache and fatigue x2 weeks. Portable chest 1204 hours. FINDINGS: Heart size and pulmonary vascularity are normal. Lungs are clear. There are no effusions or pneumothoraces. IMPRESSION: No acute abnormalities in the chest. No change compared to exam dated 01/02/2020. Dictated by: Dictated on workstation # [id number]
[2021-11-23 12:16] LABS: INR 0.9 (0.8-1.4); PROTHROMBIN TIME PATIENT 12.4 SEC (12.2-14.7)
[2021-11-23 12:33] LABS: ALBUMIN 4.2 GM/DL (3.2-4.5)
[2021-11-23 12:34] LABS: POTASSIUM 3.8 MMOL/L (3.6-5.0)
[2021-11-23 12:35] LABS: CALCIUM 9.4 MG/DL (8.5-10.1)
[2021-11-23 12:36] LABS: TOTAL PROTEIN 7.3 GM/DL (6.4-8.2)
[2021-11-23 12:38] LABS: BILIRUBIN,TOTAL 0.5 MG/DL (0.1-1.0)
[2021-11-23 12:40] LABS: CREATININE SERUM 0.65 MG/DL (0.60-1.30)
[2021-11-23 12:42] LABS: MAGNESIUM 1.8 MG/DL (1.6-2.4)
[2021-11-23 12:45] LABS: CREATINE KINASE MB 1.5 NG/ML (<6.6)
--- NOTE | 2021-11-23 12:55 | Diagnostic Imaging Report ---
CLINICAL INDICATION: Patient with persistent headache x3 days. Patient has chronic neck pain and weakness. No injury. EXAM: Head CT without IV contrast with sagittal and coronal reformations. Axial CT scan of the cervical spine with sagittal and coronal reformations. Auto Exposure Controls were utilized during the CT exam to meet ALARA standards for radiation dose reduction. COMPARISON: Head CT without contrast dated 01/20/2022. MRI of the cervical spine without contrast dated 05/18/2019. FINDINGS: Head CT: There is no evidence of acute cerebral infarct, intracranial hemorrhage, or gross mass effect. The brain parenchymal volume appears appropriate for patient's age. There is normal barros-white matter distinction. There is no significant midline shift or herniation. There is no evidence of hydrocephalus. The basal cisterns are unremarkable. The skull, extracranial soft tissue, and orbits are unremarkable. There is mild mucosal thickening involving the ethmoid sinus. There is sclerosis of the right mastoid air cells and patchy consolidation. Cervical spine: There is no acute cervical spine fracture or dislocation. There are multilevel diffuse disc bulges seen at the C3-C4, C4-C5, C5-C6, and C6-C7 levels. There are bilateral uncinate spurs and facet arthropathy. There is severe left C5-C6 neural foramen narrowing. There is at least moderate right C3-C4 neural foramen narrowing. There is no significant neck soft tissue abnormality. Emphysematous lung disease is noted, and bilateral apical pleural-parenchymal thickening/scarring noted. IMPRESSION: 1: There is no evidence of acute intracranial process. 2: There is cervical spine degenerative disease with no acute fracture or dislocation. Dictated by: Dictated on workstation # [id number]
[2021-11-23] MEDS ORDERED: DOXY100T2 PO (13:04)
[2021-11-23 13:42] VITALS: BP 150/78
== END 2021-11-23 13:42 | disposition home or self-care (01) ==
LOC: EDUNIT# 10:52 → ER 10:54
DX: G44.209 Tension-type headache, unspecified, not intractable (principal); R53.81 Other malaise; R53.83 Other fatigue; F17.210 Nicotine dependence, cigarettes, uncomplicated
CPT/HCPCS: 36415; 70450; 71045; 72125; 80053; 81000; 82553; 83735; 83874; 84484; 85025; 85379; 85610; 85730; 86618; 86666; 86668; 86757; 93005

== ENCOUNTER 2022-06-14 09:31 | Observation (INO) | payer MEDICARE, MEDICAID ==
[~2022-06-14] VITALS: Ht 170.1 cm; Wt 64.6 kg
[2022-06-14] VITALS (12 sets, daily range): BP systolic 100–150; BP diastolic 59–90
[2022-06-14 10:07] LABS: BASOPHILS # (AUTO) 0.2 10^3/uL (0.0-0.1); BASOPHILS % (AUTO) 2 % (0-10); EOSINOPHILS # (AUTO) 0.3 10^3/uL (0.0-0.3); EOSINOPHILS % (AUTO) 3 % (0-10); HEMATOCRIT 38 % (35-52); HEMOGLOBIN 13.4 g/dL (11.5-16.0); LYMPHOCYTES # (AUTO) 4.1 10^3/uL (1.0-4.0); LYMPHOCYTES % (AUTO) 46 % (12-44); MEAN CORPUSCULAR HEMOGLOBIN 31 pg (25-34); MEAN CORPUSCULAR HGB CONC 35 g/dL (32-36); MEAN CORPUSCULAR VOLUME 87 fL (80-99); MEAN PLATELET VOLUME 9.2 fL (9.0-12.2); MONOCYTES # (AUTO) 0.6 10^3/uL (0.0-1.0); MONOCYTES % (AUTO) 7 % (0-12); NEUTROPHILS # (AUTO) 3.8 10^3/uL (1.8-7.8); NEUTROPHILS % (AUTO) 42 % (42-75); PLATELET COUNT 507 10^3/uL (130-400)
[2022-06-14 10:13] LABS: INR 0.8 (0.8-1.4)
--- NOTE | 2022-06-14 10:13 | ED Chest Pain ---
General Chief Complaint: Chest Pain Stated Complaint: CHEST FEELS HEAVY Nursing Triage Note: PT C/O CHEST HEAVINESS THAT STARTED YESTERDAY AM AFTER HER WORKOUT ON TREADMILL. STATED PAIN HAS LET UP SOME BUT HAS BEEN CONSTANT (JENNIFER OLIVER) History of Present Illness Date Seen by Provider: Jun 14, 2022 Time Seen by Provider: 10:00 Initial Comments 62 yo female with pertinent pmhx of HTN and cholesterol presents to the ED with cc of chest heaviness in substernal region. Pt says that yesterday morning she was on her treadmill which she normally does every day. Had to stop her workout because she felt heaviness in her chest. She said she experienced similar pain last week on and off but this pain was constant throughout the day yesterday. Has associated fatigue. At present she said that her CP is not as bad as it was when this happened yesterday. She was diagnosed with pneumonia and was treated for abx. Hx of smoker has been trying to quit since February. Started smoking agai n last Tuesday. Pt has been seen at [facility] 8 years for a workup but is not sure what was done. Denies any SOB, N/V, abdominal pain, no swelling in legs. No radiation of pain to shoulder or jaw. Took her Aspirin 81mg this morning like she does everyday. Took Ibuprofen 800mg with no relief of sx. No other complaints. (JENNIFER OLIVER) Allergies and Home Medications Allergies Coded Allergies: Sulfa (Sulfonamide Antibiotics) (Unverified Allergy, Unknown, 06/21/18) Patient Home Medication List Home Medication List Reviewed: Yes (JENNIFER OLIVER) Home Medication List Reviewed: Yes (JILLIAN MALAVE MD) Albuterol Sulfate (Ventolin Hfa) 90 Mcg Hfa.aer.ad, 2 PUFF INH Q6H PRN for SHORTNESS OF BREATH, (Reported) Entered as Reported by: DONTAE SEGAL on 06/15/22 1055 Last Action: Reviewed Alprazolam (Alprazolam) 1 Mg Tablet, 1 MG PO Q6H PRN for ANXIETY, (Reported) Entered as Reported by: DONTAE SEGAL on 06/15/22 1055 Last Action: Reviewed Amitriptyline HCl (Amitriptyline HCl) 100 Mg Tablet, 100 MG PO HS, (Reported) Entered as Reported by: DONTAE SEGAL on 06/15/221054 Last Action: Reviewed Ascorbic Acid (Vitamin C) 500 Mg Tablet, 500 MG PO DAILY, (Reported) Entered as Reported by: DONTAE SEGAL on 06/15/221054 Last Action: Reviewed Aspirin (Aspirin EC) 81 Mg Tablet.dr, 81 MG PO DAILY, (Reported) Entered as Reported by: DONTAE SEGAL on 06/15/221054 Last Action: Continued Cranberry (Cranberry) 400 Mg Capsule, 400 MG PO DAILY, (Reported) Entered as Reported by: DONTAE SEGAL on 06/15/221054 Last Action: Reviewed Duloxetine HCl (Duloxetine HCl) 60 Mg Capsule.dr, 60 MG PO DAILY, (Reported) Entered as Reported by: DONTAE SEGAL on 06/15/221054 Last Action: Reviewed Fish Oil/Dha/Epa (Fish Oil 1,200 mg Fish Oil) 1,200 Mg-144 Mg-216 Mg Capsule, 1 EACH PO DAILY, (Reported) Entered as Reported by: DONTAE SEGAL on 06/15/221054 Last Action: Reviewed L.acidoph & Paracasei,B.lactis (Probiotic) 10 Billion Cell Capsule, 1 EACH PO DAILY, (Reported) Entered as Reported by: DONTAE SEGAL on 06/15/221054 Last Action: Reviewed Lisinopril (Lisinopril) 10 Mg Tablet, 10 MG PO DAILY, (Reported) Entered as Reported by: DONTAE SEGAL on 06/15/221054 Last Action: Continued Loratadine (Loratadine) 10 Mg Tablet, 10 MG PO DAILY PRN for ALLERGY SYMPTOMS, (Reported) Entered as Reported by: DONTAE SEGAL on 06/15/221054 Last Action: Reviewed Omeprazole (Omeprazole) 20 Mg Capsule.dr, 20 MG PO DAILY, (Reported) Entered as Reported by: DONTEA SEGAL on 06/15/221054 Last Action: Held Oxycodone HCl/Acetaminophen (Endocet 10-325 mg Tablet) 10 Mg-325 Mg Tablet, 0.5 EA PO Q4H PRN for PAIN-MODERATE (5-7), (Reported) Entered as Reported by: DONTAE SEGAL on 06/15/221054 Last Action: Reviewed Rosuvastatin Calcium (Rosuvastatin Calcium) 10 Mg Tablet, 10 MG PO DAILY, (Reported) Entered as Reported by: DONTAE SEGAL on 06/15/22 105 Last Action: Continued Triamterene/Hydrochlorothiazid (Triamterene-Hctz 37.5-25 mg Tb) 37.5 Mg-25 Mg Tablet, 0.5 EA PO DAILY, (Reported) Entered as Reported by: DONTAE SEGAL on 06/15/22 105 Last Action: Reviewed Varenicline Tartrate (Varenicline Tartrate) 1 Mg Tablet, 1 MG PO BID, (Reported) Entered as Reported by: DONTAE SEGAL on 06/15/22 105 Last Action: Reviewed Discontinued Medications Alprazolam (Xanax Tablet) 0.25 Mg Tab, 0.25 MG GT PRN, (Reported) Discontinued Reason: Duplicate Order Entered as Reported by: MARY BRYANT on 01/31/131211 Last Action: Discontinued Amitriptyline Hcl (Elavil Tablet) 50 Mg Tab, 50 MG PO DAILY, (Reported) Discontinued Reason: Duplicate Order Entered as Reported by: MARY BRYANT on 01/31/131211 Last Action: Discontinued Citalopram Hydrobromide (CeleXA TABLET) 10 Mg Tablet, 10 MG GT DAILY, (Reported) Discontinued Reason: Duplicate Order Entered as Reported by: MARY BRYANT on 01/31/131211 Last Action: Discontinued Cyclobenzaprine HCl (Cyclobenzaprine HCl) 10 Mg Tablet, 10 MG PO TID PRN for SPASMS Discontinued Reason: Duplicate Order Prescribed by: KAYLA BERG MD on 05/05/19 1107 Last Action: Discontinued Doxycycline Hyclate (Doxycycline Hyclate) 100 Mg Tablet, 100 MG PO BID Discontinued Reason: Duplicate Order Prescribed by: MARIBEL HORTA on 01/02/201958 Last Action: Discontinued Doxycycline Hyclate (Doxycycline Hyclate) 100 Mg Tablet, 100 MG PO BID Discontinued Reason: Duplicate Order Prescribed by: NAKIA HARMAN on 11/23/21 1304 Last Action: Discontinued Hydrocodone Bit/Acetaminophen (Hydrocodone-Apap 10-325 Tablet) 1 Each Tablet, 1 EACH PO Q8HR PRN, (Reported) Discontinued Reason: Duplicate Order Entered as Reported by: MARY BRYANT on 7/31/13 1212 Last Action: Discontinued Ketorolac Tromethamine (Ketorolac Tromethamine) 10 Mg Tablet, 10 MG PO Q6H Discontinued Reason: Duplicate Order Prescribed by: KAYLA BERG MD on 05/05/19 1107 Last Action: Discontinued Levofloxacin (Levaquin) 750 Mg Tablet, 750 MG PO DAILY Discontinued Reason: Duplicate Order Prescribed by: JADA VILLA on 05/26/18 1136 Last Action: Discontinued Meclizine HCl (Meclizine HCl) 25 Mg Tablet, 50 MG PO Q6 PRN for DIZZINESS Discontinued Reason: Duplicate Order Prescribed by: DALLIN ROSAS on 01/21/20 113 Last Action: Discontinued Ondansetron (Ondansetron Odt) 4 Mg Tab.rapdis, 4 MG PO Q4H Discontinued Reason: Duplicate Order Prescribed by: DALLIN ROSAS on 01/21/20 113 Last Action: Discontinued Prednisone (Prednisone) 20 Mg Tab, 40 MG PO DAILY Discontinued Reason: Duplicate Order Prescribed by: MARIBEL HROTA on 01/02/201958 Last Action: Discontinued Triamterene/Hydrochlorothiazid (Triamterene-Hctz 37.5-25 Mg Tb) 1 Each Tablet, 0.5 EACH PO DAILY, (Reported) Discontinued Reason: Duplicate Order Entered as Reported by: MARY BRYANT on 01/31/13 121 Last Action: Discontinued Review of Systems Review of Systems Constitutional: No chills, No diaphoresis, No dizziness, No fever, No malaise EENTM: No Symptoms Reported Respiratory: Denies Cough, Denies Orthopnea, Denies Shortness of Air, Denies SO A With Exertion, Denies SOA at Rest Cardiovascular: Chest Pain Gastrointestinal: No Symptoms Reported Genitourinary: No Symptoms Reported Musculoskeletal: no symptoms reported Skin: no symptoms reported Psychiatric/Neurological: No Symptoms Reported Endocrine: No Symptoms Reported Hematologic/Lymphatic: No Symptoms Reported (JENNIFER OLIVER) Past Ipogilz-Cnklbp-Vjwfri Hx Patient Social History Tobacco Use?: Yes Tobacco type used: Cigarettes Smoking Status: Current Everyday Smoker Use of E-Cig and/or Vaping dev: No Substance use?: No Alcohol Use?: No Pt feels they are or have been: No (JENNIFER OLIVER) Immunizations Up To Date Influenza Vaccine Up-to-Date: No; Not Current First/Initial COVID19 Vaccinat: A Second COVID19 Vaccination Claus: Third COVID19 Vaccination Date: (JENNIFER OLIVER) Seasonal Allergies Seasonal Allergies: No (JENNIFER OLIVER) Past Medical History Surgery/Hospitalization HX: PMH: HTN, CHRONIC PAIN, ANXIETY Surgeries: Yes (splenectomy DUE TO TRAUMA, R foot surgery) Abdominal, Orthopedic Respiratory: Yes Pneumonia Cardiac: Yes Chronic Edema/Swelling, High Cholesterol, Hypertension Neurological: No Reproductive Disorders: No Genitourinary: No Gastrointestinal: Yes (SPLENECTOMY DUE TO TRAUMA) Diverticulosis Musculoskeletal: Yes (CHRONIC NECK, BACK AND FOOT PAIN--NARCOTIC DEPENDENT) Chronic Back Pain Endocrine: No HEENT: No Cancer: No Psychosocial: Yes Anxiety, Depression Integumentary: No Blood Disorders: No (JENNIFER OLIVER) Physical Exam Vital Signs Vital Signs - First Documented 06/14/22 09:44 Temp 36.6 Pulse 77 Resp 18 B/P (MAP) 161/76 (104) (JILLIAN MALAVE MD) Vital Signs Capillary Refill : (JENNIFER OLIVER) Height, Weight, BMI Height: 5'7.00" Weight: 147lbs. oz. 66.580497lk; 21.00 BMI Method:Stated General Appearance: No Apparent Distress, WD/WN HEENT: PERRL/EOMI, TMs Normal, Normal ENT Inspection, Pharynx Normal Neck: Full Range of Motion, Normal Inspection, Non Tender, Supple Respiratory: Chest Non Tender, Lungs Clear, Normal Breath Sounds, No Accessory Muscle Use, No Respiratory Distress Cardiovascular: Regular Rate, Rhythm, No Edema, No Gallop, No JVD, No Murmur, Normal Peripheral Pulses Gastrointestinal: Normal Bowel Sounds, No Organomegaly, No Pulsatile Mass, Non Tender, Soft Extremity: Normal Capillary Refill, Normal Inspection, Normal Range of Motion, Non Tender, No Calf Tenderness Neurologic/Psychiatric: Alert, Oriented x3, No Motor/Sensory Deficits, Normal Mood/Affect, bolt cutter II-XII Norm as Tested Skin: Normal Color, Warm/Dry Lymphatic: No Adenopathy (JENNIFER OLIVER) Progress/Results/Core Measures Results/Orders Lab Results Laboratory Tests Test 06/14/22 09:40 Range/Units White Blood Count 9.0 4.3-11.0 10^3/uL Red Blood Count 4.39 3.80-5.11 10^6/uL Hemoglobin 13.4 11.5-16.0 g/dL Hematocrit 38 35-52 % Mean Corpuscular Volume 87 80-99 fL Mean Corpuscular Hemoglobin 31 25-34 pg Mean Corpuscular Hemoglobin Concent 35 32-36 g/dL Red Cell Distribution Width 12.9 10.0-14.5 % Platelet Count 507 H 130-400 10^3/uL Mean Platelet Volume 9.2 9.0-12.2 fL Immature Granulocyte % (Auto) 0 % Neutrophils (%) (Auto) 42 42-75 % Lymphocytes (%) (Auto) 46 H 12-44 % Monocytes (%) (Auto) 7 0-12 % Eosinophils (%) (Auto) 3 0-10 % Basophils (%) (Auto) 2 0-10 % Neutrophils # (Auto) 3.8 1.8-7.8 10^3/uL Lymphocytes # (Auto) 4.1 H 1.0-4.0 10^3/uL Monocytes # (Auto) 0.6 0.0-1.0 10^3/uL Eosinophils # (Auto) 0.3 0.0-0.3 10^3/uL Basophils # (Auto) 0.2 H 0.0-0.1 10^3/uL Immature Granulocyte # (Auto) 0.0 0.0-0.1 10^3/uL Prothrombin Time 12.0 L 12.2-14.7 SEC INR Comment 0.8 0.8-1.4 Activated Partial Thromboplast Time 33 24-35 SEC Sodium Level 129 L 135-145 MMOL/L Potassium Level 3.8 3.6-5.0 MMOL/L Chloride Level 96 L 98-107 MMOL/L Carbon Dioxide Level 23 21-32 MMOL/L Anion Gap 10 5-14 MMOL/L Blood Urea Nitrogen 8 7-18 MG/DL Creatinine 0.74 0.60-1.30 MG/DL Estimat Glomerular Filtration Rate 91 BUN/Creatinine Ratio 11 Glucose Level 108 H 70-105 MG/DL Calcium Level 9.3 8.5-10.1 MG/DL Corrected Calcium 8.9 8.5-10.1 MG/DL Magnesium Level 1.7 1.6-2.4 MG/DL Total Bilirubin 0.8 0.1-1.0 MG/DL Aspartate Amino Transf (AST/SGOT) 24 5-34 U/L Alanine Aminotransferase (ALT/SGPT) 25 0-55 U/L Alkaline Phosphatase 81 40-136 U/L Myoglobin 28.9 10.0-92.0 NG/ML Troponin I < 0.028 <0.028 NG/ML Total Protein 7.8 6.4-8.2 GM/DL Albumin 4.5 3.2-4.5 GM/DL (JILLIAN MALAVE MD) My Orders Orders - JILLIAN MALAVE MD Cbc With Automated Diff (06/14/22 10:00) Magnesium (06/14/22 10:00) Chest 1 View, Ap/Pa Only (06/14/22 10:00) Comprehensive Metabolic Panel (06/14/22 10:00) Myoglobin Serum (06/14/22 10:00) Protime With Inr (06/14/22 10:00) Partial Thromboplastin Time (06/14/22 10:00) O2 (06/14/22 10:00) Monitor-Rhythm Ecg Trace Only (06/14/22 10:00) Lipid Panel (06/15/22 06:00) Ed Iv/Invasive Line Start (06/14/22 10:00) Troponin I Chele (06/14/22 10:00) Aspirin Chewable Tablet (Baby Aspirin Ch (06/14/22 10:30) Ed Admission (Communication) (06/14/22 12:01) Ekg Tracing (06/14/22 12:17) Code/Resuscitation (06/14/22 12:17) (JILLIAN MALAVE MD) Medications Given in ED (JILLIAN MALAVE MD) Vital Signs/I&O 06/14/22 09:44 Temp 36.6 Pulse 77 Resp 18 B/P (MAP) 161/76 (104) (JILLIAN MALAVE MD) Blood Pressure Mean: 104 Progress Progress Note : Time: 12:14 Progress Note Patient seen and evaluated by me, 62-year-old with chest heaviness/tightness while on her treadmill. I have reviewed and agree with the medical student's documentation. Evaluation today includes a physical exam, cardiac/chest pain work-up. Patient's labs, EKG and chest x-ray are reassuring. She does have significant risk factors placing her at a heart score of "4". This puts her at moderate risk for major adverse cardiac event within the next 6 weeks according to the heart study. Patient is slightly hypertensive. She is pain-free here in the emergency department. She has been treated with full-strength aspirin. Case was discussed with Dr. Enciso cardiology to schedule a stress test either today or tomorrow. Case was also discussed with Dr. Szymanski who accepts the patient for admission to cardiac stepdown. No findings at this time concerning for acute coronary syndrome/acute myocardial infarction. (JILLIAN MALAVE MD) Initial ECG Impression Date: Jun 14, 2022 Initial ECG Impression Time: 09:44 Initial ECG Rate: 71 Initial ECG Rhythm: Normal Sinus Initial ECG Intervals: Normal Initial ECG Impression: Nonspecific Changes Initial ECG Comparisson: Unchanged (JILLIAN MALAVE MD) Diagnostic Imaging Diagonstic Imaging: Xray Plain Films/CT/US/NM/MRI: chest Comments [facility] [place] NAME: JAVI LYNN [facility] REC#: [id number] PT STATUS: REG ER : 1960 PHYSICIAN: JILLIAN MALAVE MD ADMIT DATE: 06/14/22/ER Draft Date of Exam:06/14/22 CHEST 1 VIEW, AP/PA ONLY INDICATION: Chest pain COMPARISON: 11/23/2021 FINDINGS: Single frontal view of the chest demonstrates normal heart size and pulmonary vascularity. The lungs are well aerated and clear. No large pleural effusion or pneumothorax is seen. The visualized osseous structures show no acute abnormalities. IMPRESSION: 1. No acute cardiopulmonary process. Dictated on workstation # [id number] Dict: 06/14/22 1025 Trans: 06/14/22 1025 [facility] [id number] Interpreted by: COLLIN GARCIA MD Electronically signed by: (JILLIAN MALAVE MD) Departure Communication (Admissions) Time/Spoke to Admitting Phy: 11:[address] Szymanski - accepts observation to [facility] Time/Spoke to Consulting Phy: 11:[address] Enciso (JILLIAN MALAVE MD) Impression Primary Impression: Chest pain Qualified Codes: R07.89 - Other chest pain Disposition: ADMITTED INPATIENT Condition: Stable Admissions Decision to Admit Reason: Admit from ER (General) Decision to Admit/Date: Jun 14, 2022 Time/Decision to Admit Time: 12:16 (JILLIAN MALVAE MD) Departure-Patient Inst. Referrals: STEPHEN SAMS MD (PCP/Family) Primary Care Physician Verification and Attestation of Medical Student E/M Service A medical student performed and documented this service in my presence. I reviewed and verified all information documented by the medical student and made modifications to such information, when appropriate. I personally performed the physical exam and medical decision making. Jillian Malave, Jun 18, 2022,07:09 (JILLIAN MALAVE MD) JENNIFER OLIVER Jun 14, 2022 10:13 JILLIAN MALAVE MD Jun 14, 2022 11:26
[2022-06-14 10:20] LABS: ALBUMIN 4.5 GM/DL (3.2-4.5); BILIRUBIN,TOTAL 0.8 MG/DL (0.1-1.0); CALCIUM 9.3 MG/DL (8.5-10.1); CREATININE SERUM 0.74 MG/DL (0.60-1.30); MAGNESIUM 1.7 MG/DL (1.6-2.4); POTASSIUM 3.8 MMOL/L (3.6-5.0); TOTAL PROTEIN 7.8 GM/DL (6.4-8.2)
--- NOTE | 2022-06-14 10:26 | Diagnostic Imaging Report ---
INDICATION: Chest pain COMPARISON: 11/23/2021 FINDINGS: Single frontal view of the chest demonstrates normal heart size and pulmonary vascularity. The lungs are well aerated and clear. No large pleural effusion or pneumothorax is seen. The visualized osseous structures show no acute abnormalities. IMPRESSION: 1. No acute cardiopulmonary process. Dictated by: Dictated on workstation # [id number]
[2022-06-14] MEDS ORDERED: ASPIRIN 81 MG CHEW (CHILDREN'S ASA) PO ONE (10:30)
--- NOTE | 2022-06-14 12:13 | History & Physical-Hospitalist ---
History of Present Illness HPI/Chief Complaint Patient is 62-year-old female past medical history of hypertension and tobacco abuse who presented to the emergency department due to chest pain. She states that she normally walks on her treadmill for 30 minutes every day and does is easily but last week she had some chest discomfort and yesterday had worsening chest pain with this. She was unable to complete her 30 minutes on her treadmill and she became diaphoretic and short of breath with it. She denies any radiation of her pain or nausea. She denies any palpitations or syncope. She has been working on quitting smoking and recently started on C hantix so was not certain if that was contributing. She also has had worsening cough the past 2 nights but did restart smoking in the past week or so. She said that she has residual chest tightness so did not get on her treadmill this morning and decided to come to the ER for evaluation. Her troponin was negative and her EKG had no ischemic changes but given her history and risk factors she was admitted for observation for further cardiac work-up. Date Seen 06/14/22 Time Seen by a Provider: 11:45 Attending Physician Sarahy Hyatt MD PCP Admitting Physician: Attending Physician: Referring Physician Date of Admission Home Medications & Allergies Home Medications Reviewed patient Home Medication Reconciliation performed by pharmacy medication reconciliations process environmental technician and/or nursing. Patients Allergies have been reviewed. Allergies Allergies Coded Allergies Sulfa (Sulfonamide Antibiotics) (Unverified Allergy, Unknown, 06/21/18) Past Gaaxtda-Cezioy-Hpxtud Hx Patient Social History Tobacco Use?: Yes Tobacco type used: Cigarettes Smoking Status: Current Everyday Smoker Use of E-Cig and/or Vaping dev: No Substance use?: No Alcohol Use?: No Pt feels they are or have been: No Immunizations Up To Date First/Initial COVID19 Vaccinat: MODERNA Second COVID19 Vaccination Claus: MODERNA Date of Pneumonia Vaccine: Feb 16, 2011 Seasonal Allergies Seasonal Allergies: No Current Status Advance Directives: No Communicates: Verbally Primary Language: Citizen [place] Preferred Spoken Language: Citizen Of [place] Is interpretation needed?: No Past Medical History Surgeries: Abdominal, Orthopedic Pneumonia Chronic Edema/Swelling, High Cholesterol, Hypertension Diverticulosis Chronic Back Pain Anxiety, Depression Blood Disorders: No Family Medical History Reviewed Nursing Family Hx Heart Disease, CAD Over 55 Years Old, Hypertension Review of Systems Constitutional: No chills, No fever EENTM: no symptoms reported Respiratory: cough, dyspnea on exertion; No hemoptysis, No orthopnea; short of breath; No wheezing Cardiovascular: see HPI Gastrointestinal: No abdominal pain, No constipation, No diarrhea, No nausea, No vomiting Genitourinary: no symptoms reported Musculoskeletal: no symptoms reported Skin: no symptoms reported Psychiatric/Neurological: No Symptoms Reported Physical Exam Physical Exam Vital Signs Vital Signs - First Documented 06/14/22 09:44 Temp 36.6 Pulse 77 Resp 18 B/P (MAP) 161/76 (104) Capillary Refill : Height, Weight, BMI Height: 5'7.00" Weight: 147lbs. oz. 66.556342ph; 21.00 BMI Method:Stated General Appearance: No Apparent Distress, WD/WN HEENT: PERRL/EOMI, Moist Mucous Membranes; No Scleral Icterus (L), No Scleral Icterus (R) Neck: Normal Inspection, Supple Respiratory: Lungs Clear, No Accessory Muscle Use, No Respiratory Distress Cardiovascular: Regular Rate, Rhythm, No JVD, No Murmur Gastrointestinal: Normal Bowel Sounds, Non Tender, Soft Extremity: Normal Capillary Refill, No Calf Tenderness Neurologic/Psychiatric: Alert, Oriented x3, Normal Mood/Affect Skin: Normal Color, Warm/Dry Results Results/Procedures Labs Laboratory Tests 06/14/22 09:40 Patient resulted labs reviewed. Imaging: Reviewed Imaging Report Imaging [facility] [place] NAME: JAVI LYNN [facility] REC#: [id number] PT STATUS: REG ER : 1960 PHYSICIAN: JILLIAN MANCINI MD ADMIT DATE: 06/14/22/ER Draft Date of Exam:06/14/22 CHEST 1 VIEW, AP/PA ONLY INDICATION: Chest pain COMPARISON: 11/23/2021 FINDINGS: Single frontal view of the chest demonstrates normal heart size and pulmonary vascularity. The lungs are well aerated and clear. No large pleural effusion or pneumothorax is seen. The visualized osseous structures show no acute abnormalities. IMPRESSION: 1. No acute cardiopulmonary process. Dictated on workstation # [id number] Dict: 06/14/22 1025 Trans: 06/14/22 1025 [facility] [id number] Interpreted by: COLLIN GARCIA MD Electronically signed by: Assessment/Plan Admission Diagnosis Chest pain Admission Status: Observation Assessment and Plan Chest pain HTN MCE score of 4 troponin negative and EKG nonischemic Admit for oberservation and trend troponin Cardiology consulted, appreciate recs ASA Nitro and Morphine prn pain BP slightly elevated in the ER, trend Resume home meds when med rec done Hyponatremia Na 129- trend Appears to be chronic with baseline around 132 Tobacco abuse Continue Chantix Encouraged continued smoking cessation DVT ppx: SCDs Diagnosis/Problems Diagnosis/Problems (1) Essential (primary) hypertension (2) Tobacco abuse (3) Chest pain Clinical Quality Measures AMI/AHF: ASA po Prior to arrival: Yes Copy Copies To 1: PHIL Ramirez MD Jun 14, 2022 12:13
[2022-06-14] MEDS ORDERED: ONDANSETRON 4 MG/2 ML (SDV) Z0FRAN IVP PRN (13:45)
[2022-06-14] MEDS ORDERED: morphine INJ 4 MG/ML 1 ML (VIAL/SYRINGE) IV PRN (13:45)
[2022-06-14] MEDS ORDERED: NITROGLYCERIN 0.4 MG SL TABS BTL 25'S SL PRN (13:45)
[2022-06-14] MEDS ORDERED: PATIENT MAY USE OWN MEDS, ALL PO SCH (13:45)
[2022-06-14] MEDS ORDERED: PANTOPRAZOLE 40 MG (PROTONIX) TAB PO NR (16:30)
--- NOTE | 2022-06-14 16:50 | Consultation-Cardiology ---
HPI-Cardiology Cardiology Consultation: Date of Consultation 06/14/22 Date of Admission 06/14/22 Attending Physician Sarahy Hyatt MD Admitting Physician Admitting Physician: Dottie Szymanski MD Attending Physician: Dottie Szymanski MD Consulting Physician DIANNA CORMIER JR, MD HPI: Time Seen by a Provider: 16:44 Chief Complaint: REASON FOR CONSULTATION: Chest pain. I had the pleasure of seeing Sera in the cardiac stepdown unit at [facility] in [place], [place] today. She has no known history of coronary artery disease but has cardiac risk factors of hypertension, hyperlipidemia and cigarette smoking. For the past couple of weeks she has been having intermittent chest discomfort. She describes this as a tightness in the center of her chest. At times this will make her feel short of breath. She denies ra diation. She did not think much of this. Then yesterday she had been walking on her treadmill and got more severe substernal chest tightness. She got off the treadmill and the chest discomfort improved but did not completely resolved. For most of the day yesterday, she had persistent chest tightness. She did not seek immediate medical attention. This morning she still had some chest tightness and came to the hospital for further evaluation. She walks on her treadmill at home for about 30 minutes/day and up until yesterday had been able to do this without any significant issues. She denies paroxysmal nocturnal dyspnea, orthopnea, palpitations, lightheadedness, syncope, or lower extremity edema. Because of the chest pain, a cardiology consultation was requested. Certain portions of this document may have been dictated utilizing voice recognition technology. Inherent to this technology, typographical and grammatical errors may exist. As much as I am diligent to identify and correct these mistakes, some errors may remain in the document. Review of Systems-Cardiology Review of Systems Other comments Review of 10 organ systems is as per the history of present illness, otherwise negative. MWP-Wozkly-Amfomv Hx Patient Social History Smoking Status: Current Everyday Smoker 2nd Hand Smoke Exposure: No Have you traveled recently?: No Alcohol Use?: No Pt feels they are or have been: No Tobacco type used: Cigarettes Immunizations Up To Date Date of Pneumonia Vaccine: Feb 16, 2011 Past Medical History PMH As described under Assessment. Family Medical History Family Medical History: Her father had a heart attack but she does not know at what age. Allergies and Home Medications Allergies Coded Allergies: Sulfa (Sulfonamide Antibiotics) (Unverified Allergy, Unknown, 06/21/18) Patient Home Medication List Home Medication List Reviewed: Yes Alprazolam (Xanax Tablet) 0.25 Mg Tab, 0.25 MG GT PRN, (Reported) Entered as Reported by: MARY BRYANT on 01/31/13 121 Amitriptyline Hcl (Elavil Tablet) 50 Mg Tab, 50 MG PO DAILY, (Reported) Entered as Reported by: MARY BRYANT on 01/31/13 1212 Citalopram Hydrobromide (CeleXA TABLET) 10 Mg Tablet, 10 MG GT DAILY, (Reported) Entered as Reported by: MARY BRYANT on 01/31/13 121 Cyclobenzaprine HCl (Cyclobenzaprine HCl) 10 Mg Tablet, 10 MG PO TID PRN for SPASMS Prescribed by: KAYLA BERG MD on 05/05/19 1107 Doxycycline Hyclate (Doxycycline Hyclate) 100 Mg Tablet, 100 MG PO BID Prescribed by: MARIBEL HORTA on 01/02/201958 Doxycycline Hyclate (Doxycycline Hyclate) 100 Mg Tablet, 100 MG PO BID Prescribed by: NAKIA HARMAN on 11/23/21 1304 Hydrocodone Bit/Acetaminophen (Hydrocodone-Apap 10-325 Tablet) 1 Each Tablet, 1 EACH PO Q8HR PRN, (Reported) Entered as Reported by: MARY BRYANT on 01/31/13 121 Ketorolac Tromethamine (Ketorolac Tromethamine) 10 Mg Tablet, 10 MG PO Q6H Prescribed by: KAYLA BERG MD on 05/05/19 1107 Levofloxacin (Levaquin) 750 Mg Tablet, 750 MG PO DAILY Prescribed by: JADA VILLA on 05/26/18 1136 Meclizine HCl (Meclizine HCl) 25 Mg Tablet, 50 MG PO Q6 PRN for DIZZINESS Prescribed by: DALLIN ROSAS on 01/21/20 1136 Ondansetron (Ondansetron Odt) 4 Mg Tab.rapdis, 4 MG PO Q4H Prescribed by: DALLIN ROSAS on 01/21/20 1136 Prednisone (Prednisone) 20 Mg Tab, 40 MG PO DAILY Prescribed by: MARIBEL HORTA on 01/02/201958 Triamterene/Hydrochlorothiazid (Triamterene-Hctz 37.5-25 Mg Tb) 1 Each Tablet, 0.5 EACH PO DAILY, (Reported) Entered as Reported by: MARY BRYANT on 01/31/13 1212 Exam Vital Signs Vital Signs Date Time Temp Pulse Resp B/P (MAP) Pulse Ox O2 Delivery O2 Flow Rate FiO2 06/14/22 16:12 36.6 68 16 129/61 (83) 97 Room Air Physical Exam General: Alert. No acute distress. Well nourished and appears stated age. Eye: Extraocular movements are intact. Conjunctivae are clear. There are no xanthelasma. HENT: Normocephalic. Atraumatic. Carotid pulsations 2/2 without bruits. Neck: Jugular venous pressure does not appear elevated. No thyromegaly appreciated. Respiratory: Lungs are clear to auscultation. Respirations are non-labored. Breath sounds are equal. Symmetrical chest wall expansion. Cardiovascular: Normal rate. Regular rhythm. No murmur. No gallop. Point of maximal impulse is not appear displaced. Good pulses equal in all extremities. No edema. Gastrointestinal: Soft. Normal bowel sounds. Skin: Skin turgor is normal. There is no pallor. Musculoskeletal: No kyphosis or scoliosis appreciated. Neurologic: Alert and oriented to person, place, time. Cranial nerves 3-12 appear grossly intact. The patient has good motor tone strength in the upper and lower extremities bilaterally. Psychiatric: Cooperative. Appropriate mood & affect. Labs Laboratory Tests Test 06/14/22 09:40 06/14/22 14:55 Range/Units White Blood Count 9.0 4.3-11.0 10^3/uL Red Blood Count 4.39 3.80-5.11 10^6/uL Hemoglobin 13.4 11.5-16.0 g/dL Hematocrit 38 35-52 % Mean Corpuscular Volume 87 80-99 fL Mean Corpuscular Hemoglobin 31 25-34 pg Mean Corpuscular Hemoglobin Concent 35 32-36 g/dL Red Cell Distribution Width 12.9 10.0-14.5 % Platelet Count 507 H 130-400 10^3/uL Mean Platelet Volume 9.2 9.0-12.2 fL Immature Granulocyte % (Auto) 0 % Neutrophils (%) (Auto) 42 42-75 % Lymphocytes (%) (Auto) 46 H 12-44 % Monocytes (%) (Auto) 7 0-12 % Eosinophils (%) (Auto) 3 0-10 % Basophils (%) (Auto) 2 0-10 % Neutrophils # (Auto) 3.8 1.8-7.8 10^3/uL Lymphocytes # (Auto) 4.1 H 1.0-4.0 10^3/uL Monocytes # (Auto) 0.6 0.0-1.0 10^3/uL Eosinophils # (Auto) 0.3 0.0-0.3 10^3/uL Basophils # (Auto) 0.2 H 0.0-0.1 10^3/uL Immature Granulocyte # (Auto) 0.0 0.0-0.1 10^3/uL Prothrombin Time 12.0 L 12.2-14.7 SEC INR Comment 0.8 0.8-1.4 Activated Partial Thromboplast Time 33 24-35 SEC Sodium Level 129 L 135-145 MMOL/L Potassium Level 3.8 3.6-5.0 MMOL/L Chloride Level 96 L 98-107 MMOL/L Carbon Dioxide Level 23 21-32 MMOL/L Anion Gap 10 5-14 MMOL/L Blood Urea Nitrogen 8 7-18 MG/DL Creatinine 0.74 0.60-1.30 MG/DL Estimat Glomerular Filtration Rate 91 BUN/Creatinine Ratio 11 Glucose Level 108 H 70-105 MG/DL Calcium Level 9.3 8.5-10.1 MG/DL Corrected Calcium 8.9 8.5-10.1 MG/DL Magnesium Level 1.7 1.6-2.4 MG/DL Total Bilirubin 0.8 0.1-1.0 MG/DL Aspartate Amino Transf (AST/SGOT) 24 5-34 U/L Alanine Aminotransferase (ALT/SGPT) 25 0-55 U/L Alkaline Phosphatase 81 40-136 U/L Myoglobin 28.9 10.0-92.0 NG/ML Troponin I < 0.028 < 0.028 <0.028 NG/ML Total Protein 7.8 6.4-8.2 GM/DL Albumin 4.5 3.2-4.5 GM/DL ECG Impression ECG Comment Sinus rhythm with nonspecific anterior T wave changes. Diagnosis/Problems Diagnosis/Problems (1) Chest pain Assessment & Plan: Exact etiology unclear. On the one hand, this sounds like cardiac chest pain due to the exertional nature of the chest discomfort. On the other hand, when she got off the treadmill yesterday, the chest discomfort improved but did not completely resolved and lasted most of yesterday. Despite this, she has 2 undetectable troponin levels. I suspect this could be noncardiac chest pain, possibly due to gastroesophageal reflux disease or musculoskeletal disorder. Nonetheless, given her risk factors, coronary ischemia is certainly in the differential diagnosis. I recommend she continue low strength aspirin. She should continue on her statin medication. I recommend a nuclear stress test and echocardiogram tomorrow. I will also double the dose of her proton pump inhibitor. (2) Abnormal electrocardiogram Assessment & Plan: She has a borderline abnormal electrocardiogram but no evidence of a prior infarct or ischemia at rest. In light of the chest discomfort, we will proceed with a stress test as above. (3) Primary hypertension Assessment & Plan: Continue outpatient antihypertensive medication. (4) Mixed hyperlipidemia Assessment & Plan: Continue rosuvastatin. Lipid panel has been ordered. (5) Cigarette smoker Assessment & Plan: She needs to quit smoking. She has been counseled in this regard. Problem Qualifiers (1) Chest pain: Chest pain type: other chest pain Qualified Codes: R07.89 - Other chest pain DIANNA CORMIER JR, MD Jun 14, 2022 16:50
[2022-06-14] MEDS ORDERED: ROSUVASTATIN 10 MG (CRESTOR) TABLET PO SCH (21:00)
[2022-06-15 04:00] VITALS: BP 103/63
[2022-06-15 05:46] LABS: HEMATOCRIT 39 % (35-52); HEMOGLOBIN 13.8 g/dL (11.5-16.0); MEAN CORPUSCULAR HEMOGLOBIN 31 pg (25-34); MEAN CORPUSCULAR HGB CONC 35 g/dL (32-36); MEAN CORPUSCULAR VOLUME 87 fL (80-99); MEAN PLATELET VOLUME 8.8 fL (9.0-12.2); PLATELET COUNT 488 10^3/uL (130-400)
[2022-06-15 06:17] LABS: CALCIUM 9.5 MG/DL (8.5-10.1); CREATININE SERUM 0.67 MG/DL (0.60-1.30); POTASSIUM 4.2 MMOL/L (3.6-5.0)
[2022-06-15] MEDS ORDERED: ALPRAZolam 0.25 MG (XANAX) TAB ONE (06:29)
[2022-06-15] MEDS ORDERED: ALPRAZolam 0.25 MG (XANAX) TAB PO PRN (06:30)
[2022-06-15 06:46] LABS: CHOLESTEROL 141 MG/DL (< 200); HDL CHOLESTEROL 48 MG/DL (40-60); TRIGLYCERIDES 115 MG/DL (<150); VLDL CHOLESTEROL 23 MG/DL (5-40)
[2022-06-15 07:51] VITALS: BP 114/66
[2022-06-15] MEDS ORDERED: ALPRAZolam 1 MG (XANAX) TAB ONE (08:08)
[2022-06-15] MEDS: ALPRAZolam 1 MG (XANAX) TAB PO SCH ×2 (08:15→13:12)
[2022-06-15] MEDS ORDERED: ASPIRIN E.C. 81 MG (ECOTRIN) TAB PO SCH (09:00)
[2022-06-15] MEDS ORDERED: PANTOPRAZOLE 40 MG (PROTONIX) TAB PO SCH (09:00)
--- NOTE | 2022-06-15 09:25 | Progress Note - Hospitalist ---
Subjective HPI/CC On Admission Date Seen by Provider: Jun 15, 2022 Patient is 62-year-old female past medical history of hypertension and tobacco abuse who presented to the emergency department due to chest pain. She states that she normally walks on her treadmill for 30 minutes every day and does is easily but last week she had some chest discomfort and yesterday had worsening chest pain with this. She was unable to complete her 30 minutes on her treadmill and she became diaphoretic and short of breath with it. She denies any radiation of her pain or nausea. She denies any palpitations or syncope. She has been working on quitting smoking and recently started on Chantix so was not certain if that was contributing. She also has had worsening cough the past 2 nights but did restart smoking in the past week or so. She said that she has residual chest tightness so did not get on her treadmill this morning and decided to come to the ER for evaluation. Her troponin was negative and her EKG had no ischemic changes but given her history and risk factors she was admitted for observation for further cardiac work-up. Subjective/Events-last exam Pt reports doing well today. Pain controlled. Frustrated with not getting her normal Xanax dose last night but has now gotten it. Otherwise no complaints. Objective Exam Vital Signs Vital Signs Date Time Temp Pulse Resp B/P (MAP) Pulse Ox O2 Delivery O2 Flow Rate FiO2 06/15/22 08:00 96 Room Air 06/15/22 07:51 36.6 78 16 114/66 (82) Capillary Refill : General Appearance: No Apparent Distress, WD/WN Respiratory: Lungs Clear, No Respiratory Distress Cardiovascular: Regular Rate, Rhythm, No Murmur Gastrointestinal: Normal Bowel Sounds, Non Tender, Soft Neurologic/Psychiatric: Alert, Oriented x3, Normal Mood/Affect Results/Procedures Lab Laboratory Tests 06/14/22 09:40 06/15/22 05:37 Patient resulted labs reviewed. Imaging: Reviewed Imaging Report Assessment/Plan Assessment and Plan Assess & Plan/Chief Complaint Chest pain HTN troponin negative x2 and EKG nonischemic Cardiology consulted, appreciate recs ASA Nitro and Morphine prn pain Stress test today- potentially home if negative Hyponatremia Resolved Tobacco abuse Continue Chantix Encouraged continued smoking cessation DVT ppx: SCDs Diagnosis/Problems Diagnosis/Problems (1) Essential (primary) hypertension (2) Tobacco abuse (3) Chest pain Qualifiers: Chest pain type: other chest pain Qualified Codes: R07.89 - Other chest pain Clinical Quality Measures AMI/AHF: ASA po Prior to arrival: Yes PHIL GUERRERO MD Jun 15, 2022 09:25
[2022-06-15] MEDS ORDERED: ALBU18HF2 INH (10:55)
[2022-06-15] MEDS ORDERED: CRAN400C PO (10:55)
[2022-06-15] MEDS ORDERED: OMEP20CA18 PO (10:55)
[2022-06-15] MEDS ORDERED: LORA10TA7 PO (10:55)
[2022-06-15] MEDS ORDERED: OXYC-191 PO (10:55)
[2022-06-15] MEDS ORDERED: ASPI-1238 PO (10:55)
[2022-06-15] MEDS ORDERED: ASCO500T17 PO (10:55)
[2022-06-15] MEDS ORDERED: DULO60CA59 PO (10:55)
[2022-06-15] MEDS ORDERED: L.AC1CAP6 PO (10:55)
[2022-06-15] MEDS ORDERED: FISH1CAP15 PO (10:55)
[2022-06-15] MEDS ORDERED: TRIA1TAB3 PO (10:55)
[2022-06-15] MEDS ORDERED: ALPR1TAB7 PO (10:55)
[2022-06-15] MEDS ORDERED: LISI10TA25 PO (10:55)
[2022-06-15] MEDS ORDERED: ROSU10TA28 PO (10:55)
[2022-06-15] MEDS ORDERED: VARE1TAB24 PO (10:55)
[2022-06-15] MEDS ORDERED: AMIT100T2 PO (10:55)
[2022-06-15] MEDS ORDERED: CATHETER FLUSH 10 ML SYR IVP PRN (11:00)
[2022-06-15 11:44] VITALS: BP 157/81
[2022-06-15 13:30] VITALS: BP 141/80
--- NOTE | 2022-06-15 14:43 | NUCLEAR STRESS TEST ---
TREADMILL NUCLEAR STRESS TEST Date of procedure: 06/15/2022. Primary care provider: Sarahy Hyatt MD. Admitting physician: Hussein Enciso Jr., MD. INDICATION: Chest pain and abnormal electrocardiogram. BASELINE ELECTROCARDIOGRAM: Sinus rhythm with nonspecific ST-T wave changes. STRESS TEST PROCEDURE: The patient was exercised for a total of 5 minutes and 22 seconds of the standard Miko protocol achieving a maximum MET level of 7.5. The resting heart rate was 79 bpm and the peak heart rate was 137 bpm, which represents 86% of the maximum predicted heart rate. The resting blood pressure was 157/81 mmHg and the peak blood pressure was 192/61 mmHg. This represents a normal heart rate and a normal blood pressure response to exercise. The test was stopped due to target heart rate attained. There was no chest discomfort during the test. There were no arrhythmias during the test. There were no significant stress induced electrocardiogram changes. The patient exhibited good exercise capacity for age. NUCLEAR PROCEDURE: The patient was administered 10.9 mCi of intravenous technetium 99m Tetrofosmin at rest for the rest images. The patient was subsequently administered 30.4 mCi of intravenous technetium 99 M Tetrofosmin at peak stress for the stress images. Following an appropriate wait after each injection, imaging was obtained. The images were subsequently processed and reformatted in the usual views. Gated imaging was obtained. The image quality was adequate with a mild degree of gastrointestinal attenuation artifact. CT attenuation correction was used as a adjunct to standard imaging. Both the corre cted and uncorrected images were reviewed for interpretation. NUCLEAR RESULTS: There was normal myocardial perfusion in all segments without evidence of infarction or ischemia. There was normal left ventricular chamber size with an end-diastolic volume of 31 mL and an end-systolic volume of 10 mL. There was no evidence of transient ischemic dilatation. The TID ratio was 0.87. There was normal wall motion in all segments with a calculated ejection fraction of 67%. IMPRESSION: 1. Normal heart rate and blood pressure response to exercise. 2. There was no chest discomfort, arrhythmias, or electrocardiogram changes during the test. 3. The patient exhibited good exercise capacity for age at 5 minutes and 22 seconds of the Miko protocol. 4. There was normal myocardial perfusion in all segments without evidence of infarction or ischemia. 5. There was normal wall motion in all segments with a calculated ejection fraction of 67%. Certain portions of this document may have been dictated utilizing voice rec ognition technology. Inherent to this technology, typographical and grammatical errors may exist. As much as I am diligent to identify and correct these mistakes, some errors may remain in the document. HUSSEIN ENCISO JR, MD Jun 15, 2022 14:43
--- NOTE | 2022-06-15 14:50 | Discharge Inst-Simple/Standard ---
Discharge Inst-Standard Discharge Medications New, Converted or Re-Newed RX: Transmitted to Pharmacy Patient Instructions/Follow Up Plan of Care/Instructions/FU: Please continue to take your medications as written. Please follow up with your primary care doctor to follow up this hospital stay. Activity as Tolerated: Yes Discharge Diet: Cardiac Diet Return to The Hospital For: Chest pain, shortness of breath, fever, weakness, if you feel you are getting worse. PHIL GUERRERO MD Jun 15, 2022 14:50
--- NOTE | 2022-06-15 14:55 | Cardiology Progress Note ---
Progress Note-Cardiology Events since last exam Date Seen by Provider: Jun 15, 2022 Time Seen by Provider: 14:49 Events since last exam I am following her due to chest pain. Overnight, her chest discomfort improved. She denies dyspnea, palpitations, syncope, or ankle edema. Certain portions of this document may have been dictated utilizing voice recognition technology. Inherent to this technology, typographical and grammatical errors may exist. As much as I am diligent to identify and correct these mistakes, some errors may remain in the document. Vitals Last set of Vitals Signs Vital Signs 06/15/22 06/15/22 06/15/22 07:51 08:00 11:44 Temp 36.6 Pulse 79 Resp 16 B/P (MAP) 157/81 (106) Pulse Ox 96 O2 Delivery Room Air Labs Labs Laboratory Tests 06/15/22 05:37 Exam Vital Signs Vital Signs Date Time Temp Pulse Resp B/P (MAP) Pulse Ox O2 Delivery O2 Flow Rate FiO2 06/15/22 11:44 79 157/81 (106) 06/15/22 08:00 96 Room Air 06/15/22 07:51 36.6 16 Physical Exam General: Alert. No acute distress. Eye: No xanthelasma. HENT: Normocephalic. Neck: Jugular venous pressure does not appear elevated. Respiratory: Lungs are clear to auscultation. Respirations are non-labored. Breath sounds are equal. Symmetrical chest wall expansion. Cardiovascular: Normal rate. Regular rhythm. No murmur. No gallop. No edema. Gastrointestinal: Soft. Normal bowel sounds. Skin: Warm. Dry. Neurologic: Alert and oriented to person, place, time. Cranial nerves 3-11 grossly intact. Psychiatric: Cooperative. Appropriate mood & affect. Labs Laboratory Tests Test 06/14/22 14:55 06/15/22 05:37 06/15/22 06:00 Range/Units Troponin I < 0.028 <0.028 NG/ML Thyroid Stimulating Hormone (TSH) 0.47 0.35-4.94 UIU/ML White Blood Count 7.0 4.3-11.0 10^3/uL Red Blood Count 4.53 3.80-5.11 10^6/uL Hemoglobin 13.8 11.5-16.0 g/dL Hematocrit 39 35-52 % Mean Corpuscular Volume 87 80-99 fL Mean Corpuscular Hemoglobin 31 25-34 pg Mean Corpuscular Hemoglobin Concent 35 32-36 g/dL Red Cell Distribution Width 13.0 10.0-14.5 % Platelet Count 488 H 130-400 10^3/uL Mean Platelet Volume 8.8 L 9.0-12.2 fL Sodium Level 135 135-145 MMOL/L Potassium Level 4.2 3.6-5.0 MMOL/L Chloride Level 104 98-107 MMOL/L Carbon Dioxide Level 21 21-32 MMOL/L Anion Gap 10 5-14 MMOL/L Blood Urea Nitrogen 10 7-18 MG/DL Creatinine 0.67 0.60-1.30 MG/DL Estimat Glomerular Filtration Rate 99 BUN/Creatinine Ratio 15 Glucose Level 88 70-105 MG/DL Calcium Level 9.5 8.5-10.1 MG/DL Triglycerides Level 115 <150 MG/DL Cholesterol Level 141 < 200 MG/DL LDL Cholesterol Direct 77 1-129 MG/DL VLDL Cholesterol 23 5-40 MG/DL HDL Cholesterol 48 40-60 MG/DL Radiology TREADMILL NUCLEAR STRESS TEST (06/21/2022): 1. Normal heart rate and blood pressure response to exercise. 2. There was no chest discomfort, arrhythmias, or electrocardiogram changes during the test. 3. The patient exhibited good exercise capacity for age at 5 minutes and 22 seconds of the Miko protocol. 4. There was normal myocardial perfusion in all segments without evidence of infarction or ischemia. 5. There was normal wall motion in all segments with a calculated ejection fraction of 67%. Diagnosis/Problems Diagnosis/Problems (1) Chest pain Assessment & Plan: Exact etiology unclear. On the one hand, this sounds like cardiac chest pain due to the exertional nature of the chest discomfort. She had 2 undetectable troponin levels. Her nuclear stress test was normal. I suspect this could be noncardiac chest pain, possibly due to gastroesophageal reflux disease or musculoskeletal disorder. I recommend she continue on double the dose of her proton pump inhibitor. From a cardiac standpoint, the patient can be discharged home at this time. I have asked the hospital staff to schedule her an appointment to see me in the office in approximately 1 month. (2) Abnormal electrocardiogram Assessment & Plan: She has a borderline abnormal electrocardiogram but no evidence of a prior infarct or ischemia at rest. However, her nuclear stress test was normal. As such, no additional cardiac testing is indicated for this borderline abnormality at this point in time. (3) Primary hypertension Assessment & Plan: Continue outpatient antihypertensive medication. (4) Mixed hyperlipidemia Assessment & Plan: Continue rosuvastatin. (5) Cigarette smoker Assessment & Plan: She needs to quit smoking. She has been counseled in this regard. Problem Qualifiers (1) Chest pain: Chest pain type: other chest pain Qualified Codes: R07.89 - Other chest pain DIANNA CORMIER JR, MD Jun 15, 2022 14:54
[2022-06-16] MEDS ORDERED: lisINopril 10 MG (PRINIVIL) TABLET PO SCH (09:00)
[2022-06-16] MEDS ORDERED: ROSUVASTATIN 10 MG (CRESTOR) TABLET PO SCH (09:00)
[2022-06-16] MEDS ORDERED: ASPIRIN E.C. 81 MG (ECOTRIN) TAB PO SCH (09:00)
== END 2022-06-15 16:15 | disposition home or self-care (01) ==
LOC: EDUNIT# 09:31 → ER 09:33 → CSD 13:14
PROVIDERS: ADMIT Family Medicine; ATTEND Family Medicine
DX: R07.9 Chest pain, unspecified (principal); R94.31 Abnormal electrocardiogram [ECG] [EKG]; I10 Essential (primary) hypertension; E78.2 Mixed hyperlipidemia; F17.210 Nicotine dependence, cigarettes, uncomplicated; Z79.899 Other long term (current) drug therapy
CPT/HCPCS: 71045; 78452; 80048; 80053; 80061; 83735; 83874; 84443; 84484; 85025; 85027; 85610; 85730; 93005; 93017; 93041; 99284; A9502; C8929; G0378; 36415; 93306